=== PATIENT | female | born 1965 | race Caucasian/White ===

== ENCOUNTER 2022-09-21 09:29 | Outpatient (CLI) | payer OTHER | END 2022-09-21 09:50 | disposition home or self-care (01) | LOC: LABPAT 09:29 | PROVIDERS: ATTEND Orthopaedic Surgery Hand Surgery | DX: Z53.9 Procedure and treatment not carried out, unspecified reason (principal) ==

== ENCOUNTER 2022-10-06 11:53 | Day surgery (SDC) | payer OTHER ==
[2022-10-04 10:44] VITALS: BMI 36.6
--- NOTE | 2022-10-04 13:26 | P.HPOR ---
History of Present Illness H&P Date: 10/04/22 Chief Complaint: Right thumb trigger finger, right carpal tunnel syndrome Subjective: This is a 56 year old female that presents today for follow up evaluation regarding follow up of her bilateral hand numbness and EMG/NCV results. Her symptoms are still present and are slightly worse on the right. Her thumb, index, middle and ring finger are involved in her paresthesias. She also complains of a month long history or worsening pain, locking, catching and clicking of the thumb that is worse in the morning. She has tried splinting with little relief. Physical Examination: RUE: AIN/PIN/Radial/Ulnar/Median motor intact. Radial/Ulnar/Median SILT. 2+/4 Radial/Ulnar pulses palpated. Positive Durkan's compression. TTP over thumb A1 abl with locking/ catching. LUE: AIN/PIN/Radial/Ulnar/Median motor intact. Radial/Ulnar/Median SILT. 2+/4 Radial/Ulnar pulses palpated. Positive Durkan's compression test. Imaging: EMG/NCV of B/L Upper extremities from 08/16/22 demonstrate bilateral carpal tunnel syndrome, moderate on the left, moderate/severe on right Impression: 1.) B/L Carpal tunnel syndrome 2.) Right thumb trigger finger Plan: Diagnosis and treatment options were discussed with the patient. I recommend surgical intervention due to the length and severity of her symptoms in the form of a right endoscopic vs open carpal tunnel release and right thumb A1 bal release. Risks and benefits of surgery including bleeding, infection, damage to surrounding tissue, need for further surgery, possible need to convert to open procedure, residual numbness were discussed and the patient wished to go forward with surgery. The patient was agreeable with this plan of action. Follow up: 2 weeks post op -Ash Bueno DO Orthopedic Hand/Upper Extremity Surgeon Past Medical History Past Medical History: COPD, Eye Disorder, GERD/Reflux, Hyperlipidemia, Hypertension, Osteoarthritis (OA) Additional Past Medical History / Comment(s): glaucoma History of Any Multi-Drug Resistant Organisms: None Reported Past Surgical History: Orthopedic Surgery, Tubal Ligation Additional Past Surgical History / Comment(s): bunionectomy-lt. LT KNEE SX. COLONOSCOPY Past Anesthesia/Blood Transfusion Reactions: Postoperative Nausea & Vomiting (PONV) Smoking Status: Former smoker - Past Family History Mother Family Medical History: CVA/TIA Father History Unknown: Yes Family Medical History: Cancer, Myocardial Infarction ([place]) Medications and Allergies Home Medications Medication Instructions Recorded Confirmed Type Latanoprost [Xalatan 0.005%] 1 drop BOTH EYES HS 08/30/16 10/04/22 History Albuterol Sulfate [Ventolin HFA] 1 - 2 puff INHALATION Q6H PRN 10/04/22 10/04/22 History Aspirin EC [Ecotrin Low Dose] 81 mg PO DAILY 10/04/22 10/04/22 History Atorvastatin [Lipitor] 40 mg PO HS 10/04/22 10/04/22 History Azithromycin [Zithromax] 250 mg PO MOWEFR 10/04/22 10/04/22 History Celecoxib [CeleBREX] 200 mg PO DAILY 10/04/22 10/04/22 History Dorzolamide 2% [Trusopt 2%] 1 drops BOTH EYES DAILY 10/04/22 10/04/22 History Fluticasone/Umeclidin/Vilanter 1 inhalation INHALATION DAILY 10/04/22 10/04/22 History [Trelegy Ellipta 100-62.5-25] Metoprolol Tartrate 12.5 mg PO DAILY 10/04/22 10/04/22 History Omeprazole 20 mg PO BID 10/04/22 10/04/22 History Allergies Allergy/AdvReac Type Severity Reaction Status Date / Time codeine Allergy Anaphylaxis Verified 10/04/22 10:23 hydrocodone Allergy Anaphylaxis Verified 10/04/22 10:23 Penicillins AdvReac Nausea & Verified 10/04/22 10:23 Vomiting Physical Examination Osteopathic Statement: *. No significant issues noted on an osteopathic structural exam other than those noted in the History and Physical/Consult.
[~2022-10-06 11:53] MED LIST: DEXAMETHASONE SOD PHOSPHATE 4 MG/ML 1 ML VIAL IV ONE; LACTATED RINGERS 1,000 ML IV SCH; MIDAZOLAM 2 MG/2 ML VIAL IV PRN; ONDANSETRON 4 MG/2 ML VIAL IVP ONE; Pre Op ABX Message 1 EACH MISC MISCELLANE ONE; SCOPOLAMINE 1 MG/72 HR PATCH TRANSDERM ONE; fentaNYL (PF) 50 MCG/ML 2 ML AMP IV PRN
[2022-10-06 12:26] VITALS: TEMP 97.8
[2022-10-06] MEDS ORDERED: MIDAZOLAM 2 MG/2 ML VIAL ONE (12:55)
[2022-10-06] MEDS ORDERED: fentaNYL (PF) 50 MCG/ML 2 ML AMP ONE (12:55)
[2022-10-06] MEDS ORDERED: LIDOCAINE 2% INJ 20 MG/ML (2 ML VIAL) ONE (12:55)
[2022-10-06] MEDS ORDERED: PROPOFOL 10 MG/ML 20 ML VIAL IV ONE (12:55)
[2022-10-06] MEDS ORDERED: LIDOCAINE 2% (PF) 20 MG/ML 10 ML AMP SQ ONE (12:59)
[2022-10-06] MEDS ORDERED: BUPIVACAINE (PF) 0.5% 30 ML VIAL SQ ONE (12:59)
--- NOTE | 2022-10-06 13:27 | P.OP ---
Date of Procedure: 10/06/22 Preoperative Diagnosis: 1.) Right carpal tunnel syndrome 2.) Right trigger thumb Postoperative Diagnosis: 1.) Right carpal tunnel syndrome 2.) Right trigger thumb Procedure(s) Performed: 1.) Right endoscopic carpal tunnel release 2.) Right trigger thumb A1 bal release Anesthesia: MAC Surgeon: Ash Bueno Electrician Supervisor #1: Mark Matos Estimated Blood Loss (ml): 0 Pathology: none sent Condition: stable Disposition: PACU Description of Procedure: This is a 56 year old female who presents today for a right endoscopic carpal tunnel release and right trigger thumb A1 bal release after having failed conservative treatment in the past. Risks and benefits of surgery were discussed with the patient including bleeding, damage to surrounding tissue, infection, need to convert to open procedure, need for further surgery as well as risks of anesthesia including pulmonary embolism and even and the patient wished to proceed with surgical intervention. The patients was seen in the pre-operative area by myself. Consent and H&P were completed and updated. The correct extremity was marked in the pre-operative area by myself and all other questions were answered. Operative Narrative: The patient was brought to the operating room by the department of anesthesia. They remained on the portable stretcher and a rolling hand table was brought to the side of the operative extremity. Pre-operative time out was performed indicating the correct patient, procedure and laterality. All in the room agreed. The patient was then drifted off to sleep by the department of anesthesia. MAC anesthesia was utilized and a 50:50 mixture of 1% Lidocaine and 0.5% bupivacaine was injected into the subcutaneous tissues of the palmar skin, 8ccs total. A nonsterile tourniquet was then applied to the operative extremity and the right upper extremity was then prepped and draped in normal sterile fashion. The operative extremity was the exsanguinated with an esmarch bandage and the tourniquet was inflated to 250mmHg. Transverse incision was made at the base of the thumb overlying the A1 bal. Blunt dissection was taken down to the level of the A1 bal. Ragnell retractors were placed both radially and ulnarly to protect neurovascular bundles. Littler tenotomy scissors were then used to release the A1 bal from proximal to distal under direct visualization. Proximal fascial attachments were released. The tendon was then taken through range of motion and no locking or catching was appreciated. The wound was then closed with interrupted 4-0 nylon sutures in a horizontal mattress fashion. 15 blade scalpel was utilized to make a transverse incision on the palmar skin just ulnar to the palmaris longus tendon at the level of the distal wrist crease. Ragnell retractor was then placed radially and blunt dissection was performed to reveal the distal forearm fascia. This was lifted with fine Jose Francisco pick ups and Littler tenotomy scissors were then used to open the forearm fascia transversely and a double skin hook was then placed. Hamate finder was placed into the carpal tunnel and then sequential sized dilators were inserted followed by the synovial elevator to separate the flexor tenosynovium from the undersurface of the transverse carpal ligament and a washboard texture was felt. The [employer] endoscopic carpal tunnel release system gun was the then inserted into the carpal tunnel hugging the deep portion of the transverse carpal ligament in line with the base of the ring finger. Transverse fibers of the ligament were directly visualized. Pressure was applied on the palm to reveal the distal extent of the transverse carpal ligament. The blade was then deployed and the distal half of the transverse carpal ligament was released. The scope was then brought distal again and remaining transverse fibers were incised with the blade. The proximal half of the transverse carpal ligament was then divided and again the scope was advanced distal and remaining transverse fibers were incised with the blade. The radial and ulnar leaflets were directly visualized and mobile consistent with complete release. Tenotomy scissors were then utilized to release the remaining distal forearm fascia under direct vi sualization taking care to preserve the palmar cutaneous branch of the median nerve. Skin closure was performed with interrupted 4-0 Monocryl suture followed by Mastisol and steri strips. Sterile dressing was applied consisting of adaptic, 4x4s, Webril, and an tigre bandage. Tourniquet was let down and the hand immediately was well perfused. The patient was then woken by the department of anesthesia and transferred to PACU in stable condition. Mark BOOTHE was present for the case in its entirety and assisted in major portions of the case and protection of vital neurovascular structures. Ash Bueno D.O. Orthopedic Hand/Upper Extremity Surgeon
[2022-10-06 13:47] VITALS: BP 119/83; PULSE 83; RESP 14
== END 2022-10-06 14:04 | disposition home or self-care (01) ==
LOC: OR 11:53
PROVIDERS: ATTEND Orthopaedic Surgery Hand Surgery
DX: G56.03 Carpal tunnel syndrome, bilateral upper limbs (principal); M65.311 Trigger thumb, right thumb; J44.9 Chronic obstructive pulmonary disease, unspecified; E78.5 Hyperlipidemia, unspecified; I10 Essential (primary) hypertension; M19.90 Unspecified osteoarthritis, unspecified site; F41.9 Anxiety disorder, unspecified; K21.9 Gastro-esophageal reflux disease without esophagitis; Z86.69 Personal history of other diseases of the nervous system and sense organs; Z98.51 Tubal ligation status; Z98.890 Other specified postprocedural states; Z87.891 Personal history of nicotine dependence; Z82.3 Family history of stroke; Z82.49 Family history of ischemic heart disease and other diseases of the circulatory system; Z79.899 Other long term (current) drug therapy; Z79.51 Long term (current) use of inhaled steroids; Z79.82 Long term (current) use of aspirin; Z79.1 Long term (current) use of non-steroidal anti-inflammatories (NSAID); Z79.02 Long term (current) use of antithrombotics/antiplatelets; Z79.2 Long term (current) use of antibiotics; Z79.810 Long term (current) use of selective estrogen receptor modulators (SERMs); Z88.5 Allergy status to narcotic agent; Z88.0 Allergy status to penicillin
CPT/HCPCS: 29848; 26055; J2250; J1100; J2001 ×2; J2405; J3010; J2704

== ENCOUNTER 2023-11-30 16:21 | Observation (INO) | payer OTHER ==
--- NOTE | 2023-11-30 16:44 | ED ---
General Adult HPI - General Stated complaint: chest pain Time Seen by Provider: 11/30/23 16:43 Source: patient, RN notes reviewed - History of Present Illness Initial comments: 57-year-old female presents to the emergency department for evaluation of left- sided chest pressure. She states that this started today around noon. Has been constant since that time associated with shortness of breath. She has had similar episodes in the past. Medical history significant for COPD, hypertension. She has had no prior cardiac events. She follows with Dr. Cuevas for her blood pressure. - Related Data Home Medications Medication Instructions Recorded Confirmed Latanoprost [Xalatan 0.005%] 1 drop BOTH EYES HS 08/30/16 11/30/23 Albuterol Sulfate [Ventolin HFA] 1 - 2 puff INHALATION RT-Q6H PRN 10/04/22 11/30/23 Aspirin EC [Ecotrin Low Dose] 81 mg PO DAILY 10/04/22 11/30/23 Azithromycin [Zithromax] 250 mg PO MOTUWE 10/04/22 11/30/23 Celecoxib [CeleBREX] 200 mg PO DAILY 10/04/22 11/30/23 Dorzolamide 2% [Trusopt 2%] 1 drop BOTH EYES BID 10/04/22 11/30/23 Fluticasone/Umeclidin/Vilanter 1 puff INHALATION RT-DAILY 10/04/22 11/30/23 [Trelegy Ellipta 100-62.5-25] Omeprazole 20 mg PO BID 10/04/22 11/30/23 Fenofibrate Nanocrystallized 48 mg PO HS 11/30/23 11/30/23 [Fenofibrate] Losartan [Cozaar] 25 mg PO DAILY 11/30/23 11/30/23 Rosuvastatin Calcium [Crestor] 40 mg PO HS 11/30/23 11/30/23 Allergies Allergy/AdvReac Type Severity Reaction Status Date / Time codeine Allergy Anaphylaxis Verified 11/30/23 20:40 hydrocodone Allergy Anaphylaxis Verified 11/30/23 20:40 Penicillins AdvReac Yeast Verified 11/30/23 20:40 infections Review of Systems ROS Statement: Those systems with pertinent positive or pertinent negative responses have been documented in the HPI. ROS Other: All systems not noted in ROS Statement are negative. Past Medical History Past Medical History: COPD, Eye Disorder, GERD/Reflux, Hyperlipidemia, Hypertension, Osteoarthritis (OA) Additional Past Medical History / Comment(s): glaucoma History of Any Multi-Drug Resistant Organisms: None Reported Past Surgical History: Orthopedic Surgery, Tubal Ligation Additional Past Surgical History / Comment(s): bunionectomy-lt. LT KNEE SX. CO LONOSCOPY Past Anesthesia/Blood Transfusion Reactions: Postoperative Nausea & Vomiting (PONV) Smoking Status: Former smoker - Past Family History Mother Family Medical History: CVA/TIA Father History Unknown: Yes Family Medical History: Cancer, Myocardial Infarction ([place]) General Exam Limitations: no limitations General appearance: alert, in no apparent distress Head exam: Present: atraumatic, normocephalic, normal inspection Eye exam: Present: normal appearance, PERRL, EOMI. Absent: scleral icterus, conjunctival injection, periorbital swelling ENT exam: Present: normal exam, mucous membranes moist Neck exam: Present: normal inspection. Absent: tenderness, meningismus, lymphadenopathy Respiratory exam: Present: normal lung sounds bilaterally. Absent: respiratory distress, wheezes, rales, rhonchi, stridor Cardiovascular Exam: Present: regular rate, normal rhythm, normal heart sounds. Absent: systolic murmur, diastolic murmur, rubs, gallop, clicks GI/Abdominal exam: Present: soft, normal bowel sounds. Absent: distended, tenderness, guarding, rebound, rigid Extremities exam: Present: normal inspection, full ROM, normal capillary refill. Absent: tenderness, pedal edema, joint swelling, calf tenderness Back exam: Present: normal inspection Neurological exam: Present: alert, oriented X3 Psychiatric exam: Present: normal affect, normal mood Skin exam: Present: warm, dry, intact, normal color. Absent: rash Course Vital Signs 11/30/23 11/30/23 17:14 21:00 Temperature 97.8 F Pulse Rate 95 82 Respiratory 18 18 Rate Blood Pressure 121/82 122/82 O2 Sat by Pulse 98 96 Oximetry Medical Decision Making - Medical Decision Making Quick note preformed by Angélica Barroso PA-C Was pt. sent in by a medical professional or institution ([facility] Castaneda, DEMURRAGE CLERK, urgent care, hospital, or usp...) When possible be specific @ -No Did you speak to anyone other than the patient for history (EMS, parent, family, police, friend...)? What history was obtained from this source @ -No Did you review nursing and triage notes (agree or disagree)? Why? @ -I reviewed and agree with nursing and triage notes Were old charts reviewed (outside hosp., previous admission, EMS record, old EKG, old radiological studies, urgent care reports/EKG's, usp records)? Report findings @ -No old charts were reviewed Differential Diagnosis (chest pain, altered mental status, abdominal pain women, abdominal pain men, vaginal bleeding, weakness, fever, dyspnea, syncope, headache, dizziness, GI bleed, back pain, seizure, CVA, palpatations, mental he alth, musculoskeletal)? @ -Differential Chest Pain: Stable Angina, Unstable Angina, STEMI, NSTEMI Aortic Dissection, Pneumothorax, Musculoskeletal, Esophageal Spasm GERD, Cholecystitis, Pancreatitis, Zoster, this is not meant to be an all-inclusive list. EKG interpreted by me (3pts min.). @ -EKG at 1643 shows sinus rhythm rate 96, MN 146, QRS 77, QTQTc [id number] X-rays interpreted by me (1pt min.). @ -Chest x-ray obtained shows no acute process CT interpreted by me (1pt min.). @ -CT chest for PE shows no evidence of PE U/S interpreted by me (1pt. min.). @ -None done What testing was considered but not performed or refused? (CT, X-rays, U/S, labs)? Why? @ -None What meds were considered but not given or refused? Why? @ -None Did you discuss the management of the patient with other professionals (professionals i.e. , PA, DEMURRAGE CLERK, lab, RT, psych nurse, web content & social media manager, gage designer, teacher, strategic intelligence officer, rifle case repairer)? Give summary @ -Management discussed with Joce Nicolas with [facility] hospitalist who is accepting of the admission Was smoking cessation discussed for >3mins.? @ -No Was critical care preformed (if so, how long)? @ -No Were there social determinants of health that impacted care today? How? (Homelessness, low income, unemployed, alcoholism, drug addiction, t ransportation, low edu. Level, literacy, decrease access to med. care, nursing home, rehab)? @ -No Was there de-escalation of care discussed even if they declined (Discuss DNR or withdrawal of care, Hospice)? DNR status @ -No What co-morbidities impacted this encounter? (DM, HTN, Smoking, COPD, CAD, Cance r, CVA, ARF, Chemo, Hep., AIDS, mental health diagnosis, sleep apnea, morbid obesity)? @ -Hypertension, COPD Was patient admitted / discharged? Hospital course, mention meds given and route, prescriptions, significant lab abnormalities, going to OR and other pertinent info. @ -Admitted for observation. Patient presented to the emergency department for evaluation of left-sided chest pain. Past medical history significant for COPD, hypertension. Laboratory studies obtained. CBC unremarkable. D-dimer elevated at 1.01. CMP shows sodium 140, potassium 4.0, creatinine 0.73 negative initial troponin and negative repeat troponin. Chest x-ray shows no acute process. CT chest obtained which shows no evidence of PE. Patient will be admitted for chest pain observation with cardiology consultation. Case discussed with Joce Nicolas with [facility] who is accepting of the admission Undiagnosed new problem with uncertain prognosis? @ -No Drug Therapy requiring intensive monitoring for toxicity (Heparin, Nitro, Insulin, Cardizem)? @ -No Were any procedures done? @ -No Diagnosis/symptom? @ -Chest pain Acute, or Chronic, or Acute on Chronic? @ -Acute Uncomplicated (without systemic symptoms) or Complicated (systemic symptoms)? @ -uncomplicated Side effects of treatment? @ -No Exacerbation, Progression, or Severe Exacerbation? @ -No Poses a threat to life or bodily function? How? (Chest pain, [place], [place], pneumonia, PE, COPD, DKA, ARF, appy, cholecystitis, CVA, Diverticulitis, Homicidal, S uicidal, threat to staff... and all critical care pts) @ -No - Lab Data Result diagrams: 11/30/23 16:58 11/30/23 16:58 Lab Results 11/30/23 11/30/23 11/30/23 Range/Units 16:58 16:58 16:58 WBC 8.6 (3.8-10.6) k/uL RBC 5.14 (3.80-5.40) m/uL Hgb 15.3 (11.4-16.0) gm/dL Hct 45.2 (34.0-46.0) % MCV 88.0 (80.0-100.0) fL MCH 29.7 (25.0-35.0) pg MCHC 33.8 (31.0-37.0) g/dL RDW 13.2 (11.5-15.5) % Plt Count 257 (150-450) k/uL MPV 7.4 Neutrophils % 73 % Lymphocytes % 19 % Monocytes % 6 % Eosinophils % 1 % Basophils % 0 % Neutrophils # 6.2 (1.3-7.7) k/uL Lymphocytes # 1.6 (1.0-4.8) k/uL Monocytes # 0.5 (0-1.0) k/uL Eosinophils # 0.1 (0-0.7) k/uL Basophils # 0.0 (0-0.2) k/uL PT 10.3 (10.0-12.5) sec INR 0.9 (<1.2) APTT 24.8 (22.0-30.0) sec D-Dimer (<0.60) mg/L FEU Sodium 140 (137-145) mmol/L Potassium 4.0 (3.5-5.1) mmol/L Chloride 105 (98-107) mmol/L Carbon Dioxide 22 (22-30) mmol/L Anion Gap 13 mmol/L BUN 17 (7-17) mg/dL Creatinine 0.79 (0.52-1.04) mg/dL Est GFR (CKD-EPI)AfAm >90 (>60 ml/min/1.73 sqM) Est GFR (CKD-EPI)NonAf 85 (>60 ml/min/1.73 sqM) Glucose 97 (74-99) mg/dL Calcium 10.9 H (8.4-10.2) mg/dL Magnesium 2.0 (1.6-2.3) mg/dL Total Bilirubin 0.7 (0.2-1.3) mg/dL AST 31 (14-36) U/L ALT 27 (4-34) U/L Alkaline Phosphatase 92 (38-126) U/L Troponin I (0.000-0.034) ng/mL Total Protein 8.5 H (6.3-8.2) g/dL Albumin 5.5 H (3.5-5.0) g/dL 11/30/23 11/30/2324 Range/Units 16:58 16:58 19:47 WBC (3.8-10.6) k/uL RBC (3.80-5.40) m/uL Hgb (11.4-16.0) gm/dL Hct (34.0-46.0) % MCV (80.0-100.0) fL MCH (25.0-35.0) pg MCHC (31.0-37.0) g/dL RDW (11.5-15.5) % Plt Count (150-450) k/uL MPV Neutrophils % % Lymphocytes % % Monocytes % % Eosinophils % % Basophils % % Neutrophils # (1.3-7.7) k/uL Lymphocytes # (1.0-4.8) k/uL Monocytes # (0-1.0) k/uL Eosinophils # (0-0.7) k/uL Basophils # (0-0.2) k/uL PT (10.0-12.5) sec INR (<1.2) APTT (22.0-30.0) sec D-Dimer 1.01 H (<0.60) mg/L FEU Sodium (137-145) mmol/L Potassium (3.5-5.1) mmol/L Chloride (98-107) mmol/L Carbon Dioxide (22-30) mmol/L Anion Gap mmol/L BUN (7-17) mg/dL Creatinine (0.52-1.04) mg/dL Est GFR (CKD-EPI)AfAm (>60 ml/min/1.73 sqM) Est GFR (CKD-EPI)NonAf (>60 ml/min/1.73 sqM) Glucose (74-99) mg/dL Calcium (8.4-10.2) mg/dL Magnesium (1.6-2.3) mg/dL Total Bilirubin (0.2-1.3) mg/dL AST (14-36) U/L ALT (4-34) U/L Alkaline Phosphatase (38-126) U/L Troponin I <0.012 <0.012 (0.000-0.034) ng/mL Total Protein (6.3-8.2) g/dL Albumin (3.5-5.0) g/dL Disposition Clinical Impression: Chest pain Disposition: ADMITTED IP TO THIS HOSP Condition: Stable Is patient prescribed a controlled substance at d/c from ED?: No
--- NOTE | 2023-11-30 17:12 | XR ---
EXAMINATION TYPE: XR chest 2V DATE OF EXAM: 11/30/2023 5:09 PM CLINICAL INDICATION:Female, 57 years old with history of Chest Pain; [facility] COMPARISON: Chest radiographs from 09/17/2016 TECHNIQUE: XR chest 2V Frontal and lateral views of the chest. FINDINGS: Lungs/Pleura: There is flattening of the diaphragm with increased lucency of the lungs. No evidence o f pneumothorax, pleural effusion or focal consolidation. Pulmonary vascularity: Unremarkable. Heart/mediastinum: Cardiomediastinal silhouette is unremarkable. Musculoskeletal: No acute osseous pathology. Other findings: None IMPRESSION: 1. No acute cardiopulmonary disease process. 2. COPD changes.
[2023-11-30 17:33] LABS: Basophils % (A) 0 %; Eosinophils # (A) 0.1 k/uL (0-0.7); Eosinophils % (A) 1 %; HCT 45.2 % (34.0-46.0); HGB 15.3 gm/dL (11.4-16.0); Lymphocytes # (A) 1.6 k/uL (1.0-4.8); Lymphocytes % (A) 19 %; MCH 29.7 pg (25.0-35.0); MCHC 33.8 g/dL (31.0-37.0); Mean Platelet Volume 7.4; Monocytes # (A) 0.5 k/uL (0-1.0); Monocytes % (A) 6 %; Neutrophils # (A) 6.2 k/uL (1.3-7.7); Neutrophils % (A) 73 %; Platelet Count 257 k/uL (150-450); RBC 5.14 m/uL (3.80-5.40); RDW 13.2 % (11.5-15.5); WBC 8.6 k/uL (3.8-10.6)
[2023-11-30 17:44] LABS: ALT 27 U/L (4-34); AST 31 U/L (14-36); African American GFR (CKD) >90 (>60 ml/min/1.73 sqM); Albumin 5.5 g/dL (3.5-5.0); Alkaline Phosphatase 92 U/L (38-126); Anion Gap 13 mmol/L; Blood Urea Nitrogen 17 mg/dL (7-17); Calcium 10.9 mg/dL (8.4-10.2); Carbon Dioxide 22 mmol/L (22-30); Chloride 105 mmol/L (98-107); Glucose 97 mg/dL (74-99); Non-African American GFR(CKD) 85 (>60 ml/min/1.73 sqM); Sodium 140 mmol/L (137-145); Total Bilirubin 0.7 mg/dL (0.2-1.3); Total Protein 8.5 g/dL (6.3-8.2)
[2023-11-30 17:50] LABS: INR 0.9 (<1.2); Partial Thromboplastin Time 24.8 sec (22.0-30.0); Prothrombin Time 10.3 sec (10.0-12.5)
[2023-11-30] MEDS ORDERED: KETOROLAC 15 MG/ML 1 ML VIAL IVP STA (21:08)
--- NOTE | 2023-11-30 21:11 | CT ---
EXAMINATION TYPE: CT chest angio for PE CT DLP: 476.3 mGycm, Automated exposure control for dose reduction was used. DATE OF EXAM: 11/30/2023 8:41 PM COMPARISON: 08/30/2016 CLINICAL INDICATION:Female, 57 years old with history of chest pain, dyspnea, elevated dimer; chest p ain and elevated d-dimer TECHNIQUE/CONTRAST: CTA scan of the thorax is performed with IV Contrast, patient injected with 61ml mL of Isovue 370, NE P images are created and reviewed these are created on a separate workstation.. FINDINGS: Pulmonary Artery: There is no evidence for a filling defect within the pulmonary vasculature to sugge st acute pulmonary embolism. The pulmonary artery is of normal size. Lungs/Pleura: Paraseptal and centrilobular emphysema changes are seen throughout the lungs. Right upper lung ground glass opacities redemonstrated close proximity to each other measuring 6 and 6 mm series 411 image 36 and 38. The more medial of which appears new from prior in 2016. Groundglass opacity is also present in the right middle lobe which is increased in size now measuring 8 mm, prev iously 3 mm series 411 image 83. Intrafissural lymph node series 411 image 87. In the left major fiss ure No evidence of focal consolidation, pleural effusion or pneumothorax. Airway: Large airways are patent. Heart: Heart is within normal limits for size. Vasculature: No evidence of aortic aneurysm. Mediastinum: No gross evidence of adenopathy. Small hiatal hernia. Musculoskeletal: No acute osseous abnormalities Soft Tissues: Unremarkable. Lower neck: No significant findings. Upper Abdomen: No significant findings. IMPRESSION: 1. No evidence of pulmonary embolism. 2. A few scattered groundglass pulmonary nodules yearly surveillance of these nodules is recommended as some have increased in size from 2016 and may represent minimally invasive bronchiolo short-term f ollow-up in 3-6 months recommended alveolar carcinoma. 3. Moderate emphysema. 4. Small hiatal hernia. Follow up recommendations for incidental pulmonary nodules, if there are any, are per [employer] or [employer].
[2023-11-30] MEDS ORDERED: KETOROLAC 15 MG/ML 1 ML VIAL IVP PRN (21:24)
[2023-11-30] MEDS ORDERED: MORPHINE SULFATE 4 MG/ML SYRINGE IV PRN (21:24)
[2023-11-30] MEDS ORDERED: NALOXONE 0.4 MG/ML 1 ML VIAL IV PRN (21:24)
[2023-11-30] MEDS ORDERED: ACETAMINOPHEN TAB 325 MG TAB PO PRN (21:24)
[2023-11-30] MEDS ORDERED: IBUPROFEN 400 MG TAB PO PRN (21:24)
[2023-11-30] MEDS ORDERED: LATANOPROST 0.005% OPHTH DROPS 2.5 ML BTL BOTH EYES SCH (23:15)
[2023-11-30] MEDS ORDERED: FENOFIBRATE 54 MG TAB PO SCH (23:30)
[2023-11-30] MEDS ORDERED: ATORVASTATIN 80 MG TAB PO SCH (23:30)
[2023-11-30] MEDS: PANTOPRAZOLE 40 MG TABLET PO SCH (23:34)
[2023-12-01] MEDS ORDERED: ALBUTEROL NEBULIZED 2.5 MG/3 ML INHALATION PRN (02:00)
[2023-12-01] MEDS ORDERED: SYMBICORT 80-4.5 MCG INHALER INHALATION SCH (08:00)
[2023-12-01] MEDS ORDERED: IPRATROPIUM-ALBUTEROL 3 ML NEB INHALATION PRN (08:00)
[2023-12-01] MEDS: PANTOPRAZOLE 40 MG TABLET PO SCH (08:19)
[2023-12-01] MEDS ORDERED: MELOXICAM 7.5 MG TAB PO SCH (09:00)
[2023-12-01] MEDS ORDERED: METOPROLOL SUCCINATE (ER) 25 MG TAB.ER.24H PO SCH (09:00)
[2023-12-01] MEDS ORDERED: DORZOLAMIDE HCL 2% DROPS 10 ML BTL BOTH EYES SCH (09:00)
[2023-12-01] MEDS ORDERED: ASPIRIN 81 MG PO SCH (09:00)
[2023-12-01] MEDS ORDERED: LOSARTAN 25 MG TAB PO SCH (09:00)
--- NOTE | 2023-12-01 09:54 | P.CRDCN ---
History of Present Illness History of present illness: HISTORY OF PRESENT ILLNESS: This is a 57-year-old female with a past medical history significant for mild CAD, hypertension, COPD, GERD, and former nicotine dependence. Patient follows in the office with Dr. Cuevas. We have been asked to see the patient in consultation for chest pain. Patient examined at the bedside. Patient presented to the hospital yesterday with a chief complaint of palpitations. She states that she has been feeling her heart racing once or twice a week recently. She reports when this happens her chest feels tight as well. She reports the palpitations are random and can occur when she is just sitting down. She states the palpitations sometimes wake her up from a sleep as well. She reports that she has been using her albuterol inhaler more frequently and thinks her palpitations may be related to that. She reports chronic shortness of breath that is not any worse than her baseline. She states that she was at [facility] on November 14 for palpitations. She states that she was discharged from the emergency room and did not undergo any cardiac workup such as an echocardiogram or stress test. DIAGNOSTICS: - EKG reveals sinus mechanism with no signs of acute ischemia. - Chest xray negative for acute process. COPD changes. - Chest CTA: Negative for pulmonary embolism. A few scattered groundglass pulmonary nodules. Moderate emphysema. Small hiatal hernia. - Laboratory data: WBC 8.6. Hemoglobin 15.3. Platelet count 257. D-dimer 1.01. Sodium 140. Potassium 4.0. BUN 17. Creatinine 0.79. Magnesium 2.0. Troponin negative x 3. - Current home cardiac medications include losartan 25 mg daily and rosuvastatin 40 mg at night - Most recent echocardiogram obtained in February 2023 revealed ejection fraction 55 to 60%, mild MR, mild TR - Patient underwent Lexiscan stress test in February 2023 which was negative for ischemia REVIEW OF SYSTEMS: At the time of my exam: CONSTITUTIONAL: Denies fever or chills. HEENT: Denies blurred vision, vision changes, or eye pain. Denies hemoptysis CARDIOVASCULAR: Denies chest pain. Denies orthopnea. Denies PND. Denies palpitations RESPIRATORY: Denies shortness of breath. GASTROINTESTINAL: Denies abdominal pain. Denies nausea or vomiting. HEMATOLOGIC: Denies bleeding disorders. GENITOURINARY: Denies any blood in urine. SKIN: Denies pruitis. Denies rash. PHYSICAL EXAM: VITAL SIGNS: Reviewed. GENERAL: Well-developed in no acute distress. HEENT: Head is normocephalic. Pupils are equal, round. Sclerae anicteric. Mucous membranes of the mouth are moist. Neck supple. No JVD or thyromegaly LUNGS: Respirations even and unlabored. Lungs essentially clear to auscultation bilaterally. HEART: Regular rate and rhythm. S1 and S2 heard. ABDOMEN: Soft. Nondistended. Nontender. EXTREMITIES: Normal range of motion. No clubbing or cyanosis. Peripheral pulses intact. No lower extremity edema NEUROLOGIC: Awake and alert. Oriented x 3. ASSESSMENT: Palpitations with recent increased albuterol use Atypical chest pain, likely secondary to above, troponin negative x 3 Pulmonary nodules, Per CTA Hypertension History of COPD History of mild nonobstructive CAD GERD Former nicotine dependence PLAN: An acute coronary event has been ruled out Resume home cardiac medications Add metoprolol succinate 25 mg daily Recommend patient follow-up postdischarge with her jewelry designer due to increa sed use of her albuterol inhaler and pulmonary nodules Patient may be discharged home today from a cardiac standpoint Patient to receive a 14-day event monitor from [facility] today She is to follow-up with Dr. Cuevas in 3 weeks Nurse practitioner note has been reviewed by physician. Signing provider agrees with the documented findings, assessment, and plan of care documented by AIRPLANE CAPTAIN as a scribe. Past Medical History Past Medical History: COPD, Eye Disorder, GERD/Reflux, Hyperlipidemia, Hypertension, Osteoarthritis (OA) Additional Past Medical History / Comment(s): glaucoma History of Any Multi-Drug Resistant Organisms: None Reported Past Surgical History: Orthopedic Surgery, Tubal Ligation Additional Past Surgical History / Comment(s): bunionectomy-lt. LT KNEE SX. COLONOSCOPY. Carpal tunnel surgery on right hand. Past Anesthesia/Blood Transfusion Reactions: Postoperative Nausea & Vomiting (PONV) Past Psychological History: Anxiety Smoking Status: Former smoker Past Alcohol Use History: None Reported Additional Past Alcohol Use History / Comment(s): QUIT SMOKING 01/2017 Past Drug Use History: None Reported - Past Family History Mother Family Medical History: CVA/TIA Father History Unknown: Yes Family Medical History: Cancer, Myocardial Infarction ([place]) Medications and Allergies Home Medications Medication Instructions Recorded Confirmed Type Latanoprost [Xalatan 0.005%] 1 drop BOTH EYES HS 08/30/16 11/30/23 History Albuterol Sulfate [Ventolin HFA] 1 - 2 puff INHALATION RT-Q6H PRN 10/04/22 11/30/23 History Aspirin EC [Ecotrin Low Dose] 81 mg PO DAILY 10/04/22 11/30/23 History Azithromycin [Zithromax] 250 mg PO MOTUWE 10/04/22 11/30/23 History Celecoxib [CeleBREX] 200 mg PO DAILY 10/04/22 11/30/23 History Dorzolamide 2% [Trusopt 2%] 1 drop BOTH EYES BID 10/04/22 11/30/23 History Fluticasone/Umeclidin/Vilanter 1 puff INHALATION RT-DAILY 10/04/22 11/30/23 History [Trelegy Ellipta 100-62.5-25] Omeprazole 20 mg PO BID 10/04/22 11/30/23 History Fenofibrate Nanocrystallized 48 mg PO HS 11/30/23 11/30/23 History [Fenofibrate] Losartan [Cozaar] 25 mg PO DAILY 11/30/23 11/30/23 History Rosuvastatin Calcium [Crestor] 40 mg PO HS 11/30/23 11/30/23 History Allergies Allergy/AdvReac Type Severity Reaction Status Date / Time codeine Allergy Anaphylaxis Verified 11/30/23 20:40 hydrocodone Allergy Anaphylaxis Verified 11/30/23 20:40 Penicillins AdvReac Yeast Verified 11/30/23 20:40 infections Physical Exam Vitals: Vital Signs Temp Pulse Pulse Resp BP BP Pulse Ox 12/01/23 08:03 98 12/01/23 07:00 97.7 F 67 18 110/71 96 12/01/23 02:04 97.5 F L 73 15 107/74 99 11/30/23 22:39 98.2 F 84 15 141/61 96 11/30/23 21:00 82 18 122/82 96 11/30/23 17:14 97.8 F 95 18 121/82 98 Intake and Output 11/30/23 12/01/23 12/01/23 22:59 06:59 14:59 Other: Voiding Method Toilet Weight 90.718 kg Results 11/30/23 16:58 11/30/23 16:58 Cardiac Enzymes 11/30/23 11/30/23 11/30/23 Range/Units 16:58 16:58 19:47 AST 31 (14-36) U/L Troponin I <0.012 <0.012 (0.000-0.034) ng/mL 11/30/23 Range/Units 23:15 AST (14-36) U/L Troponin I <0.012 (0.000-0.034) ng/mL Coagulation 11/30/23 Range/Units 16:58 PT 10.3 (10.0-12.5) sec APTT 24.8 (22.0-30.0) sec CBC 11/30/23 Range/Units 16:58 WBC 8.6 (3.8-10.6) k/uL RBC 5.14 (3.80-5.40) m/uL Hgb 15.3 (11.4-16.0) gm/dL Hct 45.2 (34.0-46.0) % Plt Count 257 (150-450) k/uL Comprehensive Metabolic Panel 11/30/23 Range/Units 16:58 Sodium 140 (137-145) mmol/L Potassium 4.0 (3.5-5.1) mmol/L Chloride 105 (98-107) mmol/L Carbon Dioxide 22 (22-30) mmol/L BUN 17 (7-17) mg/dL Creatinine 0.79 (0.52-1.04) mg/dL Glucose 97 (74-99) mg/dL Calcium 10.9 H (8.4-10.2) mg/dL AST 31 (14-36) U/L ALT 27 (4-34) U/L Alkaline Phosphatase 92 (38-126) U/L Total Protein 8.5 H (6.3-8.2) g/dL Albumin 5.5 H (3.5-5.0) g/dL Current Medications Generic Name Dose Route Start Last Admin Trade Name Freq PRN Reason Stop Dose Admin Acetaminophen 650 mg 11/30/23 21:24 Acetaminophen Tab 325 Mg Tab PO Q6HR PRN Mild Pain or Fever > 100.5 Albuterol Sulfate 2.5 mg 12/01/23 02:00 Albuterol Nebulized 2.5 Mg/3 Ml INHALATION RT-Q6H PRN COPD Albuterol/Ipratropium 3 ml 12/01/23 08:00 Ipratropium-Albuterol 3 Ml Neb INHALATION RT-QID PRN Shortness Of Breath Or Wheezing Aspirin 81 mg 12/01/23 09:00 12/01/23 08:20 Aspirin 81 Mg PO 81 mg DAILY DEXTER Administration Atorvastatin Calcium 80 mg 11/30/23 23:30 11/30/23 23:34 Atorvastatin 80 Mg Tab PO 80 mg HS DEXTER Administration Budesonide/Formoterol Fumarate 2 puff 12/01/23 08:00 12/01/23 08:03 Symbicort 80-4.5 Mcg Inhaler INHALATION 2 puff RT-BID DEXTER Administration Dorzolamide HCl 1 drops 12/01/23 09:00 12/01/23 08:19 Dorzolamide Hcl 2% Drops 10 Ml Btl BOTH EYES 1 drops BID DEXTER Administration Fenofibrate 54 mg 11/30/23 23:30 11/30/23 23:34 Fenofibrate 54 Mg Tab PO 54 mg HS DEXTER Administration Ibuprofen 400 mg 11/30/23 21:24 Ibuprofen 400 Mg Tab PO Q6HR PRN Mild Pain or Fever > 100.5 Ketorolac Tromethamine 15 mg 11/30/23 21:24 Ketorolac 15 Mg/Ml 1 Ml Vial IVP 12/03/23 21:25 Q6HR PRN Moderate Pain (Scale 4 to 6) Latanoprost 1 drops 11/30/23 23:15 11/30/23 23:34 Latanoprost 0.005% Ophth Drops 2.5 Ml Btl BOTH EYES 1 drops HS DEXTER Administration Losartan Potassium 25 mg 12/01/23 09:00 12/01/23 08:19 Losartan 25 Mg Tab PO 25 mg DAILY DEXTER Administration Meloxicam 7.5 mg 12/01/23 09:00 12/01/23 08:17 Meloxicam 7.5 Mg Tab PO 7.5 mg DAILY DEXTER Administration Metoprolol Succinate 25 mg 12/01/23 09:00 12/01/23 08:24 Metoprolol Succinate (Er) 25 Mg Tab.Er.24h PO 25 mg DAILY DEXTER Administration Morphine Sulfate 4 mg 11/30/23 21:24 Morphine Sulfate 4 Mg/Ml Syringe IV Q4HR PRN Severe Pain (Scale 7 to 10) Naloxone HCl 0.2 mg 11/30/23 21:24 Naloxone 0.4 Mg/Ml 1 Ml Vial IV Q2M PRN Opioid Reversal Pantoprazole Sodium 40 mg 11/30/23 23:30 12/01/23 08:19 Pantoprazole 40 Mg Tablet PO 40 mg BID DEXTER Administration Intake and Output 11/30/23 12/01/23 12/01/23 22:59 06:59 14:59 Other: Voiding Method Toilet Weight 90.718 kg 11/30/23 16:58 11/30/23 16:58
--- NOTE | 2023-12-01 12:27 | CA ---
Transthoracic Echo Report Name: Love Levy Age: 57 Gender: F : 1965 Exam Date: 12/01/2023 09:19 Exam Location: [facility] Ht (in): 62 Wt (lb): 200 Ordering Physician: Maria G Peters NPC Attending/Referring Phys: Bernadette Peñaloza NPC Magistrate Assistant Lila Hammer RDCS Procedure CPT: Indications: LV function, CP, palpitations Cardiac Hx: Technical Quality: Fair Contrast 1: Total Dose (mL): Contrast 2: Total Dose (mL): MEASUREMENTS (Male / Female) Normal Values 2D ECHO LV Diastolic Diameter PLAX 4.1 cm 4.2 - 5.9 / 3.9 - 5.3 cm LV Systolic Diameter PLAX 2.7 cm IVS Diastolic Thickness 1.1 cm 0.6 - 1.0 / 0.6 - 0.9 cm LVPW Diastolic Thickness 1.2 cm 0.6 - 1.0 / 0.6 - 0.9 cm LV Relative Wall Thickness 0.6 RV Internal Dim ED PLAX 3.5 cm LA Systolic Diameter LX 3.4 cm 3.0 - 4.0 / 2.7 - 3.8 cm LV Diastolic Volume MOD 4C 87.9 cm??? LV Systolic Volume MOD 4C 29.0 cm??? LV Ejection Fraction MOD 4C 67.0 % LV Cardiac Index MOD 4C 1881.4 cm???/min???m??? LV Diastolic Length 4C 7.6 cm LV Systolic Length 4C 6.2 cm LV Diastolic Volume MOD 2C 49.2 cm??? LV Systolic Volume MOD 2C 20.2 cm??? LV Ejection Fraction MOD 2C 58.9 % LV Cardiac Index MOD 2C 924.9 cm???/min???m??? LV Diastolic Length 2C 7.5 cm LV Systolic Length 2C 6.4 cm LA Volume 45.3 cm??? 18 - 58 / 22 - 52 cm??? LA Volume Index 22.2 cm???/m??? 16 - 28 cm???/m??? M-MODE Aortic Root Diameter MM 3.0 cm MV E Point Septal Separation 0.7 cm AV Cusp Separation MM 1.7 cm DOPPLER AV Peak Velocity 150.0 cm/s AV Peak Gradient 9.0 mmHg MV Area PHT 2.6 cm??? Mitral E Point Velocity 75.0 cm/s Mitral A Point Velocity 84.2 cm/s Mitral E to A Ratio 0.9 MV Deceleration Time 293.6 ms MV E' Velocity 9.1 cm/s Mitral E to MV E' Ratio 8.3 TR Peak Velocity 231.9 cm/s TR Peak Gradient 21.5 mmHg Right Ventricular Systolic Press 26.5 mmHg FINDINGS Left Ventricle Left ventricular ejection fraction is estimated at 55-60 %. Left ventricular cavity size normal. Mild concentric LVH. No obvious regional wall motion abnormality Right Ventricle Mild right ventricular dilatation. Right ventricular systolic pressure within normal limits. Right Atrium Normal right atrial size. Left Atrium Normal left atrial size. Mitral Valve Structurally normal mitral valve. No mitral stenosis, regurgitation or prolapse. Aortic Valve Trileaflet aortic valve. No aortic valve stenosis or regurgitation. Tricuspid Valve Structurally normal tricuspid valve. Mild tricuspid regurgitation. Pulmonic Valve Pulmonic valve not well visualized. No pulmonic regurgitation. Pericardium No pericardial effusion. Aorta Normal size aortic root and proximal ascending aorta. CONCLUSIONS Left ventricular ejection fraction is estimated at 55-60 %. Mild concentric LVH. No obvious regional wall motion abnormality. No significant valvular dysfunction No significant chamber size abnormality No pericardial effusion Previewed by: Dr Markus Woo (Electronically Signed) Final Date: 01 December 2023 12:27
[2023-12-01 14:09] VITALS: BP 111/74; PULSE 77; RESP 16; TEMP 97.3
--- NOTE | 2023-12-01 14:54 | P.HPIM ---
History of Present Illness H&P Date: 12/01/23 This is a 57-year-old female who presented to the emergency department with chest pain and palpitations with left-sided chest pressure that started yesterday and was constant with continued fluttery feeling and did not subside. Patient also reports to having previous episodes in the past and associated shortness of breath. Patient reports she underwent stress testing earlier this summer and was within normal limits. Patient follows with Bernadette Peñaloza in the outpatient setting with a past medical history of COPD, eye disorder, GERD, hyperlipidemia, hypertension, osteoarthritis. Patient also follows with Dr. Cuevas in the outpatient setting as her industrial gas servicer and Dr. Telles as her telesales specialist. Patient is a former smoker and denies any other illicit drug use with no reported alcohol use. Chest x-ray showed COPD with no acute cardiopulmonary disease process, CTA showed no evidence of PE with a few scattered groundglass pulmonary nodules and these nodules appear to have slightly increased in size from 2016 recommending short-term follow-up in 3 to 6 months with moderate emphysema and a small hiatal hernia. EKG showed sinus rhythm with a heart rate of 96 bpm. Cardiology was consulted and ordered 2D echo which showed LV systolic function estimated EF of 55 to 60% with mild concentric left ventricular hypertrophy with no obvious regional wall motion abnormalities with some mild right ventricular dilatation and no significant abnormalities with no pericardial effusion noted. Labs reviewed and within normal limits other than the mildly elevated D-dimer of 1.01 which patient did undergo CTA which was negative for PE. Sodium was 140 with a potassium of 4.0, BUN was 17, creatinine 0.79, calcium mildly elevated at 10.9, magnesium was 2.0, liver functions within normal limits, troponins x 3 were negative. Patient was continued on telemetry monitoring with no obvious abnormalities or arrhythmias noted and has been cleared for discharge to follow-up with her industrial gas servicer in the outpatient setting and also to go to the cardiology's office today on dis charge to have an event monitor placed with close outpatient follow-up. REVIEW OF SYSTEMS: CONSTITUTIONAL: No fever, no malaise, no fatigue. HEENT: No recent visual problems or hearing problems. Denied any sore throat. CARDIOVASCULAR: Reports of chest pain, orthopnea, PND, reports occasional pa lpitations or flutters, no syncope. PULMONARY: No shortness of breath, no cough, no hemoptysis. GASTROINTESTINAL: No diarrhea, reports feeling slightly nauseated, no vomiting, no abdominal pain. NEUROLOGICAL: No headaches, no weakness, no numbness. HEMATOLOGICAL: Denies any bleeding or petechiae. GENITOURINARY: Denies any burning micturition, frequency, or urgency. MUSCULOSKELETAL/RHEUMATOLOGICAL: Denies any joint pain, swelling, or any muscle pain. ENDOCRINE: Denies any polyuria or polydipsia. The rest of the 14-point review of systems is negative. PHYSICAL EXAMINATION: GENERAL: The patient is alert and oriented x3. Well developed, well nourished. Obese HEENT: Pupils are round and equally reacting to light. EOMI. No scleral icterus. No conjunctival pallor. Normocephalic, atraumatic. No pharyngeal erythema. No thyromegaly. CARDIOVASCULAR: S1 and S2 muffled PULMONARY: Chest is clear to auscultation, no wheezing or crackles. ABDOMEN: Soft, obese. Nontender, nondistended, normoactive bowel sounds. No palpable organomegaly. MUSCULOSKELETAL: No joint swelling or deformity. EXTREMITIES: No cyanosis, clubbing, or pedal edema. NEUROLOGICAL: Gross neurological examination did not reveal any focal deficits. SKIN: No rashes. Assessment: Chest pain, ruled out ACS, troponins x 3 were negative Palpitations, likely secondary to increased albuterol use Pulmonary nodules per CTA noted and will have patient follow-up with Dr. Telles her telesales specialist in the outpatient setting Elevated D-dimer, ruled out PE History of COPD Hypertension history GERD Hyperlipidemia History of anxiety Former smoker Obesity with a BMI of 36.6 GI prophylaxis DVT prophylaxis Full code Plan: Patient was admitted for cardiology evaluation underwent 2D echo within normal limits and continued on telemetry monitoring with no abnormalities noted. Cardiology recommending an event monitor be placed on discharge and patient has been instructed to report to the cardiology office to have this placed with close outpatient follow-up with her industrial gas servicer Dr. Cuevas Patient did have an elevated D-dimer and underwent CTA which was negative for PE although there are groundglass nodules noted that have changed in size since 2016 recommend outpatient follow-up with her telesales specialist Dr. Telles. Patient reports she was never told of any abnormalities and again reiterated and instructed the patient to follow-up with pulmonary this week Patient has been cleared by cardiology for discharge today and patient will be discharged today. The impression and plan of care has been dictated by Olga Gimenez, Nurse Practitioner as directed. Dr. Esme MD I have performed a history and examination and MDM of this patient, discussed the same with the dictator, and agree with the dictator's assessment and plan as written ,documented as a scribe. Based on total visit time, I have performed more than 50% of the visit. Past Medical History Past Medical History: COPD, Eye Disorder, GERD/Reflux, Hyperlipidemia, H ypertension, Osteoarthritis (OA) Additional Past Medical History / Comment(s): glaucoma History of Any Multi-Drug Resistant Organisms: None Reported Past Surgical History: Orthopedic Surgery, Tubal Ligation Additional Past Surgical History / Comment(s): bunionectomy-lt. LT KNEE SX. COLONOSCOPY. Carpal tunnel surgery on right hand. Past Anesthesia/Blood Transfusion Reactions: Postoperative Nausea & Vomiting (PONV) Past Psychological History: Anxiety Smoking Status: Former smoker Past Alcohol Use History: None Reported Additional Past Alcohol Use History / Comment(s): QUIT SMOKING 01/2017 Past Drug Use History: None Reported - Past Family History Mother Family Medical History: CVA/TIA Father History Unknown: Yes Family Medical History: Cancer, Myocardial Infarction ([place]) Medications and Allergies Home Medications Medication Instructions Recorded Confirmed Type Latanoprost [Xalatan 0.005%] 1 drop BOTH EYES HS 08/30/16 11/30/23 History Albuterol Sulfate [Ventolin HFA] 1 - 2 puff INHALATION RT-Q6H PRN 10/04/22 11/30/23 History Aspirin EC [Ecotrin Low Dose] 81 mg PO DAILY 10/04/22 11/30/23 History Azithromycin [Zithromax] 250 mg PO MOTUWE 10/04/22 11/30/23 History Celecoxib [CeleBREX] 200 mg PO DAILY 10/04/22 11/30/23 History Dorzolamide 2% [Trusopt 2%] 1 drop BOTH EYES BID 10/04/22 11/30/23 History Fluticasone/Umeclidin/Vilanter 1 puff INHALATION RT-DAILY 10/04/22 11/30/23 History [Trelegy Ellipta 100-62.5-25] Omeprazole 20 mg PO BID 10/04/22 11/30/23 History Fenofibrate Nanocrystallized 48 mg PO HS 11/30/23 11/30/23 History [Fenofibrate] Losartan [Cozaar] 25 mg PO DAILY 11/30/23 11/30/23 History Rosuvastatin Calcium [Crestor] 40 mg PO HS 11/30/23 11/30/23 History Acetaminophen Tab [Tylenol] 650 mg PO Q6HR PRN tab 12/01/23 Rx Metoprolol Succinate (ER) [Toprol 25 mg PO DAILY #30 tab 12/01/23 Rx XL] Allergies Allergy/AdvReac Type Severity Reaction Status Date / Time codeine Allergy Anaphylaxis Verified 11/30/23 20:40 hydrocodone Allergy Anaphylaxis Verified 11/30/23 20:40 Penicillins AdvReac Yeast Verified 11/30/23 20:40 infections Physical Exam Vitals: Vital Signs Temp Pulse Pulse Resp BP BP Pulse Ox 12/01/23 08:03 98 12/01/23 07:00 97.7 F 67 18 110/71 96 12/01/23 02:04 97.5 F L 73 15 107/74 99 11/30/23 22:39 98.2 F 84 15 141/61 96 11/30/23 21:00 82 18 122/82 96 11/30/23 17:14 97.8 F 95 18 121/82 98 Intake and Output 11/30/23 12/01/23 12/01/23 22:59 06:59 14:59 Other: Voiding Method Toilet Weight 90.718 kg Results CBC & Chem 7: 11/30/23 16:58 11/30/23 16:58 Labs: Abnormal Lab Results - Last 24 Hours (Table) 11/30/23 11/30/23 Range/Units 16:58 16:58 D-Dimer 1.01 H (<0.60) mg/L FEU Calcium 10.9 H (8.4-10.2) mg/dL Total Protein 8.5 H (6.3-8.2) g/dL Albumin 5.5 H (3.5-5.0) g/dL Thrombosis Risk Factor Assmnt - Choose All That Apply Any of the Below Risk Factors Present?: Yes Each Factor Represents 1 point: Abnormal pulmonary function (COPD), Age 41-60 years, Obesity (BMI >25) Other Risk Factors: No Other congenital or acquired thrombophilia - If yes, enter type in comment: No Thrombosis Risk Factor Assessment Total Risk Factor Score: 3 Thrombosis Risk Factor Assessment Level: Moderate Risk
--- NOTE | 2023-12-04 11:16 | P.DS ---
Providers Date of admission: 11/30/23 21:07 Expected date of discharge: 12/01/23 Attending physician: Junior Samson Consults: 11/30/23 21:24 Consult Physician Routine Consulting Provider: Stone Cuevas Consult Reason/Comments: chest pain Do you want consulting provider notified?: Yes, Notify in am Primary care physician: Neal Byers Hospital Course: Final diagnosis Chest pain, ruled out ACS, troponins x 3 were negative Palpitations, likely secondary to increased albuterol use Pulmonary nodules per CTA noted and will have patient follow-up with Dr. Telles her exterior interior specialist in the outpatient setting Elevated D-dimer, ruled out PE History of COPD Hypertension history GERD Hyperlipidemia History of anxiety Former smoker Obesity with a BMI of 36.6 GI prophylaxis DVT prophylaxis Full code Discharge disposition Patient is being discharged in a stable condition with guarded prognosis to home. Patient will follow-up with Dr. Byers in the outpatient setting upon discharge. Patient is to continue with current medications and close outpatient follow-up with cardiology as scheduled. Patient to go to cardiology office today to have event monitor placed. Total time taken is greater than 35 minutes. Hospital course This is a 57-year-old female who presented to the emergency department with chest pain and palpitations with left-sided chest pressure that started yesterday and was constant with continued fluttery feeling and did not subside. Patient also reports to having previous episodes in the past and associated shortness of breath. Patient reports she underwent stress testing earlier this summer and was within normal limits. Patient follows with Bernadette Peñaloza in the outpatient setting with a past medical history of COPD, eye disorder, GERD, hyperlipidemia, hypertension, osteoarthritis. Patient also follows with Dr. Cuevas in the outpatient setting as her post acute care nurse and Dr. Telles as her exterior interior specialist. Patient is a former smoker and denies any other illicit drug use with no reported alcohol use. Chest x-ray showed COPD with no acute cardiopulmonary disease process, CTA showed no evidence of PE with a few scattered groundglass pulmonary nodules and these nodules appear to have slightly increased in size from 2016 recommending short-term follow-up in 3 to 6 months with moderate emphysema and a small hiatal hernia. EKG showed sinus rhythm with a heart rate of 96 bpm. Cardiology was consulted and ordered 2D echo which showed LV systolic function estimated EF of 55 to 60% with mild concentric left ventricular hypertrophy with no obvious regional wall motion abnormalities with some mild right ventricular dilatation and no significant abnormalities with no pericardial effusion noted. Labs reviewed and within normal limits other than the mildly elevated D-dimer of 1.01 which patient did undergo CTA which was negative for PE. Sodium was 140 with a potassium of 4.0, BUN was 17, creatinine 0.79, calcium mildly elevated at 10.9, magnesium was 2.0, liver functions within normal limits, troponins x 3 were negative. Patient was continued on telemetry monitoring with no obvious abnormalities or arrhythmias noted and has been cleared for discharge to follow-up with her post acute care nurse in the outpatient setting and also to go to the cardiology's office today on discharge to have an event monitor placed with close outpatient follow-up. Currently no reports of chest pain, shortness of breath, or palpitations. Patient is afebrile. No reports of nausea or vomiting and patient is tolerating diet. Patient will be discharged home and high risk for readmission. PHYSICAL EXAMINATION: GENERAL: The patient is alert and oriented x3. Well developed, well nourished. Obese HEENT: Pupils are round and equally reacting to light. EOMI. No scleral icterus. No conjunctival pallor. Normocephalic, atraumatic. No pharyngeal erythema. No thyromegaly. CARDIOVASCULAR: S1 and S2 muffled PULMONARY: Chest is clear to auscultation, no wheezing or crackles. ABDOMEN: Soft, obese. Nontender, nondistended, normoactive bowel sounds. No palpable organomegaly. MUSCULOSKELETAL: No joint swelling or deformity. EXTREMITIES: No cyanosis, clubbing, or pedal edema. NEUROLOGICAL: Gross neurological examination did not reveal any focal deficits. SKIN: No rashes. Please refer to medication reconciliation sheet for a list of medications. The impression and plan of care has been dictated by Olga Gimenez, Nurse Practitioner as directed. Dr. Esme MD I have performed a history and examination and MDM of this patient, discussed the same with the dictator, and agree with the dictator's assessment and plan as written ,documented as a scribe. Based on total visit time, I have performed more than 50% of the visit. Patient Condition at Discharge: Stable Plan - Discharge Summary New Discharge Prescriptions: New Metoprolol Succinate (ER) [Toprol XL] 25 mg PO DAILY #30 tab Acetaminophen Tab [Tylenol] 650 mg PO Q6HR PRN tab PRN Reason: Mild Pain Or Fever > 100.5 Continue Latanoprost [Xalatan 0.005%] 1 drop BOTH EYES HS Azithromycin [Zithromax] 250 mg PO MOTUWE Albuterol Sulfate [Ventolin HFA] 1 - 2 puff INHALATION RT-Q6H PRN PRN Reason: COPD Celecoxib [CeleBREX] 200 mg PO DAILY Omeprazole 20 mg PO BID Fluticasone/Umeclidin/Vilanter [Trelegy Ellipta 100-62.5-25] 1 puff INHALATION RT-DAILY Fenofibrate Nanocrystallized [Fenofibrate] 48 mg PO HS Rosuvastatin Calcium [Crestor] 40 mg PO HS Dorzolamide 2% [Trusopt 2%] 1 drop BOTH EYES BID Aspirin EC [Ecotrin Low Dose] 81 mg PO DAILY Losartan [Cozaar] 25 mg PO DAILY Discharge Medication List Latanoprost [Xalatan 0.005%] 1 drop BOTH EYES HS 08/30/16 [History] Albuterol Sulfate [Ventolin HFA] 1 - 2 puff INHALATION RT-Q6H PRN 10/04/22 [History] Aspirin EC [Ecotrin Low Dose] 81 mg PO DAILY 10/04/22 [History] Azithromycin [Zithromax] 250 mg PO MOTUWE 10/04/22 [History] Celecoxib [CeleBREX] 200 mg PO DAILY 10/04/22 [History] Dorzolamide 2% [Trusopt 2%] 1 drop BOTH EYES BID 10/04/22 [History] Fluticasone/Umeclidin/Vilanter [Trelegy Ellipta 100-62.5-25] 1 puff INHALATION RT-DAILY 10/04/22 [History] Omeprazole 20 mg PO BID 10/04/22 [History] Fenofibrate Nanocrystallized [Fenofibrate] 48 mg PO HS 11/30/23 [History] Losartan [Cozaar] 25 mg PO DAILY 11/30/23 [History] Rosuvastatin Calcium [Crestor] 40 mg PO HS 11/30/23 [History] Acetaminophen Tab [Tylenol] 650 mg PO Q6HR PRN tab 12/01/23 [Rx] Metoprolol Succinate (ER) [Toprol XL] 25 mg PO DAILY #30 tab 12/01/23 [Rx] Follow up Appointment(s)/Referral(s): Josue Telles MD [Family Provider] - 12/09/23 2:00 pm Stone Cuevas MD [STAFF PHYSICIAN] - 12/22/23 11:30 am Neal Byers [Primary Care Provider] - 1-2 days Patient Instructions/Handouts: Chest Pain (DC) Activity/Diet/Wound Care/Special Instructions: Patient to pickle processor 14 day event monitor from [facility] after being discharged today Activity limited until follow-up Continue taking medication as prescribed Follow-up with cardiology in 1 to 2 weeks Follow-up with pulmonary outpatient Follow-up with primary care provider on discharge Discharge Disposition: HOME SELF-CARE
== END 2023-12-01 14:42 | disposition home or self-care (01) ==
LOC: EC 16:21 → 6NMEDSUR 21:07
PROVIDERS: ADMIT Hospitalist; ATTEND Hospitalist
DX: R07.89 Other chest pain (principal); R00.2 Palpitations; J44.9 Chronic obstructive pulmonary disease, unspecified; J43.9 Emphysema, unspecified; I11.9 Hypertensive heart disease without heart failure; I25.10 Atherosclerotic heart disease of native coronary artery without angina pectoris; R79.89 Other specified abnormal findings of blood chemistry; R91.8 Other nonspecific abnormal finding of lung field; K21.9 Gastro-esophageal reflux disease without esophagitis; M19.90 Unspecified osteoarthritis, unspecified site; K44.9 Diaphragmatic hernia without obstruction or gangrene; E78.5 Hyperlipidemia, unspecified; E66.9 Obesity, unspecified; Z68.36 Body mass index [BMI] 36.0-36.9, adult; F41.9 Anxiety disorder, unspecified; Z79.51 Long term (current) use of inhaled steroids; Z79.82 Long term (current) use of aspirin; Z79.1 Long term (current) use of non-steroidal anti-inflammatories (NSAID); Z79.899 Other long term (current) drug therapy; Z88.0 Allergy status to penicillin; Z88.5 Allergy status to narcotic agent; Z87.891 Personal history of nicotine dependence; Z82.3 Family history of stroke; Z82.49 Family history of ischemic heart disease and other diseases of the circulatory system
CPT/HCPCS: 96374; 99285; 36415; 94640; 94760; 93005; 93306; 85379; 80053; 83735; 84484; 85025; 85610; 85730; 71046; 71275; G0378 ×2; J1885; Q9967

== ENCOUNTER 2023-12-02 18:53 | Observation (INO) | payer OTHER ==
[2023-12-02] MEDS: ASPIRIN 81 MG PO STA (19:09)
--- NOTE | 2023-12-02 19:12 | ED ---
General Adult HPI - General Chief complaint: Chest Pain Stated complaint: chest pain Time Seen by Provider: 12/02/23 19:00 Source: patient, EMS, RN notes reviewed, old records reviewed Mode of arrival: EMS Limitations: no limitations - History of Present Illness Initial comments: This is a 57-year-old female who presents to the emergency department comp [facility] of chest pain which she states started on 14 November and she went to [facility] and they cleared her and sent her home. Patient states she was here couple days ago was admitted overnight echocardiogram which was normal she also had repeat troponins which were normal. Patient states she had a cardiac catheterization a couple years ago and they told her that was normal. Patient states today the chest pain was much worse radiated to her back she was somewhat short of breath mildly diaphoretic. Patient denies any recent fever chills or cough. Patient denies any swelling to the legs or calf tenderness. Patient [place] any abdominal pain patient denies any vomiting or diarrhea. - Related Data Home Medications Medication Instructions Recorded Confirmed Latanoprost [Xalatan 0.005%] 1 drop BOTH EYES HS 08/30/16 11/30/23 Albuterol Sulfate [Ventolin HFA] 1 - 2 puff INHALATION RT-Q6H PRN 10/04/22 11/30/23 Aspirin EC [Ecotrin Low Dose] 81 mg PO DAILY 10/04/22 11/30/23 Azithromycin [Zithromax] 250 mg PO MOTUWE 10/04/22 11/30/23 Celecoxib [CeleBREX] 200 mg PO DAILY 10/04/22 11/30/23 Dorzolamide 2% [Trusopt 2%] 1 drop BOTH EYES BID 10/04/22 11/30/23 Fluticasone/Umeclidin/Vilanter 1 puff INHALATION RT-DAILY 10/04/22 11/30/23 [Trelegy Ellipta 100-62.5-25] Omeprazole 20 mg PO BID 10/04/22 11/30/23 Fenofibrate Nanocrystallized 48 mg PO HS 11/30/23 11/30/23 [Fenofibrate] Losartan [Cozaar] 25 mg PO DAILY 11/30/23 11/30/23 Rosuvastatin Calcium [Crestor] 40 mg PO HS 11/30/23 11/30/23 Previous Rx's Medication Instructions Recorded Acetaminophen Tab [Tylenol] 650 mg PO Q6HR PRN tab 12/01/23 Metoprolol Succinate (ER) [Toprol 25 mg PO DAILY #30 tab 12/01/23 XL] Allergies Allergy/AdvReac Type Severity Reaction Status Date / Time codeine Allergy Anaphylaxis Verified 12/02/23 19:08 hydrocodone Allergy Anaphylaxis Verified 12/02/23 19:08 Penicillins AdvReac Yeast Verified 12/02/23 19:08 infections Review of Systems ROS Statement: Those systems with pertinent positive or pertinent negative responses have been documented in the HPI. ROS Other: All systems not noted in ROS Statement are negative. Past Medical History Past Medical History: COPD, Eye Disorder, GERD/Reflux, Hyperlipidemia, Hypertension, Osteoarthritis (OA) Additional Past Medical History / Comment(s): glaucoma History of Any Multi-Drug Resistant Organisms: None Reported Past Surgical History: Orthopedic Surgery, Tubal Ligation Additional Past Surgical History / Comment(s): bunionectomy-lt. LT KNEE SX. COLONOSCOPY. Carpal tunnel surgery on right hand. Past Anesthesia/Blood Transfusion Reactions: Postoperative Nausea & Vomiting (PONV) Past Psychological History: Anxiety Smoking Status: Former smoker Past Alcohol Use History: None Reported Past Drug Use History: None Reported - Past Family History Mother Family Medical History: CVA/TIA Father History Unknown: Yes Family Medical History: Cancer, Myocardial Infarction ([place]) General Exam - General Exam Comments Initial Comments: GENERAL: Patient is well-developed and well-nourished. Patient is nontoxic and well- hydrated and is in mild e distress. ENT: Neck is soft and supple. No significant lymphadenopathy is noted. Oropharynx is clear. Moist mucous membranes. Neck has full range of motion without eliciting any pain. EYES: The sclera were anicteric and conjunctiva were pink and moist. Extraocular movements were intact and pupils were equal round and reactive to light. Eyel ids were unremarkable. PULMONARY: Unlabored respirations. Good breath sounds bilaterally. No audible rales rhonchi or wheezing was noted. CARDIOVASCULAR: There is a regular rate and rhythm without any murmurs gallops or rubs. ABDOMEN: Soft and nontender with normal bowel sounds. SKIN: Skin is clear with no lesions or rashes and otherwise unremarkable. NEUROLOGIC: Patient is alert and oriented x3. Cranial nerves II through XII are grossly intact. Motor and sensory are also intact. Normal speech, volume and content. Symmetrical smile. MUSCULOSKELETAL: Normal extremities with adequate strength and full range of motion. No lower extremity swelling or edema. No calf tenderness. LYMPHATICS: No significant lymphadenopathy is noted PSYCHIATRIC: Patient is mildly anxious Limitations: no limitations Course Vital Signs 12/02/23 19:01 Pulse Rate 74 Respiratory 18 Rate Blood Pressure 140/85 O2 Sat by Pulse 96 Oximetry Medical Decision Making - Medical Decision Making EKG as interpreted by myself EKG shows a sinus rhythm at 73 bpm CA interval 113 QRS 75 QT interval 390 QTc is 415. Patient has some minimal ST segment depression in V3 through V6 as well as 3 and aVF Was pt. sent in by a medical professional or institution (, PA, COUNTY SUPERVISOR, urgent care, hospital, or detention...) When possible be specific @ -No Did you speak to anyone other than the patient for history (EMS, parent, family, police, friend...)? What history was obtained from this source @ -No Did you review nursing and triage notes (agree or disagree)? Why? @ -I reviewed and agree with nursing and triage notes Were old charts reviewed (outside hosp., previous admission, EMS record, old EKG, old radiological studies, urgent care reports/EKG's, detention records)? Report findings @ -I reviewed prior charts and prior lab work on this patient Differential Diagnosis (chest pain, altered mental status, abdominal pain women, abdominal pain men, vaginal bleeding, weakness, fever, dyspnea, syncope, headache, dizziness, GI bleed, back pain, seizure, CVA, palpatations, mental health, musculoskeletal)? @ -Differential Chest Pain: Stable Angina, Unstable Angina, STEMI, NSTEMI Aortic Dissection, Pneumothorax, Musculoskeletal, Esophageal Spasm GERD, Cholecystitis, Pancreatitis, Zoster, this is not meant to be an all-inclusive list. EKG interpreted by me (3pts min.). @ -As above X-rays interpreted by me (1pt min.). @ -Chest x-ray shows no acute abnormality CT interpreted by me (1pt min.). @ -None done U/S interpreted by me (1pt. min.). @ -None done What testing was considered but not performed or refused? (CT, X-rays, U/S, labs)? Why? @ -None What meds were considered but not given or refused? Why? @ -None Did you discuss the management of the patient with other professionals (professionals i.e. , PA, COUNTY SUPERVISOR, lab, RT, psych nurse, social worker psychiatric, funeral assistant, teacher, police officer crime prevention, community case manager)? Give summary @ -I spoke with [facility] hospitalist agreed admit the patient Was smoking cessation discussed for >3mins.? @ -No Was critical care preformed (if so, how long)? @ -No Were there social determinants of health that impacted care today? How? (Homelessness, low income, unemployed, alcoholism, drug addiction, transportation, low edu. Level, literacy, decrease access to med. care, usp, rehab)? @ -No Was there de-escalation of care discussed even if they declined (Discuss DNR or withdrawal of care, Hospice)? DNR status @ -No What co-morbidities impacted this encounter? (DM, HTN, Smoking, COPD, CAD, Cancer, CVA, ARF, Chemo, Hep., AIDS, mental health diagnosis, sleep apnea, morbid obesity)? @ -None Was patient admitted / discharged? Hospital course, mention meds given and route, prescriptions, significant lab abnormalities, going to OR and other pertinent info. @ -Patient was given Ativan in the emergency department he did feel considerably better. Patient did still complain of some chest heaviness. Lab work was normal chest x-ray is normal patient will be admitted and cardiology will be consulted Undiagnosed new problem with uncertain prognosis? @ -No Drug Therapy requiring intensive monitoring for toxicity (Heparin, Nitro, Insulin, Cardizem)? @ -No Were any procedures done? @ -No Diagnosis/symptom? @ -Chest pain Acute, or Chronic, or Acute on Chronic? @ -Acute Uncomplicated (without systemic symptoms) or Complicated (systemic symptoms)? @ -Complicated Side effects of treatment? @ -No Exacerbation, Progression, or Severe Exacerbation? @ -No Poses a threat to life or bodily function? How? (Chest pain, [place], [place], pneumonia, PE, COPD, DKA, ARF, appy, cholecystitis, CVA, Diverticulitis, Homicidal, Suicidal, threat to staff... and all critical care pts) @ -Yes this could lead to an IA and endorgan dysfunction - Lab Data Result diagrams: 12/02/23 19:15 12/02/23 19:15 Lab Results 12/02/23 12/02/23 12/02/23 Range/Units 19:15 19:15 19:15 WBC 7.7 (3.8-10.6) k/uL RBC 4.53 (3.80-5.40) m/uL Hgb 13.3 (11.4-16.0) gm/dL Hct 39.7 (34.0-46.0) % MCV 87.7 (80.0-100.0) fL MCH 29.4 (25.0-35.0) pg MCHC 33.5 (31.0-37.0) g/dL RDW 13.4 (11.5-15.5) % Plt Count 187 (150-450) k/uL MPV 8.2 Neutrophils % 70 % Lymphocytes % 20 % Monocytes % 7 % Eosinophils % 1 % Basophils % 0 % Neutrophils # 5.4 (1.3-7.7) k/uL Lymphocytes # 1.6 (1.0-4.8) k/uL Monocytes # 0.5 (0-1.0) k/uL Eosinophils # 0.1 (0-0.7) k/uL Basophils # 0.0 (0-0.2) k/uL PT 10.5 (10.0-12.5) sec INR 1.0 (<1.2) APTT 25.6 (22.0-30.0) sec Sodium 137 (137-145) mmol/L Potassium 4.0 (3.5-5.1) mmol/L Chloride 107 (98-107) mmol/L Carbon Dioxide 21 L (22-30) mmol/L Anion Gap 9 mmol/L BUN 20 H (7-17) mg/dL Creatinine 0.83 (0.52-1.04) mg/dL Est GFR (CKD-EPI)AfAm >90 (>60 ml/min/1.73 sqM) Est GFR (CKD-EPI)NonAf 80 (>60 ml/min/1.73 sqM) Glucose 104 H (74-99) mg/dL Calcium 9.4 (8.4-10.2) mg/dL Magnesium 1.8 (1.6-2.3) mg/dL Total Bilirubin 0.6 (0.2-1.3) mg/dL AST 29 (14-36) U/L ALT 24 (4-34) U/L Alkaline Phosphatase 71 (38-126) U/L Troponin I (0.000-0.034) ng/mL Total Protein 6.8 (6.3-8.2) g/dL Albumin 4.4 (3.5-5.0) g/dL Lipase 89 (23-300) U/L 12/02/23 Range/Units 19:15 WBC (3.8-10.6) k/uL RBC (3.80-5.40) m/uL Hgb (11.4-16.0) gm/dL Hct (34.0-46.0) % MCV (80.0-100.0) fL MCH (25.0-35.0) pg MCHC (31.0-37.0) g/dL RDW (11.5-15.5) % Plt Count (150-450) k/uL MPV Neutrophils % % Lymphocytes % % Monocytes % % Eosinophils % % Basophils % % Neutrophils # (1.3-7.7) k/uL Lymphocytes # (1.0-4.8) k/uL Monocytes # (0-1.0) k/uL Eosinophils # (0-0.7) k/uL Basophils # (0-0.2) k/uL PT (10.0-12.5) sec INR (<1.2) APTT (22.0-30.0) sec Sodium (137-145) mmol/L Potassium (3.5-5.1) mmol/L Chloride (98-107) mmol/L Carbon Dioxide (22-30) mmol/L Anion Gap mmol/L BUN (7-17) mg/dL Creatinine (0.52-1.04) mg/dL Est GFR (CKD-EPI)AfAm (>60 ml/min/1.73 sqM) Est GFR (CKD-EPI)NonAf (>60 ml/min/1.73 sqM) Glucose (74-99) mg/dL Calcium (8.4-10.2) mg/dL Magnesium (1.6-2.3) mg/dL Total Bilirubin (0.2-1.3) mg/dL AST (14-36) U/L ALT (4-34) U/L Alkaline Phosphatase (38-126) U/L Troponin I <0.012 (0.000-0.034) ng/mL Total Protein (6.3-8.2) g/dL Albumin (3.5-5.0) g/dL Lipase (23-300) U/L Disposition Clinical Impression: Chest pain Disposition: ADMITTED IP TO THIS HOSP Referrals: Neal Byers [Primary Care Provider] - 1-2 days Time of Disposition: 20:48
[2023-12-02] MEDS: NITROGLYCERIN OINT 1 INCH/GM PACKET TOPICAL STA (19:36)
[2023-12-02 19:38] LABS: Basophils % (A) 0 %; Eosinophils # (A) 0.1 k/uL (0-0.7); Eosinophils % (A) 1 %; HCT 39.7 % (34.0-46.0); HGB 13.3 gm/dL (11.4-16.0); Lymphocytes # (A) 1.6 k/uL (1.0-4.8); Lymphocytes % (A) 20 %; MCH 29.4 pg (25.0-35.0); MCHC 33.5 g/dL (31.0-37.0); MCV 87.7 fL (80.0-100.0); Mean Platelet Volume 8.2; Monocytes # (A) 0.5 k/uL (0-1.0); Monocytes % (A) 7 %; Neutrophils # (A) 5.4 k/uL (1.3-7.7); Neutrophils % (A) 70 %; Platelet Count 187 k/uL (150-450); RBC 4.53 m/uL (3.80-5.40); RDW 13.4 % (11.5-15.5); WBC 7.7 k/uL (3.8-10.6)
[2023-12-02] MEDS: LORazepam 2 MG/ML INJ IV STA (19:39)
[2023-12-02 19:49] LABS: ALT 24 U/L (4-34); AST 29 U/L (14-36); African American GFR (CKD) >90 (>60 ml/min/1.73 sqM); Albumin 4.4 g/dL (3.5-5.0); Alkaline Phosphatase 71 U/L (38-126); Anion Gap 9 mmol/L; Blood Urea Nitrogen 20 mg/dL (7-17); Calcium 9.4 mg/dL (8.4-10.2); Carbon Dioxide 21 mmol/L (22-30); Chloride 107 mmol/L (98-107); Glucose 104 mg/dL (74-99); Lipase 89 U/L (23-300); Magnesium 1.8 mg/dL (1.6-2.3); Non-African American GFR(CKD) 80 (>60 ml/min/1.73 sqM); Sodium 137 mmol/L (137-145); Total Bilirubin 0.6 mg/dL (0.2-1.3); Total Protein 6.8 g/dL (6.3-8.2)
[2023-12-02 19:50] LABS: Partial Thromboplastin Time 25.6 sec (22.0-30.0); Prothrombin Time 10.5 sec (10.0-12.5)
--- NOTE | 2023-12-02 20:22 | XR ---
EXAMINATION TYPE: XR chest 2V DATE OF EXAM: 12/02/2023 7:34 PM CLINICAL INDICATION:Female, 57 years old with history of Chest Pain; [facility] COMPARISON: Report only from CT chest angiogram for PE 11/30/2023. 2V chest x-ray 11/30/2023. TECHNIQUE: XR chest 2V. Frontal and lateral views of the chest.. FINDINGS: Lines/Tubes/Devices: EKG leads overlie the chest. No indwelling lines are seen. Electronic device, possibly loop recorder projects over the left upper chest. Heart/mediastinum: Heart size is normal. Mediastinum appears stable. Mildly tortuous aorta. Pulmonary vascularity: Not increased, Lungs/Pleura: Lungs again appear mildly hyperinflated with flattening of the hemidiaphragms suggestin g COPD. There is no evidence of pleural effusion, focal consolidation, or pneumothorax. Nodularity se en on prior CT not clearly identified, and would be best assessed by a follow-up CT when clinically w arranted. Musculoskeletal: No acute osseous abnormality demonstrated in the limits of the exam. Mild to modera te degenerative changes of the shoulders and spine. Other findings: None. IMPRESSION: Overall stable exam. No evidence of acute cardiopulmonary disease.
[2023-12-02] MEDS ORDERED: NITROGLYCERIN SL TABS 0.4 MG TAB SUBLINGUAL PRN (20:49)
[2023-12-02] MEDS: ACETAMINOPHEN TAB 500 MG TAB PO STA (22:24)
[2023-12-02] MEDS: NITROGLYCERIN OINT 1 INCH/GM PACKET TOPICAL SCH (23:23)
[2023-12-03] MEDS: IBUPROFEN 600 MG TAB PO STA (05:20)
[2023-12-03] MEDS ORDERED: ALBUTEROL NEBULIZED 2.5 MG/3 ML INHALATION PRN (05:53)
[2023-12-03] MEDS: METOPROLOL SUCCINATE (ER) 25 MG TAB.ER.24H PO SCH (08:27)
[2023-12-03] MEDS: ASPIRIN 325 MG TAB PO SCH (08:27)
[2023-12-03] MEDS: MELOXICAM 7.5 MG TAB PO SCH (08:27)
[2023-12-03] MEDS: PANTOPRAZOLE 40 MG TABLET PO SCH (08:27)
[2023-12-03] MEDS: ACETAMINOPHEN TAB 325 MG TAB PO PRN (09:00)
[2023-12-03] MEDS: SYMBICORT 80-4.5 MCG INHALER INHALATION SCH (09:06)
[2023-12-03] MEDS: IPRATROPIUM 0.5 MG/2.5 ML NEBU INHALATION SCH (09:07)
[2023-12-03] MEDS ORDERED: MAG HYDROX/AL HYDROX/SIMETH 30 ML CUP PO PRN (09:59)
[2023-12-03 13:31] LABS: Chol/HDL Ratio 3.83 Ratio; LDL Cholesterol,Calculated 84.6 mg/dL (0.0-131.0)
[2023-12-03] MEDS: DORZOLAMIDE HCL 2% DROPS 10 ML BTL BOTH EYES SCH (13:35)
--- NOTE | 2023-12-03 13:39 | P.HPIM ---
History of Present Illness H&P Date: 12/03/23 Chief Complaint: Chest pain * 57-year-old patient with past medical history significant for COPD, gastroesophageal flux disease, hypertension, hyperlipidemia Zentz to the emerg ency department with complaints of chest pain. Patient was recently admitted and was seen by cardiology during the hospitalization patient during previous hospitalization was noted to have elevated D-dimer and underwent CT angio chest which was negative for pulm embolism patient states show pulmonary nodules recommending outpatient follow-up pulmonary medicine. Patient had underwent 2D echocardiogram which was within normal limits during previous hospitalization patient was requested to follow-up with cardiology outpatient to get an event monitor. Patient states she went home however had recurrent chest pain that radiated to her back this was associated with diaphoresis patient denies any leg pain, fever, chills, cough. * Workup initiated in ER included a chest x-ray which was negative for acute cardiopulmonary process. * Initial EKG was obtained which showed sinus rhythm * Blood work obtained in ER included CBC which were essentially negative serum chemistry which were essentially negative serial troponins were obtained which were normal lipase within normal limits REVIEW OF SYSTEMS: Chest pain CONSTITUTIONAL: No fever, no malaise, no fatigue. HEENT: No recent visual problems or hearing problems. Denied any sore throat. CARDIOVASCULAR: Chest pain PULMONARY: No shortness of breath, no cough, no hemoptysis. GASTROINTESTINAL: No diarrhea, no nausea, no vomiting, no abdominal pain. NEUROLOGICAL: No headaches, no weakness, no numbness. HEMATOLOGICAL: Denies any bleeding or petechiae. GENITOURINARY: Denies any burning micturition, frequency, or urgency. MUSCULOSKELETAL/RHEUMATOLOGICAL: Denies any joint pain, swelling, or any muscle pain. ENDOCRINE: Denies any polyuria or polydipsia. PHYSICAL EXAMINATION: GENERAL: The patient is alert and oriented x3, not in any acute distress. Well developed, well nourished. HEENT: Pupils are round and equally reacting to light. EOMI CARDIOVASCULAR: S1 and S2 present. No murmurs, rubs, or gallops. PULMONARY: Chest is clear to auscultation, no wheezing or crackles. ABDOMEN: Soft, nontender, nondistended, normoactive bowel sounds. No palpable organomegaly. MUSCULOSKELETAL: No joint swelling or deformity. EXTREMITIES: No cyanosis, clubbing, or pedal edema. NEUROLOGICAL: Gross neurological examination did not reveal any focal deficits. SKIN: No rashes. Past Medical History Past Medical History: COPD, Eye Disorder, GERD/Reflux, Hyperlipidemia, Hypertension, Osteoarthritis (OA) Additional Past Medical History / Comment(s): glaucoma History of Any Multi-Drug Resistant Organisms: None Reported Past Surgical History: Orthopedic Surgery, Tubal Ligation Additional Past Surgical History / Comment(s): bunionectomy-lt. LT KNEE SX. COLONOSCOPY. Carpal tunnel surgery on right hand. Past Anesthesia/Blood Transfusion Reactions: Postoperative Nausea & Vomiting (PONV) Past Psychological History: Anxiety Smoking Status: Former smoker Past Alcohol Use History: None Reported Past Drug Use History: None Reported - Past Family History Mother Family Medical History: CVA/TIA Father History Unknown: Yes Family Medical History: Cancer, Myocardial Infarction ([place]) Medications and Allergies Home Medications Medication Instructions Recorded Confirmed Type Latanoprost [Xalatan 0.005%] 1 drop BOTH EYES HS 08/30/16 12/02/23 History Albuterol Sulfate [Ventolin HFA] 1 - 2 puff INHALATION RT-Q6H PRN 10/04/22 12/02/23 History Aspirin EC [Ecotrin Low Dose] 81 mg PO DAILY 10/04/22 12/02/23 History Azithromycin [Zithromax] 250 mg PO MOTUWE 10/04/22 12/02/23 History Celecoxib [CeleBREX] 200 mg PO DAILY 10/04/22 12/02/23 History Dorzolamide 2% [Trusopt 2%] 1 drop BOTH EYES BID 10/04/22 12/02/23 History Fluticasone/Umeclidin/Vilanter 1 puff INHALATION RT-DAILY 10/04/22 12/02/23 History [Trelegy Ellipta 100-62.5-25] Omeprazole 20 mg PO BID 10/04/22 12/02/23 History Fenofibrate Nanocrystallized 48 mg PO HS 11/30/23 12/02/23 History [Fenofibrate] Losartan [Cozaar] 25 mg PO DAILY 11/30/23 12/02/23 History Rosuvastatin Calcium [Crestor] 40 mg PO HS 11/30/23 12/02/23 History Acetaminophen Tab [Tylenol] 650 mg PO Q6HR PRN tab 12/01/23 12/02/23 Rx Metoprolol Succinate (ER) [Toprol 25 mg PO DAILY #30 tab 12/01/23 12/02/23 Rx XL] Allergies Allergy/AdvReac Type Severity Reaction Status Date / Time codeine Allergy Anaphylaxis Verified 12/02/23 22:12 hydrocodone Allergy Anaphylaxis Verified 12/02/23 22:12 Penicillins AdvReac Yeast Verified 12/02/23 22:12 infections Physical Exam Vitals: Vital Signs Temp Pulse Resp BP Pulse Ox 12/03/23 09:17 64 12/03/23 09:08 65 95 12/03/23 08:23 98 F 69 18 109/71 98 12/03/23 06:57 70 18 93/58 96 12/03/23 06:06 71 17 93/58 96 12/03/23 04:15 61 17 93/68 97 12/03/23 03:06 67 17 97/67 92 L 12/03/23 01:11 82 17 99/74 96 12/02/23 22:25 101 H 19 92/61 93 L 12/02/23 21:21 72 19 121/68 92 L 12/02/23 19:01 74 18 140/85 96 Intake and Output 12/02/23 12/03/23 12/03/23 22:59 06:59 14:59 Other: Weight 89.811 kg Results CBC & Chem 7: 12/02/23 19:15 12/02/23 19:15 Labs: Abnormal Lab Results - Last 24 Hours (Table) 12/02/23 Range/Units 19:15 Carbon Dioxide 21 L (22-30) mmol/L BUN 20 H (7-17) mg/dL Glucose 104 H (74-99) mg/dL Assessment and Plan Assessment: Assessment and plan * Chest pain rule out acute coronary syndrome * History of COPD * Pulmonary nodule * Hypertension * Gastroesophageal reflux disease * History of anxiety * Obesity with BMI 36 * In regards to chest pain serial troponins obtained that remain negative, cardiology recommended to evaluate and give further instructions * In regards to history of COPD continue patient on breathing treatments, on azithromycin prophylactic dose * In regards to history of pulmonary nodule, CT chest done recently 11/30/2023 does show groundglass opacities with pulmonary nodule noted with this short 3- month follow-up recommended * CODE STATUS is full code Time with Patient: Greater than 30
--- NOTE | 2023-12-03 16:37 | P.CRDCN ---
History of Present Illness Consult date: 12/03/23 Consult reason: chest pain, other (palpitations) Chief complaint: palpitations History of present illness: History of present illness: Patient is a pleasant 57-year-old female with significant past medical history of mild CAD, hypertension, COPD, GERD who presented to the emergency department with complaints of rapid heartbeat. She has been seen in multiple ERs few weeks for same symptoms. She does follow with Dr. Alexander in the office. She reports yesterday she was having jaw tightness, headache, feeling her rapid heartbeat with increased blood pressure and chest pain with shortness of breath. She has been getting these episodes randomly typically last around 30 minutes however has been worse in the past few days. EKG shows sinus rhythm with nonspecific T wave changes. Labs reviewed: Troponin negative x 3, potassium 4.0, creatinine 0.83. She did have echocardiogram 12/02/2023 with a EF 55-60%, mild LV, no significant valve issues. She had a CTA chest on 11/30/2023 that was negative for PE. She had a prior Lexiscan stress test 02/2023 that was negative for ischemia. She is currently wearing a 14-day event monitor that she received from the office. She denies any chest pain presently, denies any dizziness or lightheadedness. She did have a prior left heart cath at [facility] 02/2018 that was reviewed [address] Dr. 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 She was having some chest tightness and hot flashes during examination, telemetry reviewed normal sinus rhythm with no change in heart rate. REVIEW OF SYSTEMS: No fever or chills. No cough or expectoration. No diaphoresis. Patient denies headache, dizziness, blurred vision, double vision. Patient denies any stomach discomfort. No nausea, vomiting. No hematochezia. No hematemesis. Denies any black stools or blood in his stools. Denies dysuria or hematuria. No muscle weakness or numbness. No chest pain or pressure. PHYSICAL EXAMINATION: This is a 57-year-old female in no apparent distress at the time of my examination. HEENT: Head is atraumatic, normocephalic. Pupils are equal, round. Sclerae anicteric. Conjunctivae are clear. Mucous membranes of the mouth are moist. Neck is supple. There is no jugular venous distention. No carotid bruit is heard. CHEST EXAMINATION: Lungs are clear to auscultation. No chest wall tenderness is noted on palpation or with deep breathing. HEART EXAMINATION: Heart regular rate and rhythm. S1, S2 heard. No murmurs, gallops or rub. ABDOMEN: Soft, nontender. Bowel sounds are heard. EXTREMITIES: 2+ peripheral pulses with no evidence of peripheral edema and no calf tenderness noted. NEUROLOGIC EXAMINATION: Patient is awake, alert and oriented x3. IMPRESSION AND PLAN: Mild CAD Hypertension COPD GERD Palpitations Chest pain Dyspnea PLAN: Discussed that she does have an anomalous RCA and this may be a possible explanation of her chest pain. Continue with event monitor. Continue metoprolol. Consider nitro as needed. Okay to discharge home from a cardiology standpoint. Follow-up in office as scheduled. I am dictating on behalf of Dr. Travis Pelletier's history/physical and assessment/plan. Past Medical History Past Medical History: COPD, Eye Disorder, GERD/Reflux, Hyperlipidemia, Hypertension, Osteoarthritis (OA) Additional Past Medical History / Comment(s): glaucoma History of Any Multi-Drug Resistant Organisms: None Reported Past Surgical History: Orthopedic Surgery, Tubal Ligation Additional Past Surgical History / Comment(s): bunionectomy-lt. LT KNEE SX. COLONOSCOPY. Carpal tunnel surgery on right hand. Past Anesthesia/Blood Transfusion Reactions: Postoperative Nausea & Vomiting (PO NV) Past Psychological History: Anxiety Smoking Status: Former smoker Past Alcohol Use History: None Reported Past Drug Use History: None Reported - Past Family History Mother Family Medical History: CVA/TIA Father History Unknown: Yes Family Medical History: Cancer, Myocardial Infarction ([place]) Medications and Allergies Home Medications Medication Instructions Recorded Confirmed Type Latanoprost [Xalatan 0.005%] 1 drop BOTH EYES HS 08/30/16 12/02/23 History Albuterol Sulfate [Ventolin HFA] 1 - 2 puff INHALATION RT-Q6H PRN 10/04/22 12/02/23 History Aspirin EC [Ecotrin Low Dose] 81 mg PO DAILY 10/04/22 12/02/23 History Azithromycin [Zithromax] 250 mg PO MOTUWE 10/04/22 12/02/23 History Celecoxib [CeleBREX] 200 mg PO DAILY 10/04/22 12/02/23 History Dorzolamide 2% [Trusopt 2%] 1 drop BOTH EYES BID 10/04/22 12/02/23 History Fluticasone/Umeclidin/Vilanter 1 puff INHALATION RT-DAILY 10/04/22 12/02/23 History [Trelegy Ellipta 100-62.5-25] Omeprazole 20 mg PO BID 10/04/22 12/02/23 History Fenofibrate Nanocrystallized 48 mg PO HS 11/30/23 12/02/23 History [Fenofibrate] Losartan [Cozaar] 25 mg PO DAILY 11/30/23 12/02/23 History Rosuvastatin Calcium [Crestor] 40 mg PO HS 11/30/23 12/02/23 History Acetaminophen Tab [Tylenol] 650 mg PO Q6HR PRN tab 12/01/23 12/02/23 Rx Metoprolol Succinate (ER) [Toprol 25 mg PO DAILY #30 tab 12/01/23 12/02/23 Rx XL] Allergies Allergy/AdvReac Type Severity Reaction Status Date / Time codeine Allergy Anaphylaxis Verified 12/02/23 22:12 hydrocodone Allergy Anaphylaxis Verified 12/02/23 22:12 Penicillins AdvReac Yeast Verified 12/02/23 22:12 infections Physical Exam Vitals: Vital Signs Temp Pulse Resp BP Pulse Ox 12/03/23 09:17 64 12/03/23 09:08 65 95 12/03/23 08:23 98 F 69 18 109/71 98 12/03/23 06:57 70 18 93/58 96 12/03/23 06:06 71 17 93/58 96 12/03/23 04:15 61 17 93/68 97 12/03/23 03:06 67 17 97/67 92 L 12/03/23 01:11 82 17 99/74 96 12/02/23 22:25 101 H 19 92/61 93 L 12/02/23 21:21 72 19 121/68 92 L 12/02/23 19:01 74 18 140/85 96 Intake and Output 12/02/23 12/03/23 12/03/23 22:59 06:59 14:59 Other: Weight 89.811 kg Results 12/02/23 19:15 12/02/23 19:15 Cardiac Enzymes 12/02/23 12/02/23 12/02/23 Range/Units 19:15 19:15 22:20 AST 29 (14-36) U/L Troponin I <0.012 <0.012 (0.000-0.034) ng/mL 12/03/23 Range/Units 00:06 AST (14-36) U/L Troponin I <0.012 (0.000-0.034) ng/mL Coagulation 12/02/23 Range/Units 19:15 PT 10.5 (10.0-12.5) sec APTT 25.6 (22.0-30.0) sec CBC 12/02/23 Range/Units 19:15 WBC 7.7 (3.8-10.6) k/uL RBC 4.53 (3.80-5.40) m/uL Hgb 13.3 (11.4-16.0) gm/dL Hct 39.7 (34.0-46.0) % Plt Count 187 (150-450) k/uL Comprehensive Metabolic Panel 12/02/23 Range/Units 19:15 Sodium 137 (137-145) mmol/L Potassium 4.0 (3.5-5.1) mmol/L Chloride 107 (98-107) mmol/L Carbon Dioxide 21 L (22-30) mmol/L BUN 20 H (7-17) mg/dL Creatinine 0.83 (0.52-1.04) mg/dL Glucose 104 H (74-99) mg/dL Calcium 9.4 (8.4-10.2) mg/dL AST 29 (14-36) U/L ALT 24 (4-34) U/L Alkaline Phosphatase 71 (38-126) U/L Total Protein 6.8 (6.3-8.2) g/dL Albumin 4.4 (3.5-5.0) g/dL Current Medications Generic Name Dose Route Start Last Admin Trade Name Freq PRN Reason Stop Dose Admin Acetaminophen 650 mg 12/03/23 05:53 12/03/23 09:00 Acetaminophen Tab 325 Mg Tab PO 650 mg Q6HR PRN Administration Mild Pain or Fever > 100.5 Al Hydroxide/Mg Hydroxide 30 ml 12/03/23 09:59 Mag Hydrox/Al Hydrox/Simeth 30 Ml Cup PO Q4HR PRN GI Upset Albuterol Sulfate 2.5 mg 12/03/23 05:53 Albuterol Nebulized 2.5 Mg/3 Ml INHALATION RT-Q6H PRN COPD Aspirin 325 mg 12/03/23 09:00 12/03/23 08:27 Aspirin 325 Mg Tab PO 325 mg DAILY [facility] Administration Atorvastatin Calcium 80 mg 12/03/23 21:00 Atorvastatin 80 Mg Tab PO HS [facility] Azithromycin 250 mg 12/05/23 09:00 Azithromycin 250 Mg Tab PO 12/08/23 09:01 MOTUWE [facility] Protocol Budesonide/Formoterol Fumarate 2 puff 12/03/23 08:00 12/03/23 09:06 Symbicort 80-4.5 Mcg Inhaler INHALATION 2 puff RT-BID [facility] Administration Dorzolamide HCl 1 drops 12/03/23 09:00 Dorzolamide Hcl 2% Drops 10 Ml Btl BOTH EYES BID [facility] Enoxaparin Sodium 40 mg 12/04/23 09:00 Enoxaparin 40 Mg/0.4 Ml Syringe SQ DAILY [facility] Fenofibrate 54 mg 12/03/23 21:00 Fenofibrate 54 Mg Tab PO HS [facility] Ipratropium [place] 0.5 mg 12/03/23 08:00 12/03/23 09:07 Ipratropium 0.5 Mg/2.5 Ml Nebu INHALATION 0.5 mg RT-QID [facility] Administration Latanoprost 1 drops 12/03/23 21:00 Latanoprost 0.005% Ophth Drops 2.5 Ml Btl BOTH EYES HS [facility] Meloxicam 7.5 mg 12/03/23 09:00 12/03/23 08:27 Meloxicam 7.5 Mg Tab PO 7.5 mg DAILY [facility] Administration Metoprolol Succinate 25 mg 12/03/23 09:00 12/03/23 08:27 Metoprolol Succinate (Er) 25 Mg Tab.Er.24h PO Not Given DAILY [facility] Nitroglycerin 0.4 mg 12/02/23 20:49 Nitroglycerin Sl Tabs 0.4 Mg Tab SUBLINGUAL Q5M PRN Chest Pain Nitroglycerin 1 inch 12/03/23 00:00 12/03/23 05:02 Nitroglycerin Oint 1 Inch/Gm Packet TOPICAL Not Given Q6HR [facility] Pantoprazole Sodium 40 mg 12/03/23 09:00 12/03/23 08:27 Pantoprazole 40 Mg Tablet PO 40 mg DAILY [facility] Administration Intake and Output 12/02/23 12/03/23 12/03/23 22:59 06:59 14:59 Other: Weight 89.811 kg 12/02/23 19:15 12/02/23 19:15
[2023-12-03] MEDS: ATORVASTATIN 80 MG TAB PO SCH (21:19)
[2023-12-03] MEDS: ALPRAZolam 0.25 MG TAB PO STA (21:19)
[2023-12-03] MEDS: FENOFIBRATE 54 MG TAB PO SCH (21:19)
[2023-12-03] MEDS: LATANOPROST 0.005% OPHTH DROPS 2.5 ML BTL BOTH EYES SCH (21:20)
[2023-12-04 09:16] VITALS: RESP 17
[2023-12-04] MEDS: ENOXAPARIN 40 MG/0.4 ML SYRINGE SQ SCH (09:50)
[2023-12-04] MEDS: ISOSORBIDE MONONITRATE ER 60 MG TAB.ER.24H PO SCH (10:15)
[2023-12-04 12:00] VITALS: BP 122/77; TEMP 98.2
--- NOTE | 2023-12-04 12:16 | P.DS ---
Providers Date of admission: 12/02/23 20:50 Expected date of discharge: 12/04/23 Attending physician: Junior Samson Consults: 12/02/23 20:49 Consult Physician Urgent Consulting Provider: [facility] Consult Reason/Comments: Chest pain Do you want consulting provider notified?: Yes Primary care physician: Neal Kebede [facility] Course: * 57-year-old patient with past medical history significant for COPD, gastroesophageal flux disease, hypertension, hyperlipidemia [place] to the emergency department with complaints of chest pain. Patient was recently admitted and was seen by cardiology during the hospitalization patient during previous hospitalization was noted to have elevated D-dimer and underwent CT angio chest which was negative for pulm embolism patient states show pulmonary nodules recommending outpatient follow-up pulmonary medicine. Patient had underwent 2D echocardiogram which was within normal limits during previous hospitalization patient was requested to follow-up with cardiology outpatient to get an event monitor. Patient states she went home however had recurrent chest pain that radiated to her back this was associated with diaphoresis pat ient denies any leg pain, fever, chills, cough. * Workup initiated in ER included a chest x-ray which was negative for acute cardiopulmonary process. * Initial EKG was obtained which showed sinus rhythm * Blood work obtained in ER included CBC which were essentially negative serum chemistry which were essentially negative serial troponins were obtained which were normal lipase within normal limits * 12/04/2023: Patient seen and evaluated bedside, during my evaluation patient states she feels way better after getting Xanax. Troponins remain negative patient did not want to try Imdur. Patient to be discharged home. Outpatient follow-up with primary care physician recommended PHYSICAL EXAMINATION: GENERAL: The patient is alert and oriented x3, not in any acute distress. Well developed, well nourished. HEENT: Pupils are round and equally reacting to light. EOMI CARDIOVASCULAR: S1 and S2 present. No murmurs, rubs, or gallops. PULMONARY: Chest is clear to auscultation, no wheezing or crackles. ABDOMEN: Soft, nontender, nondistended, normoactive bowel sounds. No palpable organomegaly. MUSCULOSKELETAL: No joint swelling or deformity. EXTREMITIES: No cyanosis, clubbing, or pedal edema. NEUROLOGICAL: Gross neurological examination did not reveal any focal deficits. SKIN: No rashes. Assessment and plan * Chest pain ruled out acute coronary syndrome * History of COPD * Pulmonary nodule * Hypertension * Gastroesophageal reflux disease * History of anxiety * Obesity with BMI 36 * In regards to chest pain serial troponins obtained that remain negative, cardiology recommended to evaluate and give further instructions * In regards to history of COPD continue patient on breathing treatments, on azithromycin prophylactic dose * In regards to history of pulmonary nodule, CT chest done recently 11/30/2023 does show groundglass opacities with pulmonary nodule noted with this short 3- month follow-up recommended * Regards to anxiety patient given prescription for Xanax will need outpatient follow-up with PCP for refills Patient Condition at Discharge: Fair Plan - Discharge Summary Discharge Rx Participant: No New Discharge Prescriptions: New ALPRAZolam [Xanax] 0.25 mg PO DAILY PRN 3 Days #3 tab PRN Reason: Anxiety Continue Latanoprost [Xalatan 0.005%] 1 drop BOTH EYES HS Azithromycin [Zithromax] 250 mg PO MOTUWE Albuterol Sulfate [Ventolin HFA] 1 - 2 puff INHALATION RT-Q6H PRN PRN Reason: COPD Celecoxib [CeleBREX] 200 mg PO DAILY Omeprazole 20 mg PO BID Fluticasone/Umeclidin/Vilanter [Trelegy Ellipta 100-62.5-25] 1 puff INHALATION RT-DAILY Fenofibrate Nanocrystallized [Fenofibrate] 48 mg PO HS Rosuvastatin Calcium [Crestor] 40 mg PO HS Metoprolol Succinate (ER) [Toprol XL] 25 mg PO DAILY #30 tab Dorzolamide 2% [Trusopt 2%] 1 drop BOTH EYES BID Aspirin EC [Ecotrin Low Dose] 81 mg PO DAILY Losartan [Cozaar] 25 mg PO DAILY Acetaminophen Tab [Tylenol] 650 mg PO Q6HR PRN tab PRN Reason: Mild Pain Or Fever > 100.5 Discharge Medication List Latanoprost [Xalatan 0.005%] 1 drop BOTH EYES HS 08/30/16 [History] Albuterol Sulfate [Ventolin HFA] 1 - 2 puff INHALATION RT-Q6H PRN 10/04/22 [History] Aspirin EC [Ecotrin Low Dose] 81 mg PO DAILY 10/04/22 [History] Azithromycin [Zithromax] 250 mg PO MOTUWE 10/04/22 [History] Celecoxib [CeleBREX] 200 mg PO DAILY 10/04/22 [History] Dorzolamide 2% [Trusopt 2%] 1 drop BOTH EYES BID 10/04/22 [History] Fluticasone/Umeclidin/Vilanter [Trelegy Ellipta 100-62.5-25] 1 puff INHALATION RT-DAILY 10/04/22 [History] Omeprazole 20 mg PO BID 10/04/22 [History] Fenofibrate Nanocrystallized [Fenofibrate] 48 mg PO HS 11/30/23 [History] Losartan [Cozaar] 25 mg PO DAILY 11/30/23 [History] Rosuvastatin Calcium [Crestor] 40 mg PO HS 11/30/23 [History] Acetaminophen Tab [Tylenol] 650 mg PO Q6HR PRN tab 12/01/23 [Rx] Metoprolol Succinate (ER) [Toprol XL] 25 mg PO DAILY #30 tab 12/01/23 [Rx] ALPRAZolam [Xanax] 0.25 mg PO DAILY PRN 3 Days #3 tab 12/04/23 [Rx] Follow up Appointment(s)/Referral(s): Neal Byers [Primary Care Provider] - 1-2 days Activity/Diet/Wound Care/Special Instructions: Continue low-salt diet Prescription for Xanax given, follow-up with PCP for event Will need outpatient referral for behavioral health/psychiatry evaluation Discharge Disposition: HOME SELF-CARE
[2023-12-04 12:55] VITALS: PULSE 73
[2023-12-04] MEDS: ALPRAZolam 0.25 MG TAB PO STA (13:20)
--- NOTE | 2023-12-04 13:24 | P.PN ---
Subjective Progress Note Date: 12/04/23 Consult reason: chest pain, other (palpitations) Chief complaint: palpitations History of present illness: History of present illness: Patient is a pleasant 57-year-old female with significant past medical history of mild CAD, hypertension, COPD, GERD who presented to the emergency department with complaints of rapid heartbeat. She has been seen in multiple ERs few weeks for same symptoms. She does follow with Dr. Alexander in the office. She reports yesterday she was having jaw tightness, headache, feeling her rapid hea rtbeat with increased blood pressure and chest pain with shortness of breath. She has been getting these episodes randomly typically last around 30 minutes however has been worse in the past few days. EKG shows sinus rhythm with nonspecific T wave changes. Labs reviewed: Troponin negative x 3, potassium 4.0, creatinine 0.83. She did have echocardiogram 12/02/2023 with a EF 55-60%, mild LV, no significant valve issues. She had a CTA chest on 11/30/2023 that was negative for PE. She had a prior Lexiscan stress test 02/2023 that was negative for ischemia. She is currently wearing a 14-day event monitor that she received from the office. She denies any chest pain presently, denies any dizziness or lightheadedness. She did have a prior left heart cath at [facility] 02/2018 that was reviewed by Dr. 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 She was having some chest tightness and hot flashes during examination, telemetry reviewed normal sinus rhythm with no change in heart rate . 12/04 Patient is seen today in follow up on the [facility] unit. Revewed previous cardiac catheterization with the patient. She states she is feeling a lot better today which could be from the Xanax that she received yesterday. Blood pressure 122/77, heart rate is in the 70s. Telemetry is sinus rhythm. PHYSICAL EXAMINATION: This is a 57-year-old female in no apparent distress at the time of my examination. HEENT: Head is atraumatic, normocephalic. Pupils are equal, round. Sclerae anicteric. Conjunctivae are clear. Mucous membranes of the mouth are moist. Neck is supple. There is no jugular venous distention. No carotid bruit is heard. CHEST EXAMINATION: Lungs are clear to auscultation. No chest wall tenderness is noted on palpation or with deep breathing. HEART EXAMINATION: Heart regular rate and rhythm. S1, S2 heard. No murmurs, gallops or rub. ABDOMEN: Soft, nontender. Bowel sounds are heard. EXTREMITIES: 2+ peripheral pulses with no evidence of peripheral edema and no calf tenderness noted. NEUROLOGIC EXAMINATION: Patient is awake, alert and oriented x3. IMPRESSION AND PLAN: Mild CAD Hypertension COPD GERD Palpitations Chest pain Dyspnea PLAN: Discussed that she does have an anomalous RCA and this may be a possible explanation of her chest pain. Continue with event monitor. Continue metoprolol. Okay to discharge home from a cardiology standpoint. Follow-up in office as scheduled. Nurse practitioner note has been reviewed, I agree with documented findings and plan of care. Patient was seen and examined. Objective - Vital Signs Vital signs: Vital Signs Temp 98.2 F 12/04/23 11:38 Pulse 70 12/04/23 12:20 Resp 17 12/04/23 11:38 BP 122/77 12/04/23 11:38 Pulse Ox 98 12/04/23 11:38 FiO2 Intake & Output 12/03/23 12/04/23 12/04/23 18:59 06:59 18:59 Intake Total 118 600 118 Balance 118 600 118 Weight 89.811 kg Intake: Oral 118 600 118 Other: Voiding Method Toilet Toilet # Voids 2 - Labs CBC & Chem 7: 12/02/23 19:15 12/02/23 19:15 Labs: Abnormal Lab Results - Last 24 Hours (Table) 12/03/23 Range/Units 08:36 HDL Cholesterol 39.20 L (40.00-60.00) mg/dL
[2023-12-05] MEDS ORDERED: AZITHROMYCIN 250 MG TAB PO SCH (09:00)
== END 2023-12-04 13:22 | disposition home or self-care (01) ==
LOC: EC 18:53 → INTOOBSV 20:50 → 3SCARD 20:50 → UNDODISIN 12-04 13:22
PROVIDERS: ADMIT Hospitalist; ATTEND Hospitalist
DX: R07.89 Other chest pain (principal); Q24.5 Malformation of coronary vessels; R00.2 Palpitations; J44.9 Chronic obstructive pulmonary disease, unspecified; I10 Essential (primary) hypertension; I25.10 Atherosclerotic heart disease of native coronary artery without angina pectoris; R91.1 Solitary pulmonary nodule; K21.9 Gastro-esophageal reflux disease without esophagitis; E78.5 Hyperlipidemia, unspecified; F41.9 Anxiety disorder, unspecified; E66.9 Obesity, unspecified; Z68.36 Body mass index [BMI] 36.0-36.9, adult; Z79.82 Long term (current) use of aspirin; Z79.1 Long term (current) use of non-steroidal anti-inflammatories (NSAID); Z79.51 Long term (current) use of inhaled steroids; Z79.899 Other long term (current) drug therapy; Z88.5 Allergy status to narcotic agent; Z88.0 Allergy status to penicillin; Z87.891 Personal history of nicotine dependence; Z82.49 Family history of ischemic heart disease and other diseases of the circulatory system; Z82.3 Family history of stroke
CPT/HCPCS: 96374; 99285; 36415; 94640 ×3; 94760; 93005 ×2; 80061; 80053; 83690; 83735; 84484 ×2; 85025; 85610; 85730; 71046; G0378 ×3; J2060

== ENCOUNTER 2023-12-04 19:00 | Observation (INO) | payer OTHER ==
[2023-12-04 20:10] LABS: Basophils % (A) 0 %; Eosinophils # (A) 0.1 k/uL (0-0.7); Eosinophils % (A) 1 %; HCT 41.9 % (34.0-46.0); Lymphocytes # (A) 1.6 k/uL (1.0-4.8); Lymphocytes % (A) 19 %; MCH 29.4 pg (25.0-35.0); MCHC 33.5 g/dL (31.0-37.0); MCV 87.8 fL (80.0-100.0); Mean Platelet Volume 7.9; Monocytes # (A) 0.5 k/uL (0-1.0); Monocytes % (A) 6 %; Neutrophils # (A) 6.2 k/uL (1.3-7.7); Neutrophils % (A) 73 %; Platelet Count 210 k/uL (150-450); RBC 4.77 m/uL (3.80-5.40); WBC 8.5 k/uL (3.8-10.6)
[2023-12-04 20:25] LABS: INR 0.9 (<1.2); Partial Thromboplastin Time 24.8 sec (22.0-30.0); Prothrombin Time 10.5 sec (10.0-12.5)
[2023-12-04 20:35] LABS: ALT 20 U/L (4-34); AST 23 U/L (14-36); African American GFR (CKD) >90 (>60 ml/min/1.73 sqM); Albumin 4.6 g/dL (3.5-5.0); Alkaline Phosphatase 76 U/L (38-126); Anion Gap 6 mmol/L; Blood Urea Nitrogen 12 mg/dL (7-17); Calcium 9.7 mg/dL (8.4-10.2); Carbon Dioxide 24 mmol/L (22-30); Chloride 109 mmol/L (98-107); Glucose 98 mg/dL (74-99); Magnesium 1.9 mg/dL (1.6-2.3); Non-African American GFR(CKD) >90 (>60 ml/min/1.73 sqM); Potassium 3.9 mmol/L (3.5-5.1); Sodium 139 mmol/L (137-145); Total Bilirubin 0.5 mg/dL (0.2-1.3); Total Protein 7.1 g/dL (6.3-8.2)
[2023-12-04] MEDS: SODIUM CHLORIDE 0.9% 500 ML 500 ML IV STA (20:51)
--- NOTE | 2023-12-04 21:14 | XR ---
EXAMINATION TYPE: XR chest 2V DATE OF EXAM: 12/04/2023 8:43 PM CLINICAL INDICATION:Female, 57 years old with history of Chest Pain; [facility] COMPARISON: 12/02/2023 chest x-ray and before TECHNIQUE: XR chest 2V. Frontal and lateral views of the chest.. FINDINGS: EKG leads and loop recorder over the chest. The cardiomediastinal silhouette and lungs are stable. He art size is normal. Lungs again appear hyperinflated suggesting background COPD. No acute infiltrate, effusion, or pneumothorax. No acute osseous pathology. IMPRESSION: No acute findings, or significant interval change.
[2023-12-04] MEDS: NITROGLYCERIN SL TABS 0.4 MG TAB SUBLINGUAL STA (21:49)
--- NOTE | 2023-12-04 22:41 | ED ---
Chest Pain HPI - General Chief Complaint: Chest Pain Stated Complaint: Chest Pain Time Seen by Provider: 12/04/23 19:25 Source: patient, family, EMS, RN notes reviewed, old records reviewed Mode of arrival: EMS Limitations: no limitations - History of Present Illness Initial Comments: 57-year-old female who was just discharged this morning after initial evaluation for chest pain who is back today stating she has had intermittent episodes of midsternal chest pain with some radiation to the jaw. It feels for the most part similar to what she has had earlier. She states that she had a cardiac catheterization done in 2018 which did show an anomaly but no blockage per se. She has had 2 recent workups for chest pain and was discharged this morning. Currently she states the pain is about 2/10 in severity. No current nausea vomiting shortness of breath she did feel like she had a racing heart. MD Complaint: chest pain - Related Data Home Medications Medication Instructions Recorded Confirmed Latanoprost [Xalatan 0.005%] 1 drop BOTH EYES HS 08/30/16 12/04/23 Albuterol Sulfate [Ventolin HFA] 1 - 2 puff INHALATION RT-Q6H PRN 10/04/22 12/04/23 Aspirin EC [Ecotrin Low Dose] 81 mg PO DAILY 10/04/22 12/04/23 Azithromycin [Zithromax] 250 mg PO MOTUWE 10/04/22 12/04/23 Celecoxib [CeleBREX] 200 mg PO DAILY 10/04/22 12/04/23 Dorzolamide 2% [Trusopt 2%] 1 drop BOTH EYES BID 10/04/22 12/04/23 Fluticasone/Umeclidin/Vilanter 1 puff INHALATION RT-DAILY 10/04/22 12/04/23 [Trelegy Ellipta 100-62.5-25] Omeprazole 20 mg PO BID 10/04/22 12/04/23 Fenofibrate Nanocrystallized 48 mg PO HS 11/30/23 12/04/23 [Fenofibrate] Losartan [Cozaar] 25 mg PO DAILY 11/30/23 12/04/23 Rosuvastatin Calcium [Crestor] 40 mg PO HS 11/30/23 12/04/23 Nitroglycerin Sl Tabs [Nitrostat] 0.4 mg SUBLINGUAL Q5M PRN 12/04/23 12/04/23 Previous Rx's Medication Instructions Recorded Acetaminophen Tab [Tylenol] 650 mg PO Q6HR PRN tab 12/01/23 Metoprolol Succinate (ER) [Toprol 25 mg PO DAILY #30 tab 12/01/23 XL] ALPRAZolam [Xanax] 0.25 mg PO DAILY PRN 3 Days #3 tab 12/04/23 Allergies Allergy/AdvReac Type Severity Reaction Status Date / Time codeine Allergy Anaphylaxis Verified 12/04/23 20:13 hydrocodone Allergy Anaphylaxis Verified 12/04/23 20:13 Penicillins AdvReac Yeast Verified 12/04/23 20:13 infections Review of Systems ROS Statement: Those systems with pertinent positive or pertinent negative responses have been documented in the HPI. ROS Other: All systems not noted in ROS Statement are negative. Past Medical History Past Medical History: Chest Pain / Angina, COPD, Eye Disorder, GERD/Reflux, Hyperlipidemia, Hypertension, Osteoarthritis (OA) Additional Past Medical History / Comment(s): glaucoma History of Any Multi-Drug Resistant Organisms: None Reported Past Surgical History: Orthopedic Surgery, Tubal Ligation Additional Past Surgical History / Comment(s): bunionectomy-lt. LT KNEE SX. COLONOSCOPY. Carpal tunnel surgery on right hand. Past Anesthesia/Blood Transfusion Reactions: Postoperative Nausea & Vomiting (PONV) Past Psychological History: Anxiety Smoking Status: Former smoker - Past Family History Mother Family Medical History: CVA/TIA Father History Unknown: Yes Family Medical History: Cancer, Myocardial Infarction ([place]) General Exam - General Exam Comments Initial Comments: This is a well-developed well-nourished awake alert oriented x 4 female Limitations: no limitations General appearance: alert, anxious Head exam: Present: atraumatic, normocephalic, normal inspection Eye exam: Present: normal appearance, PERRL, EOMI. Absent: scleral icterus, conjunctival injection, periorbital swelling ENT exam: Present: normal exam, mucous membranes moist Neck exam: Present: normal inspection, full ROM, other (No stridor JVD or bruits). Absent: tenderness, meningismus, lymphadenopathy Respiratory exam: Present: normal lung sounds bilaterally. Absent: respiratory distress, wheezes, rales, rhonchi, stridor Cardiovascular Exam: Present: regular rate, normal rhythm, normal heart sounds. Absent: systolic murmur, diastolic murmur, rubs, gallop, clicks GI/Abdominal exam: Present: soft, normal bowel sounds. Absent: distended, tenderness, guarding, rebound, rigid Extremities exam: Present: normal inspection, full ROM, normal capillary refill. Absent: tenderness, pedal edema, joint swelling, calf tenderness Back exam: Present: normal inspection Neurological exam: Present: alert, oriented X3, CN II-XII intact Psychiatric exam: Present: normal affect, normal mood Skin exam: Present: warm, dry, intact, normal color. Absent: rash Course Vital Signs 12/04/23 12/04/23 12/04/23 19:10 21:00 21:52 Temperature 98.0 F Pulse Rate 98 73 86 Respiratory 18 18 18 Rate Blood Pressure 117/82 127/93 123/89 O2 Sat by Pulse 94 L 97 94 L Oximetry Chest Pain MDM - MDM I did discuss the findings with the patient and multiple family members. The patient had gotten relief from the pain after getting nitro from the paramedics who brought her in by ambulance. She again had 2/10 in severity chest pain which did resolve after getting nitroglycerin in the emergency department. Patient will be admitted I did discuss case with Dr. Epperson. Cardiology will be consulted. Was pt. sent in by a medical professional or institution (, PA, HOME HEALTH TRAVEL OT, urgent care, hospital, or [facility]...) When possible be specific @ -No Did you speak to anyone other than the patient for history (EMS, parent, family, police, friend...)? What history was obtained from this source @ -Family members Did you review nursing and triage notes (agree or disagree)? Why? @ -I reviewed and agree with nursing and triage notes Were old charts reviewed (outside hosp., previous admission, EMS record, old EKG, old radiological studies, urgent care reports/EKG's, [facility] records)? Report findings @ -Recent old charts were reviewed Differential Diagnosis (chest pain, altered mental status, abdominal pain women, abdominal pain men, vaginal bleeding, weakness, fever, dyspnea, syncope, headache, dizziness, GI bleed, back pain, seizure, CVA, palpatations, mental health, musculoskeletal)? @ -Chest pain EKG interpreted by me (3pts min.). @ -As above EKG interpreted by me sinus rhythm with a short AK interval the Triklo rate 84 acute RS duration 80 AK interval 109 QT/QTc 369/[address]-T wave changes seen at this time X-rays interpreted by me (1pt min.). @ -Chest x-ray interpreted by me no acute process CT interpreted by me (1pt min.). @ -None done U/S interpreted by me (1pt. min.). @ -None done What testing was considered but not performed or refused? (CT, X-rays, U/S, labs)? Why? @ -None What meds were considered but not given or refused? Why? @ -None Did you discuss the management of the patient with other professionals (professionals i.e. , PA, HOME HEALTH TRAVEL OT, lab, RT, psych nurse, socially responsible investment adviser, wire straightener, teacher, aviation tactical readiness officer, case hardener)? Give summary @ -Dr. Paredes Was smoking cessation discussed for >3mins.? @ -No Was critical care preformed (if so, how long)? @ -No Were there social determinants of health that impacted care today? How? (Homelessness, low income, unemployed, alcoholism, drug addiction, transportation, low edu. Level, literacy, decrease access to med. care, assisted, rehab)? @ -No Was there de-escalation of care discussed even if they declined (Discuss DNR or withdrawal of care, Hospice)? DNR status @ -No What co-morbidities impacted this encounter? (DM, HTN, Smoking, COPD, CAD, Cancer, CVA, ARF, Chemo, Hep., AIDS, mental health diagnosis, sleep apnea, morbid obesity)? @ -None Was patient admitted / discharged? Hospital course, mention meds given and route, prescriptions, significant lab abnormalities, going to OR and other pertinent info. @ -Hospital course the patient was admitted for observation with cardiology consultation. Undiagnosed new problem with uncertain prognosis? @ -No Drug Therapy requiring intensive monitoring for toxicity (Heparin, Nitro, Insulin, Cardizem)? @ -Yes heparin and nitro Were any procedures done? @ -No Diagnosis/symptom? @ -Chest pain, unstable angina Acute, or Chronic, or Acute on Chronic? @ -Acute Uncomplicated (without systemic symptoms) or Complicated (systemic symptoms)? @ -Default Side effects of treatment? @ -No Exacerbation, Progression, or Severe Exacerbation? @ -No Poses a threat to life or bodily function? How? (Chest pain, USA, OR, pneumonia, PE, COPD, DKA, ARF, appy, cholecystitis, CVA, Diverticulitis, Homicidal, Suici arslan, threat to staff... and all critical care pts) @ -Tensional, chest pain Disposition Clinical Impression: Chest pain, Unstable angina Disposition: ADMITTED IP TO THIS [facility] Condition: Stable Referrals: Neal Byers [Primary Care Provider] - 1-2 days Time of Disposition: 22:48 Decision Date: 12/04/23 Decision Time: 22:49
[2023-12-04] MEDS ORDERED: NITROGLYCERIN SL TABS 0.4 MG TAB SUBLINGUAL PRN (22:50)
[2023-12-04] MEDS ORDERED: ALPRAZolam 0.25 MG TAB PO PRN (22:53)
[2023-12-04] MEDS ORDERED: ALBUTEROL NEBULIZED 2.5 MG/3 ML INHALATION PRN (22:53)
[2023-12-04] MEDS: HEPARIN SOD,PORK IN 0.45% NACL 25,000 UNIT in 0.45% NACL 1 250ML.BAG IV SCH (23:10)
[2023-12-04] MEDS: HEPARIN SODIUM 1,000 UN/ML (10ML VL) IV ONE (23:11)
[2023-12-04] MEDS: SODIUM CHLORIDE 0.9% 1,000 ML IV SCH (23:12)
[2023-12-04] MEDS: NITROGLYCERIN OINT 1 INCH/GM PACKET TOPICAL SCH (23:13)
[2023-12-05] MEDS ORDERED: HEPARIN SODIUM 1,000 UN/ML (10ML VL) IV PRN (04:21)
[2023-12-05] MEDS ORDERED: REGADENOSON 0.4 MG/5 ML SYRINGE IV PRN (08:15)
[2023-12-05] MEDS ORDERED: AMINOPHYLLINE 500 MG/20 ML VIAL IV PRN (08:15)
[2023-12-05] MEDS ORDERED: CAFFEINE CITRATE 60 MG/3 ML VIAL IV PRN (08:15)
[2023-12-05] MEDS: SYMBICORT 80-4.5 MCG INHALER INHALATION SCH (08:17)
[2023-12-05] MEDS: IPRATROPIUM 0.5 MG/2.5 ML NEBU INHALATION SCH (08:18)
[2023-12-05 08:20] VITALS: TEMP 97.3
[2023-12-05] MEDS: PANTOPRAZOLE 40 MG TABLET PO SCH (08:49)
[2023-12-05] MEDS: ASPIRIN 325 MG TAB PO SCH (08:49)
[2023-12-05] MEDS: LOSARTAN 25 MG TAB PO SCH (08:49)
[2023-12-05] MEDS: DORZOLAMIDE HCL 2% DROPS 10 ML BTL BOTH EYES SCH (08:49)
[2023-12-05] MEDS: METOPROLOL SUCCINATE (ER) 25 MG TAB.ER.24H PO SCH (08:49)
[2023-12-05 09:05] LABS: Chol/HDL Ratio 3.27 Ratio; LDL Cholesterol,Calculated 67.9 mg/dL (0.0-131.0)
[2023-12-05] MEDS ORDERED: NALOXONE 0.4 MG/ML 1 ML VIAL IV PRN (09:57)
[2023-12-05] MEDS ORDERED: ONDANSETRON 4 MG/2 ML VIAL IVP PRN (09:57)
--- NOTE | 2023-12-05 11:34 | P.CRDCN ---
History of Present Illness Consult date: 12/05/23 History of present illness: This is a 57-year-old female patient of Dr. Cuevas with a past medical history significant for mild CAD, hypertension, COPD, GERD, and former nicotine dependence. We have been asked to see the patient in consultation for chest pain. Patient has had 2 previous hospitalizations for chest pain. Patient states that she is having a lot of discomfort in her chest and Nitropaste seems to help. Walking seems to make her chest pain worse. She also has lightheadedness. She feels her heart is pounding in her chest and fast. Pain seems to be worsening over time. No increased pain with deep breathing. She does complain of lightheadedness without syncopal episodes. She has hypertension and COPD. She quit smoking 7 years ago. Previous workup on those admissions included: CTA chest on 11/30/2023 that was negative for PE. Few scattered groundglass pulmonary nodules. Moderate emphysema. Small hiatal hernia. Echocardiogram 12/02/2023 with a EF 55-60%, mild LV, no significant valve issues. She is currently wearing a 14-day event monitor that she received from the office. Troponins have been negative on all visits for a total of 9. EKG reveals sinus mechanism with no signs of acute ischemia. Chest xray negative for acute process. CBC, INR CMP unremarkable. Troponin negative x 3. Triglycerides 136, cholesterol 137, LDL 67, HDL 41. Current home cardiac medications: Losartan 25 mg daily, Toprol XL 25 mg daily, Nitrostat as needed, rosuvastatin 40 mg at night Patient underwent Lexiscan stress test in February 2023 which was negative for ischemia [place] [facility] [place] 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 REVIEW OF SYSTEMS: At the time of my exam: CONSTITUTIONAL: Denies fever or chills. HEENT: Denies blurred vision, vision changes, or eye pain. Denies hemoptysis CARDIOVASCULAR: Denies chest pain. Denies orthopnea. Denies PND. Denies palpitations RESPIRATORY: Denies shortness of breath. GASTROINTESTINAL: Denies abdominal pain. Denies nausea or vomiting. HEMATOLOGIC: Denies bleeding disorders. GENITOURINARY: Denies any blood in urine. SKIN: Denies pruitis. Denies rash. PHYSICAL EXAM: VITAL SIGNS: Reviewed. GENERAL: Well-developed in no acute distress. HEENT: Head is normocephalic. Pupils are equal, round. Sclerae anicteric. Mucous membranes of the mouth are moist. Neck supple. No JVD or thyromegaly LUNGS: Respirations even and unlabored. Lungs essentially clear to auscultation bilaterally. HEART: Regular rate and rhythm. S1 and S2 heard. No tenderness to chest wall. ABDOMEN: Soft. Nondistended. Nontender. EXTREMITIES: Normal range of motion. No clubbing or cyanosis. Peripheral pulses intact. No lower extremity edema NEUROLOGIC: Awake and alert. Oriented x 3. ASSESSMENT: Palpitations Atypical chest pain, acute coronary syndrome ruled out, troponin negative x 3 Pulmonary nodules, Per CTA Hypertension History of COPD History of mild nonobstructive CAD GERD Former nicotine dependence PLAN: An acute coronary event has been ruled out Resume home cardiac medications Lexiscan stress test today If stress test is unremarkable, patient is cleared from cardiology for discharge home. She is to follow-up with Dr. Cuevas in 3 weeks Nurse practitioner note has been reviewed by physician. Signing provider agrees with the documented findings, assessment, and plan of care documented by [employer]OLD ROLL CUTTER as a scribe. Past Medical History Past Medical History: Chest Pain / Angina, COPD, Eye Disorder, GERD/Reflux, Hyperlipidemia, Hypertension, Osteoarthritis (OA) Additional Past Medical History / Comment(s): glaucoma History of Any Multi-Drug Resistant Organisms: None Reported Past Surgical History: Orthopedic Surgery, Tubal Ligation Additional Past Surgical History / Comment(s): bunionectomy-lt. LT KNEE SX. COLONOSCOPY. Carpal tunnel surgery on right hand. Past Anesthesia/Blood Transfusion Reactions: Postoperative Nausea & Vomiting (PONV) Past Psychological History: Anxiety Smoking Status: Former smoker - Past Family History Mother Family Medical History: CVA/TIA Father History Unknown: Yes Family Medical History: Cancer, Myocardial Infarction ([place]) Medications and Allergies Home Medications Medication Instructions Recorded Confirmed Type Latanoprost [Xalatan 0.005%] 1 drop BOTH EYES HS 08/30/16 12/04/23 History Albuterol Sulfate [Ventolin HFA] 1 - 2 puff INHALATION RT-Q6H PRN 10/04/22 12/04/23 History Aspirin EC [Ecotrin Low Dose] 81 mg PO DAILY 10/04/22 12/04/23 History Azithromycin [Zithromax] 250 mg PO MOTUWE 10/04/22 12/04/23 History Celecoxib [CeleBREX] 200 mg PO DAILY 10/04/22 12/04/23 History Dorzolamide 2% [Trusopt 2%] 1 drop BOTH EYES BID 10/04/22 12/04/23 History Fluticasone/Umeclidin/Vilanter 1 puff INHALATION RT-DAILY 10/04/22 12/04/23 History [Trelegy Ellipta 100-62.5-25] Omeprazole 20 mg PO BID 10/04/22 12/04/23 History Fenofibrate Nanocrystallized 48 mg PO HS 11/30/23 12/04/23 History [Fenofibrate] Losartan [Cozaar] 25 mg PO DAILY 11/30/23 12/04/23 History Rosuvastatin Calcium [Crestor] 40 mg PO HS 11/30/23 12/04/23 History Acetaminophen Tab [Tylenol] 650 mg PO Q6HR PRN tab 12/01/23 12/04/23 Rx Metoprolol Succinate (ER) [Toprol 25 mg PO DAILY #30 tab 12/01/23 12/04/23 Rx XL] ALPRAZolam [Xanax] 0.25 mg PO DAILY PRN 3 Days #3 tab 12/04/23 12/04/23 Rx Nitroglycerin Sl Tabs [Nitrostat] 0.4 mg SUBLINGUAL Q5M PRN 12/04/23 12/04/23 History Allergies Allergy/AdvReac Type Severity Reaction Status Date / Time codeine Allergy Anaphylaxis Verified 12/04/23 20:13 hydrocodone Allergy Anaphylaxis Verified 12/04/23 20:13 Penicillins AdvReac Yeast Verified 12/04/23 20:13 infections Physical Exam Vitals: Vital Signs Temp Pulse Resp BP Pulse Ox 12/05/23 06:16 62 16 89/58 97 12/05/23 05:06 57 L 15 95/60 96 12/05/23 04:05 64 15 95/60 97 12/05/23 03:14 65 16 105/68 97 12/05/23 02:13 64 16 98/64 98 12/05/23 01:02 75 18 130/79 97 12/05/23 00:00 79 16 123/83 97 12/04/23 23:00 70 18 124/88 96 12/04/23 22:00 75 18 116/72 97 12/04/23 21:52 86 18 123/89 94 L 12/04/23 21:00 73 18 127/93 97 12/04/23 19:10 98.0 F 98 18 117/82 94 L Intake and Output 12/04/23 12/05/23 12/05/23 22:59 06:59 14:59 Intake Total 53.526 Balance 53.526 Intake: Intake, IV Titration 53.526 Amount Heparin Sod,Pork in 0.45% 53.526 NaCl 25,000 unit In 0.45 % NaCl 1 250ml.bag @ 12 UNITS/KG/HR 10.777 mls/hr IV .[id number] [facility] Rx#: [id number] Other: Weight 89.811 kg Results 12/04/23 19:55 12/04/23 19:55 Cardiac Enzymes 12/04/23 12/04/23 12/04/23 Range/Units 19:55 19:55 23:43 AST 23 (14-36) U/L Troponin I <0.012 <0.012 (0.000-0.034) ng/mL 12/05/23 Range/Units 03:12 AST (14-36) U/L Troponin I <0.012 (0.000-0.034) ng/mL Coagulation 12/04/23 12/05/23 Range/Units 19:55 03:12 PT 10.5 (10.0-12.5) sec APTT 24.8 20.7 L (22.0-30.0) sec CBC 12/04/23 Range/Units 19:55 WBC 8.5 (3.8-10.6) k/uL RBC 4.77 (3.80-5.40) m/uL Hgb 14.0 (11.4-16.0) gm/dL Hct 41.9 (34.0-46.0) % Plt Count 210 (150-450) k/uL Comprehensive Metabolic Panel 12/04/23 Range/Units 19:55 Sodium 139 (137-145) mmol/L Potassium 3.9 (3.5-5.1) mmol/L Chloride 109 H (98-107) mmol/L Carbon Dioxide 24 (22-30) mmol/L BUN 12 (7-17) mg/dL Creatinine 0.74 (0.52-1.04) mg/dL Glucose 98 (74-99) mg/dL Calcium 9.7 (8.4-10.2) mg/dL AST 23 (14-36) U/L ALT 20 (4-34) U/L Alkaline Phosphatase 76 (38-126) U/L Total Protein 7.1 (6.3-8.2) g/dL Albumin 4.6 (3.5-5.0) g/dL Current Medications Generic Name Dose Route Start Last Admin Trade Name Freq PRN Reason Stop Dose Admin Albuterol Sulfate 2.5 mg 12/04/23 22:53 Albuterol Nebulized 2.5 Mg/3 Ml INHALATION RT-Q6H PRN COPD Alprazolam 0.25 mg 12/04/23 22:53 Alprazolam 0.25 Mg Tab PO DAILY PRN Anxiety Aspirin 325 mg 12/05/23 09:00 Aspirin 325 Mg Tab PO DAILY [facility] Atorvastatin Calcium 80 mg 12/05/23 21:00 Atorvastatin 80 Mg Tab PO HS [facility] Budesonide/Formoterol Fumarate 2 puff 12/05/23 08:00 Symbicort 80-4.5 Mcg Inhaler INHALATION RT-BID [facility] Dorzolamide HCl 1 drops 12/05/23 09:00 Dorzolamide Hcl 2% Drops 10 Ml Btl BOTH EYES BID [facility] Fenofibrate 54 mg 12/05/23 21:00 Fenofibrate 54 Mg Tab PO HS [facility] Heparin Sodium (Porcine) 0 unit 12/05/23 04:21 Heparin Sodium 1,000 Un/Ml (10ml Vl) IV PER PROTOCOL PRN Low PTT Protocol Sodium Chloride 1,000 mls @ 100 mls/hr 12/04/23 23:00 12/04/23 23:12 Saline 0.9% IV 100 mls/hr .Q10H [facility] Administration Heparin Sodium/Sodium Chloride 250 mls @ 10.777 mls/hr 12/04/23 23:00 12/05/23 04:08 25,000 unit/ Sodium Chloride IV 15.34 units/kg/hr .[id number] [facility] 13.777 mls/hr Titration Protocol 12 UNITS/KG/HR Ipratropium [place] 0.5 mg 12/05/23 08:00 Ipratropium 0.5 Mg/2.5 Ml Nebu INHALATION RT-QID [facility] Latanoprost 1 drops 12/05/23 21:00 Latanoprost 0.005% Ophth Drops 2.5 Ml Btl BOTH EYES HS [facility] Losartan Potassium 25 mg 12/05/23 09:00 Losartan 25 Mg Tab PO DAILY [facility] Meloxicam 7.5 mg 12/05/23 09:00 Meloxicam 7.5 Mg Tab PO DAILY [facility] Metoprolol Succinate 25 mg 12/05/23 09:00 Metoprolol Succinate (Er) 25 Mg Tab.Er.24h PO DAILY [facility] Nitroglycerin 0.4 mg 12/04/23 22:50 Nitroglycerin Sl Tabs 0.4 Mg Tab SUBLINGUAL Q5M PRN Chest Pain Nitroglycerin 0.5 inch 12/05/23 00:00 12/05/23 07:33 Nitroglycerin Oint 1 Inch/Gm Packet TOPICAL Not Given Q6HR [facility] Pantoprazole Sodium 40 mg 12/05/23 09:00 Pantoprazole 40 Mg Tablet PO DAILY [facility] Intake and Output 12/04/23 12/05/23 12/05/23 22:59 06:59 14:59 Intake Total 53.526 Balance 53.526 Intake: Intake, IV Titration 53.526 Amount Heparin Sod,Pork in 0.45% 53.526 NaCl 25,000 unit In 0.45 % NaCl 1 250ml.bag @ 12 UNITS/KG/HR 10.777 mls/hr IV .[id number] [facility] Rx#: [id number] Other: Weight 89.811 kg 12/04/23 19:55 12/04/23 19:55
--- NOTE | 2023-12-05 13:17 | P.HPIM ---
History of Present Illness H&P Date: 12/05/23 Chief Complaint: Chest pain * 57-year-old patient with past medical history significant for anxiety, COPD, gastroesophageal reflux disease, hypertension, hyperlipidemia who was discharged from the hospital on 12/04/2023 readmitted overnight with complaints of chest pain. Patient states she has been having intermittent chest pain ongoing and decided to come back to the hospital as instructed. Patient was seen by cardiology earlier in the hospitalization and cleared for discharge. Patient felt she was anxious and was given a prescription for Xanax with recommendations to follow-up with primary care provider * Patient presents back with chest pain, 2 x 10 in intensity, sharp patient denies associated nausea, vomiting shortness of breath however she did have palpitations. Workup initiated * Workup initiated including CBC was essentially normal, serum chemistry showed sodium 139 potassium 3.9, dicer 24 BUN 12 creatinine 0.74 AST 23 ALT 20 troponin negative * Patient been admitted to medical floor with consultation from cardiology REVIEW OF SYSTEMS: Chest pain CONSTITUTIONAL: No fever, no malaise, no fatigue. HEENT: No recent visual problems or hearing problems. Denied any sore throat. CARDIOVASCULAR: Chest pain PULMONARY: No shortness of breath, no cough, no hemoptysis. GASTROINTESTINAL: No diarrhea, no nausea, no vomiting, no abdominal pain. NEUROLOGICAL: No headaches, no weakness, no numbness. HEMATOLOGICAL: Denies any bleeding or petechiae. GENITOURINARY: Denies any burning micturition, frequency, or urgency. MUSCULOSKELETAL/RHEUMATOLOGICAL: Denies any joint pain, swelling, or any muscle pain. ENDOCRINE: Denies any polyuria or polydipsia. PHYSICAL EXAMINATION: GENERAL: The patient is alert and oriented x3, Well developed, well nourished. HEENT: Pupils are round and equally reacting to light. EOMI. CARDIOVASCULAR: S1 and S2 present. No murmurs, rubs, or gallops. PULMONARY: Chest is clear to auscultation, no wheezing or crackles. ABDOMEN: Soft, nontender, nondistended, normoactive bowel sounds. No palpable organomegaly. MUSCULOSKELETAL: No joint swelling or deformity. EXTREMITIES: No cyanosis, clubbing, or pedal edema. NEUROLOGICAL: Gross neurological examination did not reveal any focal deficits. SKIN: No rashes. Past Medical History Past Medical History: Chest Pain / Angina, COPD, Eye Disorder, GERD/Reflux, Hyperlipidemia, Hypertension, Osteoarthritis ([place]) Additional Past Medical History / Comment(s): glaucoma History of Any Multi-Drug Resistant Organisms: None Reported Past Surgical History: Orthopedic Surgery, Tubal Ligation Additional Past Surgical History / Comment(s): bunionectomy-lt. LT KNEE SX. COLONOSCOPY. Carpal tunnel surgery on right hand. Past Anesthesia/Blood Transfusion Reactions: Postoperative Nausea & Vomiting (PONV) Past Psychological History: Anxiety Smoking Status: Former smoker - Past Family History Mother Family Medical History: CVA/TIA Father History Unknown: Yes Family Medical History: Cancer, Myocardial Infarction ([place]) Medications and Allergies Home Medications Medication Instructions Recorded Confirmed Type Latanoprost [Xalatan 0.005%] 1 drop BOTH EYES HS 08/30/16 12/04/23 History Albuterol Sulfate [Ventolin HFA] 1 - 2 puff INHALATION RT-Q6H PRN 10/04/22 12/04/23 History Aspirin EC [Ecotrin Low Dose] 81 mg PO DAILY 10/04/22 12/04/23 History Azithromycin [Zithromax] 250 mg PO MOTUWE 10/04/22 12/04/23 History Celecoxib [CeleBREX] 200 mg PO DAILY 10/04/22 12/04/23 History Dorzolamide 2% [Trusopt 2%] 1 drop BOTH EYES BID 10/04/22 12/04/23 History Fluticasone/Umeclidin/Vilanter 1 puff INHALATION RT-DAILY 10/04/22 12/04/23 History [Trelegy Ellipta 100-62.5-25] Omeprazole 20 mg PO BID 10/04/22 12/04/23 History Fenofibrate Nanocrystallized 48 mg PO HS 11/30/23 12/04/23 History [Fenofibrate] Losartan [Cozaar] 25 mg PO DAILY 11/30/23 12/04/23 History Rosuvastatin Calcium [Crestor] 40 mg PO HS 11/30/23 12/04/23 History Acetaminophen Tab [Tylenol] 650 mg PO Q6HR PRN tab 12/01/23 12/04/23 Rx Metoprolol Succinate (ER) [Toprol 25 mg PO DAILY #30 tab 12/01/23 12/04/23 Rx XL] ALPRAZolam [Xanax] 0.25 mg PO DAILY PRN 3 Days #3 tab 12/04/23 12/04/23 Rx Nitroglycerin Sl Tabs [Nitrostat] 0.4 mg SUBLINGUAL Q5M PRN 12/04/23 12/04/23 History Allergies Allergy/AdvReac Type Severity Reaction Status Date / Time codeine Allergy Anaphylaxis Verified 12/04/23 20:13 hydrocodone Allergy Anaphylaxis Verified 12/04/23 20:13 Penicillins AdvReac Yeast Verified 12/04/23 20:13 infections Physical Exam Vitals: Vital Signs Temp Pulse Resp BP BP Pulse Ox 12/05/23 08:39 136/90 12/05/23 08:18 68 16 12/05/23 07:00 97.3 F L 16 136/90 97 12/05/23 06:16 62 16 89/58 97 12/05/23 05:06 57 L 15 95/60 96 12/05/23 04:05 64 15 95/60 97 12/05/23 03:14 65 16 105/68 97 12/05/23 02:13 64 16 98/64 98 12/05/23 01:02 75 18 130/79 97 12/05/23 00:00 79 16 123/83 97 12/04/23 23:00 70 18 124/88 96 12/04/23 22:00 75 18 116/72 97 12/04/23 21:52 86 18 123/89 94 L 12/04/23 21:00 73 18 127/93 97 12/04/23 19:10 98.0 F 98 18 117/82 94 L Intake and Output 12/04/23 12/05/23 12/05/23 22:59 06:59 14:59 Intake Total 53.526 Balance 53.526 Intake: Intake, IV Titration 53.526 Amount Heparin Sod,Pork in 0.45% 53.526 NaCl 25,000 unit In 0.45 % NaCl 1 250ml.bag @ 12 UNITS/KG/HR 10.777 mls/hr IV .[id number] [facility] Rx#: [id number] Other: Weight 89.811 kg Results CBC & Chem 7: 12/04/23 19:55 12/04/23 19:55 Labs: Abnormal Lab Results - Last 24 Hours (Table) 12/04/23 12/05/23 Range/Units 19:55 03:12 APTT 20.7 L (22.0-30.0) sec Chloride 109 H (98-107) mmol/L Assessment and Plan Assessment: Assessment and plan * Recurrent chest pain rule out acute coronary syndrome * History of COPD * History of anxiety * History of pulmonary nodule needing outpatient follow-up with pulmonary medicine * Hypertension * Gastroesophageal reflux disease * Obesity with BMI 36 * In regards to chest pain, serial troponins ordered, cardiology consulted, stre ss test ordered * Regards to COPD, continue albuterol, Symbicort * In regards to history of anxiety Xanax as needed * In regards to gastroesophageal reflux disease continue Protonix * CODE STATUS is full code Time with Patient: Greater than 30
[2023-12-05] MEDS: MELOXICAM 7.5 MG TAB PO SCH (13:53)
--- NOTE | 2023-12-05 14:04 | NM ---
EXAMINATION TYPE: NM stress lexiscan cardiolite DATE OF EXAM: 12/05/2023 COMPARISON: NONE CLINICAL INDICATION: Female, 57 years old with history of CP; TECHNIQUE: After the intravenous administration of 10.2 mCi Tc 99m Sestamibi - Cardiolite resting SP ECT images acquired 120 minutes post injection. The patient received 0.4mg Lexiscan, 26.1 mCi Tc 99m Sestamibi - Stress images obtained [address] injection FINDINGS: Review of stress and rest SPECT images demonstrates no distinct perfusion abnormality. Gated analysi s shows normal wall motion with an estimated left ventricular ejection fraction of 71 %. IMPRESSION: No scintigraphic evidence for reversible ischemia.
[2023-12-05 15:09] VITALS: BP 117/73; RESP 12
[2023-12-05] MEDS: ACETAMINOPHEN TAB 325 MG TAB PO PRN (15:48)
[2023-12-05 16:05] VITALS: PULSE 73
--- NOTE | 2023-12-05 16:10 | P.DS ---
Providers Date of admission: 12/04/23 22:55 Expected date of discharge: 12/05/23 Attending physician: Barbie Ledesma MD Consults: 12/04/23 22:50 Consult Physician Urgent Consulting Provider: Isiah Mejia Consult Reason/Comments: Chest pain Do you want consulting provider notified?: Yes, Notify in am Primary care physician: Neal Kebede Butler Hospital Course: * 57-year-old patient with past medical history significant for anxiety, COPD, gastroesophageal reflux disease, hypertension, hyperlipidemia who was discharged from the hospital on 12/04/2023 readmitted overnight with complaints of chest pain. Patient states she has been having intermittent chest pain ongoing and decided to come back to the hospital as instructed. Patient was seen by cardiology earlier in the hospitalization and cleared for discharge. Patient felt she was anxious and was given a prescription for Xanax with recommendations to follow-up with primary care provider * Patient presents back with chest pain, 2 x 10 in intensity, sharp patient denies associated nausea, vomiting shortness of breath however she did have palpitations. Workup initiated * Workup initiated including CBC was essentially normal, serum chemistry showed sodium 139 potassium 3.9, dicer 24 BUN 12 creatinine 0.74 AST 23 ALT 20 troponin negative * Patient been admitted to medical floor with consultation from cardiology * Underwent Stress test, Negative * Cleared for Discharge, Nitro s/l script given PHYSICAL EXAMINATION: GENERAL: The patient is alert and oriented x3, Well developed, well nourished. HEENT: Pupils are round and equally reacting to light. EOMI. CARDIOVASCULAR: S1 and S2 present. No murmurs, rubs, or gallops. PULMONARY: Chest is clear to auscultation, no wheezing or crackles. ABDOMEN: Soft, nontender, nondistended, normoactive bowel sounds. No palpable organomegaly. MUSCULOSKELETAL: No joint swelling or deformity. EXTREMITIES: No cyanosis, clubbing, or pedal edema. NEUROLOGICAL: Gross neurological examination did not reveal any focal deficits. SKIN: No rashes. Assessment and plan * Recurrent chest pain rule out acute coronary syndrome * History of COPD * History of anxiety * History of pulmonary nodule needing outpatient follow-up with pulmonary medicine * Hypertension * Gastroesophageal reflux disease * Obesity with BMI 36 * In regards to chest pain, serial troponins NEGATIVE , cardiology consulted, stress test NORMAL * Regards to COPD, continue albuterol, Symbicort * In regards to history of anxiety Xanax as needed * In regards to gastroesophageal reflux disease continue Protonix Patient Condition at Discharge: Stable Plan - Discharge Summary New Discharge Prescriptions: New Nitroglycerin Sl Tabs [Nitrostat] 0.4 mg SUBLINGUAL Q5M PRN 15 Days #15 tab PRN Reason: Chest Pain Continue Latanoprost [Xalatan 0.005%] 1 drop BOTH EYES HS Azithromycin [Zithromax] 250 mg PO MOTUWE Albuterol Sulfate [Ventolin HFA] 1 - 2 puff INHALATION RT-Q6H PRN PRN Reason: COPD Celecoxib [CeleBREX] 200 mg PO DAILY Omeprazole 20 mg PO BID Fluticasone/Umeclidin/Vilanter [Trelegy Ellipta 100-62.5-25] 1 puff INHALATION RT-DAILY Fenofibrate Nanocrystallized [Fenofibrate] 48 mg PO HS Rosuvastatin Calcium [Crestor] 40 mg PO HS Metoprolol Succinate (ER) [Toprol XL] 25 mg PO DAILY #30 tab ALPRAZolam [Xanax] 0.25 mg PO DAILY PRN 3 Days #3 tab PRN Reason: Anxiety Dorzolamide 2% [Trusopt 2%] 1 drop BOTH EYES BID Aspirin EC [Ecotrin Low Dose] 81 mg PO DAILY Losartan [Cozaar] 25 mg PO DAILY Acetaminophen Tab [Tylenol] 650 mg PO Q6HR PRN tab PRN Reason: Mild Pain Or Fever > 100.5 Discontinued Nitroglycerin Sl Tabs [Nitrostat] 0.4 mg SUBLINGUAL Q5M PRN PRN Reason: Chest Pain Discharge Medication List Latanoprost [Xalatan 0.005%] 1 drop BOTH EYES HS 08/30/16 [History] Albuterol Sulfate [Ventolin HFA] 1 - 2 puff INHALATION RT-Q6H PRN 10/04/22 [History] Aspirin EC [Ecotrin Low Dose] 81 mg PO DAILY 10/04/22 [History] Azithromycin [Zithromax] 250 mg PO MOTUWE 10/04/22 [History] Celecoxib [CeleBREX] 200 mg PO DAILY 10/04/22 [History] Dorzolamide 2% [Trusopt 2%] 1 drop BOTH EYES BID 10/04/22 [History] Fluticasone/Umeclidin/Vilanter [Trelegy Ellipta 100-62.5-25] 1 puff INHALATION RT-DAILY 10/04/22 [History] Omeprazole 20 mg PO BID 10/04/22 [History] Fenofibrate Nanocrystallized [Fenofibrate] 48 mg PO HS 11/30/23 [History] Losartan [Cozaar] 25 mg PO DAILY 11/30/23 [History] Rosuvastatin Calcium [Crestor] 40 mg PO HS 11/30/23 [History] Acetaminophen Tab [Tylenol] 650 mg PO Q6HR PRN tab 12/01/23 [Rx] Metoprolol Succinate (ER) [Toprol XL] 25 mg PO DAILY #30 tab 12/01/23 [Rx] ALPRAZolam [Xanax] 0.25 mg PO DAILY PRN 3 Days #3 tab 12/04/23 [Rx] Nitroglycerin Sl Tabs [Nitrostat] 0.4 mg SUBLINGUAL Q5M PRN 15 Days #15 tab 12/05/23 [Rx] Follow up Appointment(s)/Referral(s): Neal Byers [Primary Care Provider] - 1-2 days Activity/Diet/Wound Care/Special Instructions: Continue low Salt Diet You need a referral from your PCP to get an Upper GI Scope Discharge Disposition: HOME SELF-CARE
[2023-12-05] MEDS ORDERED: ATORVASTATIN 80 MG TAB PO SCH (21:00)
[2023-12-05] MEDS ORDERED: LATANOPROST 0.005% OPHTH DROPS 2.5 ML BTL BOTH EYES SCH (21:00)
[2023-12-05] MEDS ORDERED: FENOFIBRATE 54 MG TAB PO SCH (21:00)
--- NOTE | 2023-12-06 07:37 | CA ---
Lexiscan Nuclear Stress Test Report Name: Love Levy Exam Date: 12/05/2023 12:26 Exam Location: [facility] Ht (in): 62 Wt (lb): 198 BSA: 1.90 Ordering Phys: Mallory Puentes Referring Phys: JEFFREY, Technologist: MARIA L,, Age: 57 Gender: F : 1965 Procedure CPT: Indications: Reflex order-Stress test ICD-10 Codes: Patient History: Chest pain and hypertension Medications: Meds past 24 hrs: Pretest Chest Pain: STRESS TEST Lexiscan Protocol Exercise Duration (min:sec): 01:[address] Depressions (mm): Angina Score: Frances Score: Resting HR (bpm): 66 Peak HR (bpm): 101 Resting BP (mmHg): 122 / 86 Peak BP (mmHg): 139 / 82 MPHR: 164 Target HR: 139 % MPHR: 62 METS: 1.0 Total Dose: Peak Dose: Atropine: Double Product: 14093 BP Response: Stress Termination: INFUSION COMPLETE Stress Symptoms: DIFFICULTY IN BREATHING Stress Summary: ECG ANALYSIS Resting ECG: Sinus rhythm. Normal conduction. No arrhythmias. Nonspecific ST-T abnormality. Stress ECG: No ECG changes from baseline with Lexiscan infusion. CONCLUSIONS No ECG evidence of ischemia with Lexiscan infusion. Nuclear test results to follow. Dr. Lou Fox MD (Electronically Signed) Final Date: 06 December 2023 07:36
== END 2023-12-05 18:05 | disposition home or self-care (01) ==
LOC: EC 19:00 → 6NMEDSUR 22:55
PROVIDERS: ADMIT Internal Medicine; ATTEND Internal Medicine
DX: R07.89 Other chest pain (principal); R00.2 Palpitations; R91.8 Other nonspecific abnormal finding of lung field; I25.10 Atherosclerotic heart disease of native coronary artery without angina pectoris; K21.9 Gastro-esophageal reflux disease without esophagitis; J44.9 Chronic obstructive pulmonary disease, unspecified; E78.5 Hyperlipidemia, unspecified; I10 Essential (primary) hypertension; F41.9 Anxiety disorder, unspecified; E66.9 Obesity, unspecified; Z68.36 Body mass index [BMI] 36.0-36.9, adult; Z87.891 Personal history of nicotine dependence; Z79.1 Long term (current) use of non-steroidal anti-inflammatories (NSAID); Z79.82 Long term (current) use of aspirin; Z79.899 Other long term (current) drug therapy; Z88.0 Allergy status to penicillin; Z88.5 Allergy status to narcotic agent
CPT/HCPCS: 96366 ×2; 96376; 96361; 96365; 99285; 36415; 94640 ×2; 93005 ×2; 93017; 80061; 80053; 83735; 84484 ×2; 85025; 85610; 85730 ×2; 71046; 78452; G0378 ×2; A9500; J1644 ×2; J2785

== ENCOUNTER 2023-12-23 20:22 | Observation (INO) | payer OTHER ==
--- NOTE | 2023-12-23 20:51 | ED ---
Chest Pain HPI - General Chief Complaint: Chest Pain Stated Complaint: Chest pain Time Seen by Provider: 12/23/23 20:38 Source: patient, EMS Mode of arrival: EMS Limitations: no limitations - History of Present Illness Initial Comments: This patient is a 58-year-old woman who presents to have evaluation for chest pain. She indicates substernal area. The pain has been with her off and on all day today though she has had similar episodes of this going back about 3 weeks now. 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 She has not noted any change in the symptoms with that medication. Today the patient was trying to rest and she felt her chest pounding so she presents to have evaluation. MD Complaint: chest pain Onset/Timin -: week(s) Onset: during rest Pain Location: substernal Pain Radiation: none Severity: moderate Quality: dull Consistency: intermittent Improves With: nothing Worsens With: nothing Anginal Symptoms: dyspnea Other Symptoms: cough, palpitations Treatments Prior to Arrival: other - Related Data Home Medications Medication Instructions Recorded Confirmed Latanoprost [Xalatan 0.005%] 1 drop BOTH EYES HS 08/30/16 12/04/23 Albuterol Sulfate [Ventolin HFA] 1 - 2 puff INHALATION RT-Q6H PRN 10/04/22 12/04/23 Aspirin EC [Ecotrin Low Dose] 81 mg PO DAILY 10/04/22 12/04/23 Azithromycin [Zithromax] 250 mg PO MOTUWE 10/04/22 12/04/23 Celecoxib [CeleBREX] 200 mg PO DAILY 10/04/22 12/04/23 Dorzolamide 2% [Trusopt 2%] 1 drop BOTH EYES BID 10/04/22 12/04/23 Fluticasone/Umeclidin/Vilanter 1 puff INHALATION RT-DAILY 10/04/22 12/04/23 [Trelegy Ellipta 100-62.5-25] Omeprazole 20 mg PO BID 10/04/22 12/04/23 Fenofibrate Nanocrystallized 48 mg PO HS 11/30/23 12/04/23 [Fenofibrate] Losartan [Cozaar] 25 mg PO DAILY 11/30/23 12/04/23 Rosuvastatin Calcium [Crestor] 40 mg PO HS 11/30/23 12/04/23 Previous Rx's Medication Instructions Recorded Acetaminophen Tab [Tylenol] 650 mg PO Q6HR PRN tab 12/01/23 Metoprolol Succinate (ER) [Toprol 25 mg PO DAILY #30 tab 12/01/23 XL] ALPRAZolam [Xanax] 0.25 mg PO DAILY PRN 3 Days #3 tab 12/04/23 Nitroglycerin Sl Tabs [Nitrostat] 0.4 mg SUBLINGUAL Q5M PRN 15 Days 12/05/23 #15 tab Allergies Allergy/AdvReac Type Severity Reaction Status Date / Time codeine Allergy Anaphylaxis Verified 12/04/23 20:13 hydrocodone Allergy Anaphylaxis Verified 12/04/23 20:13 Penicillins AdvReac Yeast Verified 12/04/23 20:13 infections Review of Systems ROS Statement: Those systems with pertinent positive or pertinent negative responses have been documented in the HPI. ROS Other: All systems not noted in ROS Statement are negative. Constitutional: Denies: fever, chills Respiratory: Reports: cough, dyspnea Cardiovascular: Reports: chest pain, palpitations, dyspnea on exertion. Denies: orthopnea, edema, syncope Gastrointestinal: Denies: abdominal pain, nausea, vomiting, diarrhea Genitourinary: Denies: dysuria, hematuria Musculoskeletal: Denies: back pain Skin: Denies: rash Neurological: Reports: headache. Denies: weakness, numbness, paresthesias EKG Findings - EKG Results: EKG: interpreted by ERMD, sinus rhythm (Rate 72 bpm), normal axis, normal QRS, normal ST/T Past Medical History Past Medical History: Chest Pain / Angina, COPD, Eye Disorder, GERD/Reflux, Hyperlipidemia, Hypertension, Osteoarthritis (OA) Additional Past Medical History / Comment(s): glaucoma History of Any Multi-Drug Resistant Organisms: None Reported Past Surgical History: Orthopedic Surgery, Tubal Ligation Additional Past Surgical History / Comment(s): bunionectomy-lt. LT KNEE SX. COLONOSCOPY. Carpal tunnel surgery on right hand. Past Anesthesia/Blood Transfusion Reactions: Postoperative Nausea & Vomiting (PONV) Past Psychological History: Anxiety Smoking Status: Former smoker Past Alcohol Use History: None Reported Past Drug Use History: None Reported - Past Family History Mother Family Medical History: CVA/TIA Father History Unknown: Yes Family Medical History: Cancer, Myocardial Infarction ([place]) General Exam Limitations: no limitations General appearance: alert, in no apparent distress Head exam: Present: atraumatic, normocephalic Eye exam: Present: normal appearance. Absent: scleral icterus, conjunctival injection ENT exam: Present: mucous membranes dry Neck exam: Present: normal inspection Respiratory exam: Present: wheezes. Absent: respiratory distress, rales, rhonchi, stridor, accessory muscle use Cardiovascular Exam: Present: regular rate, normal rhythm, normal heart sounds. Absent: systolic murmur, diastolic murmur, rubs, gallop GI/Abdominal exam: Present: soft. Absent: distended, tenderness, guarding, rebound, rigid, mass Extremities exam: Present: normal inspection, normal capillary refill. Absent: pedal edema, calf tenderness Back exam: Present: normal inspection. Absent: CVA tenderness (R), CVA tenderness (L) Neurological exam: Present: alert Skin exam: Present: warm, dry, intact, normal color. Absent: rash Course Vital Signs 12/23/23 12/23/23 20:24 21:26 Temperature 98.1 F Pulse Rate 75 73 Respiratory 16 16 Rate Blood Pressure 119/77 117/79 O2 Sat by Pulse 94 L 96 Oximetry Disposition Clinical Impression: Chest pain, COPD exacerbation Disposition: ADMITTED IP TO THIS HOSP Condition: Fair Is patient prescribed a controlled substance at d/c from ED?: No
[2023-12-23 21:00] LABS: Basophils % (A) 0 %; Eosinophils # (A) 0.1 k/uL (0-0.7); Eosinophils % (A) 2 %; HCT 40.2 % (34.0-46.0); HGB 13.8 gm/dL (11.4-16.0); Lymphocytes # (A) 0.8 k/uL (1.0-4.8); Lymphocytes % (A) 11 %; MCH 30.2 pg (25.0-35.0); MCHC 34.4 g/dL (31.0-37.0); MCV 87.9 fL (80.0-100.0); Monocytes # (A) 0.2 k/uL (0-1.0); Monocytes % (A) 2 %; Neutrophils # (A) 5.7 k/uL (1.3-7.7); Neutrophils % (A) 84 %; Platelet Count 227 k/uL (150-450); RBC 4.58 m/uL (3.80-5.40); RDW 13.3 % (11.5-15.5); WBC 6.7 k/uL (3.8-10.6)
[2023-12-23] MEDS: ASPIRIN 81 MG PO STA (21:18)
--- NOTE | 2023-12-23 21:30 | XR ---
EXAMINATION TYPE: XR chest 2V DATE OF EXAM: 12/23/2023 9:05 PM CLINICAL INDICATION:Female, 58 years old with history of Chest Pain; COMPARISON: Chest radiographs from 12/04/2023 TECHNIQUE: XR chest 2V Frontal and lateral views of the chest. FINDINGS: Lungs/Pleura: There is flattening of the diaphragm with increased lucency of the lungs. No evidence o f pneumothorax, pleural effusion or focal consolidation. Pulmonary vascularity: Unremarkable. Heart/mediastinum: Cardiomediastinal silhouette is unremarkable. Musculoskeletal: No acute osseous pathology. IMPRESSION: 1. No acute cardiopulmonary disease process. 2. COPD changes.
[2023-12-23 21:38] LABS: ALT 20 U/L (4-34); AST 25 U/L (14-36); African American GFR (CKD) >90 (>60 ml/min/1.73 sqM); Albumin 4.7 g/dL (3.5-5.0); Alkaline Phosphatase 66 U/L (38-126); Amylase 59 U/L (30-110); Anion Gap 11 mmol/L; Blood Urea Nitrogen 15 mg/dL (7-17); Carbon Dioxide 21 mmol/L (22-30); Chloride 107 mmol/L (98-107); Glucose 133 mg/dL (74-99); Lipase 78 U/L (23-300); Magnesium 1.9 mg/dL (1.6-2.3); Non-African American GFR(CKD) >90 (>60 ml/min/1.73 sqM); Potassium 4.4 mmol/L (3.5-5.1); Sodium 139 mmol/L (137-145); Total Bilirubin 0.5 mg/dL (0.2-1.3); Total Protein 7.1 g/dL (6.3-8.2)
[2023-12-23 21:44] LABS: NT-Pro-B-Type Natriuretic Pept 115 pg/mL
[2023-12-23] MEDS: ONDANSETRON 4 MG/2 ML VIAL IVP STA (22:02)
[2023-12-23 22:42] LABS: Prothrombin Time 10.6 sec (10.0-12.5)
[2023-12-23] MEDS ORDERED: NITROGLYCERIN SL TABS 0.4 MG TAB SUBLINGUAL PRN (23:25)
--- NOTE | 2023-12-23 23:33 | CT ---
EXAMINATION TYPE: CT angio chest DATE OF EXAM: 12/23/2023 COMPARISON: Prior CTA chest August 30, 2016 HISTORY: tight pressure substernal chest pain non-radiating. little relief with nitro. r/o PE, elevat ed d dimer. CT DLP: 460.1 mGycm. Automated Exposure Control for Dose Reduction was Utilized. CONTRAST: CTA scan of the thorax is performed with IV Contrast, patient injected with 75 mL of Isovue 300, pulm onary embolism protocol. MIP Images are created on CT scanner and reviewed. FINDINGS: LUNGS: Mild to moderate underlying emphysematous change is redemonstrated greatest in the upper lungs . Mild left basilar linear scarring and/or atelectasis. No pleural effusion or pneumothorax seen bila terally. MEDIASTINUM: Suboptimal study with most dense contrast in SVC. No convincing CT evidence for acute pu lmonary embolism. Some enhancement of the aorta without aneurysm or dissection. Coronary artery calci fication is present which is noted marker for underlying coronary artery disease. No cardiomegaly or pericardial effusion is seen. No greater than 1 cm thoracic lymph nodes OTHER: Small size hiatal hernia. IMPRESSION: Suboptimal study but no CT evidence for acute pulmonary embolism. Mild to moderate underl celi emphysematous change without suspicious acute pulmonary process.
[2023-12-23] MEDS ORDERED: ALPRAZolam 0.25 MG TAB PO PRN (23:38)
[2023-12-23] MEDS ORDERED: ALBUTEROL NEBULIZED 2.5 MG/3 ML INHALATION PRN (23:38)
[2023-12-23] MEDS: SODIUM CHLORIDE 0.9% 1,000 ML IV SCH (23:54)
[2023-12-23] MEDS: KETOROLAC 15 MG/ML 1 ML VIAL IVP PRN (23:55)
[2023-12-24] MEDS: HEPARIN SODIUM,PORCINE 5,000 UNIT/ML 1 ML VIAL SQ SCH (01:11)
[2023-12-24] MEDS: IPRATROPIUM 0.5 MG/2.5 ML NEBU INHALATION SCH (07:59)
[2023-12-24] MEDS: SYMBICORT 80-4.5 MCG INHALER INHALATION SCH (08:00)
[2023-12-24] MEDS: predniSONE 20 MG TAB PO SCH (08:14)
[2023-12-24] MEDS: PANTOPRAZOLE 40 MG TABLET PO SCH (08:14)
[2023-12-24] MEDS: DOXYCYCLINE 100 MG CAP PO SCH (08:15)
[2023-12-24] MEDS: ASPIRIN 325 MG TAB PO SCH (08:15)
[2023-12-24] MEDS: LOSARTAN 25 MG TAB PO SCH (08:15)
[2023-12-24] MEDS: METOPROLOL SUCCINATE (ER) 25 MG TAB.ER.24H PO SCH (08:15)
[2023-12-24] MEDS: DORZOLAMIDE HCL 2% DROPS 10 ML BTL BOTH EYES SCH (08:16)
[2023-12-24 10:28] LABS: Chol/HDL Ratio 3.11 Ratio; LDL Cholesterol,Calculated 71.6 mg/dL (0.0-131.0)
--- NOTE | 2023-12-24 10:36 | P.HPIM ---
History of Present Illness H&P Date: 12/24/23 History of present illness; patient is 58-year-old lady with past medical history significant for COPD, hypertension presents to the ER because of chest pain. Patient stated that she has been having chest pain for the last 1 day on and off, chest pain is central location, nonradiating, no aggravating or relieving factor associated with chest pain. Denies any shortness of breath. There was no complaint of palpitation. Patient was seen in outpatient setting by concrete mixer operator and was given a course of steroids antibiotics for her COPD flareup. There is no complaint of fever or chills. Denies any nausea, vomiting or abdominal pain. Because of the symptoms, patient came to the ER Initial lab work done in the ER showed WBC 6.7, hemoglobin 13.8, platelet count 227, sodium 139, potassium 4.4, BUN 15, creatinine 0.71, glucose 133, troponin 0.012, D-dimer 1.04 EKG done in the ER showed heart rate of 72, no ST segment elevation or depression seen, no T-wave inversions seen. Chest x-ray done in the ERShowed no acute cardiopulmonary process CT chest PE protocol done showed no acute PE Patient admitted to internal medicine service REVIEW OF SYSTEMS: CONSTITUTIONAL: No fever, no malaise, no fatigue. HEENT: No recent visual problems or hearing problems. Denied any sore throat. CARDIOVASCULAR: As mentioned above PULMONARY: No shortness of breath, no cough, no hemoptysis. GASTROINTESTINAL: No diarrhea, no nausea, no vomiting, no abdominal pain. NEUROLOGICAL: No headaches, no weakness, no numbness. HEMATOLOGICAL: Denies any bleeding or petechiae. GENITOURINARY: Denies any burning micturition, frequency, or urgency. MUSCULOSKELETAL/RHEUMATOLOGICAL: Denies any joint pain, swelling, or any muscle pain. ENDOCRINE: Denies any polyuria or polydipsia. The rest of the 14-point review of systems is negative. PHYSICAL EXAMINATION: GENERAL: The patient is alert and oriented x3, not in any acute distress. Well developed, well nourished. HEENT: Pupils are round and equally reacting to light. EOMI. No scleral icterus. No conjunctival pallor. Normocephalic, atraumatic. No pharyngeal erythema. No thyromegaly. CARDIOVASCULAR: S1 and S2 present. No murmurs, rubs, or gallops. PULMONARY: Chest is clear to auscultation, no wheezing or crackles. ABDOMEN: Soft, nontender, nondistended, normoactive bowel sounds. No palpable organomegaly. MUSCULOSKELETAL: No joint swelling or deformity. EXTREMITIES: No cyanosis, clubbing, or pedal edema. NEUROLOGICAL: Gross neurological examination did not reveal any focal deficits. SKIN: No rashes. Assessment and plan Chest pain, rule out acute coronary syndrome Hypertension Hyperlipidemia COPD Monitor vital signs Monitor CBC Monitor CMP Continue telemetry monitoring Trend troponins. D-dimer was ordered, CTA chest done results documented Continue breathing treatments Resume home med Consult cardiology Consult pulmonology Labs and medication were reviewed.. Continue same treatment. Continue with symptomatic treatment. Resume home medication. Monitor labs and vitals. DVT and GI prophylaxis. Further recommendations as per clinical course of the patient Dictation was produced using [employer] dictation software. please excuse any grammatical, word or spelling errors. Past Medical History Past Medical History: Chest Pain / Angina, COPD, Eye Disorder, GERD/Reflux, Hyperlipidemia, Hypertension, Osteoarthritis (OA) Additional Past Medical History / Comment(s): glaucoma History of Any Multi-Drug Resistant Organisms: None Reported Past Surgical History: Orthopedic Surgery, Tubal Ligation Additional Past Surgical History / Comment(s): bunionectomy-lt. LT KNEE SX. COLONOSCOPY. Carpal tunnel surgery on right hand. Past Anesthesia/Blood Transfusion Reactions: Postoperative Nausea & Vomiting (PONV) Past Psychological History: Anxiety Smoking Status: Former smoker Past Alcohol Use History: None Reported Past Drug Use History: None Reported - Past Family History Mother Family Medical History: CVA/TIA Father History Unknown: Yes Family Medical History: Cancer, Myocardial Infarction ([place]) Medications and Allergies Home Medications Medication Instructions Recorded Confirmed Type Latanoprost [Xalatan 0.005%] 1 drop BOTH EYES HS 08/30/16 12/04/23 History Albuterol Sulfate [Ventolin HFA] 1 - 2 puff INHALATION RT-Q6H PRN 10/04/22 12/04/23 History Aspirin EC [Ecotrin Low Dose] 81 mg PO DAILY 10/04/22 12/04/23 History Azithromycin [Zithromax] 250 mg PO MOTUWE 10/04/22 12/04/23 History Celecoxib [CeleBREX] 200 mg PO DAILY 10/04/22 12/04/23 History Dorzolamide 2% [Trusopt 2%] 1 drop BOTH EYES BID 10/04/22 12/04/23 History Fluticasone/Umeclidin/Vilanter 1 puff INHALATION RT-DAILY 10/04/22 12/04/23 History [Trelegy Ellipta 100-62.5-25] Omeprazole 20 mg PO BID 10/04/22 12/04/23 History Fenofibrate Nanocrystallized 48 mg PO HS 11/30/23 12/04/23 History [Fenofibrate] Losartan [Cozaar] 25 mg PO DAILY 11/30/23 12/04/23 History Rosuvastatin Calcium [Crestor] 40 mg PO HS 11/30/23 12/04/23 History Acetaminophen Tab [Tylenol] 650 mg PO Q6HR PRN tab 12/01/23 12/04/23 Rx Metoprolol Succinate (ER) [Toprol 25 mg PO DAILY #30 tab 12/01/23 12/04/23 Rx XL] ALPRAZolam [Xanax] 0.25 mg PO DAILY PRN 3 Days #3 tab 12/04/23 12/04/23 Rx Nitroglycerin Sl Tabs [Nitrostat] 0.4 mg SUBLINGUAL Q5M PRN 15 Days 12/05/23 Rx #15 tab Allergies Allergy/AdvReac Type Severity Reaction Status Date / Time codeine Allergy Anaphylaxis Verified 12/04/23 20:13 hydrocodone Allergy Anaphylaxis Verified 12/04/23 20:13 Penicillins AdvReac Yeast Verified 12/04/23 20:13 infections Physical Exam Vitals: Vital Signs Temp Pulse Resp BP Pulse Ox 12/24/23 08:10 98.2 F 67 18 118/78 93 L 12/24/23 08:03 97 12/24/23 08:00 70 12/24/23 06:36 77 16 103/65 92 L 12/24/23 04:00 58 L 16 108/75 12/24/23 01:00 67 16 118/82 96 12/24/23 00:00 65 16 126/79 95 12/23/23 21:26 73 16 117/79 96 12/23/23 20:24 98.1 F 75 16 119/77 94 L Intake and Output 0212/24/23 12/24/23 22:59 06:59 14:59 Other: Weight 87.09 kg Results CBC & Chem 7: 12/23/23 20:54 12/23/23 20:54 Labs: Abnormal Lab Results - Last 24 Hours (Table) 12/23/23 12/23/23 12/23/23 Range/Units 20:54 20:54 22:13 Lymphocytes # 0.8 L (1.0-4.8) k/uL D-Dimer 1.04 H (<0.60) mg/L FEU Carbon Dioxide 21 L (22-30) mmol/L Glucose 133 H (74-99) mg/dL
--- NOTE | 2023-12-24 11:29 | P.CNPUL ---
History of Present Illness Consult date: 12/24/23 Requesting physician: Junior Samson Reason for consult: dyspnea, cough, chest pain, COPD Chief complaint: Chest pain. History of present illness: Pulmonary consult dated December 24, 2023. 58-year-old female with a history of COPD. Her COPD is moderate in severity, with an FEV1 at 70% of predicted. The patient presents to the emergency department, on December 23, at about 8:30 PM, complaining of chest pain. It apparently was described as being substernal. She apparently has been having p ain like this, on and off, for about 3 weeks. She recently saw one of my partners, and was prescribed some prednisone, and doxycycline, for suspected COPD exacerbation. She also received Depo-Medrol. She did not notice any major improvements, on the prednisone and antibiotic. The patient is seen in the emergency department, room 15. She is currently on room air. She is not receiving any IV fluids. Her chest x-ray was negative. Her CT angiogram was negative. In addition to COPD, she has a history of chest pain, GERD, hyperlipidemia, hypertension, osteoarthritis, and a prior history of tobacco use. She does not smoke currently. White count 6.7, hemoglobin 13.8, hematocrit 40.2, and platelet count 227,000. D-dimer was 1.04. Sodium 139, potassium 4.4, chlorides 107, CO2 21, BUN 15, creatinine 0.71. Glucose 133. Troponins were negative x 3. Cholesterol was 135. Review of Systems REVIEW OF SYSTEMS: CONSTITUTIONAL: [Negative.] NEUROLOGIC: [ Negative.] HEENT: [ Negative.] CARDIAC: Chest pain. PULMONARY: Shortness of breath on exertion, at baseline. GI: [Negative.] : [Negative.] RHEUMATOLOGIC: [ Negative.] IMMUNOLOGIC: [ Negative.] ENDOCRINE: [Negative. ] DERMATOLOGIC: [Negative.] Past Medical History Past Medical History: Chest Pain / Angina, COPD, Eye Disorder, GERD/Reflux, Hyperlipidemia, Hypertension, Osteoarthritis (OA) Additional Past Medical History / Comment(s): glaucoma History of Any Multi-Drug Resistant Organisms: None Reported Past Surgical History: Orthopedic Surgery, Tubal Ligation Additional Past Surgical History / Comment(s): bunionectomy-lt. LT KNEE SX. COLONOSCOPY. Carpal tunnel surgery on right hand. Past Anesthesia/Blood Transfusion Reactions: Postoperative Nausea & Vomiting (PONV) Past Psychological History: Anxiety Smoking Status: Former smoker Past Alcohol Use History: None Reported Past Drug Use History: None Reported - Past Family History Mother Family Medical History: CVA/TIA Father History Unknown: Yes Family Medical History: Cancer, Myocardial Infarction ([place]) Medications and Allergies Home Medications Medication Instructions Recorded Confirmed Type Latanoprost [Xalatan 0.005%] 1 drop BOTH EYES HS 08/30/16 12/04/23 History Albuterol Sulfate [Ventolin HFA] 1 - 2 puff INHALATION RT-Q6H PRN 10/04/22 12/04/23 History Aspirin EC [Ecotrin Low Dose] 81 mg PO DAILY 10/04/22 12/04/23 History Azithromycin [Zithromax] 250 mg PO MOTUWE 10/04/22 12/04/23 History Celecoxib [CeleBREX] 200 mg PO DAILY 10/04/22 12/04/23 History Dorzolamide 2% [Trusopt 2%] 1 drop BOTH EYES BID 10/04/22 12/04/23 History Fluticasone/Umeclidin/Vilanter 1 puff INHALATION RT-DAILY 10/04/22 12/04/23 History [Trelegy Ellipta 100-62.5-25] Omeprazole 20 mg PO BID 10/04/22 12/04/23 History Fenofibrate Nanocrystallized 48 mg PO HS 11/30/23 12/04/23 History [Fenofibrate] Losartan [Cozaar] 25 mg PO DAILY 11/30/23 12/04/23 History Rosuvastatin Calcium [Crestor] 40 mg PO HS 11/30/23 12/04/23 History Acetaminophen Tab [Tylenol] 650 mg PO Q6HR PRN tab 12/01/23 12/04/23 Rx Metoprolol Succinate (ER) [Toprol 25 mg PO DAILY #30 tab 12/01/23 12/04/23 Rx XL] ALPRAZolam [Xanax] 0.25 mg PO DAILY PRN 3 Days #3 tab 12/04/23 12/04/23 Rx Nitroglycerin Sl Tabs [Nitrostat] 0.4 mg SUBLINGUAL Q5M PRN 15 Days 12/05/23 Rx #15 tab predniSONE [Deltasone] 40 mg PO DAILY 4 Days #8 tab 12/24/23 Rx Allergies Allergy/AdvReac Type Severity Reaction Status Date / Time codeine Allergy Anaphylaxis Verified 12/04/23 20:13 hydrocodone Allergy Anaphylaxis Verified 12/04/23 20:13 Penicillins AdvReac Yeast Verified 12/04/23 20:13 infections Physical Exam Osteopathic Statement: *. No significant issues noted on an osteopathic structural exam other than those noted in the History and Physical/Consult. Vitals: Vital Signs Temp Pulse Resp BP Pulse Ox 12/24/23 08:10 98.2 F 67 18 118/78 93 L 12/24/23 08:03 97 12/24/23 08:00 70 12/24/23 06:36 77 16 103/65 92 L 12/24/23 04:00 58 L 16 108/75 12/24/23 01:00 67 16 118/82 96 12/24/23 00:00 65 16 126/79 95 12/23/23 21:26 73 16 117/79 96 12/23/23 20:24 98.1 F 75 16 119/77 94 L Intake and Output 12/23/23 12/24/23 12/24/23 22:59 06:59 14:59 Other: Weight 87.09 kg No acute distress, oriented 3. No respiratory distress. No use of accessory muscles. No conversational dyspnea. HEENT examination is grossly unremarkable. Mucous membranes are moist. No oral lesions. Neck supple. Full range of motion. No adenopathy thyromegaly or neck vein distention. Cardiovascular examination reveals regular rhythm rate. S1-S2 normal. No S3 or S4. No discernible murmur noted. Heart rate 67 bpm. Lungs reveal clear breath sounds. Breath sounds are equal bilaterally. No adventitious lung sounds including wheezes rhonchi or crackles. Room air saturation is 97%. Abdomen soft bowel sounds are heard. No masses or tenderness. Extremities are intact. No cyanosis clubbing or edema. Skin is without rash or lesion. Neurologic examination is brief but nonfocal. Results - Laboratory Findings CBC and BMP: 12/23/23 20:54 12/23/23 20:54 PT/INR, D-dimer PT 10.6 sec (10.0-12.5) 12/23/23 22:13 INR 1.0 (<1.2) 12/23/23 22:13 D-Dimer 1.04 mg/L FEU (<0.60) H 12/23/23 22:13 Abnormal lab findings: Abnormal Labs 12/23/23 12/23/23 12/23/23 20:54 20:54 22:13 Lymphocytes # 0.8 L D-Dimer 1.04 H Carbon Dioxide 21 L Glucose 133 H - Diagnostic Findings Chest x-ray: image reviewed CT scan - chest: image reviewed Assessment and Plan Assessment: Chest pain, rule out cardiac disease. COPD, with recent suspected COPD exacerbation, treated with steroids and antibiotics. Moderate/stage II COPD with an FEV1 of 70% of predicted. History of gastroesophageal reflux disease. History of hypertension. History of hyperlipidemia. History of osteoarthritis. Prior history of tobacco use. Plan: Plan dated December 24, 2023. The patient's lung gong are clear. I do not hear any wheezes, rhonchi, or crackles. She is on room air. Saturations are 97%. She recently was given prednisone and doxycycline by one of my partners, for suspected COPD exacerbation. The patient's troponins, were negative x 3. She does not feel like her COPD is particularly active right now. She does have shortness of breath on exertion, but, it is at baseline. From our perspective, the patient could be considered for possible discharge. We will leave that up to the primary service, and cardiology. Time with Patient: Greater than 30
[2023-12-24 12:04] VITALS: BP 118/86; PULSE 68; RESP 19; TEMP 98.6
--- NOTE | 2023-12-24 14:13 | P.DS ---
Providers Date of admission: 12/23/23 23:29 Expected date of discharge: 12/24/23 Attending physician: Junior Samson Consults: 12/23/23 23:25 Consult Physician Routine Consulting Provider: Aristeo Adames Consult Reason/Comments: chest pain Do you want consulting provider notified?: Yes 12/23/23 23:42 Consult Physician Routine Consulting Provider: Josue Telles Consult Reason/Comments: your patient Do you want consulting provider notified?: Yes Primary care physician: Neal Byers Hospital Course: Discharge diagnoses; Chest pain, acute coronary syndrome ruled out Hypertension Hyperlipidemia COPD Hospital course; patient is 58-year-old lady with past medical history significant for COPD, hypertension presents to the ER because of chest pain. Patient stated that she has been having chest pain for the last 1 day on and off, chest pain is central location, nonradiating, no aggravating or relieving factor associated with chest pain. Denies any shortness of breath. There was no complaint of palpitation. Patient was seen in outpatient setting by modeling manager and was given a course of steroids antibiotics for her COPD flareup. There is no complaint of fever or chills. Denies any nausea, vomiting or abdominal pain. Because of the symptoms, patient came to the ER Initial lab work done in the ER showed WBC 6.7, hemoglobin 13.8, platelet count 227, sodium 139, potassium 4.4, BUN 15, creatinine 0.71, glucose 133, troponin 0.012, D-dimer 1.04 EKG done in the ER showed heart rate of 72, no ST segment elevation or depression seen, no T-wave inversions seen. Chest x-ray done in the ERShowed no acute cardiopulmonary process CT chest PE protocol done showed no acute PE Patient admitted to internal medicine service Patient was evaluated by cardiology and pulmonology. Patient troponins remain flat, cardiology cleared the patient for discharge. Pulmonology recommended outpatient follow-up PHYSICAL EXAMINATION: GENERAL: The patient is alert and oriented x3, not in any acute distress. Well developed, well nourished. HEENT: Pupils are round and equally reacting to light. EOMI. No scleral icterus. No conjunctival pallor. Normocephalic, atraumatic. No pharyngeal erythema. No thyromegaly. CARDIOVASCULAR: S1 and S2 present. No murmurs, rubs, or gallops. PULMONARY: Chest is clear to auscultation, no wheezing or crackles. ABDOMEN: Soft, nontender, nondistended, normoactive bowel sounds. No palpable organomegaly. MUSCULOSKELETAL: No joint swelling or deformity. EXTREMITIES: No cyanosis, clubbing, or pedal edema. NEUROLOGICAL: Gross neurological examination did not reveal any focal deficits. SKIN: No rashes. Dictation was produced using [employer] dictation software. please excuse any grammatical, word or spelling errors. Patient Condition at Discharge: Fair Plan - Discharge Summary New Discharge Prescriptions: New predniSONE [Deltasone] 40 mg PO DAILY 4 Days #8 tab Continue Latanoprost [Xalatan 0.005%] 1 drop BOTH EYES HS Azithromycin [Zithromax] 250 mg PO MOTUWE Albuterol Sulfate [Ventolin HFA] 1 - 2 puff INHALATION RT-Q6H PRN PRN Reason: COPD Celecoxib [CeleBREX] 200 mg PO DAILY Omeprazole 20 mg PO BID Fluticasone/Umeclidin/Vilanter [Trelegy Ellipta 100-62.5-25] 1 puff INHALATION RT-DAILY Fenofibrate Nanocrystallized [Fenofibrate] 48 mg PO HS Rosuvastatin Calcium [Crestor] 40 mg PO HS Metoprolol Succinate (ER) [Toprol XL] 25 mg PO DAILY #30 tab ALPRAZolam [Xanax] 0.25 mg PO DAILY PRN 3 Days #3 tab PRN Reason: Anxiety Dorzolamide 2% [Trusopt 2%] 1 drop BOTH EYES BID Aspirin EC [Ecotrin Low Dose] 81 mg PO DAILY Losartan [Cozaar] 25 mg PO DAILY Acetaminophen Tab [Tylenol] 650 mg PO Q6HR PRN tab PRN Reason: Mild Pain Or Fever > 100.5 Nitroglycerin Sl Tabs [Nitrostat] 0.4 mg SUBLINGUAL Q5M PRN 15 Days #15 tab PRN Reason: Chest Pain Discharge Medication List Latanoprost [Xalatan 0.005%] 1 drop BOTH EYES HS 08/30/16 [History] Albuterol Sulfate [Ventolin HFA] 1 - 2 puff INHALATION RT-Q6H PRN 10/04/22 [History] Aspirin EC [Ecotrin Low Dose] 81 mg PO DAILY 10/04/22 [History] Azithromycin [Zithromax] 250 mg PO MOTUWE 10/04/22 [History] Celecoxib [CeleBREX] 200 mg PO DAILY 10/04/22 [History] Dorzolamide 2% [Trusopt 2%] 1 drop BOTH EYES BID 10/04/22 [History] Fluticasone/Umeclidin/Vilanter [Trelegy Ellipta 100-62.5-25] 1 puff INHALATION RT-DAILY 10/04/22 [History] Omeprazole 20 mg PO BID 10/04/22 [History] Fenofibrate Nanocrystallized [Fenofibrate] 48 mg PO HS 11/30/23 [History] Losartan [Cozaar] 25 mg PO DAILY 11/30/23 [History] Rosuvastatin Calcium [Crestor] 40 mg PO HS 11/30/23 [History] Acetaminophen Tab [Tylenol] 650 mg PO Q6HR PRN tab 12/01/23 [Rx] Metoprolol Succinate (ER) [Toprol XL] 25 mg PO DAILY #30 tab 12/01/23 [Rx] ALPRAZolam [Xanax] 0.25 mg PO DAILY PRN 3 Days #3 tab 12/04/23 [Rx] Nitroglycerin Sl Tabs [Nitrostat] 0.4 mg SUBLINGUAL Q5M PRN 15 Days #15 tab 12/05/23 [Rx] predniSONE [Deltasone] 40 mg PO DAILY 4 Days #8 tab 12/24/23 [Rx] Follow up Appointment(s)/Referral(s): Neal Byers [Primary Care Provider] - 1-2 days Discharge Disposition: HOME SELF-CARE
--- NOTE | 2023-12-24 15:04 | P.CRDCN ---
History of Present Illness Consult date: 12/24/23 Consult reason: chest pain History of present illness: This is Michael Jc NP, I'm dictating on behalf of Dr. Cuevas's H&P and A&P The patient was interviewed and examined. HPI: Patient is a pleasant 58-year-old female with a past medical history that includes COPD, hypertension, chest pain, GERD, hyperlipidemia, and osteoarthritis who presented to hospital with complaints of chest pain. Patient has had multiple visits to the emergency department over the last few weeks for associated chest pain. The chest pain she has been having appears to be associated with lung issues that she has been having on and off for the last 3 weeks. The chest pain was worse yesterday, which is why the patient presented to the hospital. Patient has recently seen pulmonology and was started on prednisone and doxycycline for suspected exacerbation of COPD. Despite the prednisone and doxycycline patient's symptoms did not change. In the emergency department the patient had an EKG done which was negative for any obvious acute signs of DC including ST elevations or T wave changes. Patient's troponins were checked and were negative. This morning upon evaluation the patient was found to have no chest pain. She reports her blood pressures have been really elevated at home and this has concerned her significantly. However upon evaluation of her chart the patient's blood pressures appear to be well- controlled and within normal limits. She has no other complaints this morning. ROS: [No fever, chills, or rigors] [no cough, phlegm, or expectoration] [no nausea, vomiting, or diarrhea] [no hematuria, dysuria] [no musculoskelatal complaints] [no strokes or seizures] [no skin lesions] EXAMINATION: GENERAL: Well-appearing, well-nourished and in no acute distress. NECK: Supple without JVD or thyromegaly. LUNGS: Breath sounds clear to auscultation bilaterally. Respiration equal and unlabored. No wheezes, rales or rhonchi. HEART: Regular rate and rhythm without murmurs, rubs or gallops. S1 and S2 heard. EXTREMITIES: Normal range of motion, no edema. No clubbing or cyanosis. Peripheral pulses intact and strong. REVIEW OF LABS, ECG & MEDICAL DATA: LABS: White count 6.7, hemoglobin 13.8, platelets 227, D-dimer 1.04, sodium 139, potassium 4.4, BUN 15, creatinine 0.71, magnesium 1.9, troponin x 3-less than 0.012, BNP 115, triglycerides 100, cholesterol 135, LDL 71.6, HDL 43.4 EKG: Normal sinus rhythm IMAGING: Chest x-ray dated 12/23/2023 shows no acute cardiopulmonary disease process, COPD changes. CT angiogram of the chest dated 12/23/2023 shows suboptimal study but no CT evidence for acute pulmonary embolism, mild to moderate underlying emphysematous change without suspicious acute pulmonary process. VITALS: Temp 98.2, pulse 67, respirations 18, blood pressure 118/78, O2 saturation 93% on room air IMPRESSION: 1. Atypical chest pain 2. Exacerbation COPD 3. Hypertension PLAN: No evidence of acute DC. Recommend patient check her blood pressures at home in the morning and at night, and bring in her list to the office at her next follow-up. She should also bring her cuff to the office so we can compare the readings. Blood pressure readings here in the hospital appear to be within normal limits and well-controlled on current medications. No recommendations for changes to meds at this time. From a cardiology standpoint the patient may be discharged. Thank you for the consult and allowing us to participate in the care of this patient. Past Medical History Past Medical History: Chest Pain / Angina, COPD, Eye Disorder, GERD/Reflux, Hyperlipidemia, Hypertension, Osteoarthritis (OA) Additional Past Medical History / Comment(s): glaucoma History of Any Multi-Drug Resistant Organisms: None Reported Past Surgical History: Orthopedic Surgery, Tubal Ligation Additional Past Surgical History / Comment(s): bunionectomy-lt. LT KNEE SX. COLONOSCOPY. Carpal tunnel surgery on right hand. Past Anesthesia/Blood Transfusion Reactions: Postoperative Nausea & Vomiting (PONV) Past Psychological History: Anxiety Smoking Status: Former smoker Past Alcohol Use History: None Reported Past Drug Use History: None Reported - Past Family History Mother Family Medical History: CVA/TIA Father History Unknown: Yes Family Medical History: Cancer, Myocardial Infarction (DC) Medications and Allergies Home Medications Medication Instructions Recorded Confirmed Type Latanoprost [Xalatan 0.005%] 1 drop BOTH EYES HS 08/30/16 12/04/23 History Albuterol Sulfate [Ventolin HFA] 1 - 2 puff INHALATION RT-Q6H PRN 10/04/22 12/04/23 History Aspirin EC [Ecotrin Low Dose] 81 mg PO DAILY 10/04/22 12/04/23 History Azithromycin [Zithromax] 250 mg PO MOTUWE 10/04/22 12/04/23 History Celecoxib [CeleBREX] 200 mg PO DAILY 10/04/22 12/04/23 History Dorzolamide 2% [Trusopt 2%] 1 drop BOTH EYES BID 10/04/22 12/04/23 History Fluticasone/Umeclidin/Vilanter 1 puff INHALATION RT-DAILY 10/04/22 12/04/23 History [Trelegy Ellipta 100-62.5-25] Omeprazole 20 mg PO BID 10/04/22 12/04/23 History Fenofibrate Nanocrystallized 48 mg PO HS 11/30/23 12/04/23 History [Fenofibrate] Losartan [Cozaar] 25 mg PO DAILY 11/30/23 12/04/23 History Rosuvastatin Calcium [Crestor] 40 mg PO HS 11/30/23 12/04/23 History Acetaminophen Tab [Tylenol] 650 mg PO Q6HR PRN tab 12/01/23 12/04/23 Rx Metoprolol Succinate (ER) [Toprol 25 mg PO DAILY #30 tab 12/01/23 12/04/23 Rx XL] ALPRAZolam [Xanax] 0.25 mg PO DAILY PRN 3 Days #3 tab 12/04/23 12/04/23 Rx Nitroglycerin Sl Tabs [Nitrostat] 0.4 mg SUBLINGUAL Q5M PRN 15 Days 12/05/23 Rx #15 tab predniSONE [Deltasone] 40 mg PO DAILY 4 Days #8 tab 12/24/23 Rx Allergies Allergy/AdvReac Type Severity Reaction Status Date / Time codeine Allergy Anaphylaxis Verified 12/04/23 20:13 hydrocodone Allergy Anaphylaxis Verified 12/04/23 20:13 Penicillins AdvReac Yeast Verified 12/04/23 20:13 infections Physical Exam Vitals: Vital Signs Temp Pulse Resp BP Pulse Ox 12/24/23 11:41 98.6 F 68 19 118/86 94 L 12/24/23 08:10 98.2 F 67 18 118/78 93 L 12/24/23 08:03 97 12/24/23 08:00 70 12/24/23 06:36 77 16 103/65 92 L 12/24/23 04:00 58 L 16 108/75 12/24/23 01:00 67 16 118/82 96 12/24/23 00:00 65 16 126/79 95 12/23/23 21:26 73 16 117/79 96 12/23/23 20:24 98.1 F 75 16 119/77 94 L Intake and Output 12/23/23 12/24/23 12/24/23 22:59 06:59 14:59 Other: Weight 87.09 kg Results 12/23/23 20:54 12/23/23 20:54 Cardiac Enzymes 12/23/23 12/23/23 12/23/23 Range/Units 20:54 20:54 23:52 AST 25 (14-36) U/L Troponin I <0.012 <0.012 (0.000-0.034) ng/mL 12/24/23 Range/Units 04:51 AST (14-36) U/L Troponin I <0.012 (0.000-0.034) ng/mL Coagulation 12/23/23 Range/Units 22:13 PT 10.6 (10.0-12.5) sec APTT 26.0 (22.0-30.0) sec Lipids 12/24/23 Range/Units 04:51 Triglycerides 100.00 (0.00-149.00) mg/dL Cholesterol 135.00 (0.00-200.00) mg/dL HDL Cholesterol 43.40 (40.00-60.00) mg/dL Cholesterol/HDL Ratio 3.11 Ratio CBC 12/23/23 Range/Units 20:54 WBC 6.7 (3.8-10.6) k/uL RBC 4.58 (3.80-5.40) m/uL Hgb 13.8 (11.4-16.0) gm/dL Hct 40.2 (34.0-46.0) % Plt Count 227 (150-450) k/uL Comprehensive Metabolic Panel 12/23/23 Range/Units 20:54 Sodium 139 (137-145) mmol/L Potassium 4.4 (3.5-5.1) mmol/L Chloride 107 (98-107) mmol/L Carbon Dioxide 21 L (22-30) mmol/L BUN 15 (7-17) mg/dL Creatinine 0.71 (0.52-1.04) mg/dL Glucose 133 H (74-99) mg/dL Calcium 10.0 (8.4-10.2) mg/dL AST 25 (14-36) U/L ALT 20 (4-34) U/L Alkaline Phosphatase 66 (38-126) U/L Total Protein 7.1 (6.3-8.2) g/dL Albumin 4.7 (3.5-5.0) g/dL Intake and Output 12/23/23 12/24/23 12/24/23 22:59 06:59 14:59 Other: Weight 87.09 kg 12/23/23 20:54 12/23/23 20:54
[2023-12-24] MEDS ORDERED: FENOFIBRATE 54 MG TAB PO SCH (21:00)
[2023-12-24] MEDS ORDERED: LATANOPROST 0.005% OPHTH DROPS 2.5 ML BTL BOTH EYES SCH (21:00)
[2023-12-24] MEDS ORDERED: ATORVASTATIN 80 MG TAB PO SCH (21:00)
== END 2023-12-24 11:49 | disposition home or self-care (01) ==
LOC: EC 20:22 → 6NMEDSUR 23:29
PROVIDERS: ADMIT Hospitalist; ATTEND Hospitalist
DX: R07.89 Other chest pain (principal); J44.1 Chronic obstructive pulmonary disease with (acute) exacerbation; I10 Essential (primary) hypertension; E78.5 Hyperlipidemia, unspecified; K21.9 Gastro-esophageal reflux disease without esophagitis; M19.90 Unspecified osteoarthritis, unspecified site; Z79.82 Long term (current) use of aspirin; Z79.1 Long term (current) use of non-steroidal anti-inflammatories (NSAID); Z79.51 Long term (current) use of inhaled steroids; Z79.899 Other long term (current) drug therapy; Z88.0 Allergy status to penicillin; Z88.5 Allergy status to narcotic agent; Z87.891 Personal history of nicotine dependence; Z82.49 Family history of ischemic heart disease and other diseases of the circulatory system
CPT/HCPCS: 96376; 96372; 96375; 96374; 99285; 36415; 94640; 93005; 85379; 83880; 80061; 80053; 82150; 83690; 83735; 84484 ×2; 85025; 85610; 85730; 71046; 71275; G0378 ×2; J1644; J2405; J1885 ×2; J7512; Q9967

== ENCOUNTER 2024-02-03 13:41 | Day surgery (SDC) | payer OTHER ==
[2024-02-03] MEDS ORDERED: LIDOCAINE 1% (10MG/ML) FOR IV START INTRADERMA PRN (14:15)
[2024-02-03] MEDS: LACTATED RINGERS 1,000 ML IV SCH (14:21)
[2024-02-03 14:53] VITALS: RESP 18; TEMP 97.8
[2024-02-03] MEDS ORDERED: PROPOFOL 10 MG/ML 20 ML VIAL IV ONE (15:32)
--- NOTE | 2024-02-03 15:42 | P.PCN ---
Date of Procedure: 02/03/24 Procedure(s) Performed: BRIEF HISTORY: Patient is a 58-year-old, pleasant, white female scheduled for an upper endoscopy as a part of evaluation of atypical chest pain and long-standing history of GERD. She is been having worsening heartburn and chest pressure for the last few months duration. He was started on Protonix 40 mg twice daily and Pepcid at bedtime much better.. PROCEDURE PERFORMED: Esophagogastroduodenoscopy with biopsy. PREOPERATIVE DIAGNOSIS:long-standing history of GERD and atypical chest pain IV sedation per anesthesia. PROCEDURE: After informed consent was obtained, the patient was brought into the endoscopy unit. IV sedation was administered by Anesthesia under continuous monitoring. Initially the Olympus GIF-140 video endoscope was inserted into the mouth. Esophagus intubated without any difficulty. It was gradually advanced into the stomach and duodenum and carefully examined. The bulb and the second part of the duodenum appeared normal. The scope at this time was withdrawn to the stomach, adequately insufflated with air, and upon careful examination, mucosa of the antrum, and mild gastritis and biopsies were done from this area. Mucosa of thebody, cardia and the fundus appeared normal. The scope was then withdrawn into the esophagus.small hiatal hernia noted. The GE junction was located at 39 cm from the incisors.there was circumferential erythema the GE junction consistent with LA grade a reflux esophagitis. The esophagus appeared normal. There were no erosions or ulcerations seen and the patient tolerated the procedure well. IMPRESSION: 1. Mild antral gastritis. 2. Small hiatal hernia and LA grade a reflux esophagitis. RECOMMENDATIONS: The findings of this examination were discussed with the patient as well as a family. She was advised to follow with the biopsy results. Continue with Protonix 40 minute grams twice daily and follow antireflux measures. She can use Pepcid at bedtime as needed. Follow up in office in one month..
[2024-02-03 16:50] VITALS: BP 132/76; PULSE 78
== END 2024-02-03 16:16 | disposition home or self-care (01) ==
LOC: ORWHC2ENDO 13:41
PROVIDERS: ATTEND Internal Medicine Gastroenterology
DX: K29.50 Unspecified chronic gastritis without bleeding (principal); K31.9 Disease of stomach and duodenum, unspecified; K21.00 Gastro-esophageal reflux disease with esophagitis, without bleeding; K44.9 Diaphragmatic hernia without obstruction or gangrene; I10 Essential (primary) hypertension; E78.5 Hyperlipidemia, unspecified; J44.9 Chronic obstructive pulmonary disease, unspecified; M19.90 Unspecified osteoarthritis, unspecified site; F41.9 Anxiety disorder, unspecified; H40.9 Unspecified glaucoma; Z79.899 Other long term (current) drug therapy; Z88.0 Allergy status to penicillin; Z88.5 Allergy status to narcotic agent; Z79.82 Long term (current) use of aspirin
CPT/HCPCS: 88305; 43239; J2704

== ENCOUNTER 2024-02-21 09:25 | Observation (INO) | payer OTHER ==
--- NOTE | 2024-02-21 10:20 | ED ---
General Adult HPI - General Chief complaint: Chest Pain Stated complaint: Dizziness,Chest pain Time Seen by Provider: 02/21/24 09:28 Source: patient, EMS, RN notes reviewed, old records reviewed - History of Present Illness Initial comments: 58-year-old female presenting for evaluation of chest discomfort and headache. Patient states her headache has been present for the past several months. She states she has had evaluation but has not come to a diagnosis. She reports an episode yesterday evening of chest heaviness which is mostly resolved at this time. She states she overall does not feel well. - Related Data Home Medications Medication Instructions Recorded Confirmed Latanoprost [Xalatan 0.005%] 1 drop BOTH EYES HS 08/30/16 02/21/24 Albuterol Sulfate [Ventolin HFA] 1 - 2 puff INHALATION RT-Q6H PRN 10/04/22 02/21/24 Aspirin EC [Ecotrin Low Dose] 81 mg PO DAILY 10/04/22 02/21/24 Azithromycin [Zithromax] 250 mg PO MOWEFR 10/04/22 02/21/24 Fluticasone/Umeclidin/Vilanter 1 puff INHALATION RT-DAILY 10/04/22 02/21/24 [Trelegy Ellipta 100-62.5-25] Losartan [Cozaar] 12.5 mg PO DAILY 11/30/23 02/21/24 Rosuvastatin Calcium [Crestor] 40 mg PO HS 11/30/23 02/21/24 Nitroglycerin Sl Tabs [Nitrostat] 0.4 mg SL Q5M PRN 12/25/23 02/21/24 hydrOXYzine HCL 10 mg PO TID PRN 12/25/23 02/21/24 Fenofibrate Nanocrystallized 48 mg PO HS 01/31/24 02/21/24 [Fenofibrate] Pantoprazole [Protonix] 40 mg PO BID 01/31/24 02/21/24 carvediloL [Coreg] 3.125 mg PO BID 01/31/24 02/21/24 Allergies Allergy/AdvReac Type Severity Reaction Status Date / Time codeine Allergy Anaphylaxis Verified 02/21/24 12:17 hydrocodone Allergy Anaphylaxis Verified 02/21/24 12:17 Penicillins AdvReac Yeast Verified 02/21/24 12:17 infections Review of Systems ROS Statement: Those systems with pertinent positive or pertinent negative responses have been documented in the HPI. ROS Other: All systems not noted in ROS Statement are negative. Past Medical History Past Medical History: Chest Pain / Angina, COPD, Eye Disorder, GERD/Reflux, Hyperlipidemia, Hypertension, Osteoarthritis (OA) Additional Past Medical History / Comment(s): glaucoma History of Any Multi-Drug Resistant Organisms: None Reported Past Surgical History: Orthopedic Surgery, Tubal Ligation Additional Past Surgical History / Comment(s): bunionectomy-lt. LT KNEE SX. COLONOSCOPY. Carpal tunnel surgery on right hand, laser eye surgery for glaucoma Past Anesthesia/Blood Transfusion Reactions: Postoperative Nausea & Vomiting (PONV) Past Psychological History: Anxiety Smoking Status: Former smoker - Past Family History Mother Family Medical History: CVA/TIA Father History Unknown: Yes Family Medical History: Cancer, Myocardial Infarction (AL) General Exam General appearance: alert, in no apparent distress Head exam: Present: atraumatic, normocephalic Eye exam: Present: normal appearance, PERRL ENT exam: Present: normal oropharynx Neck exam: Present: normal inspection. Absent: tenderness, meningismus Respiratory exam: Present: normal lung sounds bilaterally. Absent: respiratory distress, wheezes Cardiovascular Exam: Present: regular rate, normal rhythm GI/Abdominal exam: Present: soft. Absent: distended, tenderness, guarding Extremities exam: Present: normal inspection, normal capillary refill Neurological exam: Present: alert, oriented X3 Psychiatric exam: Present: normal affect, normal mood Skin exam: Present: warm, dry Course Vital Signs 02/21/24 02/21/24 02/21/24 09:29 10:04 10:05 Temperature 98.0 F Pulse Rate 64 64 Pulse Rate [ 60 Supine Apical] Respiratory 16 14 Rate Blood Pressure 118/87 113/81 O2 Sat by Pulse 100 98 Oximetry Medical Decision Making - Medical Decision Making Was pt. sent in by a medical professional or institution (, PA, ARMAMENT REPAIRER, urgent care, hospital, or penitentiary...) When possible be specific @ -No Did you speak to anyone other than the patient for history (EMS, parent, family, police, friend...)? What history was obtained from this source @ -No Did you review nursing and triage notes (agree or disagree)? Why? @ -I reviewed and agree with nursing and triage notes Were old charts reviewed (outside hosp., previous admission, EMS record, old EKG, old radiological studies, urgent care reports/EKG's, penitentiary records)? Report findings @ -No old charts were reviewed Differential Chest Pain: Stable Angina, Unstable Angina, STEMI, NSTEMI Aortic Dissection, Pneumothorax, Musculoskeletal, Esophageal Spasm GERD, Cholecystitis, Pancreatitis, Zoster, this is not meant to be an all-inclusive list. EKG interpreted by me (3pts min.). @ -Sinus rhythm rate of 62, ND interval 137, QRS duration 91, QTc [address] segment elevation. X-rays interpreted by me (1pt min.). @ -Chest x-ray negative for acute cardiopulmonary findings CT interpreted by me (1pt min.). @ -CT brain negative for intracranial hemorrhage or mass effect U/S interpreted by me (1pt. min.). @ -None done What testing was considered but not performed or refused? (CT, X-rays, U/S, labs)? Why? @ -None What meds were considered but not given or refused? Why? @ -None Did you discuss the management of the patient with other professionals (professionals i.e. , PA, ARMAMENT REPAIRER, lab, RT, psych nurse, social services coordinator, inter fold roll cutter, teacher, corporate development officer, corrections caseworker)? Give summary @ -No Was smoking cessation discussed for >3mins.? @ -No Was critical care preformed (if so, how long)? @ -No Were there social determinants of health that impacted care today? How? (Ho melessness, low income, unemployed, alcoholism, drug addiction, transportation, low edu. Level, literacy, decrease access to med. care, [facility], rehab)? @ -No Was there de-escalation of care discussed even if they declined (Discuss DNR or withdrawal of care, Hospice)? DNR status @ -No What co-morbidities impacted this encounter? (DM, HTN, Smoking, COPD, CAD, Cancer, CVA, ARF, Chemo, Hep., AIDS, mental health diagnosis, sleep apnea, morbid obesity)? @ -Hypertension Was patient admitted / discharged? Hospital course, mention meds given and route, prescriptions, significant lab abnormalities, going to OR and other pertinent info. @ -58-year-old female with chronic headache, chest pain. Pain occurred yesterday evening and was somewhat typical without typical features. Patient's EKG is sinus no ST segment changes. Chest x-ray clear. I did perform head CT which was negative. Patient continues to be dizzy with headache. No active chest pain. She will be observed for symptomatic treatment, telemetry, hydration. Case discussed with Dr. Lawrence who will admit Undiagnosed new problem with uncertain prognosis? @ -No Drug Therapy requiring intensive monitoring for toxicity (Heparin, Nitro, Insulin, Cardizem)? @ -No Were any procedures done? @ -No Diagnosis/symptom? @Headache, chest pain, dizziness Acute, or Chronic, or Acute on Chronic? @Acute Uncomplicated (without systemic symptoms) or Complicated (systemic symptoms)? @ -Default Side effects of treatment? @ -No Exacerbation, Progression, or Severe Exacerbation? @ -No Poses a threat to life or bodily function? How? (Chest pain, [place], AL, pneumonia, PE, COPD, DKA, ARF, appy, cholecystitis, CVA, Diverticulitis, Homicidal, Suicidal, threat to staff... and all critical care pts) @Moderate risk, chest pain, ACS - Lab Data Result diagrams: 02/21/24 09:35 02/21/24 09:35 Lab Results 02/21/24 02/21/24 02/21/24 Range/Units 09:35 09:35 09:35 WBC 6.8 (3.8-10.6) k/uL RBC 4.53 (3.80-5.40) m/uL Hgb 13.5 (11.4-16.0) gm/dL Hct 40.4 (34.0-46.0) % MCV 89.2 (80.0-100.0) fL MCH 29.8 (25.0-35.0) pg MCHC 33.4 (31.0-37.0) g/dL RDW 14.0 (11.5-15.5) % Plt Count 235 (150-450) k/uL MPV 7.9 Neutrophils % 65 % Lymphocytes % 24 % Monocytes % 8 % Eosinophils % 1 % Basophils % 0 % Neutrophils # 4.4 (1.3-7.7) k/uL Lymphocytes # 1.6 (1.0-4.8) k/uL Monocytes # 0.5 (0-1.0) k/uL Eosinophils # 0.1 (0-0.7) k/uL Basophils # 0.0 (0-0.2) k/uL PT 11.1 (10.0-12.5) sec INR 1.0 (<1.2) APTT 20.2 L (22.0-30.0) sec Sodium 139 (137-145) mmol/L Potassium 3.6 (3.5-5.1) mmol/L Chloride 106 (98-107) mmol/L Carbon Dioxide 28 (22-30) mmol/L Anion Gap 5 mmol/L BUN 20 H (7-17) mg/dL Creatinine 0.87 (0.52-1.04) mg/dL Est GFR (CKD-EPI)AfAm 86 (>60 ml/min/1.73 sqM) Est GFR (CKD-EPI)NonAf 74 (>60 ml/min/1.73 sqM) Glucose 92 (74-99) mg/dL Calcium 9.4 (8.4-10.2) mg/dL Magnesium 1.9 (1.6-2.3) mg/dL Total Bilirubin 0.5 (0.2-1.3) mg/dL AST 22 (14-36) U/L ALT 21 (4-34) U/L Alkaline Phosphatase 65 (38-126) U/L Troponin I (0.000-0.034) ng/mL Total Protein 6.3 (6.3-8.2) g/dL Albumin 3.9 (3.5-5.0) g/dL Urine Color Urine Appearance (Clear) Urine pH (5.0-8.0) Ur Specific [place] (1.001-1.035) Urine Protein (Negative) Urine Glucose (UA) (Negative) Urine Ketones (Negative) Urine Blood (Negative) Urine Nitrite (Negative) Urine Bilirubin (Negative) Urine Urobilinogen (<2.0) mg/dL Ur Leukocyte Esterase (Negative) Influenza Type A (PCR) (Not Detectd) Influenza Type B (PCR) (Not Detectd) RSV (PCR) (Not Detectd) SARS-CoV-2 (PCR) (Not Detectd) 02/21/24 02/21/24 02/21/24 Range/Units 09:35 09:44 10:52 WBC (3.8-10.6) k/uL RBC (3.80-5.40) m/uL Hgb (11.4-16.0) gm/dL Hct (34.0-46.0) % MCV (80.0-100.0) fL MCH (25.0-35.0) pg MCHC (31.0-37.0) g/dL RDW (11.5-15.5) % Plt Count (150-450) k/uL MPV Neutrophils % % Lymphocytes % % Monocytes % % Eosinophils % % Basophils % % Neutrophils # (1.3-7.7) k/uL Lymphocytes # (1.0-4.8) k/uL Monocytes # (0-1.0) k/uL Eosinophils # (0-0.7) k/uL Basophils # (0-0.2) k/uL PT (10.0-12.5) sec INR (<1.2) APTT (22.0-30.0) sec Sodium (137-145) mmol/L Potassium (3.5-5.1) mmol/L Chloride (98-107) mmol/L Carbon Dioxide (22-30) mmol/L Anion Gap mmol/L BUN (7-17) mg/dL Creatinine (0.52-1.04) mg/dL Est GFR (CKD-EPI)AfAm (>60 ml/min/1.73 sqM) Est GFR (CKD-EPI)NonAf (>60 ml/min/1.73 sqM) Glucose (74-99) mg/dL Calcium (8.4-10.2) mg/dL Magnesium (1.6-2.3) mg/dL Total Bilirubin (0.2-1.3) mg/dL AST (14-36) U/L ALT (4-34) U/L Alkaline Phosphatase (38-126) U/L Troponin I <0.012 (0.000-0.034) ng/mL Total Protein (6.3-8.2) g/dL Albumin (3.5-5.0) g/dL Urine Color Yellow Urine Appearance Clear (Clear) Urine pH 7.0 (5.0-8.0) Ur Specific [place] 1.015 (1.001-1.035) Urine Protein Negative (Negative) Urine Glucose (UA) Negative (Negative) Urine Ketones Negative (Negative) Urine Blood Negative (Negative) Urine Nitrite Negative (Negative) Urine Bilirubin Negative (Negative) Urine Urobilinogen <2.0 (<2.0) mg/dL Ur Leukocyte Esterase Negative (Negative) Influenza Type A (PCR) Not Detected (Not Detectd) Influenza Type B (PCR) Not Detected (Not Detectd) RSV (PCR) Not Detected (Not Detectd) SARS-CoV-2 (PCR) Not Detected (Not Detectd) Disposition Clinical Impression: Chest pain, Dehydration, Headache Disposition: ADMITTED IP TO THIS [facility] Condition: Stable Is patient prescribed a controlled substance at d/c from ED?: No Referrals: Neal Byers [Primary Care Provider] - 1-2 days Time of Disposition: 13:18
[2024-02-21 10:22] LABS: Basophils % (A) 0 %; Eosinophils # (A) 0.1 k/uL (0-0.7); Eosinophils % (A) 1 %; HCT 40.4 % (34.0-46.0); HGB 13.5 gm/dL (11.4-16.0); Lymphocytes # (A) 1.6 k/uL (1.0-4.8); Lymphocytes % (A) 24 %; MCH 29.8 pg (25.0-35.0); MCHC 33.4 g/dL (31.0-37.0); MCV 89.2 fL (80.0-100.0); Mean Platelet Volume 7.9; Monocytes # (A) 0.5 k/uL (0-1.0); Monocytes % (A) 8 %; Neutrophils # (A) 4.4 k/uL (1.3-7.7); Neutrophils % (A) 65 %; Platelet Count 235 k/uL (150-450); RBC 4.53 m/uL (3.80-5.40); WBC 6.8 k/uL (3.8-10.6)
--- NOTE | 2024-02-21 10:22 | XR ---
EXAMINATION TYPE: XR chest 2V DATE OF EXAM: 02/21/2024 COMPARISON: 12/25/2023 HISTORY: 58-year-old female with chest pain TECHNIQUE: PA and lateral views FINDINGS: Heart normal size. Mild hyperinflation and mild interstitial prominence is unchanged. No consolidatio n or pleural effusion. IMPRESSION: Correlate for possible underlying COPD. Otherwise, no acute process seen.
[2024-02-21 10:32] LABS: ALT 21 U/L (4-34); AST 22 U/L (14-36); African American GFR (CKD) 86 (>60 ml/min/1.73 sqM); Albumin 3.9 g/dL (3.5-5.0); Alkaline Phosphatase 65 U/L (38-126); Anion Gap 5 mmol/L; Blood Urea Nitrogen 20 mg/dL (7-17); Calcium 9.4 mg/dL (8.4-10.2); Carbon Dioxide 28 mmol/L (22-30); Chloride 106 mmol/L (98-107); Glucose 92 mg/dL (74-99); Magnesium 1.9 mg/dL (1.6-2.3); Non-African American GFR(CKD) 74 (>60 ml/min/1.73 sqM); Potassium 3.6 mmol/L (3.5-5.1); Sodium 139 mmol/L (137-145); Total Bilirubin 0.5 mg/dL (0.2-1.3); Total Protein 6.3 g/dL (6.3-8.2)
[2024-02-21 10:41] LABS: Prothrombin Time 11.1 sec (10.0-12.5)
[2024-02-21 10:51] LABS: Partial Thromboplastin Time 20.2 sec (22.0-30.0)
--- NOTE | 2024-02-21 11:00 | CT ---
EXAMINATION TYPE: CT brain wo con CT DLP: 1058.4 mGycm, Automated exposure control for dose reduction was used. DATE OF EXAM: 02/21/2024 10:53 AM COMPARISON: 12/26/2023. CLINICAL INDICATION:Female, 58 years old with history of COCHRAN, dizziness TECHNIQUE: Brain: Axial CT images of the brain were obtained with coronal and sagittal reformats created and rev iewed. Contrast used: None. Oral contrast used: None. FINDINGS: Brain: Extra-axial spaces: No abnormal extra-axial fluid collections. Ventricular system: Within normal limits Cerebral parenchyma: No acute intraparenchymal hemorrhage or mass effect. The lopez-white junction is well differentiated. Cerebellum: Unremarkable. Mass effect: No evidence of midline shift. Intracranial vasculature: unremarkable Soft tissues: Normal. Calvarium/osseous structures: No depressed skull fracture. Paranasal sinuses and mastoid air cells: Mild scattered paranasal sinus disease. Visualized orbits: Orbital contents are intact. IMPRESSION: No acute intracranial process.
[2024-02-21 11:07] LABS: Appearance,Urine Clear (Clear); Bilirubin,Urine Negative (Negative); Blood,Urine Negative (Negative); Color,Urine Yellow; Glucose,Urine (UA) Negative (Negative); Ketones,Urine Negative (Negative); Leukocyte Esterase,Urine Negative (Negative); Nitrite,Urine Negative (Negative); Protein,Urine Negative (Negative); Specific Gravity,Urine 1.015 (1.001-1.035); Urobilinogen,Urine <2.0 mg/dL (<2.0)
[2024-02-21] MEDS: SODIUM CHLORIDE 0.9% 1,000 ML IV ONE (12:57)
[2024-02-21] MEDS: KETOROLAC 15 MG/ML 1 ML VIAL IVP STA (12:58)
[2024-02-21] MEDS: SODIUM CHLORIDE 0.9% 1,000 ML IV SCH (12:59)
[2024-02-21] MEDS ORDERED: NALOXONE 0.4 MG/ML 1 ML VIAL IV PRN (13:15)
[2024-02-21] MEDS ORDERED: ALBUTEROL NEBULIZED 2.5 MG/3 ML INHALATION PRN (14:25)
[2024-02-21] MEDS: PANTOPRAZOLE 40 MG TABLET PO SCH (19:34)
[2024-02-21] MEDS: carvediloL 3.125 MG TAB PO SCH (19:34)
[2024-02-21] MEDS: IBUPROFEN 400 MG TAB PO PRN (19:36)
[2024-02-21] MEDS: ACETAMINOPHEN TAB 325 MG TAB PO PRN (19:37)
[2024-02-21] MEDS: SYMBICORT 80-4.5 MCG INHALER INHALATION SCH (21:11)
[2024-02-21] MEDS: ATORVASTATIN 80 MG TAB PO SCH (21:27)
[2024-02-21] MEDS: BUTALB/APAP/CAFF 50-325-40MG TAB PO PRN (21:27)
[2024-02-21] MEDS: LATANOPROST 0.005% OPHTH DROPS 2.5 ML BTL BOTH EYES SCH (21:28)
[2024-02-21] MEDS: FENOFIBRATE 54 MG TAB PO SCH (22:45)
[2024-02-21] MEDS: CITALOPRAM HYDROBROMIDE 20 MG TAB PO SCH (22:45)
[2024-02-21] MEDS: KETOROLAC 15 MG/ML 1 ML VIAL IVP SCH (23:06)
--- NOTE | 2024-02-21 23:49 | P.HPIM ---
History of Present Illness H&P Date: 02/21/24 Chief Complaint: Headache Patient is a 58-year-old female with a past medical history of COPD, hyperlipidemia, hypertension and recent admission in December 2023 with elevated troponin level status post cardiac catheterization showed 20 to 30% proximal RCA disease, 20% proximal and mid LAD disease. Patient also had headache and workup done including CT head and CTA head and neck which was negative for any acute stenosis or bleed. Patient also had workup including CRP ESR and ELIAN screen negative. Patient presented to ER with complaints of headache. Patient states that she has been having headache for the past few days of the back of the head and to the frontal region. Associated nausea. No episodes of vomiting. Also complaining of ringing in the ears and dizzy. Patient also had an episode of chest heaviness yesterday which is resolved now. Denied any neck stiffness. No fever no chills. No cough or sputum production. No chest pain or shortness of breath. Chest x-ray showed correlate for possible underlying COPD. Otherwise CT head showed no acute intracranial process. EKG showed sinus rhythm with sinus arrhythmia. Laboratory data showed WBC 6.8 hemoglobin 13.5 and platelets 235 Sodium 139 potassium 3.6 chloride 106 bicarb is 28 BUN 20 and creatinine 0.87. Liver enzymes are not elevated. Troponin x 2 negative and albumin 3.9 Urinalysis is negative for infection Influenza A B RSV and COVID-19 PCR not detected. Review of Systems Constitutional: Patient denies any fever or chills . No generalized weakness or weight loss. Abdomen: Patient did have nausea. No episodes of vomiting. No diarrhea. No abdominal pain. Cardiovascular: Patient denies any chest pain or short of breath no palpitations. Respiratory: patient denied any cough is from production. No shortness of breath Neurologic: Patient denied any numbness or tingling. Does have headache. Musculoskeletal: Patient denies any complaints of joint swelling or deformity. Skin: Negative Psychiatric: Negative Endocrine: No heat or cold intolerance. No recent weight gain. Genitourinary: No dysuria or hematuria. All other 14 point ROS negative except the above Past Medical History Past Medical History: Chest Pain / Angina, COPD, Eye Disorder, GERD/Reflux, Hyperlipidemia, Hypertension, Osteoarthritis (OA) Additional Past Medical History / Comment(s): glaucoma History of Any Multi-Drug Resistant Organisms: None Reported Past Surgical History: Orthopedic Surgery, Tubal Ligation Additional Past Surgical History / Comment(s): bunionectomy-lt. LT KNEE SX. COLONOSCOPY. Carpal tunnel surgery on right hand, laser eye surgery for glaucoma Past Anesthesia/Blood Transfusion Reactions: Postoperative Nausea & Vomiting (PONV) Past Psychological History: Anxiety Smoking Status: Former smoker Past Alcohol Use History: None Reported Additional Past Alcohol Use History / Comment(s): QUIT SMOKING 01/2017 Past Drug Use History: None Reported - Past Family History Mother Family Medical History: COPD, CVA/TIA Additional Family Medical History / Comment(s): colon CA Father History Unknown: Yes Family Medical History: Cancer, Myocardial Infarction ([place]) Additional Family Medical History / Comment(s): lung CA, empysema Medications and Allergies Home Medications Medication Instructions Recorded Confirmed Type Latanoprost [Xalatan 0.005%] 1 drop BOTH EYES HS 08/30/16 02/21/24 History Albuterol Sulfate [Ventolin HFA] 1 - 2 puff INHALATION RT-Q6H PRN 10/04/22 02/21/24 History Aspirin EC [Ecotrin Low Dose] 81 mg PO DAILY 10/04/22 02/21/24 History Azithromycin [Zithromax] 250 mg PO MOWEFR 10/04/22 02/21/24 History Fluticasone/Umeclidin/Vilanter 1 puff INHALATION RT-DAILY 10/04/22 02/21/24 History [Trelegy Ellipta 100-62.5-25] Losartan [Cozaar] 12.5 mg PO DAILY 11/30/23 02/21/24 History Rosuvastatin Calcium [Crestor] 40 mg PO HS 11/30/23 02/21/24 History Nitroglycerin Sl Tabs [Nitrostat] 0.4 mg SL Q5M PRN 12/25/23 02/21/24 History hydrOXYzine HCL 10 mg PO TID PRN 12/25/23 02/21/24 History Fenofibrate Nanocrystallized 48 mg PO HS 01/31/24 02/21/24 History [Fenofibrate] Pantoprazole [Protonix] 40 mg PO BID 01/31/24 02/21/24 History carvediloL [Coreg] 3.125 mg PO BID 01/31/24 02/21/24 History Allergies Allergy/AdvReac Type Severity Reaction Status Date / Time codeine Allergy Anaphylaxis Verified 02/21/24 12:17 hydrocodone Allergy Anaphylaxis Verified 02/21/24 12:17 Penicillins AdvReac Yeast Verified 02/21/24 12:17 infections Physical Exam Vitals: Vital Signs Temp Pulse Pulse Pulse Resp BP BP 02/21/24 22:30 97.5 F L 60 15 128/48 02/21/24 21:52 97.7 F 62 17 124/82 02/21/24 21:31 65 16 98/60 02/21/24 19:38 88 20 119/71 02/21/24 18:00 59 L 17 98/61 02/21/24 16:00 61 18 115/75 02/21/24 14:46 63 20 120/89 02/21/24 10:05 60 02/21/24 10:04 64 14 113/81 02/21/24 09:29 98.0 F 64 16 118/87 Pulse Ox 02/21/24 22:30 97 02/21/24 21:52 98 02/21/24 21:31 95 02/21/24 19:38 98 02/21/24 18:00 96 02/21/24 16:00 97 02/21/24 14:46 99 02/21/24 10:05 02/21/24 10:04 98 02/21/24 09:29 100 Intake and Output 02/21/24 02/21/24 02/22/24 14:59 22:59 06:59 Other: Weight 88.904 kg 88.904 kg PHYSICAL EXAMINATION: Patient is lying in the bed appears to be in mild distress, awake alert and oriented.. HEENT: Normocephalic. Neck is supple. Pupils reactive. Nostrils clear. Oral cavity is moist. Neck reveals no JVD, carotid bruits, or thyromegaly. CHEST EXAMINATION: Trachea is central. Symmetrical expansion. Lung gong clear to auscultation and percussion. CARDIAC: Normal S1, S2 with no gallops. No murmurs ABDOMEN: Soft. Bowel sounds normal. No organomegaly. No abdominal bruits. Extremities: reveal no edema. No clubbing or cyanosis Neurologically awake, alert, oriented x3 with well-coordinated movements. No focal deficits noted Skin: No rash or skin lesions. Psychiatric: Coperative. Nonsuicidal Musculoskeletal: No joint swelling or deformity. Normal range of motion. Results CBC & Chem 7: 02/21/24 09:35 02/21/24 09:35 Labs: Abnormal Lab Results - Last 24 Hours (Table) 02/21/24 02/21/24 Range/Units 09:35 09:35 APTT 20.2 L (22.0-30.0) sec BUN 20 H (7-17) mg/dL Thrombosis Risk Factor Assmnt - DVT/VTE Prophylaxis DVT/VTE Prophylaxis: Pharmacologic Prophylaxis ordered - Choose All That Apply Any of the Below Risk Factors Present?: No Other Risk Factors: No Thrombosis Risk Factor Assessment Level: Very Low Risk Assessment and Plan Assessment: Cephalgia mainly in the occipital region Recent admission with chest pain and elevated troponin level. Cardiac cath was nonobstructive COPD GERD Hyperlipidemia Hypertension Osteoarthritis Anxiety Prior history of smoking Obesity with BMI 35.8 Glaucoma GI and DVT prophylaxis with PPI and heparin subcu Plan: Patient will be continued on gentle IV hydration. Was given a dose of Toradol and Zofran in the ER. Continue with Tylenol and Toradol IV. Continue with home blood pressure medications. Continue DuoNebs and Symbicort. Neurology was consulted for evaluation. Recent workup including CT head, CTA head and neck, ESR CRP and ELIAN screen negative. Continue to follow closely. Time with Patient: Greater than 30
[2024-02-22] MEDS: HEPARIN SODIUM,PORCINE 5,000 UNIT/ML 1 ML VIAL SQ SCH (04:28)
[2024-02-22] MEDS: IPRATROPIUM 0.5 MG/2.5 ML NEBU INHALATION SCH (09:05)
[2024-02-22] MEDS: ASPIRIN 81 MG PO SCH (09:19)
[2024-02-22] MEDS: LOSARTAN 25 MG TAB PO SCH (09:19)
[2024-02-22] MEDS: ONDANSETRON 4 MG/2 ML VIAL IVP PRN (09:44)
--- NOTE | 2024-02-22 17:13 | MR ---
EXAMINATION TYPE: MR brain wo/w con DATE OF EXAM: 02/22/2024 4:53 PM COMPARISON: NONE HISTORY: Cephalgia CONTRAST: Patient received 9 mL intravenous Gadavist gadolinium contrast. Multiplanar and multispin-echo imaging of the brain was performed . Pre and post contrast enhanced i mages are obtained. The ventricles, basal cisterns and sulci overlying the cerebral convexities are mildly enlarged. There is evidence of mild periventricular white matter ischemic demyelination. Remote deep white matter insults are also noted. No acute edema is seen on diffusion weighted imaging. There is no evidence for midline shift or mass effect. Acute intracranial hemorrhage or extra-axial collection is not evident. No enhancing lesions are seen. The paranasal sinuses and mastoid air cells are well-aerated. IMPRESSION: Age-related atrophic and chronic small vessel ischemic change. No acute intracranial process at this time. No enhancing lesions are seen.
--- NOTE | 2024-02-22 18:03 | P.CNNES ---
History of Present Illness Consult date: 02/22/24 Requesting physician: Matt Lawrence Reason for Consult: headache History of Present Illness: This is a 58-year-old woman who presents because of headache. patient states she's been having headache for the last 1 month and it's all over the head or she feels that starts in the base of the skull and transient OR she feels her headache and can be in the nasal region and then involves the entire head. The headache is 10 over 10 on presentation she feels its adult pressure headache. It's constant, she does have photophobia and phonophobia. She did have nausea but denies any vomiting. Denies any diplopia or visual disturbance. Denies any focal weakness numbness difficulty with speech. She feels nothing is helping with a headache and no aggravation. Currently the headache is 8/10. She stated that she notified the primary care team regarding this and did not feel was addressed.she does not follow up with a neurologist thinking she was suppose to be refer to a neurologist by hospital. I personally seen the patient in December2023 for headache. Possible occipital cephalgia. She had CT angiography which was unremarkable she also had ESR, TSH, vitamin B12 which was within normal limits. ELIAN was unremarkable. Please refer to prior notes for further details. Some of the work-up during this hospital visit consisted of: blood pressure on presentation his 118/87. CBC with differential is unremarkable Chem panel is unremarkable CT of the head is reported as no acute intracranial process. I personally reviewed the CT and agree with report. Review of Systems the positive and negative as per HPI. Past Medical History Past Medical History: Chest Pain / Angina, COPD, Eye Disorder, GERD/Reflux, Hyperlipidemia, Hypertension, Osteoarthritis (OA) Additional Past Medical History / Comment(s): glaucoma History of Any Multi-Drug Resistant Organisms: None Reported Past Surgical History: Orthopedic Surgery, Tubal Ligation Additional Past Surgical History / Comment(s): bunionectomy-lt. LT KNEE SX. COLONOSCOPY. Carpal tunnel surgery on right hand, laser eye surgery for glaucoma Past Anesthesia/Blood Transfusion Reactions: Postoperative Nausea & Vomiting (PONV) Past Psychological History: Anxiety Smoking Status: Former smoker Past Alcohol Use History: None Reported Additional Past Alcohol Use History / Comment(s): QUIT SMOKING 01/2017 Past Drug Use History: None Reported - Past Family History Mother Family Medical History: COPD, CVA/TIA Additional Family Medical History / Comment(s): colon CA Father History Unknown: Yes Family Medical History: Cancer, Myocardial Infarction ([place]) Additional Family Medical History / Comment(s): lung CA, empysema Medications and Allergies Home Medications Medication Instructions Recorded Confirmed Type Latanoprost [Xalatan 0.005%] 1 drop BOTH EYES HS 08/30/16 02/21/24 History Albuterol Sulfate [Ventolin HFA] 1 - 2 puff INHALATION RT-Q6H PRN 10/04/22 02/21/24 History Aspirin EC [Ecotrin Low Dose] 81 mg PO DAILY 10/04/22 02/21/24 History Azithromycin [Zithromax] 250 mg PO MOWEFR 10/04/22 02/21/24 History Fluticasone/Umeclidin/Vilanter 1 puff INHALATION RT-DAILY 10/04/22 02/21/24 History [Trelegy Ellipta 100-62.5-25] Losartan [Cozaar] 12.5 mg PO DAILY 11/30/23 02/21/24 History Rosuvastatin Calcium [Crestor] 40 mg PO HS 11/30/23 02/21/24 History Nitroglycerin Sl Tabs [Nitrostat] 0.4 mg SL Q5M PRN 12/25/23 02/21/24 History hydrOXYzine HCL 10 mg PO TID PRN 12/25/23 02/21/24 History Fenofibrate Nanocrystallized 48 mg PO HS 01/31/24 02/21/24 History [Fenofibrate] Pantoprazole [Protonix] 40 mg PO BID 01/31/24 02/21/24 History carvediloL [Coreg] 3.125 mg PO BID 01/31/24 02/21/24 History Allergies Allergy/AdvReac Type Severity Reaction Status Date / Time codeine Allergy Anaphylaxis Verified 02/21/24 12:17 hydrocodone Allergy Anaphylaxis Verified 02/21/24 12:17 Penicillins AdvReac Yeast Verified 02/21/24 12:17 infections Physical Examination - Vital Signs Vital Signs: Vital Signs Temp Pulse Pulse Resp BP BP BP 02/22/24 15:54 73 02/22/24 15:45 72 02/22/24 14:51 97.8 F 71 17 107/69 02/22/24 12:20 79 02/22/24 12:09 78 02/22/24 09:44 60 14 138/89 02/22/24 09:20 72 02/22/24 09:07 71 02/22/24 07:00 97.7 F 63 16 115/76 02/22/24 02:18 97.8 F 65 15 94/48 02/21/24 22:30 97.5 F L 60 15 128/48 02/21/24 21:52 97.7 F 62 17 124/82 02/21/24 21:31 65 16 98/60 02/21/24 19:38 88 20 119/71 02/21/24 18:00 59 L 17 98/61 Pulse Ox 02/22/24 15:54 02/22/24 15:45 02/22/24 14:51 96 02/22/24 12:20 02/22/24 12:09 02/22/24 09:44 100 02/22/24 09:20 02/22/24 09:07 96 02/22/24 07:00 97 02/22/24 02:18 95 02/21/24 22:30 97 02/21/24 21:52 98 02/21/24 21:31 95 02/21/24 19:38 98 02/21/24 18:00 96 Intake and Output 02/22/24 02/22/24 02/22/24 06:59 14:59 22:59 Other: Voiding Method Toilet # Voids 1 GENERAL: The patient is lying in bed and is in mild acute distress. NEUROLOGICAL: Higher mental function: The patient is awake, alert, oriented to self, place and time. Patient is following commands. No aphasia and no neglect. Cranial nerves: The pupils are round, equal and reactive to light and accommodation. Visual gong are full to confrontation throughout. Extraocular movement is intact no nystagmus is noted. Facial sensation is normal to touch throughout. The facial strength is normal throughout. Hearing is normal bilaterally to hand rub. Tongue is midline and moved [id number] without any difficulty. No dysarthria is noted. Shoulder shrug is normal bilaterally. Motor: The strength is 5 over 5 throughout. Normal tone and bulk. Cerebellum: Normal finger to nose heel to salazar bilaterally. Sensation: Sensation is normal to touch throughout. Reflexes (right/left): 2+ throughout. Plantars are downgoing bilaterally. Results - Laboratory Findings CBC and BMP: 02/21/24 09:35 02/21/24 09:35 Abnormal Lab Findings: Abnormal Labs 02/21/24 02/21/24 09:35 09:35 APTT 20.2 L BUN 20 H Assessment and Plan Assessment: this is a 58-year-old woman was been having headache according to her for the past 1 month. But I seen her as back as December and she was having headache and the she's not following up with a neurologist regarding this headache. She feels its entire head or starts at the base of the neck and moves up. She does have photophobia photophobia and nausea. Cephalgia has some migrainous component. Also possible cervicogenic headache CT of the head is unremarkable. Inferior break [address] angiography of the head and neck which was unremarkable as well as ESR, ELIAN and TSH that are within normal limits Plan: I ordered MRI of the brain with and without. if MRI the brain is unremarkable and patient continues to have headaches will consider MRI of the cervical spine I started the patient on Topamax 50 mg 1 tablet twice a day notified the patient on the side effects and she was in agreement of starting the medication I gave the patient magnesium 1 g once She is on Fioricet when necessary for the headache we'll defer the rest of the medical management to primary and other specialists Upon discharge recommend the patient to follow-up with a neurologist as an outpatient within 1-2 weeks. Thank you for the consultation Time with Patient: Greater than 30
[2024-02-22] MEDS: MAGNESIUM SULFATE-D5W PMX 1 GM in DEXTROSE/WATER 1 100ML.BAG IVPB ONE (18:41)
[2024-02-22] MEDS: TOPIRAMATE 25 MG TAB PO SCH (20:46)
[2024-02-22] MEDS: CITALOPRAM HYDROBROMIDE 20 MG TAB PO SCH (20:46)
[2024-02-23] MEDS: hydrOXYzine HCL 10 MG TAB PO PRN (00:58)
--- NOTE | 2024-02-23 04:12 | P.PN ---
Subjective Progress Note Date: 02/22/24 Patient is a 58-year-old female with a past medical history of COPD, hyperlipidemia, hypertension and recent admission in December 2023 with elevated troponin level status post cardiac catheterization showed 20 to 30% proximal RCA disease, 20% proximal and mid LAD disease. Patient also had headache and workup done including CT head and CTA head and neck which was negative for any acute stenosis or bleed. Patient also had workup including CRP ESR and ELIAN screen negative. Patient presented to ER with complaints of headache. Patient states that she has been having headache for the past few days of the back of the head and to the frontal region. Associated nausea. No episodes of vomiting. Also complaining of ringing in the ears and dizzy. Patient also had an episode of chest heaviness yesterday which is resolved now. Denied any neck stiffness. No fever no chills. No cough or sputum production. No chest pain or shortness of breath. Chest x-ray showed correlate for possible underlying COPD. Otherwise CT head showed no acute intracranial process. EKG showed sinus rhythm with sinus arrhythmia. Laboratory data showed WBC 6.8 hemoglobin 13.5 and platelets 235 Sodium 139 potassium 3.6 chloride 106 bicarb is 28 BUN 20 and creatinine 0.87. Liver enzymes are not elevated. Troponin x 2 negative and albumin 3.9 Urinalysis is negative for infection Influenza A B RSV and COVID-19 PCR not detected. 02/22/2024 Patient is seen and evaluated in follow-up today being followed by neurology undergoing MRI of the brain today as patient continues to report significant headache with no relief. Patient is receiving Fioricet and continues to report headache with dizziness and some visual disturbances. Will await MRI of the brain and discuss further with neurology. Patient also reports she feels the symptoms have persisted since being started on Coreg. Will hold Coreg for now and monitor closely. Patient is afebrile with no reports of chest pain or shortness of breath. Patient reports she is occasionally nauseated and not much of an appetite and attempting to eat small frequent meals. Encouraged increase activity as tolerated. Review of systems: Constitutional: No reports of fatigue, fever, or chills Cardiovascular: No reports of chest pain or palpitations Respiratory: No reports of shortness of breath or cough GI: reports of nausea, no vomiting, or diarrhea, reports not much of an appetite : No reports of dysuria or retention Neurovascular: No reports of weakness, reports continued persistent headache and dizziness All medications have been reviewed PHYSICAL EXAMINATION: Patient is lying in the bed appears to be in mild distress due to persistent headache, awake alert and oriented.. Well-developed, elderly appearing, obese HEENT: Normocephalic. Neck is supple. Pupils reactive. Nostrils clear. Oral cavity is moist. Neck reveals no JVD, carotid bruits, or thyromegaly. CHEST EXAMINATION: Trachea is central. Symmetrical expansion. Lung gong clear to auscultation and percussion. CARDIAC: Normal S1, S2 with no gallops. No murmurs ABDOMEN: Soft. Obese. Bowel sounds normal. No organomegaly. No abdominal bruits. Extremities: reveal no edema. No clubbing or cyanosis Neurologically awake, alert, oriented x3 with well-coordinated movements. No focal deficits noted Skin: No rash or skin lesions. Psychiatric: Cooperative. Non-suicidal Musculoskeletal: No joint swelling or deformity. Normal range of motion. Assessment: Cephalgia mainly in the occipital region, possibly secondary to migraines Recent admission with chest pain and elevated troponin level. Cardiac cath was nonobstructive COPD, not in exacerbation GERD Hyperlipidemia Hypertension Osteoarthritis Anxiety Prior history of smoking Obesity with BMI 35.8 Glaucoma GI and DVT prophylaxis with PPI and heparin subcu Full code Plan: Patient will be continued on gentle IV hydration. Will continue with Toradol, antinausea medications and Percocets as needed Neurology consulted and undergoing MRI of the brain Encouraged to increase activity as tolerated Encourage small frequent meals Continue DuoNeb treatments at home medications have been resumed. Will hold Coreg for now as patient reports she feels her symptoms progressed after starting Coreg approximately 1 month ago Will await MRI and discuss further with neurology regarding treatment plan moving forward. Patient will need outpatient neurology follow-up Possible discharge in the next 24 to 48 hours The impression and plan of care has been dictated by Olga Gimenez Nurse Practitioner as directed. Dr. Howard MD I have performed a history and examination and MDM of this patient, discussed the same with the dictator, and agree with the dictator's assessment and plan as written ,documented as a scribe. Based on total visit time, I have performed more than 50% of the visit. Objective - Vital Signs Vital signs: Vital Signs Temp 97.7 F 02/22/24 07:00 Pulse 60 02/22/24 09:44 Resp 14 02/22/24 09:44 BP 138/89 02/22/24 09:44 Pulse Ox 100 02/22/24 09:44 FiO2 Intake & Output 02/21/24 02/22/24 02/22/24 18:59 06:59 18:59 Weight 88.904 kg 88.904 kg Other: Voiding Method Toilet # Voids 1 - Labs CBC & Chem 7: 02/21/24 09:35 02/21/24 09:35 Labs: Abnormal Lab Results - Last 24 Hours (Table) 02/21/24 02/21/24 Range/Units 09:35 09:35 APTT 20.2 L (22.0-30.0) sec BUN 20 H (7-17) mg/dL
--- NOTE | 2024-02-23 16:01 | P.PN ---
Subjective Progress Note Date: 02/23/24 I am following-up with patient and continues to have holocephalic headache. Feels minimal improvement. Objective - Vital Signs Vital signs: Vital Signs Temp 98 F 02/23/24 07:00 Pulse 93 02/23/24 13:06 Resp 16 02/23/24 07:00 BP 117/75 02/23/24 07:00 Pulse Ox 100 02/23/24 09:16 FiO2 Intake & Output 02/22/24 02/23/24 02/23/24 18:59 06:59 18:59 Other: Voiding Method Toilet Toilet # Voids 3 2 - Exam GENERAL: The patient is lying in bed and is in mild acute distress. NEUROLOGICAL: Higher mental function: The patient is awake, alert, oriented to self, place and time. Patient is following commands. No aphasia and no neglect. Cranial nerves: The pupils are round, equal and reactive to light and accommodation. Visual gong are full to confrontation throughout. Extraocular movement is intact no nystagmus is noted. Facial sensation is normal to touch throughout. The facial strength is normal throughout. Hearing is normal bilaterally to hand rub. Tongue is midline and moved [id number] without any difficulty. No dysarthria is noted. Shoulder shrug is normal bilaterally. Motor: The strength is 5 over 5 throughout. Normal tone and bulk. Cerebellum: Normal finger to nose heel to salazar bilaterally. Sensation: Sensation is normal to touch throughout. Reflexes (right/left): 2+ throughout. Plantars are downgoing bilaterally. Some of the work-up during this hospital visit consisted of: blood pressure on presentation his 118/87. CBC with differential is unremarkable Chem panel is unremarkable CT of the head is reported as no acute intracranial process. I personally reviewed the CT and agree with report. MRI Brain is reported as age-related atrophic and chronic small vessel ischemic change. No acute intracranial process at this time. No enhancing lesion are seen. - Labs CBC & Chem 7: 02/21/24 09:35 02/21/24 09:35 Assessment and Plan Assessment: this is a 58-year-old woman was been having headache according to her for the past 1 month. But I seen her as back as December and she was having headache and the she's not following up with a neurologist regarding this headache. She feels its entire head or starts at the base of the neck and moves up. She does have photophobia photophobia and nausea. Cephalgia has some migrainous component. Also possible cervicogenic headache CT of the head is unremarkable. In Dec [address] angiography of the head and neck which was unremarkable as well as ESR, ELIAN and TSH that are within normal limits. Current MRI Brain is unremarkable Plan: Will proceed with MRI of the cervical spine I started the patient on Topamax 50 mg 1 tablet twice a day notified the patient on the side effects and she was in agreement of starting the medication I gave the patient magnesium 1 g once yesterday and will repeat again today. I'll give the patient migraine cocktail of Compazine, Toradol and Benadryl. She is on Fioricet when necessary for the headache we'll defer the rest of the medical management to primary and other specialists Upon discharge recommend the patient to follow-up with a neurologist as an outpatient within 1-2 weeks. The plan is discussed with patient and primary team N.P. Time with Patient: Less than 30
[2024-02-23] MEDS: PROCHLORPERAZINE INJ 10 MG/2 ML VIAL IVP STA (17:25)
[2024-02-23] MEDS: KETOROLAC 15 MG/ML 1 ML VIAL IVP STA (17:25)
[2024-02-23] MEDS: MAGNESIUM SULFATE-D5W PMX 1 GM in DEXTROSE/WATER 1 100ML.BAG IVPB ONE (17:25)
[2024-02-23] MEDS: diphenhydrAMINE 50 MG/ML 1 ML VIAL IVP STA (17:26)
[2024-02-23] MEDS: carvediloL 3.125 MG TAB PO SCH (17:27)
--- NOTE | 2024-02-24 05:59 | P.PN ---
Subjective Progress Note Date: 02/23/24 Patient is a 58-year-old female with a past medical history of COPD, hyperlipidemia, hypertension and recent admission in December 2023 with elevated troponin level status post cardiac catheterization showed 20 to 30% proximal RCA disease, 20% proximal and mid LAD disease. Patient also had headache and workup done including CT head and CTA head and neck which was negative for any acute stenosis or bleed. Patient also had workup including CRP ESR and ELIAN screen negative. Patient presented to ER with complaints of headache. Patient states that she has been having headache for the past few days of the back of the head and to the frontal region. Associated nausea. No episodes of vomiting. Also complaining of ringing in the ears and dizzy. Patient also had an episode of chest heaviness yesterday which is resolved now. Denied any neck stiffness. No fever no chills. No cough or sputum production. No chest pain or shortness of breath. Chest x-ray showed correlate for possible underlying COPD. Otherwise CT head showed no acute intracranial process. EKG showed sinus rhythm with sinus arrhythmia. Laboratory data showed WBC 6.8 hemoglobin 13.5 and platelets 235 Sodium 139 potassium 3.6 chloride 106 bicarb is 28 BUN 20 and creatinine 0.87. Liver enzymes are not elevated. Troponin x 2 negative and albumin 3.9 Urinalysis is negative for infection Influenza A B RSV and COVID-19 PCR not detected. 02/22/2024 Patient is seen and evaluated in follow-up today being followed by neurology undergoing MRI of the brain today as patient continues to report significant headache with no relief. Patient is receiving Fioricet and continues to report headache with dizziness and some visual disturbances. Will await MRI of the brain and discuss further with neurology. Patient also reports she feels the symptoms have persisted since being started on Coreg. Will hold Coreg for now and monitor closely. Patient is afebrile with no reports of chest pain or shortness of breath. Patient reports she is occasionally nauseated and not much of an appetite and attempting to eat small frequent meals. Encouraged increase activity as tolerated. 02/23/2024 Patient is seen in follow-up this morning laying in bed reports persistent headache with no significant improvement. Patient underwent MRI of the brain which was negative for any acute findings. Discussed with neurology who is following and given patient's continued symptoms will order MRI of the cervical spine for evaluation. Patient has been encouraged to increase activity as tolerated and get up out of the bed more often. Patient initially was concerned about possible Coreg being the medication causing these findings although no significant improvement and will resume Coreg. Patient will need outpatient follow-up with primary care provider, neurology, and her sterilization tech on discharge. Review of systems: Constitutional: No reports of fatigue, fever, or chills Cardiovascular: No reports of chest pain or palpitations Respiratory: No reports of shortness of breath or cough GI: reports of nausea, no vomiting, or diarrhea, reports not much of an appetite : No reports of dysuria or retention Neurovascular: No reports of weakness, reports continued persistent headache and dizziness All medications have been reviewed PHYSICAL EXAMINATION: Patient is lying in the bed appears sleeping although arousable, alert and oriented.. Flat affect, well-developed, elderly appearing, obese HEENT: Normocephalic. Neck is supple. Pupils reactive. Nostrils clear. Oral cavity is moist. Neck reveals no JVD, carotid bruits, or thyromegaly. CHEST EXAMINATION: Trachea is central. Symmetrical expansion. Lung gong clear to auscultation and percussion. CARDIAC: Normal S1, S2 with no gallops. No murmurs ABDOMEN: Soft. Obese. Bowel sounds normal. No organomegaly. No abdominal bruits. Extremities: reveal no edema. No clubbing or cyanosis Neurologically awake, alert, oriented x3 with well-coordinated movements. No focal deficits noted Skin: No rash or skin lesions. Psychiatric: Cooperative. Non-suicidal Musculoskeletal: No joint swelling or deformity. Normal range of motion. Assessment: Cephalgia mainly in the occipital region, likely secondary to migraines, MRI of the brain is negative for any acute findings Recent admission with chest pain and elevated troponin level. Cardiac cath was nonobstructive COPD, not in exacerbation GERD Hyperlipidemia Hypertension Osteoarthritis Anxiety Prior history of smoking Obesity with BMI 35.8 Glaucoma GI and DVT prophylaxis with PPI and heparin subcu Full code Plan: Patient will be continued on gentle IV hydration. Will continue with Toradol, antinausea medications and Percocets as needed. Topamax added Neurology following and MRI of the brain was negative. Patient persists with continued headache and will undergo MRI cervical spine for evaluation. Patient will need outpatient follow-up with neurology on discharge Encouraged to increase activity as tolerated Encourage small frequent meals Continue DuoNeb treatments at home medications have been resumed. Coreg resumed Will await MRI of the cervical spine and discuss further with neurology with any abnormal findings. Again patient will need outpatient follow-up as discussed with on previous admissions with neurology in the outpatient setting. Patient to follow-up with sterilization tech as well. Possible discharge in the next 24 hours The impression and plan of care has been dictated by Olga Gimenez, Nurse Practitioner as directed. Dr. Howard MD I have performed a history and examination and MDM of this patient, discussed the same with the dictator, and agree with the dictator's assessment and plan as written ,documented as a scribe. Based on total visit time, I have performed more than 50% of the visit. Objective - Vital Signs Vital signs: Vital Signs Temp 98.5 F 02/24/24 02:00 Pulse 75 02/24/24 02:00 Resp 16 02/24/24 02:00 BP 104/68 02/24/24 02:00 Pulse Ox 95 02/24/24 02:00 FiO2 Intake & Output 02/23/24 02/23/24 02/24/24 06:59 18:59 06:59 Other: Voiding Method Toilet Toilet # Voids 3 2 1 - Labs CBC & Chem 7: 02/21/24 09:35 02/21/24 09:35
--- NOTE | 2024-02-24 11:05 | MR ---
EXAMINATION TYPE: MR cervical spine wo/w con DATE OF EXAM: 02/24/2024 10:56 AM CLINICAL INDICATION:Female, 58 years old with history of persistent headache; PHH, Persistent Headach es COMPARISON: CT angiogram head and neck of December 26, 2023. TECHNIQUE: Multi planar, multi sequence imaging was performed utilizing: T1-weighted, T2-weighted, an d turbo inversion recovery imaging of the cervical spine. IV Contrast: 9 cc Gadavist (none if empty) FINDINGS: Alignment: The cervical vertebral bodies have preserved heights. Alignment is within normal limits gi narcisa patient positioning. Bones: Bone signal is within normal limits. No abnormal bone marrow edema on inversion recovery seque nces. Cord: The spinal cord is unremarkable with regards to their signal intensity and morphology. Discs: Intervertebral disc signal is maintained. C2-C3: No significant disc pathology. The spinal canal is patent. No neural foraminal stenosis. C3-C4: No significant disc pathology. The spinal canal is patent. No neural foraminal stenosis. Smal l central disc extrusion. CSF is seen between the disc in the anterior spinal cord C4-C5: No significant disc pathology. The spinal canal is patent. No neural foraminal stenosis. Mild diffuse disc bulge C5-C6: No significant disc pathology. The spinal canal is patent. No neural foraminal stenosis. Mild diffuse disc bulge C6-C7: No significant disc pathology. The spinal canal is patent. No neural foraminal stenosis. C7-T1: No significant disc pathology. The spinal canal is patent. No neural foraminal stenosis. Other: No abnormal enhancement. IMPRESSION: 1. Mild, small central disc extrusion at C3-C4, but no evidence for significant spinal canal stenosis . 2. No abnormal enhancement. 3. No finding to account for patient's symptoms.
[2024-02-24] MEDS: PROCHLORPERAZINE INJ 10 MG/2 ML VIAL IVP STA (16:11)
[2024-02-24] MEDS: LORazepam 2 MG/ML INJ IV STA (17:01)
--- NOTE | 2024-02-24 17:56 | P.PCN ---
Indications for Procedure: Preprocedure diagnosis. Headache, mental status change. Postprocedure diagnosis. As above. Procedure done. Lumbar puncture and collection of cerebrospinal fluid. Anesthesia. Local infiltration with anesthetics. Continuous pulse ox, EKG, blood pressure and verbal communication was maintained with the patient. Blood loss. None. Indication. Discussed the procedure, alternatives, complications which may include infection, nerve damage, paralysis, aggravation of the symptoms especially bleeding in the spine and posterior dural puncture headache with the patient. The patient understands and questions were answered. Procedure note. After getting concentration in the procedure room in sitting position. Back prepped with chlorhexidine and draped in sterile fashion. After injecting 3 mL of 1% lidocaine subcutaneously, a 22-gauge spinal needle was introduced at L45 interspace. Positive CSF, negative blood, negative paresthesia. CSF color was clear. CSF opening pressure 16.5 cm. Closing pressure 14.5 cm . CSF was collected in 4 supplied sterol containers in sequence. Spinal needle was taken out and trinidad ge was applied. Disposition. Patient tolerated the procedure well. No complication. Advised patient to lay flat one-hour postprocedure. The rest of the day today try to lay flat as much as possible. Next 3 days drink lots of fluid especially caffeinated beverages, and avoid constipation cough and doing strenuous physical work. Discharged home in stable condition.
[2024-02-24 19:10] LABS: Glucose,CSF 49 mg/dL (40-70); Total Protein,CSF 95 mg/dL (12-60)
[2024-02-24 20:39] LABS: Appearance,CSF Clear; CSF Tube Number 4
--- NOTE | 2024-02-24 20:39 | P.PN ---
Subjective Progress Note Date: 02/24/24 I am following-up with patient and states continues to have headache throughout and feels no improvement then later stated she does feel relief with Fioricet and it is 5/10. I spoke with the primary team NMarichuyP. and notified her to pursue with Lumbar puncture which did and opening pressure was 16.5cm H20 and closing pressure is 14.5cm H20. Objective - Vital Signs Vital signs: Vital Signs Temp 98.9 F 02/24/24 19:55 Pulse 98 02/24/24 19:55 Resp 16 02/24/24 19:55 BP 110/70 02/24/24 19:55 Pulse Ox 98 02/24/24 19:55 FiO2 Intake & Output 02/24/24 02/24/24 02/25/24 06:59 18:59 06:59 Intake Total 236 Balance 236 Intake: Oral 236 Other: Voiding Method Toilet # Voids 3 5 - Exam GENERAL: The patient is lying in bed and is in mild acute distress. NEUROLOGICAL: Higher mental function: The patient is awake, alert, oriented to self, place and time. Patient is following commands. No aphasia and no neglect. Cranial nerves: The pupils are round, equal and reactive to light and accommodation. Visual gong are full to confrontation throughout. Extraocular movement is intact no nystagmus is noted. Facial sensation is normal to touch throughout. The facial strength is normal throughout. Hearing is normal bilaterally to hand rub. Tongue is midline and moved [id number] without any difficulty. No dysarthria is noted. Shoulder shrug is normal bilaterally. Motor: The strength is 5 over 5 throughout. Normal tone and bulk. Cerebellum: Normal finger to nose heel to salazar bilaterally. Sensation: Sensation is normal to touch throughout. Reflexes (right/left): 2+ throughout. Plantars are downgoing bilaterally. Some of the work-up during this hospital visit consisted of: blood pressure on presentation his 118/87. CBC with differential is unremarkable Chem panel is unremarkable CT of the head is reported as no acute intracranial process. I personally reviewed the CT and agree with report. MRI Brain is reported as age-related atrophic and chronic small vessel ischemic change. No acute intracranial process at this time. No enhancing lesion are seen. MRI Cervical spine: Is mild small central disc extrusion at C3-C4 but no evidence for significant spinal canal stenosis. No abnormal enhancement. No finding to account for patient's symptoms. Lumbar puncture which did and opening pressure was 16.5cm H20 and closing pressure is 14.5cm H20. - Labs CBC & Chem 7: 02/21/24 09:35 02/21/24 09:35 Labs: Abnormal Lab Results - Last 24 Hours (Table) 02/24/24 Range/Units 17:35 CSF Total Protein 95 H (12-60) mg/dL Assessment and Plan Assessment: this is a 58-year-old woman was been having headache according to her for the past 1 month. But I seen her as back as December and she was having headache and the she's not following up with a neurologist regarding this headache. She feels its entire head or starts at the base of the neck and moves up. She does have photophobia photophobia and nausea. Cephalgia has some migrainous component. Also possible cervicogenic headache CT of the head is unremarkable. In Dec [address] angiography of the head and neck which was unremarkable as well as ESR, ELIAN and TSH were normal. CSF opening is normal. Current MRI Brain is unremarkable. MRI C-spine is unremarkable. Plan: I will go up on Topmax from 50mg bid to 100mg bid and she is in agreement. I also started her on Naproxen 50mg bid schedule for now She is on Fioricet when necessary for the headache CSF study is pending. Ordered ESR study. we'll defer the rest of the medical management to primary and other specialists Upon discharge recommend the patient to follow-up with a neurologist as an outpatient within 1-2 weeks. The plan is discussed with patient and primary team N.P. Time with Patient: Less than 30
[2024-02-24 20:40] LABS: Nucleated Cells, CSF 0 u/L (0-5); Red Blood Cell,CSF 151 u/L (0-10)
[2024-02-24 20:41] LABS: Red Blood Cell, CSF Crenated 1 %; Red Blood Cell, CSF Fresh 99 %
[2024-02-24] MEDS: TOPIRAMATE 25 MG TAB PO SCH (21:22)
[2024-02-24] MEDS: NAPROXEN 250 MG TAB PO SCH (21:23)
--- NOTE | 2024-02-24 21:53 | P.PN ---
Subjective Progress Note Date: 02/24/24 Patient is a 58-year-old female with a past medical history of COPD, hyperlipidemia, hypertension and recent admission in December 2023 with elevated troponin level status post cardiac catheterization showed 20 to 30% proximal RCA disease, 20% proximal and mid LAD disease. Patient also had headache and workup done including CT head and CTA head and neck which was negative for any acute stenosis or bleed. Patient also had workup including CRP ESR and ELIAN screen negative. Patient presented to ER with complaints of headache. Patient states that she has been having headache for the past few days of the back of the head and to the frontal region. Associated nausea. No episodes of vomiting. Also co mplaining of ringing in the ears and dizzy. Patient also had an episode of chest heaviness yesterday which is resolved now. Denied any neck stiffness. No fever no chills. No cough or sputum production. No chest pain or shortness of breath. Chest x-ray showed correlate for possible underlying COPD. Otherwise CT head showed no acute intracranial process. EKG showed sinus rhythm with sinus arrhythmia. Laboratory data showed WBC 6.8 hemoglobin 13.5 and platelets 235 Sodium 139 potassium 3.6 chloride 106 bicarb is 28 BUN 20 and creatinine 0.87. Liver enzymes are not elevated. Troponin x 2 negative and albumin 3.9 Urinalysis is negative for infection Influenza A B RSV and COVID-19 PCR not detected. 02/22/2024 Patient is seen and evaluated in follow-up today being followed by neurology undergoing MRI of the brain today as patient continues to report significant headache with no relief. Patient is receiving Fioricet and continues to report headache with dizziness and some visual disturbances. Will await MRI of the brain and discuss further with neurology. Patient also reports she feels the symptoms have persisted since being started on Coreg. Will hold Coreg for now and monitor closely. Patient is afebrile with no reports of chest pain or shortness of breath. Patient reports she is occasionally nauseated and not much of an appetite and attempting to eat small frequent meals. Encouraged increase activity as tolerated. 02/23/2024 Patient is seen in follow-up this morning laying in bed reports persistent headache with no significant improvement. Patient underwent MRI of the brain which was negative for any acute findings. Discussed with neurology who is following and given patient's continued symptoms will order MRI of the cervical spine for evaluation. Patient has been encouraged to increase activity as tolerated and get up out of the bed more often. Patient initially was concerned about possible Coreg being the medication causing these findings although no significant improvement and will resume Coreg. Patient will need outpatient follow-up with primary care provider, neurology, and her assurance manager on discharge. 02/24/2024 Patient is evaluated today in follow up. Underwent cervical MRI which reveals C3-C4 extrusion. There is no evidence for significant spinal canal stenosis. On re-evaluation the patient reports headache a squeezing and pressure like sensation rating it a 7/10, she is having dizziness and light sensitivity as well. Patient was started on topamax and fioricet by neurology an reports the fioricet is helping with the migraine. Neurology recommending LP. Review of systems: Constitutional: No reports of fatigue, fever, or chills Cardiovascular: No reports of chest pain or palpitations Respiratory: No reports of shortness of breath or cough GI: reports of nausea, no vomiting, or diarrhea, reports not much of an appetite : No reports of dysuria or retention Neurovascular: No reports of weakness, reports continued persistent headache and dizziness All medications have been reviewed PHYSICAL EXAMINATION: Patient is lying in the bed appears sleeping although arousable, alert and oriented.. Flat affect, well-developed, elderly appearing, obese HEENT: Normocephalic. Neck is supple. Pupils reactive. Nostrils clear. Oral cavity is moist. Neck reveals no JVD, carotid bruits, or thyromegaly. CHEST EXAMINATION: Trachea is central. Symmetrical expansion. Lung gong clear to auscultation and percussion. CARDIAC: Normal S1, S2 with no gallops. No murmurs ABDOMEN: Soft. Obese. Bowel sounds normal. No organomegaly. No abdominal bruits. Extremities: reveal no edema. No clubbing or cyanosis Neurologically awake, alert, oriented x3 with well-coordinated movements. No focal deficits noted Skin: No rash or skin lesions. Psychiatric: Cooperative. Non-suicidal Musculoskeletal: No joint swelling or deformity. Normal range of motion. Assessment: Cephalgia mainly in the occipital region, likely secondary to migraines, MRI of the brain is negative for any acute findings Recent admission with chest pain and elevated troponin level. Cardiac cath was nonobstructive C3-C4 extrusion can follow up with orthopedics outpatient for further recommendations no cervical radicular symptoms. COPD, not in exacerbation GERD Hyperlipidemia Hypertension Osteoarthritis Anxiety Prior history of smoking Obesity with BMI 35.8 Glaucoma GI and DVT prophylaxis with PPI and heparin subcu Full code Plan: Patient will be continued on gentle IV hydration. Will continue with Toradol, antinausea medications and Percocets as needed. Topamax added, patient remains on fioricet PRN Dose of compazine given again today for worsening migraine. Neurology following and MRI of the brain was negative. Cervical MRI as above. Patient will need outpatient follow-up with neurology on discharge Encouraged to increase activity as tolerated Encourage small frequent meals Continue DuoNeb treatments at home medications have been resumed. Coreg resumed Again patient will need outpatient follow-up as discussed with on previous admissions with neurology in the outpatient setting. Patient to follow-up with assurance manager as well. Patient scheduled to undergo LP. Possible discharge in the next 24 hours The impression and plan of care has been dictated by Tierney Cleveland Nurse Practitioner as directed. Dr. Esme MD I have performed a history and physical examination and medical decision making of this patient, discussed the same with the dictator, and agree with the dictators assessment and plan as written, documented as a scribe. Based on total visit time, I have performed more than 50% of this visit. Objective - Vital Signs Vital signs: Vital Signs Temp 98.2 F 02/24/24 14:28 Pulse 86 02/24/24 14:28 Resp 16 02/24/24 14:28 BP 95/64 02/24/24 14:28 Pulse Ox 96 02/24/24 14:28 FiO2 Intake & Output 02/23/24 02/24/24 02/24/24 18:59 06:59 18:59 Intake Total 118 Balance 118 Intake: Oral 118 Other: Voiding Method Toilet Toilet # Voids 2 3 5 - Labs CBC & Chem 7: 02/21/24 09:35 02/21/24 09:35 Assessment and Plan Time with Patient: Less than 30
[2024-02-25 08:23] VITALS: BP 106/65; PULSE 69; RESP 15; TEMP 97.8
[2024-02-25] MEDS: HEPARIN SODIUM,PORCINE 5,000 UNIT/ML 1 ML VIAL SQ SCH (10:24)
--- NOTE | 2024-02-25 14:33 | P.PN ---
Subjective Progress Note Date: 02/25/24 I am following-up with patient and states headache is dramatically better. States, headache is currently is 2/10 and is walking to bathroom on own. Objective - Vital Signs Vital signs: Vital Signs Temp 97.8 F 02/25/24 07:00 Pulse 69 02/25/24 07:00 Resp 15 02/25/24 07:00 BP 106/65 02/25/24 07:00 Pulse Ox 97 02/25/24 07:00 FiO2 Intake & Output 02/24/24 02/25/24 02/25/24 18:59 06:59 18:59 Intake Total 236 Balance 236 Intake: Oral 236 Other: Voiding Method Toilet # Voids 5 3 - Exam GENERAL: The patient is lying in bed and is not in acute distress. NEUROLOGICAL: Higher mental function: The patient is awake, alert, oriented to self, place and time. Patient is following commands. No aphasia and no neglect. Cranial nerves: The pupils are round, equal and reactive to light and accommodation. Visual gong are full to confrontation throughout. Extraocular movement is intact no nystagmus is noted. Facial sensation is normal to touch throughout. The facial strength is normal throughout. Hearing is normal bilaterally to hand rub. Tongue is midline and moved [id number] without any difficulty. No dysarthria is noted. Shoulder shrug is normal bilaterally. Motor: The strength is 5 over 5 throughout. Normal tone and bulk. Cerebellum: Normal finger to nose heel to salazar bilaterally. Sensation: Sensation is normal to touch throughout. Reflexes (right/left): 2+ throughout. Plantars are downgoing bilaterally. Some of the work-up during this hospital visit consisted of: blood pressure on presentation his 118/87. CBC with differential is unremarkable Chem panel is unremarkable ESR is 10 CT of the head is reported as no acute intracranial process. I personally reviewed the CT and agree with report. MRI Brain is reported as age-related atrophic and chronic small vessel ischemic change. No acute intracranial process at this time. No enhancing lesion are seen. MRI Cervical spine: Is mild small central disc extrusion at C3-C4 but no evidence for significant spinal canal stenosis. No abnormal enhancement. No finding to account for patient's symptoms. Lumbar puncture which did and opening pressure was 16.5cm H20 and closing pressure is 14.5cm H20. CSF: it is clear, colorless, red blood cells 151, nuclear cells 0, glucose is 49 and a total protein is 95. - Labs CBC & Chem 7: 02/21/24 09:35 02/21/24 09:35 Labs: Abnormal Lab Results - Last 24 Hours (Table) 02/24/24 Range/Units 17:35 CSF RBC 151 H (0-10) u/L CSF Total Protein 95 H (12-60) mg/dL Assessment and Plan Assessment: this is a 58-year-old woman was been having headache according to her for the past 1 month. But I seen her as back as December and she was having headache and the she's not following up with a neurologist regarding this headache. She feels its entire head or starts at the base of the neck and moves up. She does have photophobia photophobia and nausea. Cephalgia has some migrainous component. Also possible cervicogenic headache CT of the head is unremarkable. In Dec [address] angiography of the head and neck which was unremarkable as well as ESR, ELIAN and TSH were normal. CSF opening is normal. Current MRI Brain is unremarkable. MRI C-spine is unr emarkable---today headache is improved Plan: I will go up on Topmax from 50mg bid to 100mg bid yesterday. I also started her on Naproxen 50mg bid schedule for now and take with food. Upon discharge to take PRN and take maximum 15 tabs in a month if needed. She is on Fioricet when necessary for the headache we'll defer the rest of the medical management to primary and other specialists Upon discharge recommend the patient to follow-up with a neurologist as an outpatient within 1-2 weeks. The plan is discussed with patient and primary team N.P. There is no further neurological work-up. Will sign off. Please reconsult if needed. Time with Patient: Less than 30
[2024-02-25] MEDS: CEPHALEXIN 500 MG CAP PO STA (16:15)
--- NOTE | 2024-02-26 15:54 | P.DS ---
Providers Date of admission: 02/21/24 13:16 Expected date of discharge: 02/25/24 Attending physician: Matt Lawrence Consults: 02/21/24 23:43 Consult Physician Routine Consulting Provider: Sadaf Henderson Consult Reason/Comments: Headache Do you want consulting provider notified?: Yes, Notify in am 02/24/24 15:37 Consult to Anesthesia Routine Consulting Provider: Anesthesia,Services Consult Reason/Comments: Lumbar puncture for opening and closing pressures Primary care physician: Neal Byers Hospital Course: Final diagnosis Cephalgia mainly in the occipital region, likely secondary to migraines, MRI of the brain is negative for any acute findings Recent admission with chest pain and elevated troponin level. Cardiac cath was nonobstructive C3-C4 extrusion can follow up with orthopedics outpatient for further recommendations no cervical radicular symptoms. COPD, not in exacerbation Right forearm redness, secondary to IV site irritation GERD Hyperlipidemia Hypertension Osteoarthritis Anxiety Prior history of smoking Obesity with BMI 35.8 Glaucoma GI and DVT prophylaxis with PPI and heparin subcu Full code Discharge disposition Patient is being discharged in a stable condition with guarded prognosis to home patient will follow-up with Dr. Byers in the outpatient setting upon discharge. Patient is to continue with medications and close outpatient follow-up with cardiology as well as neurology as scheduled. Total time taken is greater than 35 minutes. Hospital course This is a 58-year-old female who was recently admitted with headache intractable most likely secondary to migraines undergoing extensive neurological workup. Patient had MRI of the brain which was negative and also underwent a lumbar puncture and was within normal limits. Patient had decreased blood pressure and recommend to hold losartan and continue with Coreg for now with outpatient follow-up with cardiology. Instructed patient to monitor blood pressure daily and if blood pressure is becoming more elevated start half of the dose of losartan she was taking previously. Keep a diary of all readings and follow-up in the next 1 to 2 weeks with primary care provider and cardiology. Patient will have orthopedic follow-up outpatient as well as neurology and cardiology. Patient had adjustments to medications per neurology and is having some improvements and will follow-up outpatient. Patient has been cleared by consultations for discharge home. Please refer to consultation notes for further HPI. Currently no reports of chest pain, shortness of breath, or palpi tations. Patient is afebrile. No reports of nausea or vomiting and patient is tolerating diet. Patient will be discharged home today. Guarded prognosis given significant comorbidities. Physical exam: Gen: This is a 58-year-old female who is awake, alert and oriented x 3, well- developed, well-nourished, obese HEENT: Head is atraumatic, normocephalic. Pupils equal, round. Sclerae is anicteric. NECK: Supple. No JVD. No lymphadenopathy. No thyromegaly. LUNGS: Clear to auscultation. No wheezes or rhonchi. No intercostal retractions. HEART: S1, S2 are muffled ABDOMEN: Soft. Obese bowel sounds are present. No masses. No tenderness. EXTREMITIES: No pedal edema. No calf tenderness. NEUROLOGICAL: Patient is awake, alert and oriented x3. Cranial nerves 2 through 12 are grossly intact. Please refer to medication reconciliation sheet for a list of medications. The impression and plan of care has been dictated by Olga Gimenez, Nurse Practitioner as directed. Dr. Esme MD I have performed a history and examination and MDM of this patient, discussed the same with the dictator, and agree with the dictator's assessment and plan as written ,documented as a scribe. Based on total visit time, I have performed more than 50% of the visit. Patient Condition at Discharge: Stable Plan - Discharge Summary Discharge Rx Participant: No New Discharge Prescriptions: New Citalopram Hydrobromide [CeleXA] 20 mg PO HS #30 tab Butalb/APAP/Caff 50-325-40Mg [Fioricet 50-325-40] 1 each PO Q4HR PRN #20 tab PRN Reason: Headache Topiramate [Topamax] 50 mg PO BID #60 tab Naproxen [EC-Naprosyn] 500 mg PO BID PRN #30 tab PRN Reason: Pain Cephalexin [Keflex] 500 mg PO Q8HR 3 Days #9 cap Fluconazole [Diflucan] 150 mg PO DAILY 1 Days #1 tab Continue Latanoprost [Xalatan 0.005%] 1 drop BOTH EYES HS Albuterol Sulfate [Ventolin HFA] 1 - 2 puff INHALATION RT-Q6H PRN PRN Reason: COPD Fluticasone/Umeclidin/Vilanter [Trelegy Ellipta 100-62.5-25] 1 puff INHALATION RT-DAILY Rosuvastatin Calcium [Crestor] 40 mg PO HS hydrOXYzine HCL 10 mg PO TID PRN PRN Reason: Anxiety Nitroglycerin Sl Tabs [Nitrostat] 0.4 mg SL Q5M PRN PRN Reason: Chest Pain Aspirin EC [Ecotrin Low Dose] 81 mg PO DAILY Pantoprazole [Protonix] 40 mg PO BID carvediloL [Coreg] 3.125 mg PO BID Fenofibrate Nanocrystallized [Fenofibrate] 48 mg PO HS Discontinued Azithromycin [Zithromax] 250 mg PO MOWEFR Losartan [Cozaar] 12.5 mg PO DAILY Discharge Medication List Latanoprost [Xalatan 0.005%] 1 drop BOTH EYES HS 08/30/16 [History] Albuterol Sulfate [Ventolin HFA] 1 - 2 puff INHALATION RT-Q6H PRN 10/04/22 [History] Aspirin EC [Ecotrin Low Dose] 81 mg PO DAILY 10/04/22 [History] Fluticasone/Umeclidin/Vilanter [Trelegy Ellipta 100-62.5-25] 1 puff INHALATION RT-DAILY 10/04/22 [History] Rosuvastatin Calcium [Crestor] 40 mg PO HS 11/30/23 [History] Nitroglycerin Sl Tabs [Nitrostat] 0.4 mg SL Q5M PRN 12/25/23 [History] hydrOXYzine HCL 10 mg PO TID PRN 12/25/23 [History] Fenofibrate Nanocrystallized [Fenofibrate] 48 mg PO HS 01/31/24 [History] Pantoprazole [Protonix] 40 mg PO BID 01/31/24 [History] carvediloL [Coreg] 3.125 mg PO BID 01/31/24 [History] Butalb/APAP/Caff 50-325-40Mg [Fioricet 50-325-40] 1 each PO Q4HR PRN #20 tab 02/24/24 [Rx] Citalopram Hydrobromide [CeleXA] 20 mg PO HS #30 tab 02/24/24 [Rx] Topiramate [Topamax] 50 mg PO BID #60 tab 02/24/24 [Rx] Cephalexin [Keflex] 500 mg PO Q8HR 3 Days #9 cap 02/25/24 [Rx] Fluconazole [Diflucan] 150 mg PO DAILY 1 Days #1 tab 02/25/24 [Rx] Naproxen [EC-Naprosyn] 500 mg PO BID PRN #30 tab 02/25/24 [Rx] Follow up Appointment(s)/Referral(s): Ash Bueno DO [Doctor of Osteopathic Medicine] - 1 Week (C3-C4 herniated disc ) Caterina Coffey MD [Medical Doctor] - 1 Week Neal Byers [Primary Care Provider] - 1-2 days Patient Instructions/Handouts: Chest Pain (DC), Dehydration (DC), Acute Headache (DC), Lumbar Puncture (DC) Activity/Diet/Wound Care/Special Instructions: Follow up with a neurologist on Discharge regarding your migraine Follow-up with primary care provider on discharge Follow-up with cardiology outpatient to discuss medication adjustments Continue to hold losartan for now and monitor blood pressure daily and keep a diary of all readings. If blood pressure is persistently becoming more elevated may resume losartan and take half a tab and follow-up with primary care provider as well as cardiology Continue with Naprosyn as needed Continue Protonix Discharge Disposition: HOME SELF-CARE
[2024-02-27] MEDS ORDERED: HEPARIN SODIUM,PORCINE 5,000 UNIT/ML 1 ML VIAL SQ SCH (08:00)
== END 2024-02-25 16:20 | disposition home or self-care (01) ==
LOC: EC 09:25 → 6NMEDSUR 13:16
PROVIDERS: ADMIT Internal Medicine; ATTEND Internal Medicine
DX: R07.89 Other chest pain (principal); R51.9 Headache, unspecified; R79.89 Other specified abnormal findings of blood chemistry; J44.9 Chronic obstructive pulmonary disease, unspecified; E78.5 Hyperlipidemia, unspecified; I10 Essential (primary) hypertension; I25.10 Atherosclerotic heart disease of native coronary artery without angina pectoris; Z87.891 Personal history of nicotine dependence; K21.9 Gastro-esophageal reflux disease without esophagitis; M19.90 Unspecified osteoarthritis, unspecified site; F41.9 Anxiety disorder, unspecified; E66.9 Obesity, unspecified; Z68.35 Body mass index [BMI] 35.0-35.9, adult
CPT/HCPCS: 96376 ×2; 96361; 96365; 96366 ×4; 96372 ×4; 96375 ×3; 96367; 99285; 36415; 94640 ×6; 94760 ×2; 93005; 84157; 80053; 82945; 85652; 83735; 83873; 84484; 85025; 85610; 85730; 89050; 81003; 87070; 87205; 87636; 71046; 70450; 70553; 72156; 62270; G0378 ×5; J2060; J1200; J0780 ×2; J1644 ×2; J2405 ×2; J3475 ×2; J1885 ×5; A9585 ×2

== ENCOUNTER 2024-03-25 13:56 | Observation (INO) | payer OTHER ==
[2024-03-25] MEDS: diphenhydrAMINE 50 MG/ML 1 ML VIAL IVP STA (14:59)
[2024-03-25] MEDS: DEXAMETHASONE SOD PHOSPHATE 10 MG/ML 1 ML VIAL IVP STA (14:59)
[2024-03-25] MEDS: METOCLOPRAMIDE 5 MG/ML 2 ML VIAL IVP STA (15:00)
[2024-03-25] MEDS: KETOROLAC 15 MG/ML 1 ML VIAL IVP STA (15:00)
[2024-03-25 15:06] LABS: Basophils # (A) 0.1 k/uL (0-0.2); Basophils % (A) 1 %; Eosinophils # (A) 0.2 k/uL (0-0.7); Eosinophils % (A) 2 %; HCT 46.3 % (34.0-46.0); HGB 14.8 gm/dL (11.4-16.0); Lymphocytes # (A) 1.2 k/uL (1.0-4.8); Lymphocytes % (A) 17 %; MCV 90.6 fL (80.0-100.0); Mean Platelet Volume 8.5; Monocytes # (A) 0.4 k/uL (0-1.0); Monocytes % (A) 6 %; Neutrophils # (A) 5.5 k/uL (1.3-7.7); Neutrophils % (A) 74 %; Platelet Count 180 k/uL (150-450); RBC 5.11 m/uL (3.80-5.40); RDW 13.8 % (11.5-15.5); WBC 7.4 k/uL (3.8-10.6)
[2024-03-25] MEDS: MAGNESIUM SULFATE-D5W PMX 1 GM in DEXTROSE/WATER 1 100ML.BAG IVPB ONE (15:10)
[2024-03-25] MEDS: SODIUM CHLORIDE 0.9% 1,000 ML IV STA (15:11)
--- NOTE | 2024-03-25 15:32 | ED ---
General Adult HPI - General Chief complaint: Chest Pain Stated complaint: Chest pain,headache Time Seen by Provider: 03/25/24 14:00 Source: patient Mode of arrival: EMS Limitations: no limitations - History of Present Illness Initial comments: 58-year-old female with past medical history of coronary disease, hypertension, hyperlipidemia who presents emergency department reporting headache. States that as of the past 3 months she has dealt with headaches which is new for her. States that the pain starts in the back of her head and radiates forward to her eyes. She states she has associated blurred vision and nausea. She was hospitalized previously for this complaint and had a workup to include MRI of her head, neck. She takes Topamax and Fioricet. States she has been taking these medications as she is directed however has had no relief in her symptoms over the past 3 days. Today the patient started having pressure in her chest and therefore called EMS. She was given aspirin, Zofran prior to hospital arrival. Still states that her headache is 10 out of 10. Admits to photophobia. No neck pain or stiffness. No fevers. No history of head injury. Does have an appointment with a neurologist on 18 April however states that she "cannot go on like this any longer" - Related Data Home Medications Medication Instructions Recorded Confirmed Latanoprost [Xalatan 0.005%] 1 drop BOTH EYES HS 08/30/16 03/25/24 Albuterol Sulfate [Ventolin HFA] 1 - 2 puff INHALATION RT-Q6H PRN 10/04/22 03/25/24 Aspirin EC [Ecotrin Low Dose] 81 mg PO DAILY 10/04/22 03/25/24 Fluticasone/Umeclidin/Vilanter 1 puff INHALATION RT-DAILY 10/04/22 03/25/24 [Trelegy Ellipta 100-62.5-25] Rosuvastatin Calcium [Crestor] 40 mg PO HS 11/30/23 03/25/24 Nitroglycerin Sl Tabs [Nitrostat] 0.4 mg SL Q5M PRN 12/25/23 03/25/24 hydrOXYzine HCL 10 mg PO TID PRN 12/25/23 03/25/24 Fenofibrate Nanocrystallized 48 mg PO HS 01/31/24 03/25/24 [Fenofibrate] Pantoprazole [Protonix] 40 mg PO BID 01/31/24 03/25/24 carvediloL [Coreg] 3.125 mg PO BID 01/31/24 03/25/24 Butalb/APAP/Caff 50-325-40Mg 1 tab PO Q4HR PRN 03/25/24 03/25/24 [Fioricet 50-325-40] Famotidine [Pepcid] 20 mg PO DAILY 03/25/24 03/25/24 Naproxen 250 mg PO BID PRN 03/25/24 03/25/24 Previous Rx's Medication Instructions Recorded Citalopram Hydrobromide [CeleXA] 20 mg PO HS #30 tab 02/24/24 Amitriptyline HCl [Elavil] 10 mg PO HS #30 tab 03/27/24 Topiramate [Topamax] 50 mg PO DAILY 30 Days #60 tab 03/27/24 Topiramate [Topamax] 100 mg PO HS #30 tab 03/27/24 Allergies Allergy/AdvReac Type Severity Reaction Status Date / Time codeine Allergy Anaphylaxis Verified 03/27/24 09:37 hydrocodone Allergy Anaphylaxis Verified 03/27/24 09:37 Penicillins AdvReac Yeast Verified 03/27/24 09:37 infections Review of Systems ROS Statement: Those systems with pertinent positive or pertinent negative responses have been documented in the HPI. ROS Other: All systems not noted in ROS Statement are negative. Past Medical History Past Medical History: Chest Pain / Angina, COPD, Eye Disorder, GERD/Reflux, Hyperlipidemia, Hypertension, Osteoarthritis (OA) Additional Past Medical History / Comment(s): glaucoma History of Any Multi-Drug Resistant Organisms: None Reported Past Surgical History: Orthopedic Surgery, Tubal Ligation Additional Past Surgical History / Comment(s): bunionectomy-lt. LT KNEE SX. COLONOSCOPY. Carpal tunnel surgery on right hand, laser eye surgery for glaucoma Past Anesthesia/Blood Transfusion Reactions: Postoperative Nausea & Vomiting (PONV) Past Psychological History: Anxiety Smoking Status: Former smoker Past Alcohol Use History: None Reported Past Drug Use History: None Reported - Past Family History Mother Family Medical History: COPD, CVA/TIA Additional Family Medical History / Comment(s): colon CA Father History Unknown: Yes Family Medical History: Cancer, Myocardial Infarction ([place]) Additional Family Medical History / Comment(s): lung CA, empysema General Exam Limitations: no limitations General appearance: alert, in no apparent distress Head exam: Present: atraumatic, normocephalic, normal inspection Eye exam: Present: normal appearance, PERRL, EOMI. Absent: scleral icterus, conjunctival injection, periorbital swelling ENT exam: Present: normal exam, mucous membranes moist Neck exam: Present: normal inspection. Absent: tenderness, meningismus, lymphadenopathy Respiratory exam: Present: normal lung sounds bilaterally. Absent: respiratory distress, wheezes, rales, rhonchi, stridor Cardiovascular Exam: Present: regular rate, normal rhythm, normal heart sounds. Absent: systolic murmur, diastolic murmur, rubs, gallop, clicks GI/Abdominal exam: Present: soft, normal bowel sounds. Absent: distended, tenderness, guarding, rebound, rigid Extremities exam: Present: normal inspection, full ROM, normal capillary refill. Absent: tenderness, pedal edema, joint swelling, calf tenderness Back exam: Present: normal inspection Neurological exam: Present: alert, oriented X3, CN II-XII intact Psychiatric exam: Present: normal affect, normal mood Skin exam: Present: warm, dry, intact, normal color. Absent: rash Course Vital Signs 03/25/24 03/25/24 03/25/24 13:58 14:17 17:00 Temperature 98.3 F Pulse Rate 68 68 63 Respiratory 16 14 16 Rate Blood Pressure 118/78 120/79 106/71 O2 Sat by Pulse 98 97 98 Oximetry 03/25/24 03/25/24 03/25/24 18:00 19:00 20:40 Temperature Pulse Rate 64 65 60 Respiratory 18 20 17 Rate Blood Pressure 110/70 116/70 138/83 O2 Sat by Pulse 98 97 99 Oximetry Medical Decision Making - Medical Decision Making Was pt. sent in by a medical professional or institution (, PA, CLINICAL PSYCHOLOGY TEACHER, urgent care, hospital, or alf...) When possible be specific @ -No Did you speak to anyone other than the patient for history (EMS, parent, family, police, friend...)? What history was obtained from this source @ -No Did you review nursing and triage notes (agree or disagree)? Why? @ -I reviewed and agree with nursing and triage notes Were old charts reviewed (outside hosp., previous admission, EMS record, old EKG, old radiological studies, urgent care reports/EKG's, alf records)? Report findings @ -I reviewed patient's recent hospitalization where she had MRI of her brain, cervical spine. Patient also had lumbar puncture and neurology consultation. This was completed February 21 through Differential Diagnosis (chest pain, altered mental status, abdominal pain women, abdominal pain men, vaginal bleeding, weakness, fever, dyspnea, syncope, headache, dizziness, GI bleed, back pain, seizure, CVA, palpatations, mental health, musculoskeletal)? @ -Differential Headache: Migraine, tension, cluster, carbon monoxide, central venous thrombosis, pension karma temporal arteritis, acute closure glaucoma, intercranial hemorrhage, mastoiditis, sinusitis, head injury, this is not meant to be an all-inclusive list. EKG interpreted by me (3pts min.). @ -Yes and demonstrates sinus rhythm with a rate of 66. [place] interval 120. QRS 80. QTc of 424. No acute ST segment elevations or depressions X-rays interpreted by me (1pt min.). @ -None done CT interpreted by me (1pt min.). @ -None done U/S interpreted by me (1pt. min.). @ -None done What testing was considered but not performed or refused? (CT, X-rays, U/S, labs)? Why? @ -CT was considered however patient already had 1 What meds were considered but not given or refused? Why? @ -None Did you discuss the management of the patient with other professionals (joe connell i.e. , PA, CLINICAL PSYCHOLOGY TEACHER, lab, RT, psych nurse, social media executive, stencil machine operator, teacher, contracting officer, case advocate)? Give summary @ -Discussed the case with Dr. Epperson. Attempted to discharge patient however she is in tears over her intractable headache Was smoking cessation discussed for >3mins.? @ -No Was critical care preformed (if so, how long)? @ -No Were there social determinants of health that impacted care today? How? (Homelessness, low income, unemployed, alcoholism, drug addiction, transpo rtation, low edu. Level, literacy, decrease access to med. care, intermediate, rehab)? @ -No Was there de-escalation of care discussed even if they declined (Discuss DNR or withdrawal of care, Hospice)? DNR status @ -No What co-morbidities impacted this encounter? (DM, HTN, Smoking, COPD, CAD, Cancer, CVA, ARF, Chemo, Hep., AIDS, mental health diagnosis, sleep apnea, morbid obesity)? @ -None Was patient admitted / discharged? Hospital course, mention meds given and route, prescriptions, significant lab abnormalities, going to OR and other pertinent info. @ -Upon arrival patient seen and evaluated in room 6. Thorough history and physical exam was performed. IV access was established. I did give the patient a migraine cocktail. She has no improvement in her symptoms. I gave her a dose of Imitrex. Patient continues to not have any improvement. She is in tears over her intractable headache. I attempted to send her home however she states she cannot go on like this. I did request to admit her with neurology consultation and possible occipital nerve block. Dr. Ledesma was agreeable to a dmit the patient Undiagnosed new problem with uncertain prognosis? @ -No Drug Therapy requiring intensive monitoring for toxicity (Heparin, Nitro, Insulin, Cardizem)? @ -No Were any procedures done? @ -No Diagnosis/symptom? @ -Acute exacerbation of chronic migraine Acute, or Chronic, or Acute on Chronic? @ -Acute Uncomplicated (without systemic symptoms) or Complicated (systemic symptoms)? @ -Complicated Side effects of treatment? @ -No Exacerbation, Progression, or Severe Exacerbation? @ -No Poses a threat to life or bodily function? How? (Chest pain, [place], [place], pneumonia, PE, COPD, DKA, ARF, appy, cholecystitis, CVA, Diverticulitis, Homicidal, Suicidal, threat to staff... and all critical care pts) @ -No - Lab Data Result diagrams: 03/27/24 06:19 03/27/24 06:19 Lab Results 03/25/24 03/25/24 03/25/24 Range/Units 14:41 15:20 15:20 WBC 7.4 (3.8-10.6) k/uL RBC 5.11 (3.80-5.40) m/uL Hgb 14.8 (11.4-16.0) gm/dL Hct 46.3 H (34.0-46.0) % MCV 90.6 (80.0-100.0) fL MCH 29.0 (25.0-35.0) pg MCHC 32.0 (31.0-37.0) g/dL RDW 13.8 (11.5-15.5) % Plt Count 180 (150-450) k/uL MPV 8.5 Neutrophils % 74 % Lymphocytes % 17 % Monocytes % 6 % Eosinophils % 2 % Basophils % 1 % Neutrophils # 5.5 (1.3-7.7) k/uL Lymphocytes # 1.2 (1.0-4.8) k/uL Monocytes # 0.4 (0-1.0) k/uL Eosinophils # 0.2 (0-0.7) k/uL Basophils # 0.1 (0-0.2) k/uL Sodium 138 (137-145) mmol/L Potassium 3.8 (3.5-5.1) mmol/L Chloride 110 H (98-107) mmol/L Carbon Dioxide 21 L (22-30) mmol/L Anion Gap 7 mmol/L BUN 16 (7-17) mg/dL Creatinine 0.92 (0.52-1.04) mg/dL Est GFR (CKD-EPI)AfAm 80 (>60 ml/min/1.73 sqM) Est GFR (CKD-EPI)NonAf 70 (>60 ml/min/1.73 sqM) Glucose 94 (74-99) mg/dL Calcium 9.2 (8.4-10.2) mg/dL Magnesium 1.9 (1.6-2.3) mg/dL Total Bilirubin 0.5 (0.2-1.3) mg/dL AST 23 (14-36) U/L ALT 17 (4-34) U/L Alkaline Phosphatase 69 (38-126) U/L Troponin I <0.012 (0.000-0.034) ng/mL Total Protein 6.7 (6.3-8.2) g/dL Albumin 4.4 (3.5-5.0) g/dL Disposition Clinical Impression: Headache, Chest pain Disposition: ADMITTED IP TO THIS [facility] Condition: Stable Is patient prescribed a controlled substance at d/c from ED?: No Time of Disposition: 17:52 Decision to Admit Reason: Admit from EC Decision Date: 03/25/24 Decision Time: 17:52
[2024-03-25 15:41] LABS: ALT 17 U/L (4-34); AST 23 U/L (14-36); African American GFR (CKD) 80 (>60 ml/min/1.73 sqM); Albumin 4.4 g/dL (3.5-5.0); Alkaline Phosphatase 69 U/L (38-126); Anion Gap 7 mmol/L; Blood Urea Nitrogen 16 mg/dL (7-17); Calcium 9.2 mg/dL (8.4-10.2); Carbon Dioxide 21 mmol/L (22-30); Chloride 110 mmol/L (98-107); Glucose 94 mg/dL (74-99); Magnesium 1.9 mg/dL (1.6-2.3); Non-African American GFR(CKD) 70 (>60 ml/min/1.73 sqM); Potassium 3.8 mmol/L (3.5-5.1); Sodium 138 mmol/L (137-145); Total Bilirubin 0.5 mg/dL (0.2-1.3); Total Protein 6.7 g/dL (6.3-8.2)
--- NOTE | 2024-03-25 15:41 | XR ---
EXAMINATION TYPE: XR chest 2V DATE OF EXAM: 03/25/2024 2:47 PM CLINICAL INDICATION:Female, 58 years old with history of Chest Pain; [facility] COMPARISON: 02/21/2024 TECHNIQUE: XR chest 2V. Frontal and lateral views of the chest.. FINDINGS: Lines/Tubes/Devices: No indwelling lines are seen. Heart/mediastinum: Heart size is normal. Mediastinum appears normal. Pulmonary vascularity: Not increased, Lungs/Pleura: There is no evidence of pleural effusion, focal consolidation, or pneumothorax. Mild h yperinflation and mild interstitial coarsening is again seen, could be related to mild COPD changes. Musculoskeletal: No acute osseous abnormality demonstrated in the limits of the exam. Other findings: None. IMPRESSION: No acute cardiopulmonary abnormality. No significant change.
[2024-03-25] MEDS ORDERED: NALOXONE 0.4 MG/ML 1 ML VIAL IV PRN (17:53)
[2024-03-25] MEDS ORDERED: MORPHINE SULFATE 4 MG/ML SYRINGE IV PRN (17:53)
[2024-03-25] MEDS: SUMAtriptan succinate 6 MG/0.5 ML VIAL SQ STA (19:28)
[2024-03-25] MEDS: KETOROLAC 15 MG/ML 1 ML VIAL IVP PRN (23:51)
[2024-03-26 09:22] LABS: HCT 40.2 % (37.2-46.3); HGB 13.1 g/dL (12.0-15.0); Lymphocytes % (A) 25.9 %; MCH 29.8 pg (27.0-32.0); MCHC 32.6 g/dL (32.0-37.0); MCV 91.4 FL (80.0-97.0); Mean Platelet Volume 10.5 FL (9.5-12.2); NRBC Per 100 WBC 0 X 10*3/uL (0.00-0.01); Platelet Count 199 X 10*3/uL (140-440); RDW 13.8 % (11.5-14.5)
[2024-03-26 09:23] LABS: Basophils # (A) 0.01 X 10*3/uL (0.00-0.10); Basophils % (A) 0.2 %; Eosinophils # (A) 0.01 X 10*3/uL (0.04-0.35); Eosinophils % (A) 0.2 %; Lymphocytes # (A) 1.45 X 10*3/uL (0.90-5.00); Monocytes # (A) 0.59 X 10*3/uL (0.20-1.00); Monocytes % (A) 10.5 %; Neutrophils # (A) 3.53 X 10*3/uL (1.80-7.70)
[2024-03-26 09:36] LABS: BUN/Creat Ratio 15.22 Ratio (12.00-20.00); Blood Urea Nitrogen 13.7 mg/dL (9.0-27.0); Calcium 9.3 mg/dL (8.7-10.3); Chloride 108 mmol/L (96-109); Glucose 95 mg/dL (70-110); Potassium 4.4 mmol/L (3.5-5.5); Sodium 141 mmol/L (135-145)
[2024-03-26] MEDS ORDERED: hydrOXYzine HCL 10 MG TAB PO PRN (13:23)
[2024-03-26] MEDS ORDERED: NITROGLYCERIN SL TABS 0.4 MG TAB SUBLINGUAL PRN (13:23)
[2024-03-26] MEDS ORDERED: ALBUTEROL HFA INHALER INHALATION PRN (13:23)
[2024-03-26] MEDS ORDERED: NAPROXEN 250 MG TAB PO PRN (13:41)
[2024-03-26] MEDS: TOPIRAMATE 25 MG TAB PO SCH ×2 (14:51→20:18)
[2024-03-26] MEDS: carvediloL 3.125 MG TAB PO SCH (14:51)
[2024-03-26] MEDS: BUTALB/APAP/CAFF 50-325-40MG TAB PO PRN (14:51)
[2024-03-26] MEDS: PANTOPRAZOLE 40 MG TABLET PO SCH (14:52)
[2024-03-26] MEDS: ASPIRIN 81 MG PO SCH (15:00)
--- NOTE | 2024-03-26 15:02 | P.CNNES ---
History of Present Illness Consult date: 03/26/24 Requesting physician: Tamiko Quiñonez Reason for Consult: intractable cephalgia History of Present Illness: This is a 58-year-old woman with history of cephalgia who had extensive workup in the past regarding her headache who presents back to our facility for continuous headache. Patient is known to me and I personally seen the patient last on 02/25/2024 in our facility headache. At that time I felt the patient's headache has some migrainous but as well as cervical genic and patient had MRI of the brain, MRI of the cervical spine, CSF study which were unremarkable contributing for the headache. ESR ELIAN TSH were normal. She was started on Topamax 50 mg twice daily which was increased to 100 mg twice daily and prior to discharge patient's headache resolved and she stated that recently the headache has returned and she feels started over the bilateral occipital region and radiates all the way to the frontal region and she feels there is a stabbing pain in her eyes. She has nausea vomiting she does have photophobia and phonophobia. She stated that she has an appoint with Dr. Thrasher on April 18, 2024 and has not been able to be observed by outpatient neurologist since there is no appointments. She states she is on Topamax 50 mg twice daily but I the patient on 100 mg twice daily and she stated that she was tolerating the medication well and she is unsure why she is on 50 mg rather than 100 mg. She denies any focal weakness. Any slurring of the speech or any visual disturbance. She feels her headache currently is 9/10 and is constant and has been going on for the last 1 week. She is not having any side effects to the Topamax. Please refer to my notes from a month ago for further details. Review of Systems Review of system: The 12 point system was reviewed and apparent positive and negative per HPI. Past Medical History Past Medical History: Chest Pain / Angina, COPD, Eye Disorder, GERD/Reflux, Hyperlipidemia, Hypertension, Osteoarthritis (OA) Additional Past Medical History / Comment(s): glaucoma History of Any Multi-Drug Resistant Organisms: None Reported Past Surgical History: Orthopedic Surgery, Tubal Ligation Additional Past Surgical History / Comment(s): bunionectomy-lt. LT KNEE SX. COLONOSCOPY. Carpal tunnel surgery on right hand, laser eye surgery for glaucoma Past Anesthesia/Blood Transfusion Reactions: Postoperative Nausea & Vomiting (PONV) Past Psychological History: Anxiety Additional Psychological History / Comment(s): NO MEDS NEEDED AT THIS TIME Smoking Status: Former smoker Past Alcohol Use History: None Reported Additional Past Alcohol Use History / Comment(s): QUIT SMOKING 01/2017 Past Drug Use History: None Reported - Past Family History Mother Family Medical History: COPD, CVA/TIA Additional Family Medical History / Comment(s): colon CA Father History Unknown: Yes Family Medical History: Cancer, Myocardial Infarction ([place]) Additional Family Medical History / Comment(s): lung CA, empysema Medications and Allergies Home Medications Medication Instructions Recorded Confirmed Type Latanoprost [Xalatan 0.005%] 1 drop BOTH EYES HS 08/30/16 03/25/24 History Albuterol Sulfate [Ventolin HFA] 1 - 2 puff INHALATION RT-Q6H PRN 10/04/22 03/25/24 History Aspirin EC [Ecotrin Low Dose] 81 mg PO DAILY 10/04/22 03/25/24 History Fluticasone/Umeclidin/Vilanter 1 puff INHALATION RT-DAILY 10/04/22 03/25/24 History [Trelegy Ellipta 100-62.5-25] Rosuvastatin Calcium [Crestor] 40 mg PO HS 11/30/23 03/25/24 History Nitroglycerin Sl Tabs [Nitrostat] 0.4 mg SL Q5M PRN 12/25/23 03/25/24 History hydrOXYzine HCL 10 mg PO TID PRN 12/25/23 03/25/24 History Fenofibrate Nanocrystallized 48 mg PO HS 01/31/24 03/25/24 History [Fenofibrate] Pantoprazole [Protonix] 40 mg PO BID 01/31/24 03/25/24 History carvediloL [Coreg] 3.125 mg PO BID 01/31/24 03/25/24 History Citalopram Hydrobromide [CeleXA] 20 mg PO HS #30 tab 02/24/24 03/25/24 Rx Butalb/APAP/Caff 50-325-40Mg 1 tab PO Q4HR PRN 03/25/24 03/25/24 History [Fioricet 50-325-40] Famotidine [Pepcid] 20 mg PO DAILY 03/25/24 03/25/24 History Naproxen 250 mg PO BID PRN 03/25/24 03/25/24 History Topiramate 50 mg PO BID 03/25/24 03/25/24 History Allergies Allergy/AdvReac Type Severity Reaction Status Date / Time codeine Allergy Anaphylaxis Verified 03/25/24 18:18 hydrocodone Allergy Anaphylaxis Verified 03/25/24 18:18 Penicillins AdvReac Yeast Verified 03/25/24 18:18 infections Physical Examination - Vital Signs Vital Signs: Vital Signs Temp Pulse Pulse Resp BP BP Pulse Ox 03/26/24 07:00 98.5 F 60 15 109/68 99 03/26/24 01:04 98.2 F 74 15 136/78 97 03/25/24 23:56 70 15 03/25/24 21:49 98.2 F 70 15 134/87 95 03/25/24 20:40 60 17 138/83 99 03/25/24 19:00 65 20 116/70 97 03/25/24 18:00 64 18 110/70 98 03/25/24 17:00 63 16 106/71 98 Intake and Output 03/25/24 03/26/24 03/26/24 22:59 06:59 14:59 Other: # Voids 1 2 Weight 85.275 kg GENERAL: The patient is lying in bed and is in mild acute distress. HENT: Supple neck. NEUROLOGICAL: Higher mental function: The patient is awake, alert, oriented to self, place and time. Patient is following commands. No aphasia and no neglect. Cranial nerves: The pupils are round, equal and reactive to light and ac commodation. Visual gong are full to confrontation throughout. Extraocular movement is intact no nystagmus is noted. Facial sensation is normal to touch throughout. The facial strength is normal throughout. Hearing is normal bilaterally to hand rub. Tongue is midline and moved [id number] without any difficulty. No dysarthria is noted. Shoulder shrug is normal bilaterally. Motor: The strength is 5 over 5 throughout. Normal tone and bulk. Cerebellum: Normal finger to nose heel to salazar bilaterally. Sensation: Sensation is normal to touch throughout. Reflexes (right/left): 2+ throughout Plantars are downgoing bilaterally. Results - Laboratory Findings CBC and BMP: 03/26/24 06:15 03/26/24 06:15 Abnormal Lab Findings: Abnormal Labs 03/25/24 03/25/24 03/26/24 14:41 15:20 06:15 Hct 46.3 H Eosinophils # 0.01 L Chloride 110 H Carbon Dioxide 21 L Assessment and Plan Assessment: Is a 58-year-old woman who has been having a headache in the last 6-month and the headache seems to be migrainous and occipital. Personally seen the patient on 02/25/2024 and she has extensive workup in our facility MRI of the brain, cervical spine, lumbar puncture, ESR, ELIAN and TSH which are unremarkable. To go she was placed on Topamax 100 mg twice daily and she had resolution of her headache prior to discharge. I recommend Fioricet as needed and naproxen as needed. She states that she has not an appointment with Dr. Thrasher for the first time on April 18, 2024. But feels the headache is back for the last week and it is uncontrollable. Intractable cephalgia is seems more migrainous feature as well as occipital Plan: A month ago I placed her on Topamax 100 mg twice daily but it seems that she is only taking 50 mg twice daily therefore I will go up again. A month ago she had resolution of her headache. Denies side-effects of Topamax She is on Fioricet as needed Patient was given dexamethasone, Benadryl, Pepcid, morphine, as well as Imitrex by the ED team. She was given magnesium sulfate 1 g. Currently she is normal, morphine as needed. I will give the patient another dose of magnesium sulfate 1 g. I consulted pain specialist for occipital nerve block for tomorrow Patient to continue with her appointment to see Dr. Thrasher further evaluation of her headache on a long-term. He has appointment on April 18, 2024 For the rest of the medical measure the primary team Plan discussed with the patient and her nurse. Thank for the consultation Dr. Henderson will resume neurology service tomorrow A.M. Time with Patient: Greater than 30
[2024-03-26] MEDS: MAGNESIUM SULFATE-D5W PMX 1 GM in DEXTROSE/WATER 1 100ML.BAG IVPB ONE (15:40)
[2024-03-26] MEDS: FAMOTIDINE 20 MG TAB PO SCH (16:10)
[2024-03-26] MEDS: IPRATROPIUM 0.5 MG/2.5 ML NEBU INHALATION SCH (16:31)
[2024-03-26] MEDS: CITALOPRAM HYDROBROMIDE 20 MG TAB PO SCH (20:18)
[2024-03-26] MEDS: ATORVASTATIN 40 MG TAB PO SCH (20:18)
[2024-03-26] MEDS: FENOFIBRATE 54 MG TAB PO SCH (20:18)
[2024-03-26] MEDS: LATANOPROST 0.005% OPHTH DROPS 2.5 ML BTL BOTH EYES SCH (20:25)
--- NOTE | 2024-03-26 23:53 | HP ---
HISTORY AND PHYSICAL CHIEF COMPLAINT: Chest pain and headache. HISTORY OF PRESENT ILLNESS: This is a 58-year-old woman with a past medical history of multiple medical problems, admitted to the hospital last month for cephalalgia in the occipital region. MRI of the brain was negative. Migrainous episodes were suspected. The patient improved and the patient was discharged home. Currently, the patient is complaining of headache, mainly on the left side and as well as some blurred vision, nausea. The patient is taking multiple medications including Topamax and Fioricet. The patient is admitted for further evaluation and treatment. Initial labs are normal. The patient noted chest pressure 7/10 prior to admission. PAST MEDICAL HISTORY: Reviewed include COPD, hypertension, hyperlipidemia, dose and rest of medications reviewed. ALLERGIES: Codeine. HOME MEDICATIONS: Reviewed include Coreg, dose and rest of medications reviewed. FAMILY HISTORY: History of COPD, CVA, colon cancer. SOCIAL HISTORY: Previous history of smoking. REVIEW OF SYSTEMS: A 14-point review is negative except as mentioned earlier. PHYSICAL EXAMINATION: VITAL SIGNS: Pulse is 60, blood pressure 190/60, respirations 15. HEENT: Conjunctivae normal. NECK: No jugular venous distention. CARDIOVASCULAR: S1, S2. RESPIRATIONS: Diminished at the bases. ABDOMEN: Soft, nontender. LEGS: No edema, no swelling. NERVOUS SYSTEM: No focal deficits, no neck stiffness. LABORATORY DATA: Noted. ASSESSMENT: 1. Left-sided headache and cephalalgia for evaluation. 2. Previous history of occipital headache and possible migrainous episodes. 3. Chest pressures. 4. COPD. 5. Hypertension. 6. Hyperlipidemia. 7. Multiple medical issues. 8. History of anxiety. RECOMMENDATIONS AND DISCUSSION: This 58-year-old woman presented with multiple complex medical issues, we will monitor the patient closely. Continue current management, continue symptomatic treatment. Otherwise at this time resume the home medications. I would recommend cardiology and pulmonology consultations and symptomatic treatment will be provided. Will review the old charts, prognosis guarded. Further recommendations to follow. See orders for details. MMODL / IJN: [id number] /
[2024-03-27] MEDS: SYMBICORT 80-4.5 MCG INHALER INHALATION SCH (07:51)
[2024-03-27 08:49] VITALS: RESP 16
--- NOTE | 2024-03-27 10:08 | P.CRDCN ---
History of Present Illness Consult date: 03/27/24 Reason for Consult (text): Chest pressure History of present illness: History of present illness: This is a 58-year-old female patient of Dr. Cuevas with past medical history of coronary artery disease, hypertension, palpitations. We have been asked to evaluate the patient for chest pressure. Patient gives history that she has had ongoing problems with a headache over the past 3 months it was significantly worse yesterday. She also experiences blurred vision, nausea and photophobia. During the time of headache yesterday, she developed chest pain but she feels like she was worked up and anxious at the time. She denies having any chest pain or chest pressure at this time. She does complain of ongoing problems with headache. EKG sinus rhythm with no acute ST changes. Chest x-ray: Correlate for possible underlying COPD. No acute process CBC unremarkable. ESR 2. Electrolytes and renal function normal. Troponin negative x 3. C-reactive protein less than 0.5. Home cardiac medications: Aspirin 81 mg daily, Coreg 3.125 mg twice daily, fenofibrate 48 mg at bedtime, Nitrostat as needed, Crestor 40 mg at bedtime Echocardiogram performed in December 2023 reveals EF 55 to 60%, mild LVH, no obvious regional wall motion abnormalities or valvular dysfunction.. Lexiscan stress test on 12/05/2023 which was negative for ischemia Cardiac catheterization performed 12/27/[address] Woo revealed 20 to 30% proximal RCA disease, 20% in the proximal and mid LAD, mildly elevated LVEDP. Torturous coronary arteries suggestive hypertension. Review Of Systems: At the time of my exam: CONSTITUTIONAL: Denies fever or chills. HEENT: Denies blurred vision, vision changes, or eye pain. Denies hemoptysis. Reports headache and photophobia CARDIOVASCULAR: Denies chest pain. Denies orthopnea. Denies PND. Denies palpitations RESPIRATORY: Denies shortness of breath. GASTROINTESTINAL: Denies abdominal pain. Denies nausea or vomiting. HEMATOLOGIC: Denies bleeding disorders. GENITOURINARY: Denies any blood in urine. SKIN: Denies pruitis. Denies rash. Physical examination: Gen: This is a 58-year-old female in no acute distress VS: reviewed, blood pressure 116/67, heart rate 67, pulse ox 100% on room air. Patient is afebrile. HEENT: Head is atraumatic, normocephalic. Pupils equal, round. Sclerae is anicteric. NECK: Supple. No JVD. LUNGS: Clear to auscultation. No wheezes or rhonchi. No intercostal retractions. HEART: Regular rate and rhythm. No murmur. ABDOMEN: Soft No tenderness. EXTREMITIES: No pedal edema. No calf tenderness. NEUROLOGICAL: Patient is awake, alert and oriented x3. Assessment: Noncardiac chest pain Headache History of mild coronary artery disease Hypertension History of palpitations Plan: Resume patient's home cardiac medications No need for echocardiogram Patient is cleared for discharge from cardiology and may follow-up with Dr. Cuevas in the office in 1 week Cardiology will sign off this case and follow on an as-needed basis. Please reconsult for any new concerns. Thank you kindly for this consultation. Nurse practitioner note has been reviewed, I agree with documented findings and plan of care. Patient was seen and examined. Past Medical History Past Medical History: Chest Pain / Angina, COPD, Eye Disorder, GERD/Reflux, Hyperlipidemia, Hypertension, Osteoarthritis (OA) Additional Past Medical History / Comment(s): glaucoma History of Any Multi-Drug Resistant Organisms: None Reported Past Surgical History: Orthopedic Surgery, Tubal Ligation Additional Past Surgical History / Comment(s): bunionectomy-lt. LT KNEE SX. COLONOSCOPY. Carpal tunnel surgery on right hand, laser eye surgery for glaucoma Past Anesthesia/Blood Transfusion Reactions: Postoperative Nausea & Vomiting (PONV) Past Psychological History: Anxiety Additional Psychological History / Comment(s): NO MEDS NEEDED AT THIS TIME Smoking Status: Former smoker Past Alcohol Use History: None Reported Additional Past Alcohol Use History / Comment(s): QUIT SMOKING 01/2017 Past Drug Use History: None Reported - Past Family History Mother Family Medical History: COPD, CVA/TIA Additional Family Medical History / Comment(s): colon CA Father History Unknown: Yes Family Medical History: Cancer, Myocardial Infarction ([place]) Additional Family Medical History / Comment(s): lung CA, empysema Medications and Allergies Home Medications Medication Instructions Recorded Confirmed Type Latanoprost [Xalatan 0.005%] 1 drop BOTH EYES HS 08/30/03/25/24 History Albuterol Sulfate [Ventolin HFA] 1 - 2 puff INHALATION RT-Q6H PRN 10/04/22 03/25/24 History Aspirin EC [Ecotrin Low Dose] 81 mg PO DAILY 10/04/22 03/25/24 History Fluticasone/Umeclidin/Vilanter 1 puff INHALATION RT-DAILY 10/04/22 03/25/24 History [Trelegy Ellipta 100-62.5-25] Rosuvastatin Calcium [Crestor] 40 mg PO HS 11/30/23 03/25/24 History Nitroglycerin Sl Tabs [Nitrostat] 0.4 mg SL Q5M PRN 12/25/23 03/25/24 History hydrOXYzine HCL 10 mg PO TID PRN 12/25/23 03/25/24 History Fenofibrate Nanocrystallized 48 mg PO HS 01/31/24 03/25/24 History [Fenofibrate] Pantoprazole [Protonix] 40 mg PO BID 01/31/24 03/25/24 History carvediloL [Coreg] 3.125 mg PO BID 01/31/24 03/25/24 History Citalopram Hydrobromide [CeleXA] 20 mg PO HS #30 tab 02/24/24 03/25/24 Rx Butalb/APAP/Caff 50-325-40Mg 1 tab PO Q4HR PRN 03/25/24 03/25/24 History [Fioricet 50-325-40] Famotidine [Pepcid] 20 mg PO DAILY 03/25/24 03/25/24 History Naproxen 250 mg PO BID PRN 03/25/24 03/25/24 History Topiramate 50 mg PO BID 03/25/24 03/25/24 History Allergies Allergy/AdvReac Type Severity Reaction Status Date / Time codeine Allergy Anaphylaxis Verified 03/27/24 09:37 hydrocodone Allergy Anaphylaxis Verified 03/27/24 09:37 Penicillins AdvReac Yeast Verified 03/27/24 09:37 infections Physical Exam Vitals: Vital Signs Temp Pulse Pulse Resp BP Pulse Ox 03/27/24 02:02 98.4 F 67 15 116/67 100 03/26/24 20:11 69 03/26/24 19:57 66 03/26/24 19:03 98.1 F 76 15 109/72 99 03/26/24 14:00 98 F 72 16 103/66 98 Intake and Output 03/26/24 03/27/24 03/27/24 22:59 06:59 14:59 Intake Total 500 Balance 500 Intake: Oral 500 Other: # Voids 2 1 Results 03/26/24 06:15 03/26/24 06:15 CBC 03/26/24 Range/Units 06:15 WBC 5.60 (4.50-10.00) X 10*3/uL RBC 4.40 (4.10-5.20) X 10*6/uL Hgb 13.1 (12.0-15.0) g/dL Hct 40.2 (37.2-46.3) % Plt Count 199 (140-440) X 10*3/uL Comprehensive Metabolic Panel 03/26/24 Range/Units 06:15 Sodium 141 (135-145) mmol/L Potassium 4.4 (3.5-5.5) mmol/L Chloride 108 (96-109) mmol/L Carbon Dioxide 23.0 (21.6-31.8) mmol/L BUN 13.7 (9.0-27.0) mg/dL Creatinine 0.9 (0.6-1.5) mg/dL Glucose 95 (70-110) mg/dL Calcium 9.3 (8.7-10.3) mg/dL Current Medications Generic Name Dose Route Start Last Admin Trade Name Freq PRN Reason Stop Dose Admin Acetaminophen/Butalbital/Caffeine 1 each 03/26/24 13:23 03/26/24 14:51 Butalb/Apap/Caff 50-325-40mg Tab PO 1 each Q4HR PRN Administration Headache Albuterol Sulfate 2 puff 03/26/24 13:23 Albuterol Hfa Inhaler INHALATION RT-Q6H PRN COPD Aspirin 81 mg 03/26/24 13:30 03/26/24 15:00 Aspirin 81 Mg PO Not Given DAILY DEXTER Atorvastatin Calcium 80 mg 03/26/24 21:00 03/26/24 20:18 Atorvastatin 40 Mg Tab PO 80 mg HS DEXTER Administration Budesonide/Formoterol Fumarate 2 puff 03/27/24 08:00 Symbicort 80-4.5 Mcg Inhaler INHALATION RT-BID DEXTER Carvedilol 3.125 mg 03/26/24 13:30 03/26/24 20:25 Carvedilol 3.125 Mg Tab PO 3.125 mg BID DEXTER Administration Citalopram Hydrobromide 20 mg 03/26/24 21:00 03/26/24 20:18 Citalopram Hydrobromide 20 Mg Tab PO 20 mg HS DEXTER Administration Famotidine 20 mg 03/26/24 13:30 03/26/24 16:10 Famotidine 20 Mg Tab PO 20 mg DAILY DEXTER Administration Fenofibrate 54 mg 03/26/24 21:00 03/26/24 20:18 Fenofibrate 54 Mg Tab PO 54 mg HS DEXTER Administration Hydroxyzine HCl 10 mg 03/26/24 13:23 Hydroxyzine Hcl 10 Mg Tab PO TID PRN Anxiety Ipratropium [place] 0.5 mg 03/26/24 16:00 03/26/24 19:55 Ipratropium 0.5 Mg/2.5 Ml Nebu INHALATION 0.5 mg RT-QID DEXTER Administration Ketorolac Tromethamine 15 mg 03/25/24 17:53 03/26/24 22:48 Ketorolac 15 Mg/Ml 1 Ml Vial IVP 03/28/24 17:56 15 mg Q6HR PRN Administration Moderate Pain (Scale 4 to 6) Latanoprost 1 drops 03/26/24 21:00 03/26/24 20:25 Latanoprost 0.005% Ophth Drops 2.5 Ml Btl BOTH EYES 1 drops HS DEXTER Administration Morphine Sulfate 4 mg 03/25/24 17:53 Morphine Sulfate 4 Mg/Ml Syringe IV Q4HR PRN Severe Pain (Scale 7 to 10) Naloxone HCl 0.2 mg 03/25/24 17:53 Naloxone 0.4 Mg/Ml 1 Ml Vial IV Q2M PRN Opioid Reversal Naproxen 250 mg 03/26/24 13:41 Naproxen 250 Mg Tab PO BID PRN Pain Nitroglycerin 0.4 mg 03/26/24 13:23 Nitroglycerin Sl Tabs 0.4 Mg Tab SUBLINGUAL Q5M PRN Chest Pain Pantoprazole Sodium 40 mg 03/26/24 13:30 03/26/24 20:31 Pantoprazole 40 Mg Tablet PO 40 mg BID DEXTER Administration Topiramate 100 mg 03/26/24 21:00 03/26/24 20:18 Topiramate 25 Mg Tab PO 100 mg BID DEXTER Administration Intake and Output 03/26/24 03/27/24 03/27/24 22:59 06:59 14:59 Intake Total 500 Balance 500 Intake: Oral 500 Other: # Voids 2 1 03/26/24 06:15 03/26/24 06:15
[2024-03-27] MEDS ORDERED: TRIAMCINOLONE ACETONIDE 40 MG/ML 1 ML VIAL ONE (10:16)
[2024-03-27] MEDS ORDERED: ROPIVACAINE 5MG/ML 20ML VIAL ONE (10:16)
--- NOTE | 2024-03-27 10:26 | P.PCN ---
Date of Procedure: 03/27/24 Surgeon: Sherri Harden Pathology: none sent Condition: stable Disposition: PACU Description of Procedure: Pre-operative diagnosis: 1- occipital neuralgia Post Operative Diagnosis 1- occipital neuralgia Procedure: 1- B/L greater occipital nerve block ANESTHESIA: Local with Lidocaine 1 % EBL: Minimal PROCEDURE INDICATION: The patient with neck pain and headache secondary to occipital neuralgea unresponsive to conservative treatments. I was asked by the neurology Department to try an occipital nerve block to help the patient's headache problem. PROCEDURE DESCRIPTION / TECHNIQUE: The patient was seen and identified in the preoperative area. Risks, benefits, complications, and alternatives were discussed with the patient, the patient agreed to proceed with the procedure and signed the consent. IV was started. Vital signs remained stable throughout the procedure. Patient was taken to the OR and time out was completed. The patient was placed in the prone position on the procedure table. . The cervical area and right occiptial area were prepped with chloraprep. Critical pause was taken. Vital signs were closely monitored during the procedure. The the occipital exuberance and superior nuchal line were identified on the right side of the occiput. The greater occipital nerve location was estimated to be medial to the occipital artery I used 25-gauge 1-1/2 inch needle to go through the skin and infiltrate 2 MLS of a solution made up of 4 MLS Ropivacaine 0.5% +20 mg of Kenalog. The procedure was repeated in the same manner on the left side. Patient tolerated procedure well.
[2024-03-27 10:42] LABS: Basophils # (A) 0.02 X 10*3/uL (0.00-0.10); Basophils % (A) 0.5 %; Eosinophils # (A) 0.05 X 10*3/uL (0.04-0.35); Eosinophils % (A) 1.1 %; HCT 38.5 % (37.2-46.3); HGB 12.2 g/dL (12.0-15.0); Lymphocytes # (A) 1.97 X 10*3/uL (0.90-5.00); MCH 28.5 pg (27.0-32.0); MCHC 31.7 g/dL (32.0-37.0); Mean Platelet Volume 10.3 FL (9.5-12.2); Monocytes # (A) 0.38 X 10*3/uL (0.20-1.00); Monocytes % (A) 8.7 %; NRBC Per 100 WBC 0 X 10*3/uL (0.00-0.01); Neutrophils # (A) 1.95 X 10*3/uL (1.80-7.70); Neutrophils % (A) 44.5 %; Platelet Count 166 X 10*3/uL (140-440); RBC 4.28 X 10*6/uL (4.10-5.20); RDW 13.9 % (11.5-14.5); WBC 4.38 X 10*3/uL (4.50-10.00)
[2024-03-27 11:26] LABS: Blood Urea Nitrogen 19.7 mg/dL (9.0-27.0); Calcium 8.8 mg/dL (8.7-10.3); Carbon Dioxide 22.4 mmol/L (21.6-31.8); Chloride 106 mmol/L (96-109); Glucose 89 mg/dL (70-110); Sodium 140 mmol/L (135-145)
--- NOTE | 2024-03-27 13:26 | P.PN ---
Subjective Progress Note Date: 03/27/24 Patient was initially seen by Dr. Kemal Monge. Please refer to his note for details. Patient is a 58-year-old female with intractable headache, who had extensive workup performed a month ago with MRI of the brain, cervical spine and CSF study which was normal. Dr. Monge has increased her Topamax to 100 mg twice daily and also consulted pain for occipital nerve block. Patient states she never has any history of headaches or migraines. She may get headache once every 5 years but nothing persisting. No personal or family history of migraines. Patient started having headaches in December 2023. In volves the frontal region, the back, around the eyes and behind the eyes. She does have history of glaucoma that was diagnosed about 4 years ago, when her pressure was 34 and 36. However it has been well-controlled. She was seen by eye doctor Dr. Marsh in December 2023 after this headache started and the pressure was 14 and 16. Her glaucoma is under control. Patient states the headaches are associated with nausea and sometimes vomiting. Light and noise sensitivity. Patient drinks 2 cups of coffee every morning but that amount she has been drinking for a long time. Patient had undergone occipital nerve block today. At present, she complains of headache in the frontal region 6/10, occipital region 3/10, and pointing to the parotid region bilaterally about 2/10. Also has pain around and behind the eyes and sinus areas. She denies any postural component to the headache. She had undergone lumbar puncture last admission, in which her opening pressure was 16.5 cm water. Spinal fluid was essentially normal except for elevated proteins 95/60. Objective - Vital Signs Vital signs: Vital Signs Temp 97.9 F 03/27/24 09:34 Pulse 60 03/27/24 11:27 Resp 16 03/27/24 09:34 BP 141/89 03/27/24 09:34 Pulse Ox 100 03/27/24 09:34 FiO2 Intake & Output 03/26/24 03/27/24 03/27/24 18:59 06:59 18:59 Intake Total 500 Balance 500 Intake: Oral 500 Other: # Voids 4 1 - Exam Mental status, speech and language functions are normal. Cranial nerves are normal. Muscle strength is normal. Reflexes are 2+ to 3 and plantars downg oing. Sensory to touch is equal. No ataxia. - Labs CBC & Chem 7: 03/27/24 06:19 03/27/24 06:19 Labs: Abnormal Lab Results - Last 24 Hours (Table) 03/27/24 Range/Units 06:19 WBC 4.38 L (4.50-10.00) X 10*3/uL MCHC 31.7 L (32.0-37.0) g/dL Assessment and Plan Assessment: * New onset headache started in December 2023. The headaches involve the frontal region, occipital, around the eyes. Patient's headache does have vascular component, but appears more like tension headache, as the headache is present all the time. No previous personal or family history of migraines. * Dr. Monge has previously seen patient on 02/25/2024 and she has extensive workup in our facility MRI of the brain, cervical spine, lumbar puncture (with normal opening pressure 16.5 cm, normal CSF except for elevated proteins 95/60), ESR, ELIAN and TSH which are unremarkable. She was placed on Topamax 100 mg twice daily and she had resolution of her headache prior to discharge. Dr. Monge recommended Fioricet as needed and naproxen as needed. She states that she has an appointment with Dr. Thrasher for the first time on April 18, 2024. But feels the headache is back for the last week and it is uncontrollable. Plan: Start Elavil 10 mg at bedtime for possible tension type headache. Patient informed of possible side effects including drowsiness, dry mouth, and possible increase in appetite. Patient was taking Topamax 50 mg twice daily prior to arrival to the hospital. Dr. Monge has increased dose of Topamax to 100 mg twice daily. Topamax can be associated with acute angle closure glaucoma. I will change Topamax to 50 mg in the morning and 100 mg at night. Only if needed, the dose can be increased to 100 mg twice daily. If the headaches are not better in couple weeks, then may taper off Topamax. However I would defer to the neurologist that she will follow as an outpatient to address the headache medications. Patient is status post occipital nerve block. Patient to follow-up with neurologist in 1 to 2 weeks. Patient was given dexamethasone, Benadryl, Pepcid, morphine, as well as Imitrex by the ED team. She was given magnesium sulfate 1 g. Currently she is normal, morphine as needed. Dr. Monge gave the patient another dose of magnesium sulfate 1 g. Patient was seen by pain specialist, underwent occipital nerve block. Patient to continue with her appointment to see Dr. Thrasher further evaluation of her headache on a long-term. He has appointment on April 18, 2024 For the rest of the medical measure the primary team
--- NOTE | 2024-03-27 14:09 | DS ---
DISCHARGE SUMMARY FINAL DIAGNOSES: 1. Left-sided headache and cephalalgia, possibly occipital neuralgia. 2. Previous history of occipital headache and possible migrainous episodes. 3. Chest pressure, myocardial infarction ruled out, possibly noncardiac. 4. Chronic obstructive pulmonary disease. 5. Hypertension. 6. Hyperlipidemia. 7. Multiple medical issues. 8. History of anxiety. DISCHARGE DISPOSITION: The patient will be discharged in stable condition, guarded prognosis. HISTORY OF PRESENT ILLNESS: This is a 58-year-old woman with a past medical history of multiple medical problems, admitted with multiple symptomatology as stated above. The patient improved significantly. Pain Management saw the patient and performed bilateral greater occipital nerve block. The patient improved significantly. I would recommend close followup with Primary Physician and Neurology and Cardiology in the outpatient setting. PHYSICAL EXAMINATION: VITAL SIGNS: Currently, stable. CARDIOVASCULAR: S1, S2. ABDOMEN: Soft. NERVOUS SYSTEM: No focal deficits. DISCHARGE ADVICE AND MEDICATIONS: Please refer to discharge reconciliation sheet for further information. Recommend Topamax 100 mg p.o. b.i.d. increase dose, and follow up with Dr. Byers, follow with Dr. Go and follow up with Cardiology as recommended. MMODL / IJN: [id number] /
[2024-03-27 15:41] VITALS: BP 136/85; PULSE 68; TEMP 97.5
[2024-03-27] MEDS ORDERED: TOPIRAMATE 100 MG TAB PO SCH (21:00)
[2024-03-27] MEDS ORDERED: AMITRIPTYLINE HCL 10 MG TAB PO SCH (21:00)
[2024-03-28] MEDS ORDERED: TOPIRAMATE 25 MG TAB PO SCH (09:00)
== END 2024-03-27 15:25 | disposition home or self-care (01) ==
LOC: EC 13:56 → 6NMEDSUR 17:53 → UNDOADMOB 17:53 → 6NMEDSUR 17:54 → INTOOBSV 17:54 → OBSVTOIN 17:54 → 6NMEDSUR 20:12 → UNDODISIN 03-27 15:25
PROVIDERS: ADMIT Internal Medicine; ATTEND Internal Medicine
DX: M54.81 Occipital neuralgia (principal); R07.89 Other chest pain; J44.9 Chronic obstructive pulmonary disease, unspecified; I10 Essential (primary) hypertension; E78.5 Hyperlipidemia, unspecified; I25.10 Atherosclerotic heart disease of native coronary artery without angina pectoris; K21.9 Gastro-esophageal reflux disease without esophagitis; F41.9 Anxiety disorder, unspecified; Z87.891 Personal history of nicotine dependence; Z79.82 Long term (current) use of aspirin; Z79.899 Other long term (current) drug therapy; Z88.0 Allergy status to penicillin; Z88.5 Allergy status to narcotic agent
CPT/HCPCS: 96376 ×3; 96366; 96365; 96372; 96375; 99285; 36415; 94640 ×3; 93005; 80053; 80048 ×2; 85652; 83735; 84484; 85025 ×3; 86140; 71046; 64405; G0378 ×3; J3030; J1200; J1100; J3301; J2765; J3475 ×2; J1885 ×3; J2795

== ENCOUNTER → 2024-04-16 | Outpatient (CLI) | payer OTHER ==
--- NOTE | 2024-04-16 14:31 | CT ---
EXAMINATION TYPE: CT chest w con DATE OF EXAM: 04/16/2024 COMPARISON: 11/30/2023 HISTORY: f/u lung nodule CT DLP: 431 mGycm Automated exposure control for dose reduction was used. CONTRAST: CT scan of the chest is performed with IV Contrast, patient injected with 100 mL of Isovue 300. FINDINGS: LUNGS: The lungs are grossly clear, there is no concerning parenchymal mass or nodule identified. Pre viously noted groundglass nodularity is felt to have resolved in the interval and likely reflected in flammatory change such as bronchiolitis. No clinically significant pulmonary nodules are seen. Upper lobe emphysematous changes noted. There is no pleural effusion or pneumothorax seen. The tracheobro nchial tree is patent. MEDIASTINUM: There are no greater than 1 cm hilar or mediastinal lymph nodes. No pericardial effusi on is seen. Thoracic aorta is of normal caliber. The heart is not enlarged. UPPER ABDOMEN: No significant abnormality appreciated. OTHER: No additional significant abnormality is seen. IMPRESSION: Previously noted groundglass nodularity is felt to have resolved in the interval and likely reflected inflammatory change such as bronchiolitis. No clinically significant pulmonary nodules are seen.
== END | disposition home or self-care (01) ==
LOC: RADCTMAIN 13:29
PROVIDERS: ATTEND Internal Medicine
DX: R91.1 Solitary pulmonary nodule (principal)
CPT/HCPCS: 71260; Q9967

== ENCOUNTER → 2024-04-26 | Outpatient (CLI) | payer OTHER ==
[2024-04-26 14:09] VITALS: BP 142/90; PULSE 66; RESP 16
--- NOTE | 2024-04-26 14:55 | P.PAINPG ---
PQRS Measure Charge Sheet Comment: HISTORY OF PRESENT ILLNESS: A 58 yr old female as a referral from Dr Ott presents today w severe and chronic neck pain secondary to occipital neuralgia, cervicogenic COCHRAN for evaluation s/p inpatient BL DARIEL #1. Pt states she experienced 80% pain relief x 2 wks s/p procedure Pt states pain level is provoked at 7 /10 in intensity, constant, localized in the upper neck, predominantly axial, sharp in character w occasional shooting pain towards the head. Pain is provoked by hyperextension, rotation. Pain is alleviated by physician guided home exercises daily since February 2024, medications (Nurte), topical BioFreeze, repositioning and rest . PMH: OA, Angina, COPD, Glaucoma, GERD, Hyperlipidemia, HTN, Anxiety PSH: L Bunionectomy, L Knee Surgery, Colonoscopy, R CTR, Laser Eye Surgery, Tubal Ligation SH: Former tobacco user, No ETOH abuse, No illicit drug use FH: Mo- CVA, Colon CA. Fa- CA, [place] All: See list Meds: See list REVIEW OF ORGAN SYSTEMS: CONSTITUTIONAL: No fevers or chills. No recent weight loss. NEUROLOGICAL: + numbness and tingling along the distal extremities. No seizure disorders or headaches. MUSCULOSKELETAL: + pain PSYCHIATRIC: Denies current depression or suicidal thoughts. Physical Examinations : Constitutional : Cooperative , not in acute distress . Neurologic : Cranial nerve II to XII intact. No focal neurological deficits. Psychiatric : alert & oriented x 3. Matching mood & appropriate affect. Judgment & insight intact. Musculoskeletal : Cervical Spine BL DARIEL TTP Motor strength in the deltoid and biceps: Normal right side. Normal Left side Motor strength biceps and the wrist extensors: Normal right side . Normal left side Motor strength in the triceps muscle: Normal right side. Normal left side Deep tendon reflexes: Normal at the biceps. Normal at Brachioradialis. Normal at triceps Vertebral body tenderness to deep palpation over Cervical facet loading test: positive bilaterally Spurling test: positive bilaterally Neck distraction test: positive bilaterally Duy sign: positive bilaterally Lumbar spine Motor strength lower extremities ,thigh and legs 5/5 Right side , 5/5 Left side Deep tendon reflexes : Normal Knee Jerk. Normal Ankle Jerk Vertebral body tenderness over Woods Test positive Lumbar facet Loading Test: positive Right / positive Left Range of motion of the lumbar spine Flexion 30 degrees, extension 10 degrees Straight Leg Raise test: Left/ Right positive at degrees Fermín test: positive right / positive left. Severe tenderness over the Sacroiliac joint on the Right / Left sides Gaenslen test: positive bilaterally Seated flexion test: positive bilaterally. Sacral spine : Severe tenderness over the Sacroiliac joint: right side / left side Range of motion: Flexion of the lumbar spine <60 degrees Range of motion: Extension of the lumbar spine <20 degrees Gaenslen's Test positive Fermín test: positive right side / left side Thigh Thrust Test Sacral Thrust Test Imaging: MRI Brain from 02/24/24 reviewed Assessment/ Plan : Occipital Neuralgia, Cervicogenic COCHRAN Recommendation of BL DARIEL injection #2. May need a series of injections for optimal pain relief. Risks, benefits of procedure discussed and patient verbalized understanding. Admits to anti- coagulant use or medical history of diabetes. Protocol for discontinuation/ continuation of medications diego procedure discussed. All questions answered. I have spent greater than 30 minutes on patient care today. Dr Alarcon was available by phone for the evaluation of this patient. The time was used to review the medical records including relevant urine studies and Prescription history (MAPs), review of the available imaging, evaluation and examination of the patient, coordination of care with the medical staff and if applicable referring physicians, as well as creation of the medical record PQRS Narrative: Smoking Status Current every day smoker Home Medications: Ambulatory Orders Latanoprost [Xalatan 0.005%] 1 drop BOTH EYES HS 08/30/16 Albuterol Sulfate [Ventolin HFA] 1 - 2 puff INHALATION RT-Q6H PRN 10/04/22 Aspirin EC [Ecotrin Low Dose] 81 mg PO DAILY 10/04/22 Fluticasone/Umeclidin/Vilanter [Trelegy Ellipta 100-62.5-25] 1 puff INHALATION RT-DAILY 10/04/22 Rosuvastatin Calcium [Crestor] 40 mg PO HS 11/30/23 Nitroglycerin Sl Tabs [Nitrostat] 0.4 mg SL Q5M PRN 12/25/23 hydrOXYzine HCL 10 mg PO TID PRN 12/25/23 Fenofibrate Nanocrystallized [Fenofibrate] 48 mg PO HS 01/31/24 Pantoprazole [Protonix] 40 mg PO BID 01/31/24 carvediloL [Coreg] 3.125 mg PO BID 01/31/24 Citalopram Hydrobromide [CeleXA] 20 mg PO HS #30 tab 02/24/24 Butalb/APAP/Caff 50-325-40Mg [Fioricet 50-325-40] 1 tab PO Q4HR PRN 03/25/24 Famotidine [Pepcid] 20 mg PO DAILY 03/25/24 Naproxen 250 mg PO BID PRN 03/25/24 Amitriptyline HCl [Elavil] 10 mg PO HS #30 tab 03/27/24 Topiramate [Topamax] 50 mg PO DAILY 30 Days #60 tab 03/27/24 Topiramate [Topamax] 100 mg PO HS #30 tab 03/27/24 Controlled Substance Measures - Controlled Substance Measures Is patient prescribed a controlled substance at discharge?: No
== END ==
LOC: PNWHC3 13:32
PROVIDERS: ATTEND Specialist
DX: M54.81 Occipital neuralgia (principal); G44.86 Cervicogenic headache; F17.200 Nicotine dependence, unspecified, uncomplicated; Z88.5 Allergy status to narcotic agent; Z88.0 Allergy status to penicillin
CPT/HCPCS: 99211

== ENCOUNTER 2024-05-04 23:57 | Observation (INO) | payer OTHER ==
[2024-05-05 00:26] LABS: Basophils % (A) 0 %; Eosinophils # (A) 0.2 k/uL (0-0.7); Eosinophils % (A) 2 %; HCT 38.6 % (34.0-46.0); HGB 12.7 gm/dL (11.4-16.0); Lymphocytes # (A) 1.7 k/uL (1.0-4.8); Lymphocytes % (A) 24 %; MCH 29.4 pg (25.0-35.0); MCHC 32.9 g/dL (31.0-37.0); MCV 89.4 fL (80.0-100.0); Mean Platelet Volume 7.9; Monocytes # (A) 0.5 k/uL (0-1.0); Monocytes % (A) 8 %; Neutrophils # (A) 4.4 k/uL (1.3-7.7); Neutrophils % (A) 64 %; Platelet Count 215 k/uL (150-450); RBC 4.31 m/uL (3.80-5.40); RDW 13.7 % (11.5-15.5); WBC 6.9 k/uL (3.8-10.6)
[2024-05-05] MEDS: ONDANSETRON 4 MG/2 ML VIAL IVP STA (00:35)
[2024-05-05 00:39] LABS: INR 0.9 (<1.2); Partial Thromboplastin Time 24.5 sec (22.0-30.0); Prothrombin Time 10.3 sec (10.0-12.5)
--- NOTE | 2024-05-05 00:53 | ED ---
General Adult HPI - General Chief complaint: Chest Pain Stated complaint: Chest Pain Time Seen by Provider: 05/04/24 23:57 Source: patient, EMS, RN notes reviewed, old records reviewed Mode of arrival: EMS Limitations: no limitations - History of Present Illness Initial comments: 58-year-old female presenting for evaluation of chest discomfort and nausea. Patient states symptoms began just prior to arrival. She was given aspirin and nitroglycerin by paramedics during transport. Patient denies prior history of CAD. She states she has history of hypertension. Patient denies any abdominal pain. No shortness of breath or difficulty breathing. Pain does not travel. - Related Data Home Medications Medication Instructions Recorded Confirmed Latanoprost [Xalatan 0.005%] 1 drop BOTH EYES HS 08/30/16 04/26/24 Albuterol Sulfate [Ventolin HFA] 1 - 2 puff INHALATION RT-Q6H PRN 10/04/22 04/26/24 Aspirin EC [Ecotrin Low Dose] 81 mg PO DAILY 10/04/22 04/26/24 Fluticasone/Umeclidin/Vilanter 1 puff INHALATION RT-DAILY 10/04/22 04/26/24 [Trelegy Ellipta 100-62.5-25] Rosuvastatin Calcium [Crestor] 40 mg PO HS 11/30/23 04/26/24 Nitroglycerin Sl Tabs [Nitrostat] 0.4 mg SL Q5M PRN 12/25/23 04/26/24 hydrOXYzine HCL 10 mg PO TID PRN 12/25/23 04/26/24 Fenofibrate Nanocrystallized 48 mg PO HS 01/31/24 04/26/24 [Fenofibrate] Pantoprazole [Protonix] 40 mg PO BID 01/31/24 04/26/24 carvediloL [Coreg] 3.125 mg PO BID 01/31/24 04/26/24 Butalb/APAP/Caff 50-325-40Mg 1 tab PO Q4HR PRN 03/25/24 04/26/24 [Fioricet 50-325-40] Famotidine [Pepcid] 20 mg PO DAILY 03/25/24 04/26/24 Naproxen 250 mg PO BID PRN 03/25/24 04/26/24 Previous Rx's Medication Instructions Recorded Citalopram Hydrobromide [CeleXA] 20 mg PO HS #30 tab 02/24/24 Amitriptyline HCl [Elavil] 10 mg PO HS #30 tab 03/27/24 Topiramate [Topamax] 50 mg PO DAILY 30 Days #60 tab 03/27/24 Topiramate [Topamax] 100 mg PO HS #30 tab 03/27/24 Allergies Allergy/AdvReac Type Severity Reaction Status Date / Time codeine Allergy Anaphylaxis Verified 05/05/24 00:06 hydrocodone Allergy Anaphylaxis Verified 05/05/24 00:06 Penicillins AdvReac Yeast Verified 05/05/24 00:06 infections Review of Systems ROS Statement: Those systems with pertinent positive or pertinent negative responses have been documented in the HPI. ROS Other: All systems not noted in ROS Statement are negative. Past Medical History Past Medical History: Chest Pain / Angina, COPD, Eye Disorder, GERD/Reflux, Hyperlipidemia, Hypertension, Osteoarthritis (OA) Additional Past Medical History / Comment(s): glaucoma History of Any Multi-Drug Resistant Organisms: None Reported Past Surgical History: Orthopedic Surgery, Tubal Ligation Additional Past Surgical History / Comment(s): bunionectomy-lt. LT KNEE SX. COLONOSCOPY. Carpal tunnel surgery on right hand, laser eye surgery for glaucoma Past Anesthesia/Blood Transfusion Reactions: Postoperative Nausea & Vomiting (PONV) Past Psychological History: Anxiety Smoking Status: Former smoker - Past Family History Mother Family Medical History: COPD, CVA/TIA Additional Family Medical History / Comment(s): colon CA Father History Unknown: Yes Family Medical History: Cancer, Myocardial Infarction ([place]) Additional Family Medical History / Comment(s): lung CA, empysema General Exam General appearance: alert, in no apparent distress Head exam: Present: atraumatic, normocephalic Eye exam: Present: normal appearance, PERRL ENT exam: Present: normal exam Neck exam: Present: normal inspection Respiratory exam: Present: normal lung sounds bilaterally. Absent: respiratory distress, wheezes Cardiovascular Exam: Present: regular rate, normal rhythm GI/Abdominal exam: Present: soft. Absent: distended, tenderness Extremities exam: Present: normal inspection, normal capillary refill. Absent: pedal edema Neurological exam: Present: alert, oriented X3, CN II-XII intact. Absent: motor sensory deficit Psychiatric exam: Present: normal affect, normal mood Skin exam: Present: warm, dry, intact Course Vital Signs 05/05/24 05/05/24 00:01 00:07 Temperature 97.5 F L Pulse Rate 65 Pulse Rate [ 66 Right Supine Radial] Respiratory 16 Rate Blood Pressure 139/85 O2 Sat by Pulse 99 Oximetry Medical Decision Making - Medical Decision Making Was pt. sent in by a medical professional or institution (, TL, EXECUTIVE COMMUNICATIONS MANAGER, urgent care, hospital, or fpc...) When possible be specific @ -No Did you speak to anyone other than the patient for history (EMS, parent, family, police, friend...)? What history was obtained from this source @ -No Did you review nursing and triage notes (agree or disagree)? Why? @ -I reviewed and agree with nursing and triage notes Were old charts reviewed (outside hosp., previous admission, EMS record, old EKG, old radiological studies, urgent care reports/EKG's, fpc records)? Report findings @ -No old charts were reviewed Differential Chest Pain: Stable Angina, Unstable Angina, STEMI, NSTEMI Aortic Dissection, Pneumothorax, Musculoskeletal, Esophageal Spasm GERD, Cholecystitis, Pancreatitis, Zoster, this is not meant to be an all-inclusive list. EKG interpreted by me (3pts min.). @ -Sinus rhythm rate of 65, PA interval 134, QRS duration 79, QTc [address] segment elevation. X-rays interpreted by me (1pt min.). @X-ray of the chest negative for acute cardiopulmonary findings CT interpreted by me (1pt min.). @ -None done U/S interpreted by me (1pt. min.). @ -None done What testing was considered but not performed or refused? (CT, X-rays, U/S, labs)? Why? @ -None What meds were considered but not given or refused? Why? @ -None Did you discuss the management of the patient with other professionals (professionals i.e. TL Castaneda, EXECUTIVE COMMUNICATIONS MANAGER, lab, RT, psych nurse, oncology social work, supervisor liquid yeast, teacher, project officer, caseworker protective services)? Give summary @ -EMH Was smoking cessation discussed for >3mins.? @ -No Was critical care preformed (if so, how long)? @ -No Were there social determinants of health that impacted care today? How? (Homelessness, low income, unemployed, alcoholism, drug addiction, transportation, low edu. Level, literacy, decrease access to med. care, fpc, rehab)? @ -No Was there de-escalation of care discussed even if they declined (Discuss DNR or withdrawal of care, Hospice)? DNR status @ -No What co-morbidities impacted this encounter? (DM, HTN, Smoking, COPD, CAD, Cancer, CVA, ARF, Chemo, Hep., AIDS, mental health diagnosis, sleep apnea, morbid obesity)? @Hypertension Was patient admitted / discharged? Hospital course, mention meds given and route, prescriptions, significant lab abnormalities, going to OR and other pertinent info. @ -[Admitted for serial cardiac enzymes, telemetry, cardiology consultation. Undiagnosed new problem with uncertain prognosis? @ -No Drug Therapy requiring intensive monitoring for toxicity (Heparin, Nitro, Insulin, Cardizem)? @ -No Were any procedures done? @ -No Diagnosis/symptom? @ -Chest pain rule out Acute, or Chronic, or Acute on Chronic? @Acute Uncomplicated (without systemic symptoms) or Complicated (systemic symptoms)? @ -Default Side effects of treatment? @ -No Exacerbation, Progression, or Severe Exacerbation? @ -No Poses a threat to life or bodily function? How? (Chest pain, [place], [place], pneumonia, PE, COPD, DKA, ARF, appy, cholecystitis, CVA, Diverticulitis, Homicidal, Suicidal, threat to staff... and all critical care pts) @ -Yes, ACS] - Lab Data Result diagrams: 05/05/24 00:05/05/24 00:01 Lab Results 05/05/24 05/05/24 05/05/24 Range/Units 00:01 00:01 00:01 WBC 6.9 (3.8-10.6) k/uL RBC 4.31 (3.80-5.40) m/uL Hgb 12.7 (11.4-16.0) gm/dL Hct 38.6 (34.0-46.0) % MCV 89.4 (80.0-100.0) fL MCH 29.4 (25.0-35.0) pg MCHC 32.9 (31.0-37.0) g/dL RDW 13.7 (11.5-15.5) % Plt Count 215 (150-450) k/uL MPV 7.9 Neutrophils % 64 % Lymphocytes % 24 % Monocytes % 8 % Eosinophils % 2 % Basophils % 0 % Neutrophils # 4.4 (1.3-7.7) k/uL Lymphocytes # 1.7 (1.0-4.8) k/uL Monocytes # 0.5 (0-1.0) k/uL Eosinophils # 0.2 (0-0.7) k/uL Basophils # 0.0 (0-0.2) k/uL PT 10.3 (10.0-12.5) sec INR 0.9 (<1.2) APTT 24.5 (22.0-30.0) sec Sodium 137 (137-145) mmol/L Potassium 3.7 (3.5-5.1) mmol/L Chloride 109 H (98-107) mmol/L Carbon Dioxide 21 L (22-30) mmol/L Anion Gap 7 mmol/L BUN 15 (7-17) mg/dL Creatinine 0.82 (0.52-1.04) mg/dL Est GFR (CKD-EPI)AfAm >90 (>60 ml/min/1.73 sqM) Est GFR (CKD-EPI)NonAf 80 (>60 ml/min/1.73 sqM) Glucose 97 (74-99) mg/dL Calcium 9.3 (8.4-10.2) mg/dL Magnesium 1.8 (1.6-2.3) mg/dL Total Bilirubin 0.5 (0.2-1.3) mg/dL AST 25 (14-36) U/L ALT 18 (4-34) U/L Alkaline Phosphatase 51 (38-126) U/L Troponin I (0.000-0.034) ng/mL Total Protein 6.1 L (6.3-8.2) g/dL Albumin 4.1 (3.5-5.0) g/dL 05/05/24 Range/Units 00:01 WBC (3.8-10.6) k/uL RBC (3.80-5.40) m/uL Hgb (11.4-16.0) gm/dL Hct (34.0-46.0) % MCV (80.0-100.0) fL MCH (25.0-35.0) pg MCHC (31.0-37.0) g/dL RDW (11.5-15.5) % Plt Count (150-450) k/uL MPV Neutrophils % % Lymphocytes % % Monocytes % % Eosinophils % % Basophils % % Neutrophils # (1.3-7.7) k/uL Lymphocytes # (1.0-4.8) k/uL Monocytes # (0-1.0) k/uL Eosinophils # (0-0.7) k/uL Basophils # (0-0.2) k/uL PT (10.0-12.5) sec INR (<1.2) APTT (22.0-30.0) sec Sodium (137-145) mmol/L Potassium (3.5-5.1) mmol/L Chloride (98-107) mmol/L Carbon Dioxide (22-30) mmol/L Anion Gap mmol/L BUN (7-17) mg/dL Creatinine (0.52-1.04) mg/dL Est GFR (CKD-EPI)AfAm (>60 ml/min/1.73 sqM) Est GFR (CKD-EPI)NonAf (>60 ml/min/1.73 sqM) Glucose (74-99) mg/dL Calcium (8.4-10.2) mg/dL Magnesium (1.6-2.3) mg/dL Total Bilirubin (0.2-1.3) mg/dL AST (14-36) U/L ALT (4-34) U/L Alkaline Phosphatase (38-126) U/L Troponin I <0.012 (0.000-0.034) ng/mL Total Protein (6.3-8.2) g/dL Albumin (3.5-5.0) g/dL Disposition Clinical Impression: Chest pain Disposition: ADMITTED IP TO THIS HOSP Condition: Stable Is patient prescribed a controlled substance at d/c from ED?: No Referrals: Neal Byers [Primary Care Provider] - 1-2 days Time of Disposition: 02:29
[2024-05-05 01:09] LABS: ALT 18 U/L (4-34); AST 25 U/L (14-36); African American GFR (CKD) >90 (>60 ml/min/1.73 sqM); Albumin 4.1 g/dL (3.5-5.0); Alkaline Phosphatase 51 U/L (38-126); Anion Gap 7 mmol/L; Blood Urea Nitrogen 15 mg/dL (7-17); Calcium 9.3 mg/dL (8.4-10.2); Carbon Dioxide 21 mmol/L (22-30); Chloride 109 mmol/L (98-107); Glucose 97 mg/dL (74-99); Magnesium 1.8 mg/dL (1.6-2.3); Non-African American GFR(CKD) 80 (>60 ml/min/1.73 sqM); Potassium 3.7 mmol/L (3.5-5.1); Sodium 137 mmol/L (137-145); Total Bilirubin 0.5 mg/dL (0.2-1.3); Total Protein 6.1 g/dL (6.3-8.2)
--- NOTE | 2024-05-05 02:06 | XR ---
EXAM: XR Chest, 2 Views CLINICAL HISTORY: ITS.REASON XR Reason: CP TECHNIQUE: Frontal and lateral views of the chest. COMPARISON: 03/25/2024. FINDINGS: Lungs: No consolidation. No atelectasis. No CHF. Pleural space: No pleural effusion. No pneumothorax. Heart: No cardiomegaly. Mediastinum: Unremarkable. Normal mediastinal contour. Bones/joints: Degenerative changes of the spine. No acute fracture. IMPRESSION: No acute abnormality.
[2024-05-05] MEDS ORDERED: ONDANSETRON 4 MG/2 ML VIAL IVP PRN (02:26)
[2024-05-05] MEDS ORDERED: NALOXONE 0.4 MG/ML 1 ML VIAL IV PRN (02:26)
[2024-05-05] MEDS: SODIUM CHLORIDE 0.9% 1,000 ML IV SCH (02:41)
--- NOTE | 2024-05-05 09:57 | P.CRDCN ---
History of Present Illness Consult date: 05/05/24 History of present illness: History of present illness: This is a 58-year-old female patient of Dr. Cuevas with past medical history of coronary artery disease, hypertension, palpitations. We have been asked to evaluate the patient for chest pressure. Patient reports that yesterday night she started having heaviness sensation in the middle of her chest along with a sensation of cool fluid running in the middle of her body. She has been dealing with recurrent chest pains and headaches for last few months lately. He had prior cardiac testing done which included heart catheterization, stress test and an echocardiogram which were nonrevealing. She did have mild coronary artery disease which was nonobstructive. This time her symptoms got better after the sublingual nitroglycerin she received in the hospital. EKG sinus rhythm with no acute ST changes. Chest x-ray: Correlate for possible underlying COPD. No acute process CBC unremarkable. Electrolytes and renal function normal. Troponin negative x 3. Home cardiac medications: Aspirin 81 mg daily, Coreg 3.125 mg twice daily, fenofibrate 48 mg at bedtime, Nitrostat as needed, Crestor 40 mg at bedtime Echocardiogram performed in December 2023 reveals EF 55 to 60%, mild LVH, no obvious regional wall motion abnormalities or valvular dysfunction.. Lexiscan stress test on 12/05/2023 which was negative for ischemia Cardiac catheterization performed 12/27/[address] Woo revealed 20 to 30% proximal RCA disease, 20% in the proximal and mid LAD, mildly elevated LVEDP. Torturous coronary arteries suggestive hypertension. Review Of Systems: At the time of my exam: CONSTITUTIONAL: Denies fever or chills. HEENT: Denies blurred vision, vision changes, or eye pain. Denies hemoptysis. Reports headache and photophobia CARDIOVASCULAR: Denies chest pain. Denies orthopnea. Denies PND. Denies palpitations RESPIRATORY: Denies shortness of breath. GASTROINTESTINAL: Denies abdominal pain. Denies nausea or vomiting. HEMATOLOGIC: Denies bleeding disorders. GENITOURINARY: Denies any blood in urine. SKIN: Denies pruitis. Denies rash. Physical examination: Gen: This is a 58-year-old female in no acute distress VS: reviewed, blood pressure 116/67, heart rate 67, pulse ox 100% on room air. Patient is afebrile. HEENT: Head is atraumatic, normocephalic. Pupils equal, round. Sclerae is anicteric. NECK: Supple. No JVD. LUNGS: Clear to auscultation. No wheezes or rhonchi. No intercostal retractions . HEART: Regular rate and rhythm. No murmur. ABDOMEN: Soft No tenderness. EXTREMITIES: No pedal edema. No calf tenderness. NEUROLOGICAL: Patient is awake, alert and oriented x3. Assessment: Noncardiac chest pain Headache History of mild coronary artery disease Hypertension History of palpitations Plan: Resume aspirin, Crestor, Coreg 3.125 mg twice daily. Add Imdur 15 mg daily as her symptoms got better after sublingual nitroglycerin. If patient feels comfortable and confident going home, okay to be discharged with outpatient follow-up with Dr. Cuevas in next 1 week Past Medical History Past Medical History: Chest Pain / Angina, COPD, Eye Disorder, GERD/Reflux, Hyperlipidemia, Hypertension, Osteoarthritis (OA) Additional Past Medical History / Comment(s): glaucoma History of Any Multi-Drug Resistant Organisms: None Reported Past Surgical History: Orthopedic Surgery, Tubal Ligation Additional Past Surgical History / Comment(s): bunionectomy-lt. LT KNEE SX. COLONOSCOPY. Carpal tunnel surgery on right hand, laser eye surgery for glauco ma Past Anesthesia/Blood Transfusion Reactions: Postoperative Nausea & Vomiting (PONV) Past Psychological History: Anxiety Additional Psychological History / Comment(s): NO MEDS NEEDED AT THIS TIME Smoking Status: Former smoker Past Alcohol Use History: None Reported Additional Past Alcohol Use History / Comment(s): QUIT SMOKING 01/2017 Past Drug Use History: None Reported - Past Family History Mother Family Medical History: COPD, CVA/TIA Additional Family Medical History / Comment(s): colon CA Father History Unknown: Yes Family Medical History: Cancer, Myocardial Infarction ([place]) Additional Family Medical History / Comment(s): lung CA, empysema Medications and Allergies Home Medications Medication Instructions Recorded Confirmed Type Latanoprost [Xalatan 0.005%] 1 drop BOTH EYES HS 08/30/16 04/26/24 History Albuterol Sulfate [Ventolin HFA] 1 - 2 puff INHALATION RT-Q6H PRN 10/04/22 04/26/24 History Aspirin EC [Ecotrin Low Dose] 81 mg PO DAILY 10/04/22 04/26/24 History Fluticasone/Umeclidin/Vilanter 1 puff INHALATION RT-DAILY 10/04/22 04/26/24 History [Trelegy Ellipta 100-62.5-25] Rosuvastatin Calcium [Crestor] 40 mg PO HS 11/30/23 04/26/24 History Nitroglycerin Sl Tabs [Nitrostat] 0.4 mg SL Q5M PRN 12/25/23 04/26/24 History hydrOXYzine HCL 10 mg PO TID PRN 12/25/23 04/26/24 History Fenofibrate Nanocrystallized 48 mg PO HS 01/31/24 04/26/24 History [Fenofibrate] Pantoprazole [Protonix] 40 mg PO BID 01/31/24 04/26/24 History carvediloL [Coreg] 3.125 mg PO BID 01/31/24 04/26/24 History Citalopram Hydrobromide [CeleXA] 20 mg PO HS #30 tab 02/24/24 04/26/24 Rx Butalb/APAP/Caff 50-325-40Mg 1 tab PO Q4HR PRN 03/25/24 04/26/24 History [Fioricet 50-325-40] Famotidine [Pepcid] 20 mg PO DAILY 03/25/24 04/26/24 History Naproxen 250 mg PO BID PRN 03/25/24 04/26/24 History Amitriptyline HCl [Elavil] 10 mg PO HS #30 tab 03/27/24 04/26/24 Rx Topiramate [Topamax] 50 mg PO DAILY 30 Days #60 tab 03/27/24 04/26/24 Rx Topiramate [Topamax] 100 mg PO HS #30 tab 03/27/24 04/26/24 Rx Allergies Allergy/AdvReac Type Severity Reaction Status Date / Time codeine Allergy Anaphylaxis Verified 05/05/24 00:06 hydrocodone Allergy Anaphylaxis Verified 05/05/24 00:06 Penicillins AdvReac Yeast Verified 05/05/24 00:06 infections Physical Exam Vitals: Vital Signs Temp Pulse Pulse Pulse Resp BP BP 05/05/24 07:16 97.6 F 59 L 16 108/71 05/05/24 03:19 98.3 F 62 15 109/73 05/05/24 02:39 73 18 127/79 05/05/24 00:07 66 05/05/24 00:01 97.5 F L 65 16 139/85 Pulse Ox 05/05/24 07:16 99 05/05/24 03:19 97 05/05/24 02:39 92 L 05/05/24 00:07 05/05/24 00:01 99 Intake and Output 05/04/24 05/05/24 05/05/24 22:59 06:59 14:59 Other: Voiding Method Toilet # Voids 1 Weight 83.915 kg Results 05/05/24 00:01 05/05/24 00:01 Cardiac Enzymes 05/05/24 05/05/24 05/05/24 Range/Units 00:01 00:01 04:10 AST 25 (14-36) U/L Troponin I <0.012 <0.012 (0.000-0.034) ng/mL 05/05/24 Range/Units 07:04 AST (14-36) U/L Troponin I <0.012 (0.000-0.034) ng/mL Coagulation 05/05/24 Range/Units 00:01 PT 10.3 (10.0-12.5) sec APTT 24.5 (22.0-30.0) sec CBC 05/05/24 Range/Units 00:01 WBC 6.9 (3.8-10.6) k/uL RBC 4.31 (3.80-5.40) m/uL Hgb 12.7 (11.4-16.0) gm/dL Hct 38.6 (34.0-46.0) % Plt Count 215 (150-450) k/uL Comprehensive Metabolic Panel 05/05/24 Range/Units 00:01 Sodium 137 (137-145) mmol/L Potassium 3.7 (3.5-5.1) mmol/L Chloride 109 H (98-107) mmol/L Carbon Dioxide 21 L (22-30) mmol/L BUN 15 (7-17) mg/dL Creatinine 0.82 (0.52-1.04) mg/dL Glucose 97 (74-99) mg/dL Calcium 9.3 (8.4-10.2) mg/dL AST 25 (14-36) U/L ALT 18 (4-34) U/L Alkaline Phosphatase 51 (38-126) U/L Total Protein 6.1 L (6.3-8.2) g/dL Albumin 4.1 (3.5-5.0) g/dL Current Medications Generic Name Dose Route Start Last Admin Trade Name Freq PRN Reason Stop Dose Admin Acetaminophen 650 mg 05/05/24 02:26 Acetaminophen Tab 325 Mg Tab PO Q6HR PRN Mild Pain or Fever > 100.5 Sodium Chloride 1,000 mls @ 75 mls/hr 05/05/24 02:30 05/05/24 02:41 Saline 0.9% IV 75 mls/hr .[id number] DEXTER Administration Isosorbide Mononitrate 15 mg 05/05/24 10:00 Isosorbide Mononitrate Er 15 Mg Tab PO DAILY DEXTER Naloxone HCl 0.2 mg 05/05/24 02:26 Naloxone 0.4 Mg/Ml 1 Ml Vial IV Q2M PRN Opioid Reversal Ondansetron HCl 4 mg 05/05/24 02:26 Ondansetron 4 Mg/2 Ml Vial IVP Q8HR PRN Nausea And Vomiting Intake and Output 05/04/24 05/05/24 05/05/24 22:59 06:59 14:59 Other: Voiding Method Toilet # Voids 1 Weight 83.915 kg 05/05/24 00:01 05/05/24 00:01
[2024-05-05] MEDS: ISOSORBIDE MONONITRATE ER 15 MG TAB PO SCH (10:42)
[2024-05-05] MEDS: ACETAMINOPHEN TAB 325 MG TAB PO PRN (11:42)
[2024-05-05] MEDS ORDERED: NON FORMULARY DRUG (Rimegepant Sulfate [Nurtec Odt] 75 MG Tablet) PO PRN (14:47)
[2024-05-05] MEDS ORDERED: hydrOXYzine HCL 10 MG TAB PO PRN (14:47)
[2024-05-05] MEDS ORDERED: ALBUTEROL HFA INHALER INHALATION PRN (14:47)
--- NOTE | 2024-05-05 14:56 | P.HPIM ---
History of Present Illness H&P Date: 05/05/24 History of present illness; 58-year-old female patient of Dr. Alexander with past medical history si gnificant for hypertension, hyperlipidemia, history of coronary artery disease with recent cardiac catheterization 03/02/2024 showing nonobstructive coronary artery disease, history of COPD and migraine/cephalgia who presented to hospital with complaint of chest pain and headache. Patient stated that she started to have chest pain last night, felt like heavy sensation in the middle of the chest along with sensation of food fluid running in the middle of the body. Patient has recurrent chest pain and headaches going on for the last few months. Patient had cardiac workup including echocardiogram, stress testing card catheterization which was nonrevealing. Close current catheterization showed mild coronary artery disease which was nonobstructive. Patient's symptoms improved after sublingual nitroglycerin in the ED. Patient denied any fever, chills, nausea, vomiting, diarrhea, constipation, abdominal pain, dysuria urgency frequency weakness or numbness of the extremities. Patient reported headache, no vision changes. In the ED patient was afebrile, heart rate 55, respiratory rate 18, blood pressure 113/71, saturating 97% on room air. CBC was unremarkable. BMP was unremarkable. Troponin negative. EKG showed normal sinus rhythm without any acute ST changes. Chest x-ray showed possible COPD, no acute process. Troponin negative X.3. Patient's home medication include aspirin, Coreg, fenofibrate, as needed sublingual nitroglycerin Crestor. Echocardiogram performed in December 2023 reveals EF 55 to 60%, mild LVH, no obvious regional wall motion abnormalities or valvular dysfunction.. Lexiscan stress test on 12/05/2023 which was negative for ischemia Cardiac catheterization performed 12/27/[address] Woo revealed 20 to 30% proximal RCA disease, 20% in the proximal and mid LAD, mildly elevated LVEDP. Torturous coronary arteries suggestive hypertension. Patient admitted to internal medicine service REVIEW OF SYSTEMS: CONSTITUTIONAL: No fever, no malaise, no fatigue. HEENT: No recent visual problems or hearing problems. Denied any sore throat. CARDIOVASCULAR: No chest pain, orthopnea, PND, no palpitations, no syncope. PULMONARY: No shortness of breath, no cough, no hemoptysis. GASTROINTESTINAL: No diarrhea, no nausea, no vomiting, no abdominal pain. NEUROLOGICAL: No headaches, no weakness, no numbness. HEMATOLOGICAL: Denies any bleeding or petechiae. GENITOURINARY: Denies any burning micturition, frequency, or urgency. MUSCULOSKELETAL/RHEUMATOLOGICAL: Denies any joint pain, swelling, or any muscle pain. ENDOCRINE: Denies any polyuria or polydipsia. The rest of the 14-point review of systems is negative. PHYSICAL EXAMINATION: GENERAL: The patient is alert and oriented x3, not in any acute distress. Well developed, well nourished. HEENT: Pupils are round and equally reacting to light. EOMI. No scleral icterus. No conjunctival pallor. Normocephalic, atraumatic. No pharyngeal erythema. No thyromegaly. CARDIOVASCULAR: S1 and S2 present. No murmurs, rubs, or gallops. PULMONARY: Chest is clear to auscultation, no wheezing or crackles. ABDOMEN: Soft, nontender, nondistended, normoactive bowel sounds. No palpable organomegaly. MUSCULOSKELETAL: No joint swelling or deformity. EXTREMITIES: No cyanosis, clubbing, or pedal edema. NEUROLOGICAL: Gross neurological examination did not reveal any focal deficits. SKIN: No rashes. Assessment and plan Chest pain: Atypical Mild nonobstructive coronary artery disease: Hypertension: History of palpitations: Hyperlipidemia, Chest pain atypical, now resolved. EKG and troponin unremarkable. Recent cardiac workup including echocardiogram, Lexiscan stress test and cardiac catheterization was unremarkable, current catheterization showed mild nonobstructive coronary artery disease. Evaluated by cardiology, recommended continue home meds aspirin Paxil Coreg, added Imdur 15 mg daily Headache: History of cephalgia, has history of extensive workup in the past regarding headache, follows neurology. Previous workup including MRI brain, MRI of cervical spine, CSF studies were unremarkable. Autoimmune workup was also unremarkable. Recently had a occipital nerve block as outpatient. Continue home meds Nurtec, was previously on Topamax. As needed fioricet PRN toradol COPD: Stable Continue home inhalers DVT prophylaxis. Subcutaneous Lovenox Dictation was produced using [employer] software. please excuse any grammatical, word or spelling errors. Past Medical History Past Medical History: Chest Pain / Angina, COPD, Eye Disorder, GERD/Reflux, Hyperlipidemia, Hypertension, Osteoarthritis (OA) Additional Past Medical History / Comment(s): glaucoma History of Any Multi-Drug Resistant Organisms: None Reported Past Surgical History: Orthopedic Surgery, Tubal Ligation Additional Past Surgical History / Comment(s): bunionectomy-lt. LT KNEE SX. COLONOSCOPY. Carpal tunnel surgery on right hand, laser eye surgery for glaucoma Past Anesthesia/Blood Transfusion Reactions: Postoperative Nausea & Vomiting (PONV) Past Psychological History: Anxiety Additional Psychological History / Comment(s): NO MEDS NEEDED AT THIS TIME Smoking Status: Former smoker Past Alcohol Use History: None Reported Additional Past Alcohol Use History / Comment(s): QUIT SMOKING 01/2017 Past Drug Use History: None Reported - Past Family History Mother Family Medical History: COPD, CVA/TIA Additional Family Medical History / Comment(s): colon CA Father History Unknown: Yes Family Medical History: Cancer, Myocardial Infarction ([place]) Additional Family Medical History / Comment(s): lung CA, empysema Medications and Allergies Home Medications Medication Instructions Recorded Confirmed Type Latanoprost [Xalatan 0.005%] 1 drop BOTH EYES HS 08/30/16 05/05/24 History Albuterol Sulfate [Ventolin HFA] 1 - 2 puff INHALATION RT-Q6H PRN 10/04/2204/23 History Aspirin EC [Ecotrin Low Dose] 81 mg PO DAILY 10/04/22 05/05/24 History Fluticasone/Umeclidin/Vilanter 1 puff INHALATION RT-DAILY 10/04/22 05/05/24 History [Trelegy Ellipta 100-62.5-25] Rosuvastatin Calcium [Crestor] 40 mg PO HS 11/30/23 05/05/24 History Nitroglycerin Sl Tabs [Nitrostat] 0.4 mg SL Q5M PRN 12/25/23 05/05/24 History hydrOXYzine HCL 10 mg PO TID PRN 12/25/23 05/05/24 History Fenofibrate Nanocrystallized 48 mg PO HS 01/31/24 05/05/24 History [Fenofibrate] Pantoprazole [Protonix] 40 mg PO BID 01/31/24 05/05/24 History carvediloL [Coreg] 3.125 mg PO BID 01/31/24 05/05/24 History Citalopram Hydrobromide [CeleXA] 20 mg PO HS #30 tab 02/24/24 05/05/24 Rx Butalb/APAP/Caff 50-325-40Mg 1 tab PO Q4HR PRN 03/25/24 05/05/24 History [Fioricet 50-325-40] Famotidine [Pepcid] 20 mg PO DAILY 03/25/24 05/05/24 History Azithromycin [Zithromax] 250 mg PO MOWEFR 05/05/24 05/05/24 History Ipratropium-Albuterol Nebulize 3 ml INHALATION RT-QID 05/05/24 05/05/24 History [Duoneb 0.5 mg-3 mg/3 ml Soln] Rimegepant Sulfate [Nurtec Odt] 75 mg PO DAILY PRN 05/05/24 05/05/24 History Allergies Allergy/AdvReac Type Severity Reaction Status Date / Time codeine Allergy Anaphylaxis Verified 05/05/24 10:43 hydrocodone Allergy Anaphylaxis Verified 05/05/24 10:43 Penicillins AdvReac Yeast Verified 05/05/24 10:43 infections Physical Exam Vitals: Vital Signs Temp Pulse Pulse Pulse Resp BP BP 05/05/24 11:30 97.7 F 55 L 18 113/71 05/05/24 07:16 97.6 F 59 L 16 108/71 05/05/24 03:19 98.3 F 62 15 109/73 05/05/24 02:39 73 18 127/79 05/05/24 00:07 66 05/05/24 00:01 97.5 F L 65 16 139/85 Pulse Ox 05/05/24 11:30 97 05/05/24 07:16 99 05/05/24 03:19 97 05/05/24 02:39 92 L 05/05/24 00:07 05/05/24 00:01 99 Intake and Output 05/04/24 05/05/24 05/05/24 22:59 06:59 14:59 Other: Voiding Method Toilet # Voids 1 Weight 83.915 kg Results CBC & Chem 7: 05/05/24 00:01 05/05/24 00:01 Labs: Abnormal Lab Results - Last 24 Hours (Table) 05/05/24 Range/Units 00:01 Chloride 109 H (98-107) mmol/L Carbon Dioxide 21 L (22-30) mmol/L Total Protein 6.1 L (6.3-8.2) g/dL
[2024-05-05] MEDS: carvediloL 3.125 MG TAB PO SCH (15:14)
[2024-05-05] MEDS: ASPIRIN 81 MG PO SCH (15:15)
[2024-05-05] MEDS: IPRATROPIUM 0.5 MG/2.5 ML NEBU INHALATION SCH (15:15)
[2024-05-05] MEDS: KETOROLAC 15 MG/ML 1 ML VIAL IVP PRN (15:42)
[2024-05-05] MEDS: FENOFIBRATE 54 MG TAB PO SCH (20:46)
[2024-05-05] MEDS: CITALOPRAM HYDROBROMIDE 20 MG TAB PO SCH (20:46)
[2024-05-05] MEDS: LATANOPROST 0.005% OPHTH DROPS 2.5 ML BTL BOTH EYES SCH (20:46)
[2024-05-05] MEDS: PANTOPRAZOLE 40 MG TABLET PO SCH (20:46)
[2024-05-05] MEDS: ATORVASTATIN 80 MG TAB PO SCH (20:46)
[2024-05-06 02:23] VITALS: RESP 16
[2024-05-06] MEDS: SYMBICORT 80-4.5 MCG INHALER INHALATION SCH (07:57)
[2024-05-06] MEDS: BUTALB/APAP/CAFF 50-325-40MG TAB PO PRN (14:00)
--- NOTE | 2024-05-06 14:23 | P.DS ---
Providers Date of admission: 05/05/24 02:26 Expected date of discharge: 05/06/24 Attending physician: Junior Samson Consults: 05/05/24 02:26 Consult Physician Routine Consulting Provider: Aristeo Adames Consult Reason/Comments: CP Do you want consulting provider notified?: Yes Primary care physician: Neal Kebede Kut - Discharge Diagnosis(es) (1) Chest pain Current Visit: Yes Status: Acute Hospital Course: Discharge diagnoses; Chest pain: Atypical Mild nonobstructive coronary artery disease: Hypertension: History of palpitations: Hyperlipidemia, Chest pain atypical, now resolved. EKG and troponin unremarkable. Recent cardiac workup including echocardiogram, Lexiscan stress test and cardiac catheterization was unremarkable, current catheterization showed mild nonobstructive coronary artery disease. Evaluated by cardiology, recommended continue home meds aspirin Crestor, Coreg, added Imdur 15 mg daily, outpatient follow-up with cardiology. Headache: Migraine: History of cephalgia, has history of extensive workup in the past regarding headache, follows neurology. Previous workup including MRI brain, MRI of cervical spine, CSF studies were unremarkable. Autoimmune workup was also unremarkable. Recently had a occipital nerve block as outpatient. Continue home meds Nurtec, was previously on Topamax. As needed fioricet COPD: Stable Continue home inhalers Hospital course; 58-year-old female patient of Dr. Alexander with past medical history significant for hypertension, hyperlipidemia, history of coronary artery disease with recent cardiac catheterization 03/02/2024 showing nonobstructive coronary artery disease, history of COPD and migraine/cephalgia who presented to hospital with complaint of chest pain and headache. Patient stated that she started to have chest pain last night, felt like heavy sensation in the middle of the chest along with sensation of food fluid running in the middle of the body. Patient has recurrent chest pain and headaches going on for the last few months. Patient had cardiac workup including echocardiogram, stress testing card catheterization which was nonrevealing. Close current catheterization showed mild coronary artery disease which was nonobstructive. Patient's symptoms improved after sublingual nitroglycerin in the ED. Patient denied any fever, chills, nausea, vomiting, diarrhea, constipation, abdominal pain, dysuria urgency frequency weakness or numbness of the extremities. Patient reported headache, no vision changes. In the ED patient was afebrile, heart rate 55, respiratory rate 18, blood pressure 113/71, saturating 97% on room air. CBC was unremarkable. BMP was unremarkable. Troponin negative. EKG showed normal sinus rhythm without any acute ST changes. Chest x-ray showed possible COPD, no acute process. Troponin negative X.3. Patient's home medication include aspirin, Coreg, fenofibrate, as needed sublingual nitroglycerin Crestor. Echocardiogram performed in December 2023 reveals EF 55 to 60%, mild LVH, no ob vious regional wall motion abnormalities or valvular dysfunction.. Lexiscan stress test on 12/05/2023 which was negative for ischemia Cardiac catheterization performed 12/27/[address] Woo revealed 20 to 30% proximal RCA disease, 20% in the proximal and mid LAD, mildly elevated LVEDP. Torturous coronary arteries suggestive hypertension. Patient was admitted to the hospital for further evaluation and management of chest pain. Cardiology was consulted. EKG and troponin remain unremarkable. Per cardiology chest pain was atypical, okay to discharge patient. Recommended continue home meds including aspirin, Coreg, Crestor, recommended to add Imdur 15 mg daily and outpatient follow-up with cardiology. Chest pain remained resolved during hospitalization. Patient was complaining of headache during hospitalization, required symptomatic management with as needed Toradol. Patient's condition and vital stable at discharge. Please refer to medical assessment for further details. Follow-up with PCP in 1 week. Follow-up with cardiology as outpatient. Follow-up with neurology as outpatient. PHYSICAL EXAMINATION: GENERAL: The patient is alert and oriented x3, not in any acute distress. Well developed, well nourished. HEENT: Pupils are round and equally reacting to light. EOMI. No scleral icterus. No conjunctival pallor. Normocephalic, atraumatic. No pharyngeal erythema. No thyromegaly. CARDIOVASCULAR: S1 and S2 present. No murmurs, rubs, or gallops. PULMONARY: Chest is clear to auscultation, no wheezing or crackles. ABDOMEN: Soft, nontender, nondistended, normoactive bowel sounds. No palpable organomegaly. MUSCULOSKELETAL: No joint swelling or deformity. EXTREMITIES: No cyanosis, clubbing, or pedal edema. NEUROLOGICAL: Gross neurological examination did not reveal any focal deficits. SKIN: No rashes. Dictation was produced using [employer] software. please excuse any grammatical, word or spelling errors. Plan - Discharge Summary Discharge Rx Participant: No New Discharge Prescriptions: New Isosorbide Mononitrate ER [Imdur] 15 mg PO DAILY 30 Days #30 tab Continue Latanoprost [Xalatan 0.005%] 1 drop BOTH EYES HS Albuterol Sulfate [Ventolin HFA] 1 - 2 puff INHALATION RT-Q6H PRN PRN Reason: COPD Fluticasone/Umeclidin/Vilanter [Trelegy Ellipta 100-62.5-25] 1 puff INHALATION RT-DAILY Rosuvastatin Calcium [Crestor] 40 mg PO HS hydrOXYzine HCL 10 mg PO TID PRN PRN Reason: Anxiety Nitroglycerin Sl Tabs [Nitrostat] 0.4 mg SL Q5M PRN PRN Reason: Chest Pain Citalopram Hydrobromide [CeleXA] 20 mg PO HS #30 tab Famotidine [Pepcid] 20 mg PO DAILY Azithromycin [Zithromax] 250 mg PO MOWEFR Ipratropium-Albuterol Nebulize [Duoneb 0.5 mg-3 mg/3 ml Soln] 3 ml INHALATION RT-QID Aspirin EC [Ecotrin Low Dose] 81 mg PO DAILY Pantoprazole [Protonix] 40 mg PO BID carvediloL [Coreg] 3.125 mg PO BID Fenofibrate Nanocrystallized [Fenofibrate] 48 mg PO HS Butalb/APAP/Caff 50-325-40Mg [Fioricet 50-325-40] 1 tab PO Q4HR PRN PRN Reason: Headache Rimegepant Sulfate [Nurtec Odt] 75 mg PO DAILY PRN PRN Reason: Migraine Headache Discharge Medication List Latanoprost [Xalatan 0.005%] 1 drop BOTH EYES HS 08/30/16 [History] Albuterol Sulfate [Ventolin HFA] 1 - 2 puff INHALATION RT-Q6H PRN 10/04/22 [History] Aspirin EC [Ecotrin Low Dose] 81 mg PO DAILY 10/04/22 [History] Fluticasone/Umeclidin/Vilanter [Trelegy Ellipta 100-62.5-25] 1 puff INHALATION RT-DAILY 10/04/22 [History] Rosuvastatin Calcium [Crestor] 40 mg PO HS 11/30/23 [History] Nitroglycerin Sl Tabs [Nitrostat] 0.4 mg SL Q5M PRN 12/25/23 [History] hydrOXYzine HCL 10 mg PO TID PRN 12/25/23 [History] Fenofibrate Nanocrystallized [Fenofibrate] 48 mg PO HS 01/31/24 [History] Pantoprazole [Protonix] 40 mg PO BID 01/31/24 [History] carvediloL [Coreg] 3.125 mg PO BID 01/31/24 [History] Citalopram Hydrobromide [CeleXA] 20 mg PO HS #30 tab 02/24/24 [Rx] Butalb/APAP/Caff 50-325-40Mg [Fioricet 50-325-40] 1 tab PO Q4HR PRN 03/25/24 [History] Famotidine [Pepcid] 20 mg PO DAILY 03/25/24 [History] Azithromycin [Zithromax] 250 mg PO MOWEFR 05/05/24 [History] Ipratropium-Albuterol Nebulize [Duoneb 0.5 mg-3 mg/3 ml Soln] 3 ml INHALATION RT-QID 05/05/24 [History] Rimegepant Sulfate [Nurtec Odt] 75 mg PO DAILY PRN 05/05/24 [History] Isosorbide Mononitrate ER [Imdur] 15 mg PO DAILY 30 Days #30 tab 05/06/24 [Rx] Follow up Appointment(s)/Referral(s): Neal Byers [Primary Care Provider] - 1-2 days
[2024-05-06 14:26] VITALS: BP 128/79; PULSE 60; TEMP 97.5
== END 2024-05-06 16:35 | disposition home or self-care (01) ==
LOC: EC 23:57 → 6NMEDSUR 05-05 02:26
PROVIDERS: ADMIT Hospitalist; ATTEND Hospitalist
DX: R07.89 Other chest pain (principal); I25.10 Atherosclerotic heart disease of native coronary artery without angina pectoris; I10 Essential (primary) hypertension; E78.5 Hyperlipidemia, unspecified; G43.909 Migraine, unspecified, not intractable, without status migrainosus; J44.9 Chronic obstructive pulmonary disease, unspecified; Z79.82 Long term (current) use of aspirin; Z79.51 Long term (current) use of inhaled steroids; Z79.899 Other long term (current) drug therapy; Z88.0 Allergy status to penicillin; Z88.5 Allergy status to narcotic agent; Z87.891 Personal history of nicotine dependence
CPT/HCPCS: 96376 ×2; 96361 ×2; 96375; 96374; 99285; 36415; 94640 ×4; 94760; 93005; 80053; 83735; 84484; 85025; 85610; 85730; 71046; G0378 ×2; J2405; J1885 ×2

== ENCOUNTER 2024-05-18 12:07 | Observation (INO) | payer OTHER ==
[2024-05-18 13:15] LABS: Basophils % (A) 0 %; Eosinophils # (A) 0.1 k/uL (0-0.7); Eosinophils % (A) 2 %; HCT 41.5 % (34.0-46.0); HGB 13.7 gm/dL (11.4-16.0); Lymphocytes # (A) 1.2 k/uL (1.0-4.8); Lymphocytes % (A) 17 %; MCH 29.7 pg (25.0-35.0); MCHC 32.9 g/dL (31.0-37.0); MCV 90.2 fL (80.0-100.0); Mean Platelet Volume 7.8; Monocytes # (A) 0.4 k/uL (0-1.0); Monocytes % (A) 7 %; Neutrophils # (A) 4.9 k/uL (1.3-7.7); Neutrophils % (A) 73 %; Platelet Count 248 k/uL (150-450); RDW 13.3 % (11.5-15.5); WBC 6.8 k/uL (3.8-10.6)
[2024-05-18] MEDS: MAG HYDROX/AL HYDROX/SIMETH 30 ML, HYOSCYAMINE ELIXIR 10 ML, LIDOCAINE VISCOUS 2% 10 ML PO STA (13:28)
[2024-05-18 13:30] LABS: ALT 21 U/L (4-34); African American GFR (CKD) >90 (>60 ml/min/1.73 sqM); Albumin 4.3 g/dL (3.5-5.0); Anion Gap 5 mmol/L; Blood Urea Nitrogen 15 mg/dL (7-17); Calcium 9.7 mg/dL (8.4-10.2); Carbon Dioxide 25 mmol/L (22-30); Chloride 106 mmol/L (98-107); Glucose 92 mg/dL (74-99); Non-African American GFR(CKD) 88 (>60 ml/min/1.73 sqM); Sodium 136 mmol/L (137-145); Total Bilirubin 0.9 mg/dL (0.2-1.3); Total Protein 6.6 g/dL (6.3-8.2)
--- NOTE | 2024-05-18 13:32 | ED ---
General Adult HPI - General Chief complaint: Chest Pain Stated complaint: chest pain Time Seen by Provider: 05/18/24 12:15 Source: patient, EMS, RN notes reviewed, old records reviewed Mode of arrival: EMS Limitations: no limitations - History of Present Illness Onset/Timin -: month(s) Location: chest Radiation: non-radiation Severity scale (1-10): 8 Consistency: intermittent Associated Symptoms: other (cold burning sensation throughout her body) - Related Data Home Medications Medication Instructions Recorded Confirmed Latanoprost [Xalatan 0.005%] 1 drop BOTH EYES HS 08/30/16 05/18/24 Albuterol Sulfate [Ventolin HFA] 1 - 2 puff INHALATION RT-Q6H PRN 10/04/22 05/18/24 Aspirin EC [Ecotrin Low Dose] 81 mg PO DAILY 10/04/22 05/18/24 Fluticasone/Umeclidin/Vilanter 1 puff INHALATION RT-DAILY 10/04/22 05/18/24 [Trelegy Ellipta 100-62.5-25] Rosuvastatin Calcium [Crestor] 40 mg PO HS 11/30/23 05/18/24 Nitroglycerin Sl Tabs [Nitrostat] 0.4 mg SL Q5M PRN 12/25/23 05/18/24 hydrOXYzine HCL 10 mg PO TID PRN 12/25/23 05/18/24 Fenofibrate Nanocrystallized 48 mg PO HS 01/31/24 05/18/24 [Fenofibrate] Pantoprazole [Protonix] 40 mg PO BID 01/31/24 05/18/24 carvediloL [Coreg] 3.125 mg PO BID 01/31/24 05/18/24 Butalb/APAP/Caff 50-325-40Mg 1 tab PO Q4HR PRN 03/25/24 05/18/24 [Fioricet 50-325-40] Famotidine [Pepcid] 20 mg PO DAILY 03/25/24 05/18/24 Azithromycin [Zithromax] 250 mg PO MOWEFR 05/05/24 05/18/24 Ipratropium-Albuterol Nebulize 3 ml INHALATION RT-QID 05/05/24 05/18/24 [Duoneb 0.5 mg-3 mg/3 ml Soln] Rimegepant Sulfate [Nurtec Odt] 75 mg PO DAILY PRN 05/05/24 05/18/24 Previous Rx's Medication Instructions Recorded Citalopram Hydrobromide [CeleXA] 20 mg PO HS #30 tab 02/24/24 Isosorbide Mononitrate ER [Imdur] 15 mg PO DAILY 30 Days #30 tab 05/06/24 Allergies Allergy/AdvReac Type Severity Reaction Status Date / Time codeine Allergy Anaphylaxis Verified 05/18/24 14:02 hydrocodone Allergy Anaphylaxis Verified 05/18/24 14:02 Penicillins AdvReac Yeast Verified 05/18/24 14:02 infections Review of Systems ROS Statement: Those systems with pertinent positive or pertinent negative responses have been documented in the HPI. ROS Other: All systems not noted in ROS Statement are negative. Constitutional: Reports: as per HPI Eyes: Reports: as per HPI Respiratory: Reports: as per HPI Cardiovascular: Reports: as per HPI Past Medical History Past Medical History: Chest Pain / Angina, COPD, Eye Disorder, GERD/Reflux, Hyperlipidemia, Hypertension, Osteoarthritis (OA) Additional Past Medical History / Comment(s): glaucoma History of Any Multi-Drug Resistant Organisms: None Reported Past Surgical History: Orthopedic Surgery, Tubal Ligation Additional Past Surgical History / Comment(s): bunionectomy-lt. LT KNEE SX. COLONOSCOPY. Carpal tunnel surgery on right hand, laser eye surgery for glaucoma Past Anesthesia/Blood Transfusion Reactions: Postoperative Nausea & Vomiting (PONV) Past Psychological History: Anxiety Smoking Status: Former smoker Past Alcohol Use History: None Reported Past Drug Use History: None Reported - Past Family History Mother Family Medical History: COPD, CVA/TIA Additional Family Medical History / Comment(s): colon CA Father History Unknown: Yes Family Medical History: Cancer, Myocardial Infarction ([place]) Additional Family Medical History / Comment(s): lung CA, empysema General Exam Limitations: no limitations Head exam: Present: atraumatic, normocephalic Eye exam: Present: normal appearance ENT exam: Present: normal exam Neck exam: Present: normal inspection Respiratory exam: Present: normal lung sounds bilaterally Cardiovascular Exam: Present: regular rate, normal rhythm GI/Abdominal exam: Present: soft, normal bowel sounds Back exam: Present: normal inspection Neurological exam: Present: alert, oriented X3 Psychiatric exam: Present: normal affect, normal mood Course Vital Signs 05/18/24 05/18/24 05/18/24 12:11 13:29 14:41 Temperature 98.7 F Pulse Rate 68 83 77 Respiratory 18 18 18 Rate Blood Pressure 130/90 131/94 177/81 O2 Sat by Pulse 98 94 L 98 Oximetry Medical Decision Making - Medical Decision Making EKG is interpreted by me. EKG shows a sinus rhythm at a rate of 65 bpm SC interval at 134 QRS is 76 QT is405 QTc is 417 Was pt. sent in by a medical professional or institution (, PA, CRITICAL CARE NURSE SPECIALIST, urgent care, hospital, or custodial...) When possible be specific @ -[No] Did you speak to anyone other than the patient for history (EMS, parent, family, police, friend...)? What history was obtained from this source @ -[No] Did you review nursing and triage notes (agree or disagree)? Why? @ -[I reviewed and agree with nursing and triage notes] Were old charts reviewed (outside hosp., previous admission, EMS record, old EKG, old radiological studies, urgent care reports/EKG's, custodial records)? Report findings @ -I reviewed patient's old charts in particular reviewed the catheterization the patient had earlier this year. Differential Diagnosis (chest pain, altered mental status, abdominal pain women, abdominal pain men, vaginal bleeding, weakness, fever, dyspnea, syncope, headache, dizziness, GI bleed, back pain, seizure, CVA, palpatations, mental health, musculoskeletal)? @ -Differential Chest Pain: Stable Angina, Unstable Angina, STEMI, NSTEMI Aortic Dissection, Pneumothorax, Musculoskeletal, Esophageal Spasm GERD, Cholecystitis, Pancreatitis, Zoster, this is not meant to be an all-inclusive list. EKG interpreted by me (3pts min.). @ -[As above] X-rays interpreted by me (1pt min.). @ -[None done] CT interpreted by me (1pt min.). @ -[None done] U/S interpreted by me (1pt. min.). @ -[None done] What testing was considered but not performed or refused? (CT, X-rays, U/S, labs)? Why? @ -[None] What meds were considered but not given or refused? Why? @ -[None] Did you discuss the management of the patient with other professionals (professionals i.e. , PA, CRITICAL CARE NURSE SPECIALIST, lab, RT, psych nurse, director of social work, collections agent, teacher, disciplinary hearing officer, immigration case manager)? Give summary @ -I spoke with the [facility] see agreed to admit the patient and the patient wrote admitting orders I consulted cardiology Was smoking cessation discussed for >3mins.? @ -[No] Was critical care preformed (if so, how long)? @ -[No] Were there social determinants of health that impacted care today? How? (Homelessness, low income, unemployed, alcoholism, drug addiction, transpor tation, low edu. Level, literacy, decrease access to med. care, mcc, rehab)? @ -[No] Was there de-escalation of care discussed even if they declined (Discuss DNR or withdrawal of care, Hospice)? DNR status @ -[No] What co-morbidities impacted this encounter? (DM, HTN, Smoking, COPD, CAD, Cancer, CVA, ARF, Chemo, Hep., AIDS, mental health diagnosis, sleep apnea, morbid obesity)? @ -[None] Was patient admitted / discharged? Hospital course, mention meds given and route, prescriptions, significant lab abnormalities, going to OR and other pertinent info. @ -I spoke with the patient about her chest pain and I indicated to her I did not think it was cardiac in nature she stated that she felt very uncomfortable going home and she preferred be staying overnight to talk to the line crew supervisor. I spoke with the syringe to hospice they were okay with admitting the patient I will admit the patient wrote admitting orders and admit the patient for 20 QRS patient Undiagnosed new problem with uncertain prognosis? @ -[No] Drug Therapy requiring intensive monitoring for toxicity (Heparin, Nitro, Insulin, Cardizem)? @ -[No] Were any procedures done? @ -[No] Diagnosis/symptom? @ -Chest pain Acute, or Chronic, or Acute on Chronic? @ -Acute on chronic Uncomplicated (without systemic symptoms) or Complicated (systemic symptoms)? @ -Complicated Side effects of treatment? @ -[No] Exacerbation, Progression, or Severe Exacerbation? @ -[No] Poses a threat to life or bodily function? How? (Chest pain, [place], ND, pneumonia, PE, COPD, DKA, ARF, appy, cholecystitis, CVA, Diverticulitis, Homicidal, Suicidal, threat to staff... and all critical care pts) @ -Yes is completed an ND and end organ dysfunction - Lab Data Result diagrams: 05/18/24 13:09 05/18/24 13:09 Lab Results 05/18/24 05/18/24 05/18/24 Range/Units 13:09 13:09 13:09 WBC 6.8 (3.8-10.6) k/uL RBC 4.60 (3.80-5.40) m/uL Hgb 13.7 (11.4-16.0) gm/dL Hct 41.5 (34.0-46.0) % MCV 90.2 (80.0-100.0) fL MCH 29.7 (25.0-35.0) pg MCHC 32.9 (31.0-37.0) g/dL RDW 13.3 (11.5-15.5) % Plt Count 248 (150-450) k/uL MPV 7.8 Neutrophils % 73 % Lymphocytes % 17 % Monocytes % 7 % Eosinophils % 2 % Basophils % 0 % Neutrophils # 4.9 (1.3-7.7) k/uL Lymphocytes # 1.2 (1.0-4.8) k/uL Monocytes # 0.4 (0-1.0) k/uL Eosinophils # 0.1 (0-0.7) k/uL Basophils # 0.0 (0-0.2) k/uL PT 10.3 (10.0-12.5) sec INR 0.9 (<1.2) APTT 21.9 L (22.0-30.0) sec Sodium 136 L (137-145) mmol/L Potassium 4.5 (3.5-5.1) mmol/L Chloride 106 (98-107) mmol/L Carbon Dioxide 25 (22-30) mmol/L Anion Gap 5 mmol/L BUN 15 (7-17) mg/dL Creatinine 0.76 (0.52-1.04) mg/dL Est GFR (CKD-EPI)AfAm >90 (>60 ml/min/1.73 sqM) Est GFR (CKD-EPI)NonAf 88 (>60 ml/min/1.73 sqM) Glucose 92 (74-99) mg/dL Calcium 9.7 (8.4-10.2) mg/dL Magnesium 1.9 (1.6-2.3) mg/dL Total Bilirubin 0.9 (0.2-1.3) mg/dL AST 29 (14-36) U/L ALT 21 (4-34) U/L Alkaline Phosphatase 47 (38-126) U/L Troponin I (0.000-0.034) ng/mL Total Protein 6.6 (6.3-8.2) g/dL Albumin 4.3 (3.5-5.0) g/dL 05/18/24 Range/Units 13:09 WBC (3.8-10.6) k/uL RBC (3.80-5.40) m/uL Hgb (11.4-16.0) gm/dL Hct (34.0-46.0) % MCV (80.0-100.0) fL MCH (25.0-35.0) pg MCHC (31.0-37.0) g/dL RDW (11.5-15.5) % Plt Count (150-450) k/uL MPV Neutrophils % % Lymphocytes % % Monocytes % % Eosinophils % % Basophils % % Neutrophils # (1.3-7.7) k/uL Lymphocytes # (1.0-4.8) k/uL Monocytes # (0-1.0) k/uL Eosinophils # (0-0.7) k/uL Basophils # (0-0.2) k/uL PT (10.0-12.5) sec INR (<1.2) APTT (22.0-30.0) sec Sodium (137-145) mmol/L Potassium (3.5-5.1) mmol/L Chloride (98-107) mmol/L Carbon Dioxide (22-30) mmol/L Anion Gap mmol/L BUN (7-17) mg/dL Creatinine (0.52-1.04) mg/dL Est GFR (CKD-EPI)AfAm (>60 ml/min/1.73 sqM) Est GFR (CKD-EPI)NonAf (>60 ml/min/1.73 sqM) Glucose (74-99) mg/dL Calcium (8.4-10.2) mg/dL Magnesium (1.6-2.3) mg/dL Total Bilirubin (0.2-1.3) mg/dL AST (14-36) U/L ALT (4-34) U/L Alkaline Phosphatase (38-126) U/L Troponin I <0.012 (0.000-0.034) ng/mL Total Protein (6.3-8.2) g/dL Albumin (3.5-5.0) g/dL Disposition Clinical Impression: Chest pain Disposition: ADMITTED IP TO THIS HOSP Referrals: Neal Byers [Primary Care Provider] - 1-2 days Time of Disposition: 16:39
[2024-05-18 13:36] LABS: Potassium 4.5 mmol/L (3.5-5.1)
[2024-05-18 13:37] LABS: AST 29 U/L (14-36); Alkaline Phosphatase 47 U/L (38-126); Magnesium 1.9 mg/dL (1.6-2.3)
[2024-05-18 13:43] LABS: INR 0.9 (<1.2); Partial Thromboplastin Time 21.9 sec (22.0-30.0); Prothrombin Time 10.3 sec (10.0-12.5)
[2024-05-18] MEDS ORDERED: NITROGLYCERIN SL TABS 0.4 MG TAB SUBLINGUAL PRN ×2 (16:39→18:27)
[2024-05-18] MEDS: ASPIRIN 81 MG PO STA (16:48)
[2024-05-18] MEDS: NITROGLYCERIN OINT 1 INCH/GM PACKET TOPICAL SCH (16:57)
[2024-05-18] MEDS: ACETAMINOPHEN TAB 500 MG TAB PO STA (17:25)
[2024-05-18] MEDS ORDERED: hydrOXYzine HCL 10 MG TAB PO PRN (18:27)
[2024-05-18] MEDS: AZITHROMYCIN 500 MG TAB PO SCH (18:54)
[2024-05-18] MEDS: AZITHROMYCIN 250 MG PO SCH (18:55)
[2024-05-18] MEDS: PANTOPRAZOLE 40 MG TABLET PO SCH (19:59)
[2024-05-18] MEDS: ATORVASTATIN 80 MG TAB PO SCH (19:59)
[2024-05-18] MEDS: CITALOPRAM HYDROBROMIDE 20 MG TAB PO SCH (19:59)
[2024-05-18] MEDS: carvediloL 3.125 MG TAB PO SCH (19:59)
[2024-05-18] MEDS: IPRATROPIUM-ALBUTEROL 3 ML NEB INHALATION SCH (20:22)
[2024-05-18] MEDS: FENOFIBRATE 54 MG TAB PO SCH (21:12)
[2024-05-18] MEDS: LATANOPROST 0.005% OPHTH DROPS 2.5 ML BTL BOTH EYES SCH (21:12)
[2024-05-19] MEDS: SYMBICORT 80-4.5 MCG INHALER INHALATION SCH (08:51)
[2024-05-19] MEDS ORDERED: ISOSORBIDE MONONITRATE ER 15 MG TAB PO SCH (09:00)
[2024-05-19] MEDS ORDERED: ASPIRIN 325 MG TAB PO SCH (09:00)
[2024-05-19] MEDS: LOSARTAN 25 MG TAB PO SCH (09:47)
[2024-05-19] MEDS: ASPIRIN 81 MG PO SCH (09:47)
[2024-05-19] MEDS: ISOSORBIDE MONONITRATE ER 30 MG TAB.ER.24H PO SCH (09:47)
[2024-05-19] MEDS: FAMOTIDINE 20 MG TAB PO SCH (09:47)
[2024-05-19 09:55] LABS: Chol/HDL Ratio 3.83 Ratio; LDL Cholesterol,Calculated 103.5 mg/dL (0.0-131.0)
--- NOTE | 2024-05-19 13:16 | P.CRDCN ---
History of Present Illness History of present illness: HISTORY OF PRESENT ILLNESS: This is a 58-year-old female with a past medical history significant for coronary artery disease, hypertension, hyperlipidemia, and palpitations. Patient follows in the office with Dr. Cuevas. We have been asked to see the patient in consultation for chest pain. Patient examined at the bedside. Patient states yesterday morning she woke up and began to have chest discomfort. She states the pain was in the middle of her chest. She also reports feeling dizzy and lightheaded. She states that she took her blood pressure at home and it was noted to be high with a reading of 160/60. However, her blood pressures here have been well-controlled. She states the pain lasted until about 3:00 in the afternoon. She did receive nitro in the emergency room which she states helped with her discomfort. She does state that the pain is worse with deep inspira tion and also with chest wall palpation. It is noted that the patient was here earlier this month for chest discomfort and an acute coronary event was ruled out. The patient does report that she was recently started on Imdur 15 mg daily which she does believe has helped her chest pain somewhat. DIAGNOSTICS: - EKG reveals sinus mechanism with no signs of acute ischemia. Repeat EKG reveals sinus mechanism with nonspecific ST-T wave changes. - Laboratory data: WBC 6.8. Hemoglobin 13.7. Platelet count 248. Sodium 136. Potassium 4.5. BUN 15. Creatinine 0.76. Troponin negative x 3. - Current home cardiac medications include aspirin 81 mg daily, Imdur 15 mg daily, rosuvastatin 40 mg at night, carvedilol 3.125 mg twice a day - Most recent echocardiogram obtained in February 2023 revealed ejection fraction 55 to 60% with mild LVH - Cardiac catheterization history: December 2023 revealing proximal LAD 20%, mid RCA 20%, and proximal RCA 20 to 30% REVIEW OF SYSTEMS: At the time of my exam: CONSTITUTIONAL: Denies fever or chills. HEENT: Denies blurred vision, vision changes, or eye pain. Denies hemoptysis CARDIOVASCULAR: Denies chest pain. Denies orthopnea. Denies PND. Denies palpitations RESPIRATORY: Denies shortness of breath. GASTROINTESTINAL: Denies abdominal pain. Denies nausea or vomiting. HEMATOLOGIC: Denies bleeding disorders. GENITOURINARY: Denies any blood in urine. SKIN: Denies pruitis. Denies rash. PHYSICAL EXAM: VITAL SIGNS: Reviewed. GENERAL: Well-developed in no acute distress. HEENT: Head is normocephalic. Pupils are equal, round. Sclerae anicteric. Mucous membranes of the mouth are moist. Neck supple. No JVD or thyromegaly LUNGS: Respirations even and unlabored. Lungs essentially clear to auscultation bilaterally. HEART: Regular rate and rhythm. S1 and S2 heard. ABDOMEN: Soft. Nondistended. Nontender. EXTREMITIES: Normal range of motion. No clubbing or cyanosis. Peripheral pulses intact. No lower extremity edema NEUROLOGIC: Awake and alert. Oriented x 3. ASSESSMENT: Chest pain, troponin negative x 3 Mild nonobstructive CAD, per cardiac catheterization 12/2023 Hypertension Hyperlipidemia History of palpitations Obesity: BMI 33.8 Former nicotine dependence PLAN: An acute coronary event has been ruled out Obtain 2D echo to assess cardiac structure and function Increase Imdur to 30 mg daily Continue to monitor blood pressure Recommend to monitor patient for an additional 24 hours Anticipate discharge home tomorrow if she remains stable Further recommendations pending patient course Nurse practitioner note has been reviewed by physician. Signing provider agrees with the documented findings, assessment, and plan of care documented by [employer] as a scribe. Past Medical History Past Medical History: Chest Pain / Angina, COPD, Eye Disorder, GERD/Reflux, Hyperlipidemia, Hypertension, Osteoarthritis (OA) Additional Past Medical History / Comment(s): glaucoma History of Any Multi-Drug Resistant Organisms: None Reported Past Surgical History: Orthopedic Surgery, Tubal Ligation Additional Past Surgical History / Comment(s): bunionectomy-lt. LT KNEE SX. COLONOSCOPY. Carpal tunnel surgery on right hand, laser eye surgery for glaucoma Past Anesthesia/Blood Transfusion Reactions: No Reported Reaction, Postoperative Nausea & Vomiting (PONV) Past Psychological History: Anxiety Additional Psychological History / Comment(s): NO MEDS NEEDED AT THIS TIME Smoking Status: Former smoker Past Alcohol Use History: None Reported Additional Past Alcohol Use History / Comment(s): QUIT SMOKING 01/2017 Past Drug Use History: None Reported - Past Family History Mother Family Medical History: COPD, CVA/TIA Additional Family Medical History / Comment(s): colon CA Father History Unknown: Yes Family Medical History: Cancer, Myocardial Infarction ([place]) Additional Family Medical History / Comment(s): lung CA, empysema Medications and Allergies Home Medications Medication Instructions Recorded Confirmed Type Latanoprost [Xalatan 0.005%] 1 drop BOTH EYES HS 08/30/16 05/18/24 History Albuterol Sulfate [Ventolin HFA] 1 - 2 puff INHALATION RT-Q6H PRN 10/04/22 05/18/24 History Aspirin EC [Ecotrin Low Dose] 81 mg PO DAILY 10/04/22 05/18/24 History Fluticasone/Umeclidin/Vilanter 1 puff INHALATION RT-DAILY 10/04/22 05/18/24 History [Trelegy Ellipta 100-62.5-25] Rosuvastatin Calcium [Crestor] 40 mg PO HS 11/30/23 05/18/24 History Nitroglycerin Sl Tabs [Nitrostat] 0.4 mg SL Q5M PRN 12/25/23 05/18/24 History hydrOXYzine HCL 10 mg PO TID PRN 12/25/23 05/18/24 History Fenofibrate Nanocrystallized 48 mg PO HS 01/31/24 05/18/24 History [Fenofibrate] Pantoprazole [Protonix] 40 mg PO BID 01/31/24 05/18/24 History carvediloL [Coreg] 3.125 mg PO BID 01/31/24 05/18/24 History Citalopram Hydrobromide [CeleXA] 20 mg PO HS #30 tab 02/24/24 05/18/24 Rx Butalb/APAP/Caff 50-325-40Mg 1 tab PO Q4HR PRN 03/25/24 05/18/24 History [Fioricet 50-325-40] Famotidine [Pepcid] 20 mg PO DAILY 03/25/24 05/18/24 History Azithromycin [Zithromax] 250 mg PO MOWEFR 05/05/24 05/18/24 History Ipratropium-Albuterol Nebulize 3 ml INHALATION RT-QID 05/05/24 05/18/24 History [Duoneb 0.5 mg-3 mg/3 ml Soln] Rimegepant Sulfate [Nurtec Odt] 75 mg PO DAILY PRN 05/05/24 05/18/24 History Isosorbide Mononitrate ER [Imdur] 15 mg PO DAILY 30 Days #30 tab 05/06/24 05/18/24 Rx Allergies Allergy/AdvReac Type Severity Reaction Status Date / Time codeine Allergy Anaphylaxis Verified 05/18/24 14:02 hydrocodone Allergy Anaphylaxis Verified 05/18/24 14:02 Penicillins AdvReac Yeast Verified 05/18/24 14:02 infections Physical Exam Vitals: Vital Signs Temp Pulse Pulse Pulse Resp BP BP 05/19/24 07:30 98.3 F 72 16 05/19/24 02:02 97.8 F 66 16 92/61 05/18/24 20:31 64 05/18/24 20:23 62 05/18/24 20:06 97.7 F 62 17 128/83 05/18/24 18:31 97.4 F L 61 18 137/91 05/18/24 18:22 58 L 16 05/18/24 17:00 58 L 16 118/84 05/18/24 16:56 59 L 16 05/18/24 16:55 64 05/18/24 16:00 62 16 137/83 05/18/24 15:00 64 16 123/78 05/18/24 14:41 77 18 177/81 05/18/24 13:29 83 18 131/94 BP Pulse Ox 05/19/24 07:30 119/79 97 05/19/24 02:02 96 05/18/24 20:31 05/18/24 20:23 05/18/24 20:06 96 05/18/24 18:31 97 05/18/24 18:22 98 05/18/24 17:00 98 05/18/24 16:56 98 05/18/24 16:55 05/18/24 16:00 98 05/18/24 15:00 98 05/18/24 14:41 98 05/18/24 13:29 94 L Intake and Output 05/18/24 05/19/24 05/19/24 22:59 06:59 14:59 Other: # Voids 1 Weight 83.915 kg Results 05/18/24 13:09 05/18/24 13:09 Cardiac Enzymes 05/18/24 05/18/24 05/18/24 Range/Units 13:09 13:09 17:30 AST 29 (14-36) U/L Troponin I <0.012 <0.012 (0.000-0.034) ng/mL 05/18/24 Range/Units 19:27 AST (14-36) U/L Troponin I <0.012 (0.000-0.034) ng/mL Coagulation 05/18/24 Range/Units 13:09 PT 10.3 (10.0-12.5) sec APTT 21.9 L (22.0-30.0) sec Lipids 05/18/24 Range/Units 13:09 Triglycerides 151.00 H (0.00-149.00) mg/dL Cholesterol 181.00 (0.00-200.00) mg/dL HDL Cholesterol 47.30 (40.00-60.00) mg/dL Cholesterol/HDL Ratio 3.83 Ratio CBC 05/18/24 Range/Units 13:09 WBC 6.8 (3.8-10.6) k/uL RBC 4.60 (3.80-5.40) m/uL Hgb 13.7 (11.4-16.0) gm/dL Hct 41.5 (34.0-46.0) % Plt Count 248 (150-450) k/uL Comprehensive Metabolic Panel 05/18/24 Range/Units 13:09 Sodium 136 L (137-145) mmol/L Potassium 4.5 (3.5-5.1) mmol/L Chloride 106 (98-107) mmol/L Carbon Dioxide 25 (22-30) mmol/L BUN 15 (7-17) mg/dL Creatinine 0.76 (0.52-1.04) mg/dL Glucose 92 (74-99) mg/dL Calcium 9.7 (8.4-10.2) mg/dL AST 29 (14-36) U/L ALT 21 (4-34) U/L Alkaline Phosphatase 47 (38-126) U/L Total Protein 6.6 (6.3-8.2) g/dL Albumin 4.3 (3.5-5.0) g/dL Current Medications Generic Name Dose Route Start Last Admin Trade Name Freq PRN Reason Stop Dose Admin Albuterol/Ipratropium 3 ml 05/18/24 20:00 05/19/24 12:16 Ipratropium-Albuterol 3 Ml Neb INHALATION Not Given RT-QID [facility] Aspirin 81 mg 05/19/24 09:00 05/19/24 09:50 Aspirin 81 Mg PO Not Given DAILY [facility] Atorvastatin Calcium 80 mg 05/18/24 21:00 05/18/24 19:59 Atorvastatin 80 Mg Tab PO 80 mg HS [facility] Administration Azithromycin 250 mg 05/18/24 18:34 05/18/24 18:54 Azithromycin 500 Mg Tab PO Not Given MOWEFR [facility] Budesonide/Formoterol Fumarate 2 puff 05/19/24 08:00 05/19/24 08:51 Symbicort 80-4.5 Mcg Inhaler INHALATION Not Given RT-BID [facility] Carvedilol 3.125 mg 05/18/24 21:00 05/19/24 09:47 Carvedilol 3.125 Mg Tab PO 3.125 mg BID [facility] Administration Citalopram Hydrobromide 20 mg 05/18/24 21:00 05/18/24 19:59 Citalopram Hydrobromide 20 Mg Tab PO 20 mg HS [facility] Administration Famotidine 20 mg 05/19/24 09:00 05/19/24 09:47 Famotidine 20 Mg Tab PO 20 mg DAILY [facility] Administration Fenofibrate 54 mg 05/18/24 21:00 05/18/24 21:12 Fenofibrate 54 Mg Tab PO 54 mg HS [facility] Administration Hydroxyzine HCl 10 mg 05/18/24 18:27 Hydroxyzine Hcl 10 Mg Tab PO TID PRN Anxiety Isosorbide Mononitrate 30 mg 05/19/24 09:00 05/19/24 09:47 Isosorbide Mononitrate Er 30 Mg Tab.Er.24h PO 30 mg DAILY [facility] Administration Latanoprost 1 drops 05/18/24 21:00 05/18/24 21:12 Latanoprost 0.005% Ophth Drops 2.5 Ml Btl BOTH EYES 1 drops HS [facility] Administration Losartan Potassium 25 mg 05/19/24 09:00 05/19/24 09:47 Losartan 25 Mg Tab PO 25 mg DAILY [facility] Administration Nitroglycerin 0.4 mg 05/18/24 16:39 Nitroglycerin Sl Tabs 0.4 Mg Tab SUBLINGUAL Q5M PRN Chest Pain Nitroglycerin 0.4 mg 05/18/24 18:27 Nitroglycerin Sl Tabs 0.4 Mg Tab SUBLINGUAL Q5M PRN Chest Pain Pantoprazole Sodium 40 mg 05/18/24 21:00 05/19/24 09:47 Pantoprazole 40 Mg Tablet PO 40 mg BID [facility] Administration Intake and Output 05/18/24 05/19/24 05/19/24 22:59 06:59 14:59 Other: # Voids 1 Weight 83.915 kg 05/18/24 13:09 05/18/24 13:09
--- NOTE | 2024-05-19 15:11 | P.HPIM ---
History of Present Illness H&P Date: 05/18/24 Chief Complaint: Chest pain 58-year-old female, history significant for coronary artery disease, hypertension, hyperlipidemia, and palpitations, presents to ED for chest pain. Patient states this morning she woke up and began to have chest discomfort. She states the pain was in the middle of her chest. She also reports feeling dizzy and lightheaded. She states that she took her blood pressure at home and it was noted to be high with a reading of 160/60. However, her blood pressures here have been well-controlled. She states the pain lasted until she arrived to ED. She did receive nitro in the emergency room which she states helped with her discomfort. She does state that the pain is worse with deep inspiration and also with chest wall palpation. Patient was admitted to the hospital earlier this month for chest discomfort and an acute coronary event was ruled out. The patient does report that she was recently started on Imdur 15 mg daily which she does believe has helped her chest pain somewhat. Workup completed in the ED includes; -- EKG reveals sinus mechanism with no signs of acute ischemia. Repeat EKG reveals sinus mechanism with nonspecific ST-T wave changes. -Blood work reveals WBC 6.8. Hemoglobin 13.7. Platelet count 248. Sodium 136. Potassium 4.5. BUN 15. Creatinine 0.76. Troponin negative x 3. - Most recent echocardiogram obtained in February 2023 revealed ejection fraction 55 to 60% with mild LVH - Cardiac catheterization history: December 2023 revealing proximal LAD 20%, mid RCA 20%, and proximal RCA 20 to 30% Review of Systems REVIEW OF SYSTEMS: CONSTITUTIONAL: No fever, no malaise, no fatigue. HEENT: No recent visual problems or hearing problems. Denied any sore throat. CARDIOVASCULAR: No chest pain, orthopnea, PND, no palpitations, no syncope. PULMONARY: No shortness of breath, no cough, no hemoptysis. GASTROINTESTINAL: No diarrhea, no nausea, no vomiting, no abdominal pain. NEUROLOGICAL: No headaches, no weakness, no numbness. HEMATOLOGICAL: Denies any bleeding or petechiae. GENITOURINARY: Denies any burning micturition, frequency, or urgency. MUSCULOSKELETAL/RHEUMATOLOGICAL: Denies any joint pain, swelling, or any muscle pain. ENDOCRINE: Denies any polyuria or polydipsia. The rest of the 14-point review of systems is negative. Past Medical History Past Medical History: Chest Pain / Angina, COPD, Eye Disorder, GERD/Reflux, Hyperlipidemia, Hypertension, Osteoarthritis (OA) Additional Past Medical History / Comment(s): glaucoma History of Any Multi-Drug Resistant Organisms: None Reported Past Surgical History: Orthopedic Surgery, Tubal Ligation Additional Past Surgical History / Comment(s): bunionectomy-lt. LT KNEE SX. COLONOSCOPY. Carpal tunnel surgery on right hand, laser eye surgery for glaucoma Past Anesthesia/Blood Transfusion Reactions: Postoperative Nausea & Vomiting (PONV) Past Psychological History: Anxiety Smoking Status: Former smoker Past Alcohol Use History: None Reported Past Drug Use History: None Reported - Past Family History Mother Family Medical History: COPD, CVA/TIA Additional Family Medical History / Comment(s): colon CA Father History Unknown: Yes Family Medical History: Cancer, Myocardial Infarction ([place]) Additional Family Medical History / Comment(s): lung CA, empysema Medications and Allergies Home Medications Medication Instructions Recorded Confirmed Type Latanoprost [Xalatan 0.005%] 1 drop BOTH EYES HS 08/30/16 05/18/24 History Albuterol Sulfate [Ventolin HFA] 1 - 2 puff INHALATION RT-Q6H PRN 10/04/22 05/18/24 History Aspirin EC [Ecotrin Low Dose] 81 mg PO DAILY 10/04/22 05/18/24 History Fluticasone/Umeclidin/Vilanter 1 puff INHALATION RT-DAILY 10/04/22 05/18/24 History [Trelegy Ellipta 100-62.5-25] Rosuvastatin Calcium [Crestor] 40 mg PO HS 11/30/23 05/18/24 History Nitroglycerin Sl Tabs [Nitrostat] 0.4 mg SL Q5M PRN 12/25/23 05/18/24 History hydrOXYzine HCL 10 mg PO TID PRN 12/25/23 05/18/24 History Fenofibrate Nanocrystallized 48 mg PO HS 01/31/24 05/18/24 History [Fenofibrate] Pantoprazole [Protonix] 40 mg PO BID 01/31/24 05/18/24 History carvediloL [Coreg] 3.125 mg PO BID 01/31/24 05/18/24 History Citalopram Hydrobromide [CeleXA] 20 mg PO HS #30 tab 02/24/24 05/18/24 Rx Butalb/APAP/Caff 50-325-40Mg 1 tab PO Q4HR PRN 03/25/24 05/18/24 History [Fioricet 50-325-40] Famotidine [Pepcid] 20 mg PO DAILY 03/25/24 05/18/24 History Azithromycin [Zithromax] 250 mg PO MOWEFR 05/05/24 05/18/24 History Ipratropium-Albuterol Nebulize 3 ml INHALATION RT-QID 05/05/24 05/18/24 History [Duoneb 0.5 mg-3 mg/3 ml Soln] Rimegepant Sulfate [Nurtec Odt] 75 mg PO DAILY PRN 05/05/24 05/18/24 History Isosorbide Mononitrate ER [Imdur] 15 mg PO DAILY 30 Days #30 tab 05/06/24 05/18/24 Rx Allergies Allergy/AdvReac Type Severity Reaction Status Date / Time codeine Allergy Anaphylaxis Verified 05/18/24 14:02 hydrocodone Allergy Anaphylaxis Verified 05/18/24 14:02 Penicillins AdvReac Yeast Verified 05/18/24 14:02 infections Physical Exam Vitals: Vital Signs Temp Pulse Pulse Resp BP Pulse Ox 05/18/24 18:22 58 L 16 98 05/18/24 17:00 58 L 16 118/84 98 05/18/24 16:56 59 L 16 98 05/18/24 16:55 64 05/18/24 16:00 62 16 137/83 98 05/18/24 15:00 64 16 123/78 98 05/18/24 14:41 77 18 177/81 98 05/18/24 13:29 83 18 131/94 94 L 05/18/24 12:11 98.7 F 68 18 130/90 98 Intake and Output 05/18/24 05/18/24 05/18/24 06:59 14:59 22:59 Other: Weight 83.915 kg VITAL SIGNS: Reviewed. GENERAL: Well-developed in no acute distress. HEENT: Head is normocephalic. Pupils are equal, round. Sclerae anicteric. Mucous membranes of the mouth are moist. Neck supple. No JVD or thyromegaly LUNGS: Respirations even and unlabored. Lungs essentially clear to auscultation bilaterally. HEART: Regular rate and rhythm. S1 and S2 heard. ABDOMEN: Soft. Nondistended. Nontender. EXTREMITIES: Normal range of motion. No clubbing or cyanosis. Peripheral pulses intact. No lower extremity edema NEUROLOGIC: Awake and alert. Oriented x 3. Results CBC & Chem 7: 05/18/24 13:09 05/18/24 13:09 Labs: Abnormal Lab Results - Last 24 Hours (Table) 05/18/24 05/18/24 Range/Units 13:09 13:09 APTT 21.9 L (22.0-30.0) sec Sodium 136 L (137-145) mmol/L Assessment and Plan Assessment: 1. Chest pain rule out acute coronary syndrome -Patient was recently admitted to the hospital at which time she was ruled out for acute coronary syndrome -Has been started on Imdur 15 mg daily; we will plan to continue to patient is evaluated by cardiology -We will monitor EKG and cycle troponins -Recommended 2D echo -Consult cardiology for further evaluation and recommendations 2. History of mild nonobstructive CAD; last catheterization completed in December 2023 revealed proximal LAD of 20%, mid RCA 20% and proximal RCA 20 to 30% -We will continue with current dose of aspirin, Imdur, Coreg and Crestor -Await further recommendations from cardiology; appreciate input 3. Hypertension; Coreg 3.125 mg twice daily 4. Hyperlipidemia; Crestor 40 mg p.o. nightly 5. Obesity; patient has a BMI of 33.8 -- Patient educated on need for weight reduction 6. COPD, not in exacerbation; we will continue with home inhaler therapy; patient takes azithromycin 250 mg every Tuesday and Tuesday; we will continue 7. Anxiety/depression; hydroxyzine 10 mg p.o. 3 times daily as needed; Celexa 20 mg p.o. nightly DVT prophylaxis; SCDs CODE STATUS; full code
[2024-05-20 02:25] VITALS: RESP 16
[2024-05-20 08:12] VITALS: BP 103/68; PULSE 66; TEMP 97.7
--- NOTE | 2024-05-20 11:09 | CA ---
Transthoracic Echo Report Name: Love Levy Age: 58 Gender: F : 1965 Exam Date: 05/19/2024 17:56 Exam Location: [facility] Ht (in): 62 Wt (lb): 185 Ordering Physician: Maria G Peters Attending/Referring Phys: [id number], Lorraine Sheetfed Press Operator Lisa Lopez RDCS Procedure CPT: Indications: CP, LV function Cardiac Hx: Technical Quality: Fair Contrast 1: Total Dose (mL): Contrast 2: Total Dose (mL): MEASUREMENTS (Male / Female) Normal Values 2D ECHO LV Diastolic Diameter PLAX 3.4 cm 4.2 - 5.9 / 3.9 - 5.3 cm LV Systolic Diameter PLAX 2.6 cm IVS Diastolic Thickness 1.3 cm 0.6 - 1.0 / 0.6 - 0.9 cm LVPW Diastolic Thickness 1.2 cm 0.6 - 1.0 / 0.6 - 0.9 cm LV Relative Wall Thickness 0.7 LA Volume 58.8 cm??? 18 - 58 / 22 - 52 cm??? LA Volume Index 30.1 cm???/m??? 16 - 28 cm???/m??? M-MODE Aortic Root Diameter MM 2.6 cm LA Systolic Diameter MM 2.8 cm LA Ao Ratio MM 1.1 DOPPLER AV Peak Velocity 182.7 cm/s AV Peak Gradient 13.3 mmHg AV Mean Velocity 121.8 cm/s AV Mean Gradient 6.8 mmHg AV Velocity Time Integral 37.1 cm LVOT Peak Velocity 124.0 cm/s LVOT Peak Gradient 6.1 mmHg LVOT Velocity Time Integral 30.0 cm MV Area PHT 3.2 cm??? Mitral E Point Velocity 70.4 cm/s Mitral A Point Velocity 96.9 cm/s Mitral E to A Ratio 0.7 MV Deceleration Time 239.8 ms MV E' Velocity 5.9 cm/s Mitral E to MV E' Ratio 11.9 TR Peak Velocity 231.5 cm/s TR Peak Gradient 21.4 mmHg Right Ventricular Systolic Press 25.0 mmHg FINDINGS Left Ventricle Mildly increased left ventricular wall thickness. Left ventricular cavity size normal. Normal left ventricular systolic function with no obvious regional wall motion abnormalities. Left ventricular ejection fraction is estimated at 55-60 %. Grade 1 diastolic dysfunction. Right Ventricle Normal right ventricular size and function. Right Atrium Normal right atrial size. Left Atrium Mildly increased left atrial volume. Mildly increased left atrial area. Mitral Valve Structurally normal mitral valve. Mild mitral regurgitation. Aortic Valve Trileaflet aortic valve. No aortic valve stenosis or regurgitation. Tricuspid Valve Structurally normal tricuspid valve. Mild tricuspid regurgitation. Pulmonic Valve Structurally normal pulmonic valve. Pericardium No pericardial effusion. Aorta Normal size aortic root and proximal ascending aorta. CONCLUSIONS Mild LVH with preserved systolic function, no wall motion abnormality Normal LV size and function Mild left atrial enlargement Previewed by: Dr. Stone Cuevas MD (Electronically Signed) Final Date: 20 May 2024 11:07
--- NOTE | 2024-05-20 11:56 | P.PN ---
Subjective HISTORY OF PRESENT ILLNESS: This is a 58-year-old female with a past medical history significant for coronary artery disease, hypertension, hyperlipidemia, and palpitations. Patient follows in the office with Dr. Cuevas. We have been asked to see the patient in consultation for chest pain. Patient examined at the bedside. Patient states yesterday morning she woke up and began to have chest discomfort. She states the pain was in the middle of her chest. She also reports feeling dizzy and lightheaded. She states that she took her blood pressure at home and it was noted to be high with a reading of 160/60. However, her blood pressures here have been well-controlled. She states the pain lasted until about 3:00 in the afternoon. She did receive nitro in the emergency room which she states helped with her discomfort. She does state that the pain is worse with deep inspiration and also with chest wall palpation. It is noted that the patient was here earlier this month for chest discomfort and an acute coronary event was ruled out. The patient does report that she was recently started on Imdur 15 mg daily which she does believe has helped her chest pain somewhat. DIAGNOSTICS: - EKG reveals sinus mechanism with no signs of acute ischemia. Repeat EKG reveals sinus mechanism with nonspecific ST-T wave changes. - Laboratory data: WBC 6.8. Hemoglobin 13.7. Platelet count 248. Sodium 136. Potassium 4.5. BUN 15. Creatinine 0.76. Troponin negative x 3. - Current home cardiac medications include aspirin 81 mg daily, Imdur 15 mg daily, rosuvastatin 40 mg at night, carvedilol 3.125 mg twice a day - Most recent echocardiogram obtained in February 2023 revealed ejection fraction 55 to 60% with mild LVH - Cardiac catheterization history: December 2023 revealing proximal LAD 20%, mid RCA 20%, and proximal RCA 20 to 30% 05/20/2024 Patient examined this morning at bedside. She denies having any further episodes of chest pain or pressure. She denies shortness of breath. Patient's blood pressures have been well-controlled with a recent reading of 115/51. EKG this morning reveals sinus mechanism with no signs of acute ischemia. Echocardiogram completed revealing ejection fraction 55 to 60%, mild MR with mild left atrial enlargement PHYSICAL EXAM: VITAL SIGNS: Reviewed. GENERAL: Well-developed in no acute distress. HEENT: Head is normocephalic. Pupils are equal, round. Sclerae anicteric. Mucous membranes of the mouth are moist. Neck supple. No JVD or thyromegaly LUNGS: Respirations even and unlabored. Lungs essentially clear to auscultation bilaterally. HEART: Regular rate and rhythm. S1 and S2 heard. ABDOMEN: Soft. Nondistended. Nontender. EXTREMITIES: Normal range of motion. No clubbing or cyanosis. Peripheral pulses intact. No lower extremity edema NEUROLOGIC: Awake and alert. Oriented x 3. ASSESSMENT: Chest pain, troponin negative x 3 Mild nonobstructive CAD, per cardiac catheterization 12/2023 Hypertension Hyperlipidemia History of palpitations Obesity: BMI 33.8 Former nicotine dependence PLAN: An acute coronary event has been ruled out Continue current cardiac medications Patient is stable for discharge home today from a cardiac standpoint Nurse practitioner note has been reviewed by physician. Signing provider agrees with the documented findings, assessment, and plan of care documented by BURNER MACHINE OPERATOR as a scribe. Objective - Vital Signs Vital signs: Vital Signs Temp 97.7 F 05/20/24 07:15 Pulse 66 05/20/24 07:15 Resp 16 05/20/24 07:15 BP 103/68 05/20/24 07:15 Pulse Ox 100 05/20/24 07:15 FiO2 Intake & Output 05/19/24 05/20/24 05/20/24 18:59 06:59 18:59 Intake Total 236 Balance 236 Intake: Oral 236 Other: Voiding Method Toilet # Voids 4 1 - Labs CBC & Chem 7: 05/18/24 13:09 05/18/24 13:09
== END 2024-05-20 13:15 | disposition home or self-care (01) ==
LOC: EC 12:07 → 6NMEDSUR 16:39
PROVIDERS: ADMIT Hospitalist; ATTEND Hospitalist
DX: R07.89 Other chest pain (principal); I25.10 Atherosclerotic heart disease of native coronary artery without angina pectoris; I10 Essential (primary) hypertension; E78.5 Hyperlipidemia, unspecified; J44.9 Chronic obstructive pulmonary disease, unspecified; R42 Dizziness and giddiness; E66.9 Obesity, unspecified; Z68.33 Body mass index [BMI] 33.0-33.9, adult; F41.9 Anxiety disorder, unspecified; F32.A Depression, unspecified; Z79.82 Long term (current) use of aspirin; Z79.51 Long term (current) use of inhaled steroids; Z79.899 Other long term (current) drug therapy; Z88.0 Allergy status to penicillin; Z88.5 Allergy status to narcotic agent; Z87.891 Personal history of nicotine dependence; Z86.79 Personal history of other diseases of the circulatory system
CPT/HCPCS: 99285; 36415; 94640; 93005; 93306; 80061; 80053; 83735; 84484; 85025; 85610; 85730; 83036; G0378 ×3

== ENCOUNTER 2024-05-22 11:59 | Day surgery (SDC) | payer OTHER ==
[2024-05-21 08:51] VITALS: BMI 33.8
[~2024-05-22 11:59] MED LIST changes: -DEXAMETHASONE SOD PHOSPHATE 4 MG/ML 1 ML VIAL IV ONE; -MIDAZOLAM 2 MG/2 ML VIAL IV PRN; -ONDANSETRON 4 MG/2 ML VIAL IVP ONE; -Pre Op ABX Message 1 EACH MISC MISCELLANE ONE; -SCOPOLAMINE 1 MG/72 HR PATCH TRANSDERM ONE; -fentaNYL (PF) 50 MCG/ML 2 ML AMP IV PRN
[2024-05-22 12:52] VITALS: TEMP 97.6
[2024-05-22] MEDS ORDERED: ROPIVACAINE 5MG/ML 20ML VIAL ONE (13:44)
[2024-05-22] MEDS ORDERED: DEXAMETHASONE SOD PHOSPHATE 10 MG/ML 1 ML VIAL ONE (13:44)
--- NOTE | 2024-05-22 13:49 | P.PCN ---
Date of Procedure: 05/22/24 Description of Procedure: Pre-operative diagnosis: occipital neuralgia Post Operative Diagnosis: occipital neuralgia Procedure: BILATERAL greater occipital nerve block under ultrasound - Ultrasound used to place needle and avoid vascular structures. Anesthesia: local with 1% lidocaine and IV sedation per nurse anesthesia Sedation administered by: LOCAL ONLY PROCEDURE INDICATION: The patient with neck pain and headache secondary to occipital neuralgia unresponsive to conservative treatments. PROCEDURE DESCRIPTION / TECHNIQUE: The patient was seen and identified in the preoperative area. Risks, benefits, complications, and alternatives were discussed with the patient, the patient agreed to proceed with the procedure and signed the consent. Vital signs remained stable throughout the procedure. Patient was taken to the OR and time out was completed. The patient was placed in the sitting position on the procedure table. The cervical area and occiptial area were prepped with alcohol swab. Critical pause was taken. Vital signs were closely monitored during the procedure. Conscious sedation was used during the procedure to decrease patients anxiety. Right side: Ultrasound was used and the occipital artery was visualized exiting the skull about 2-3 cm lateral and 2cm inferior to the occipital protuberance On the right side. Then after negative aspiration, a 25g needed was introduced under ultrasound, negative aspiration confirmed and then 3 ml of the block solution containing 2.5 ml of PF Ropivaciane 0.5% and dexamethasone (total of 10mg) was injected after negative aspiration. Needle was withdrawn intact. Left side: Ultrasound was used and the occipital artery was visualized exiting the skull about 2-3 cm lateral and 2cm inferior to the occipital protuberance On the left side. Then after negative aspiration, a 25g needed was introduced under ultrasound, negative aspiration confirmed and then 3 ml of the block solution containing 2.5 ml of PF Ropivaciane 0.5% and dexamethasone (total of 10mg) was injected after negative aspiration. Needle was withdrawn intact. Patient tolerated procedure well. No acute complications.
[2024-05-22 14:10] VITALS: BP 112/75; PULSE 75; RESP 18
== END 2024-05-22 14:26 | disposition home or self-care (01) ==
LOC: ORPAIN 11:59
PROVIDERS: ATTEND Hospitalist
DX: M54.81 Occipital neuralgia (principal); Z88.0 Allergy status to penicillin; Z88.5 Allergy status to narcotic agent; Z79.82 Long term (current) use of aspirin
CPT/HCPCS: 64405

== ENCOUNTER → 2024-09-07 | Outpatient (CLI) | payer OTHER ==
[2024-09-07 15:16] LABS: Basophils # (A) 0.04 X 10*3/uL (0.00-0.10); Basophils % (A) 0.5 %; Eosinophils # (A) 0.12 X 10*3/uL (0.04-0.35); Eosinophils % (A) 1.6 %; HCT 40.8 % (37.2-46.3); Lymphocytes # (A) 2.15 X 10*3/uL (0.90-5.00); Lymphocytes % (A) 29.4 %; MCH 28.9 pg (27.0-32.0); MCHC 31.9 g/dL (32.0-37.0); MCV 90.7 FL (80.0-97.0); Mean Platelet Volume 10.1 FL (9.5-12.2); Monocytes % (A) 9.6 %; NRBC Per 100 WBC 0 X 10*3/uL (0.00-0.01); Neutrophils # (A) 4.28 X 10*3/uL (1.80-7.70); Neutrophils % (A) 58.5 %; Platelet Count 254 X 10*3/uL (140-440); RDW 13.9 % (11.5-14.5); WBC 7.32 X 10*3/uL (4.50-10.00)
[2024-09-07 15:37] LABS: ALT 20 U/L (8-44); AST 20 U/L (13-35); Albumin 4.1 g/dL (3.8-4.9); Albumin/Globulin Ratio 2.16 Ratio (1.60-3.17); Alkaline Phosphatase 62 U/L (41-126); BUN/Creat Ratio 19.88 Ratio (12.00-20.00); Blood Urea Nitrogen 15.9 mg/dL (9.0-27.0); Calcium 9.1 mg/dL (8.7-10.3); Carbon Dioxide 25.9 mmol/L (21.6-31.8); Chloride 105 mmol/L (96-109); Chol/HDL Ratio 3.48 Ratio; Globulin 1.9 g/dL (1.6-3.3); Glucose 83 mg/dL (70-110); Potassium 4.3 mmol/L (3.5-5.5); Sodium 141 mmol/L (135-145); Total Bilirubin 0.4 mg/dL (0.3-1.2)
== END | disposition home or self-care (01) ==
LOC: LABWHC1 11:21
PROVIDERS: ATTEND Family Medicine
DX: E78.2 Mixed hyperlipidemia (principal); I10 Essential (primary) hypertension; J44.9 Chronic obstructive pulmonary disease, unspecified; G43.819 Other migraine, intractable, without status migrainosus; K21.9 Gastro-esophageal reflux disease without esophagitis
CPT/HCPCS: 36415; 80053; 80061; 85025

== ENCOUNTER 2025-01-16 12:51 | Observation (INO) | payer MEDICARE, OTHER ==
[2025-01-16 13:51] LABS: Basophils % (A) 0 %; Eosinophils # (A) 0.2 k/uL (0-0.7); Eosinophils % (A) 2 %; HCT 43.9 % (34.0-46.0); HGB 14.5 gm/dL (11.4-16.0); Lymphocytes # (A) 1.4 k/uL (1.0-4.8); Lymphocytes % (A) 14 %; MCH 29.2 pg (25.0-35.0); MCHC 32.9 g/dL (31.0-37.0); MCV 88.8 fL (80.0-100.0); Mean Platelet Volume 7.2; Monocytes # (A) 0.5 k/uL (0-1.0); Monocytes % (A) 5 %; Neutrophils # (A) 7.5 k/uL (1.3-7.7); Neutrophils % (A) 77 %; Platelet Count 212 k/uL (150-450); RBC 4.95 m/uL (3.80-5.40); RDW 14.6 % (11.5-15.5); WBC 9.7 k/uL (3.8-10.6)
--- NOTE | 2025-01-16 14:03 | XR ---
EXAMINATION TYPE: XR chest 2V DATE OF EXAM: 01/16/2025 1:59 PM COMPARISON: Chest radiographs from 05/05/2024 CLINICAL INDICATION: Female, 59 years old with history of Chest Pain; TECHNIQUE: XR chest 2V Frontal and lateral views of the chest. FINDINGS: Lungs/Pleura: There is flattening of the diaphragm with increased lucency of the lungs. No evidence o f pneumothorax, pleural effusion or focal consolidation. Pulmonary vascularity: Unremarkable. Heart/mediastinum: Cardiomediastinal silhouette is unremarkable. Musculoskeletal: No acute osseous pathology. IMPRESSION: 1. No acute cardiopulmonary disease process. 2. COPD changes. [facility], , 01/16/2025 2:01 PM
[2025-01-16 14:05] LABS: INR 0.9 (<1.2); Partial Thromboplastin Time 24.2 sec (22.0-30.0); Prothrombin Time 10.6 sec (10.0-12.5)
[2025-01-16 14:23] LABS: African American GFR (CKD) >90 (>60 ml/min/1.73 sqM); Albumin 4.4 g/dL (3.5-5.0); Anion Gap 6 mmol/L; Carbon Dioxide 28 mmol/L (22-30); Chloride 99 mmol/L (98-107); Glucose 98 mg/dL (74-99); Non-African American GFR(CKD) >90 (>60 ml/min/1.73 sqM); Potassium 4.3 mmol/L (3.5-5.1); Sodium 133 mmol/L (137-145); Total Protein 6.8 g/dL (6.3-8.2)
[2025-01-16 14:24] LABS: ALT 25 U/L (4-34); AST 27 U/L (14-36); Alkaline Phosphatase 69 U/L (38-126); Blood Urea Nitrogen 17 mg/dL (7-17); Calcium 9.7 mg/dL (8.4-10.2); Magnesium 1.9 mg/dL (1.6-2.3)
--- NOTE | 2025-01-16 14:34 | CT ---
EXAMINATION TYPE: CT brain wo con CT DLP: 1552.6 mGycm, Automated exposure control for dose reduction was used. DATE OF EXAM: 01/16/2025 2:26 PM COMPARISON: MRI brain 02/22/2024, CT brain 02/21/2024, 12/26/2023, CT head and neck 12/26/2023 CLINICAL INDICATION:Female, 59 years old with history of dizzy/vertigo, Headache, dizziness, hyperten ariel TECHNIQUE: Brain: Multiple axial CT images of the brain were obtained without IV contrast. . Coronal and sagitta l reformats reviewed. FINDINGS: Brain: Extra-axial spaces: No abnormal extra-axial fluid collections. Ventricular system: Within normal limits Cerebral parenchyma: No acute intraparenchymal hemorrhage or mass effect. The lopez-white junction is well differentiated. Cerebellum: Unremarkable. Mass effect: No evidence of midline shift. Intracranial vasculature: Atherosclerotic calcifications of the intracranial vessels. Soft tissues: Normal. Calvarium/osseous structures: No depressed skull fracture. Nasal septal deviation to the left. Paranasal sinuses and mastoid air cells: Clear Visualized orbits: Orbital contents are intact. IMPRESSION: No acute intracranial process. [facility], , 01/16/2025 2:31 PM
[2025-01-16] MEDS: SODIUM CHLORIDE 0.9% 1,000 ML IV STA (14:42)
[2025-01-16] MEDS: LORazepam 2 MG/ML INJ IV STA (14:43)
--- NOTE | 2025-01-16 14:48 | CT ---
EXAMINATION TYPE: CT angio head neck CT DLP: 1552.6 mGycm, Automated exposure control for dose reduction was used. DATE OF EXAM: 01/16/2025 2:37 PM COMPARISON: CTA head and Neck 12/26/2023. CT chest 04/16/2024 CLINICAL INDICATION:Female, 59 years old with history of dizzy/vertigo; PHH, Headache, dizziness, hyp ertension TECHNIQUE: Axially acquired helical CT angiogram of the head and neck was obtained with contrast util izing 75 cc of Isovue-370 administered intravenously. Axial images are supplemented with 3D reconstru ctions which were post-processed at an independent workstation. NASCET criteria used. FINDINGS: CTA HEAD: No evidence of acute intracranial hemorrhage, mass effect, or midline shift. The ventricles, sulci, a nd cisterns are unremarkable. The visualized portions of the internal carotid arteries, middle cerebral arteries, anterior cerebral arteries, and posterior cerebral arteries are patent. The basilar and vertebral arteries are patent. CTA NECK: Right Carotid System: The common carotid artery and external carotid artery are patent. The carotid bifurcation demonstrate s no evidence of hemodynamically significant stenosis. The remaining portions of the internal carotid artery demonstrate normal size without significant narrowing. Left Carotid System: The common carotid artery and external carotid artery are patent. The carotid bifurcation demonstrate s no evidence of hemodynamically significant stenosis. The remaining portions of the internal carotid artery demonstrate normal size without significant narrowing. Vertebral arteries are patent without evidence hemodynamically significant stenosis. There is a three-vessel aortic arch. The origins of the great vessels are patent. No evidence of hemo dynamically significant stenosis. Moderate centrilobular emphysematous changes with stable groundglass nodular opacities within the pos terior right upper lobe measuring up to 6 mm. IMPRESSION: 1. No evidence of dissection of the cervical internal carotid arteries or vertebral arteries or any e vidence of significant stenosis at the carotid bifurcations. 2. No evidence of high-grade stenosis or intracranial aneurysm. 3. Moderate emphysematous changes with stable groundglass nodular opacities within the posterior righ t upper lobe from prior CT chest. Possibly represents an infectious/inflammatory process. Consider fo llow-up CT chest in 6-12 months. [facility], , 01/16/2025 2:46 PM
[2025-01-16 15:12] LABS: Appearance,Urine Clear (Clear); Bilirubin,Urine Negative (Negative); Blood,Urine Negative (Negative); Color,Urine Colorless; Glucose,Urine (UA) Negative (Negative); Ketones,Urine Negative (Negative); Leukocyte Esterase,Urine Negative (Negative); Nitrite,Urine Negative (Negative); Protein,Urine Negative (Negative); Specific Gravity,Urine 1.024 (1.001-1.035); Urobilinogen,Urine <2.0 mg/dL (<2.0)
[2025-01-16 15:42] LABS: Influenza A Not Detected (Not Detectd); Influenza B Not Detected (Not Detectd); RSV Not Detected (Not Detectd)
[2025-01-16] MEDS ORDERED: PNEUMONIA PROTOCOL UTILIZED 1 EACH MISC PO PRN (15:44)
--- NOTE | 2025-01-16 15:44 | ED ---
General Adult HPI - General Chief complaint: Dizziness Stated complaint: weakness Time Seen by Provider: 01/16/25 13:21 Source: patient, EMS, RN notes reviewed, old records reviewed Mode of arrival: EMS - History of Present Illness Initial comments: Patient is a 59-year-old female presents emergency department complaining of nonspecific symptoms. States she is having lightheadedness, dizziness that has been ongoing for a few days and has experienced this previously. He had a nerve block on CT a few weeks ago and presents today for general weakness, hypertension, lightheadedness, dizziness. States she has a hard time describing the dizziness. States she feels unsteady. An episode of blurred vision. When she arrived, she also was having some chest tightness. States she felt somewhat anxious as well. Has a history of COPD, hypertension, hyperlipidemia. Has no other acute complaints at this time. Denies any weakness or numbness. Presents for further evaluation. Does endorse a mild productive cough. - Related Data Home Medications Medication Instructions Recorded Confirmed Latanoprost [Xalatan 0.005%] 1 drop BOTH EYES HS 08/30/16 01/16/25 Albuterol Sulfate [Ventolin HFA] 2 puff INHALATION RT-Q4H PRN 10/04/22 01/16/25 Aspirin EC [Ecotrin Low Dose] 81 mg PO DAILY 10/04/22 01/16/25 Fluticasone/Umeclidin/Vilanter 1 puff INHALATION RT-DAILY 10/04/22 01/16/25 [Trelegy Ellipta 100-62.5-25] Rosuvastatin Calcium [Crestor] 40 mg PO HS 11/30/23 01/16/25 Nitroglycerin Sl Tabs [Nitrostat] 0.4 mg SL Q5M PRN 12/25/23 01/16/25 carvediloL [Coreg] 3.125 mg PO BID 01/31/24 01/16/25 Azithromycin [Zithromax] 250 mg PO MOWEFR 05/05/24 01/16/25 Baclofen 10 mg PO HS 01/16/25 01/16/25 Citalopram Hydrobromide [CeleXA] 20 mg PO DAILY 01/16/25 01/16/25 Ezetimibe [Zetia] 10 mg PO DAILY 01/16/25 01/16/25 Isosorbide Mononitrate ER [Imdur] 30 mg PO BID 01/16/25 01/16/25 Naproxen [EC-Naprosyn] 500 mg PO BID 01/16/25 01/16/25 Pregabalin [Lyrica] 75 mg PO DIRECTED 01/16/25 01/16/25 Ubrogepant [Ubrelvy] 100 mg PO DAILY PRN 01/16/25 01/16/25 Previous Rx's Medication Instructions Recorded Losartan [Cozaar] 25 mg PO DAILY 30 Days #30 tab 05/20/24 Allergies Allergy/AdvReac Type Severity Reaction Status Date / Time codeine Allergy Anaphylaxis Verified 01/16/25 16:30 hydrocodone Allergy Anaphylaxis Verified 01/16/25 16:30 Penicillins AdvReac Yeast Verified 01/16/25 16:30 infections Review of Systems ROS Statement: Those systems with pertinent positive or pertinent negative responses have been documented in the HPI. Review of Systems: CONST: Denies fever EYES: Denies blurry vision ENT: Denies nasal congestion C/V: Denies Chest pain RESP: Denies shortness of breath GI: Denies abdominal pain : Denies dysuria SKIN: Denies rash. MSK: Denies joint pain. NEURO: Endorses dizziness, lightheadedness ROS Other: All systems not noted in ROS Statement are negative. Past Medical History Past Medical History: Chest Pain / Angina, COPD, Eye Disorder, GERD/Reflux, Hyp erlipidemia, Hypertension, Osteoarthritis (OA) Additional Past Medical History / Comment(s): glaucoma History of Any Multi-Drug Resistant Organisms: None Reported Past Surgical History: Orthopedic Surgery, Tubal Ligation Additional Past Surgical History / Comment(s): bunionectomy-lt. LT KNEE SX. C OLONOSCOPY. Carpal tunnel surgery on right hand, laser eye surgery for glaucoma Past Anesthesia/Blood Transfusion Reactions: Postoperative Nausea & Vomiting (PONV) Past Psychological History: Anxiety Smoking Status: Current every day smoker Past Alcohol Use History: None Reported, Occasional Past Drug Use History: None Reported - Past Family History Mother Family Medical History: COPD, CVA/TIA Additional Family Medical History / Comment(s): colon CA Father History Unknown: Yes Family Medical History: Cancer, Myocardial Infarction (ND) Additional Family Medical History / Comment(s): lung CA, empysema General Exam - General Exam Comments Initial Comments: General: Appears in no acute distress. HEAD: Normal with no signs of head trauma. EYES: PERRLA, EOMI, conjunctiva normal, no discharge. Pupils are 3 mm and equal bilaterally. No nystagmus. ENT: Hearing grossly intact, normal oropharynx. RESPIRATORY: Clear breath sounds bilaterally. No wheezes, rales, or rhonchi. C/V: Regular rate and rhythm. S1 and S2 auscultated, no edema, peripheral pulses 2+ and intact throughout ABD: Abd is soft, nontender, nondistended EXT: Normal range of motion, no obvious deformity SKIN: No rashes or lesions observed on exposed skin. NEURO: Alert and oriented x 4. GCS of 15. NIH of 0. Cerebellar function appears intact as evident by normal finger-nose testing, [id number] testing, and absence of dysdiadochokinesia. Course Vital Signs 01/16/25 01/16/25 12:57 17:21 Temperature 98.7 F 98.6 F Pulse Rate 77 67 Respiratory 16 16 Rate Blood Pressure 117/81 94/65 O2 Sat by Pulse 96 94 L Oximetry Medical Decision Making - Medical Decision Making Was pt. sent in by a medical professional or institution (, PA, LEAD TECHNICAL ARCHITECT, urgent care, hospital, or assisted...) When possible be specific @ -No Did you speak to anyone other than the patient for history (EMS, parent, family, police, friend...)? What history was obtained from this source @ -No Did you review nursing and triage notes (agree or disagree)? Why? @ -I reviewed and agree with nursing and triage notes Were old charts reviewed (outside hosp., previous admission, EMS record, old EKG, old radiological studies, urgent care reports/EKG's, assisted records)? Report findings @ -No old charts were reviewed Differential Diagnosis (chest pain, altered mental status, abdominal pain women, abdominal pain men, vaginal bleeding, weakness, fever, dyspnea, syncope, headache, dizziness, GI bleed, back pain, seizure, CVA, palpatations, mental health, musculoskeletal)? @ -Differential Dizziness: Benign paroxysmal positional Vertigo, Meniere's disease, otitis media, acoustic neuroma, vertebrobasilar insufficiency, cerebellar stroke, encephalitis, hypovolemic, arrhythmia, coronary artery syndrome, anemia, this is not meant to be an all-inclusive list EKG interpreted by me (3pts min.). @ -As above X-rays interpreted by me (1pt min.). @ -Chest x-ray reveals no obvious acute cardiopulmonary process. CT interpreted by me (1pt min.). @ -Brain, C-spine shows no obvious acute intracranial process. Possible groundglass opacities in the right upper lobe which does fit for possible pneumonia considering the patient's symptoms. U/S interpreted by me (1pt. min.). @ -None done What testing was considered but not performed or refused? (CT, X-rays, U/S, labs)? Why? @ -None What meds were considered but not given or refused? Why? @ -None Did you discuss the management of the patient with other professionals (juan palma i.e. , PA, LEAD TECHNICAL ARCHITECT, lab, RT, psych nurse, psychosocial rehabilitation counselor, clinical data research, teacher, air defense artillery officer, keycase assembler)? Give summary @ -Discussed with admitting provider, Dr. Samson who accepted the admission. Was smoking cessation discussed for >3mins.? @ -No Was critical care preformed (if so, how long)? @ -No Were there social determinants of health that impacted care today? How? (Homelessness, low income, unemployed, alcoholism, drug addiction, transportation, low edu. Level, literacy, decrease access to med. care, care home, rehab)? @ -No Was there de-escalation of care discussed even if they declined (Discuss DNR or withdrawal of care, Hospice)? DNR status @ -No What co-morbidities impacted this encounter? (DM, HTN, Smoking, COPD, CAD, Cancer, CVA, ARF, Chemo, Hep., AIDS, mental health diagnosis, sleep apnea, morbid obesity)? @ -None Was patient admitted / discharged? Hospital course, mention meds given and route, prescriptions, significant lab abnormalities, going to OR and other pertinent info. @ -Patient presents with what appears to be anxiety but also lightheadedness and dizziness. Vital signs within acceptable limits. I discussed with the patient that we will obtain CT brain to rule out possible basilar stroke considering her lightheadedness dizziness. Does not seem obviously vertiginous but patient states he had his different than baseline and states she would like imaging. Believe this is reasonable. Will obtain general workup otherwise. EKG shows no signs of acute ischemia. Chest x-ray unremarkable. CT imaging remarkable for possible right upper lobe infection. Possible pneumonia. Mended the labs unremarkable including undetectable troponin. Patient was given Ativan which did improve her anxiety symptoms. I discussed results with patient. She will be empirically started on antibiotics for pneumonia. Patient will be admitted with neurology evaluation for the dizziness and lightheadedness. She was in agreement this plan. I spoke with the admitting provider, Dr. Samson who accepted the admission. Undiagnosed new problem with uncertain prognosis? @ -No Drug Therapy requiring intensive monitoring for toxicity (Heparin, Nitro, Insulin, Cardizem)? @ -No Were any procedures done? @ -No Diagnosis/symptom? @ -Pneumonia, weakness, dizziness Acute, or Chronic, or Acute on Chronic? @ -Acute Uncomplicated (without systemic symptoms) or Complicated (systemic symptoms)? @ -Complicated Side effects of treatment? @ -No Exacerbation, Progression, or Severe Exacerbation? @ -No Poses a threat to life or bodily function? How? (Chest pain, [place], ND, pneumonia, PE, COPD, DKA, ARF, appy, cholecystitis, CVA, Diverticulitis, Homicidal, Suicidal, threat to staff... and all critical care pts) @ -Potentially, yes - Lab Data Result diagrams: 01/16/25 13:47 01/16/25 13:47 Lab Results 01/16/25 01/16/25 01/16/25 Range/Units 13:47 13:47 13:47 WBC 9.7 (3.8-10.6) k/uL RBC 4.95 (3.80-5.40) m/uL Hgb 14.5 (11.4-16.0) gm/dL Hct 43.9 (34.0-46.0) % MCV 88.8 (80.0-100.0) fL MCH 29.2 (25.0-35.0) pg MCHC 32.9 (31.0-37.0) g/dL RDW 14.6 (11.5-15.5) % Plt Count 212 (150-450) k/uL MPV 7.2 Neutrophils % 77 % Lymphocytes % 14 % Monocytes % 5 % Eosinophils % 2 % Basophils % 0 % Neutrophils # 7.5 (1.3-7.7) k/uL Lymphocytes # 1.4 (1.0-4.8) k/uL Monocytes # 0.5 (0-1.0) k/uL Eosinophils # 0.2 (0-0.7) k/uL Basophils # 0.0 (0-0.2) k/uL PT 10.6 (10.0-12.5) sec INR 0.9 (<1.2) APTT 24.2 (22.0-30.0) sec Sodium 133 L (137-145) mmol/L Potassium 4.3 (3.5-5.1) mmol/L Chloride 99 (98-107) mmol/L Carbon Dioxide 28 (22-30) mmol/L Anion Gap 6 mmol/L BUN 17 (7-17) mg/dL Creatinine 0.65 (0.52-1.04) mg/dL Est GFR (CKD-EPI)AfAm >90 (>60 ml/min/1.73 sqM) Est GFR (CKD-EPI)NonAf >90 (>60 ml/min/1.73 sqM) Glucose 98 (74-99) mg/dL Calcium 9.7 (8.4-10.2) mg/dL Magnesium 1.9 (1.6-2.3) mg/dL Total Bilirubin 1.0 (0.2-1.3) mg/dL AST 27 (14-36) U/L ALT 25 (4-34) U/L Alkaline Phosphatase 69 (38-126) U/L Troponin I (0.000-0.034) ng/mL Total Protein 6.8 (6.3-8.2) g/dL Albumin 4.4 (3.5-5.0) g/dL Urine Color Urine Appearance (Clear) Urine pH (5.0-8.0) Ur Specific [place] (1.001-1.035) Urine Protein (Negative) Urine Glucose (UA) (Negative) Urine Ketones (Negative) Urine Blood (Negative) Urine Nitrite (Negative) Urine Bilirubin (Negative) Urine Urobilinogen (<2.0) mg/dL Ur Leukocyte Esterase (Negative) Influenza Type A (PCR) (Not Detectd) Influenza Type B (PCR) (Not Detectd) RSV (PCR) (Not Detectd) SARS-CoV-2 (PCR) (Not Detectd) 01/16/25 01/16/25 01/16/25 Range/Units 13:47 14:45 14:53 WBC (3.8-10.6) k/uL RBC (3.80-5.40) m/uL Hgb (11.4-16.0) gm/dL Hct (34.0-46.0) % MCV (80.0-100.0) fL MCH (25.0-35.0) pg MCHC (31.0-37.0) g/dL RDW (11.5-15.5) % Plt Count (150-450) k/uL MPV Neutrophils % % Lymphocytes % % Monocytes % % Eosinophils % % Basophils % % Neutrophils # (1.3-7.7) k/uL Lymphocytes # (1.0-4.8) k/uL Monocytes # (0-1.0) k/uL Eosinophils # (0-0.7) k/uL Basophils # (0-0.2) k/uL PT (10.0-12.5) sec INR (<1.2) APTT (22.0-30.0) sec Sodium (137-145) mmol/L Potassium (3.5-5.1) mmol/L Chloride (98-107) mmol/L Carbon Dioxide (22-30) mmol/L Anion Gap mmol/L BUN (7-17) mg/dL Creatinine (0.52-1.04) mg/dL Est GFR (CKD-EPI)AfAm (>60 ml/min/1.73 sqM) Est GFR (CKD-EPI)NonAf (>60 ml/min/1.73 sqM) Glucose (74-99) mg/dL Calcium (8.4-10.2) mg/dL Magnesium (1.6-2.3) mg/dL Total Bilirubin (0.2-1.3) mg/dL AST (14-36) U/L ALT (4-34) U/L Alkaline Phosphatase (38-126) U/L Troponin I <0.012 (0.000-0.034) ng/mL Total Protein (6.3-8.2) g/dL Albumin (3.5-5.0) g/dL Urine Color Colorless Urine Appearance Clear (Clear) Urine pH 6.0 (5.0-8.0) Ur Specific [place] 1.024 (1.001-1.035) Urine Protein Negative (Negative) Urine Glucose (UA) Negative (Negative) Urine Ketones Negative (Negative) Urine Blood Negative (Negative) Urine Nitrite Negative (Negative) Urine Bilirubin Negative (Negative) Urine Urobilinogen <2.0 (<2.0) mg/dL Ur Leukocyte Esterase Negative (Negative) Influenza Type A (PCR) Not Detected (Not Detectd) Influenza Type B (PCR) Not Detected (Not Detectd) RSV (PCR) Not Detected (Not Detectd) SARS-CoV-2 (PCR) Not Detected (Not Detectd) - EKG Data -: EKG Interpreted by Me EKG Comments: 12-lead Electrocardiogram Interpretation Note EKG was reviewed and interpreted by myself. 12-lead ECG performed at 1347 is interpreted by me as revealing normal sinus rhythm at a rate of 68 beats per minute. [place] is normal. [place] interval is 122 ms, QRS duration is 77 ms, QTc is 414 ms.. There were no ST or T wave abnormalities to suggest myocardial ischemia or injury. R wave progression across the precordium was satisfactory. By my interpretation this EKG is non-diagnostic for acute ischemia. Disposition Clinical Impression: Weakness, Pneumonia, Dizzy Disposition: ADMITTED IP TO THIS HOSP Condition: Stable Time of Disposition: 15:43
[2025-01-16] MEDS ORDERED: ACETAMINOPHEN TAB 325 MG TAB PO PRN (15:45)
[2025-01-16] MEDS ORDERED: NALOXONE 0.4 MG/ML 1 ML VIAL IV PRN (15:45)
[2025-01-16] MEDS ORDERED: hydrALAZINE HCL 20 MG/ML 1 ML VIAL IVP PRN (15:47)
[2025-01-16] MEDS ORDERED: ALPRAZolam 0.25 MG TAB PO PRN (15:48)
[2025-01-16] MEDS ORDERED: TEMAZEPAM 15 MG CAP PO PRN (15:48)
[2025-01-16] MEDS: SODIUM CHLORIDE 0.9% 1,000 ML IV SCH (16:02)
[2025-01-16] MEDS: AZITHROMYCIN 500 MG in SODIUM CHLORIDE 0.9% 250 ML IVPB STA (16:07)
[2025-01-16] MEDS: ASPIRIN 325 MG TAB PO STA (16:08)
[2025-01-16] MEDS: amLODIPine 10 MG TAB PO SCH (16:09)
[2025-01-16] MEDS: NICOTINE 14MG/24HR PATCH TRANSDERM SCH (16:18)
--- NOTE | 2025-01-16 21:34 | HP ---
HISTORY AND PHYSICAL CHIEF COMPLAINT: Lightheadedness and hypertension. HISTORY OF PRESENT ILLNESS: This 59-year-old woman with a past medical history of multiple medical problems including COPD, hypertension, being followed by Dr. Byers in the outpatient, not feeling well for the past couple of days. The patient blood pressure was elevated up to 180/100 and the patient also had some lightheadedness and the patient came to Dr. Byers's office and the patient was directed to [facility] for further evaluation and treatment. The initial evaluation showed mild hyponatremia and some hypertension. Otherwise, there is no history of fever, rigors, or chills at this time. PAST MEDICAL HISTORY: COPD, hypertension, hyperlipidemia, and DJD. Rest of history and rest of the chart is also reviewed. HOME MEDICATIONS: Reviewed include Coreg, rest of medications reviewed, not confirmed yet. ALLERGIES: Include codeine. FAMILY HISTORY: History of COPD and CVA. SOCIAL HISTORY: Current smoking. Occasional alcohol intake. REVIEW OF SYSTEMS: A 14-point review of systems negative except as mentioned earlier. PHYSICAL EXAMINATION: VITAL SIGNS: Pulse is 77, blood pressure 117/81, and respirations 16. HEENT: Conjunctivae are normal. NECK: No JVD. CARDIOVASCULAR: S1, S2. RESPIRATIONS: Breath sounds diminished at the bases. No rhonchi. No crackles. ABDOMEN: Soft and nontender. LEGS: No edema. JOINTS: No active deforming arthropathy. NERVOUS SYSTEM: Nonfocal. No neck stiffness. LABORATORY DATA: CBC within normal limits. Sodium 133. ASSESSMENT: 1. Accelerated hypertension. 2. Lightheadedness for evaluation. 3. History of chest pain and angina. 4. Chronic obstructive pulmonary disease. 5. Gastroesophageal reflux disease. 6. Hypertension. 7. Hyperlipidemia. 8. History of anxiety. RECOMMENDATIONS AND DISCUSSION: This 59-year-old woman, who presented with multiple complex medical issues, we will monitor the patient closely. Continue the current medications, symptomatic treatment. Otherwise, at this time, the CT brain is negative. The patient does not have any focal neurologic deficit also. I would recommend to continue to control the blood pressure aggressively and I would also recommend Cardiology consultation also for completion of the workup. Empiric antibiotics have been initiated with suspicion of pneumonia/bronchitis. I would recommend viral titers also, which are negative. We will continue to monitor. Further recommendations to follow. MMODL / IJN: [id number] /
[2025-01-16] MEDS: carvediloL 3.125 MG TAB PO SCH (21:54)
[2025-01-16] MEDS: ISOSORBIDE MONONITRATE ER 30 MG TAB.ER.24H PO SCH (21:54)
[2025-01-16] MEDS: NAPROXEN 250 MG TAB PO PRN (22:06)
[2025-01-16] MEDS: BACLOFEN 10 MG TAB PO PRN (22:06)
[2025-01-16] MEDS: LATANOPROST 0.005% OPHTH DROPS 2.5 ML BTL BOTH EYES SCH (22:06)
[2025-01-16] MEDS: ATORVASTATIN 80 MG TAB PO SCH (22:06)
[2025-01-17 01:55] VITALS: TEMP 97.8
[2025-01-17 06:38] VITALS: BP 115/74; PULSE 62; RESP 18
[2025-01-17 08:31] LABS: Basophils # (A) 0.03 X 10*3/uL (0.00-0.10); Basophils % (A) 0.5 %; Eosinophils # (A) 0.22 X 10*3/uL (0.04-0.35); Eosinophils % (A) 3.4 %; HCT 40.7 % (37.2-46.3); HGB 13.2 g/dL (12.0-15.0); Lymphocytes # (A) 1.97 X 10*3/uL (0.90-5.00); Lymphocytes % (A) 30.2 %; MCH 29.7 pg (27.0-32.0); MCHC 32.4 g/dL (32.0-37.0); MCV 91.7 FL (80.0-97.0); Mean Platelet Volume 10.2 FL (9.5-12.2); Monocytes # (A) 0.62 X 10*3/uL (0.20-1.00); Monocytes % (A) 9.5 %; NRBC Per 100 WBC 0 X 10*3/uL (0.00-0.01); Neutrophils # (A) 3.67 X 10*3/uL (1.80-7.70); Neutrophils % (A) 56.1 %; Platelet Count 181 X 10*3/uL (140-440); RBC 4.44 X 10*6/uL (4.10-5.20); RDW 14.7 % (11.5-14.5); WBC 6.53 X 10*3/uL (4.50-10.00)
[2025-01-17 08:38] LABS: ALT 19 U/L (8-44); AST 20 U/L (13-35); Albumin 3.6 g/dL (3.8-4.9); Albumin/Globulin Ratio 1.89 Ratio (1.60-3.17); Alkaline Phosphatase 58 U/L (41-126); BUN/Creat Ratio 16.38 Ratio (12.00-20.00); Blood Urea Nitrogen 13.1 mg/dL (9.0-27.0); Calcium 8.7 mg/dL (8.7-10.3); Carbon Dioxide 24.8 mmol/L (21.6-31.8); Chloride 108 mmol/L (96-109); Globulin 1.9 g/dL (1.6-3.3); Glucose 90 mg/dL (70-110); Potassium 4.5 mmol/L (3.5-5.5); Sodium 140 mmol/L (135-145); Total Bilirubin 0.3 mg/dL (0.3-1.2); Total Protein 5.5 g/dL (6.2-8.2)
--- NOTE | 2025-01-17 08:43 | XR ---
EXAMINATION TYPE: XR chest 2V DATE OF EXAM: 01/17/2025 8:31 AM COMPARISON: Chest radiographs from 01/16/2025 CLINICAL INDICATION: Female, 59 years old with history of pneumonia; [facility] TECHNIQUE: XR chest 2V Frontal and lateral views of the chest. FINDINGS: Lungs/Pleura: There is no evidence of pleural effusion, focal consolidation, or pneumothorax. Pulmonary vascularity: Unremarkable. Heart/mediastinum: Cardiomediastinal silhouette is unremarkable. Musculoskeletal: No acute osseous pathology. IMPRESSION: 1. No acute cardiopulmonary disease process. 2. COPD changes. [facility], , 01/17/2025 8:41 AM
[2025-01-17] MEDS ORDERED: AZITHROMYCIN 500 MG TAB PO SCH (09:00)
[2025-01-17] MEDS: LOSARTAN 25 MG TAB PO SCH (09:20)
[2025-01-17] MEDS: ASPIRIN 81 MG PO SCH (09:20)
[2025-01-17] MEDS: EZETIMIBE 10 MG TAB PO SCH (09:20)
[2025-01-17] MEDS: CITALOPRAM HYDROBROMIDE 20 MG TAB PO SCH (09:21)
--- NOTE | 2025-01-17 15:33 | P.PN ---
Progress Note - Text Progress Note Date: 01/17/25 Came to see the patient for consultation. However patient has been discharged, left the floor.
[2025-01-17] MEDS ORDERED: CITALOPRAM HYDROBROMIDE 20 MG TAB PO SCH (21:00)
--- NOTE | 2025-01-20 14:17 | P.DS ---
Providers Date of admission: 01/16/25 15:52 Expected date of discharge: 01/17/25 Attending physician: Junior Samson Consults: 01/16/25 15:45 Consult Physician Routine Consulting Provider: Sadaf Henderson Consult Reason/Comments: dizzy/lightheadedness Do you want consulting provider notified?: Yes Primary care physician: Neal Byers Hospital Course: Final diagnosis Accelerated hypertension Lightheadedness for evaluation, likely secondary to uncontrolled blood pressure History of chest pain and angina Chronic obstructive pulmonary disease, not in exacerbation Gastroesophageal reflux disease Hypertension Obesity with a BMI 32.0 Hyperlipidemia History of anxiety GI prophylaxis DVT prophylaxis Full code Discharge disposition Patient is being discharged in a stable condition with guarded prognosis to home. Patient will follow-up with Dr. Byers in the outpatient setting upon discharge. Patient is to continue with current medications and outpatient follow-up with cardiology and neurology as scheduled. Total time taken is greater than 35 minutes. Hospital course This is a 59-year-old female who was recently admitted with dizziness and lightheadedness with uncontrolled hypertension and generally onset well feeling. Patient evaluated by neurology recommending outpatient follow-up with neurologist and tighter control of blood pressure. Patient will need outpatient follow-up with cardiology as well on discharge. Patient feeling slightly better and will be discharged home today. Please refer to other consultation notes for further HPI. Currently no reports of chest pain, shortness of breath, or palpitations. Patient is afebrile. No reports of nausea or vomiting and patient is tolerating diet. Patient will be discharged home today. Guarded prognosis Physical exam: Gen: This is a 59-year-old female who is awake, alert and oriented x 3, well- developed, obese HEENT: Head is atraumatic, normocephalic. Pupils equal, round. Sclerae is anicteric. NECK: Supple. No JVD. No lymphadenopathy. No thyromegaly. LUNGS: Diminished breath sounds bilaterally otherwise clear to auscultation. No wheezes or rhonchi. No intercostal retractions. HEART: S1, S2 are muffled ABDOMEN: Soft. Bowel sounds are present. No masses. No tenderness. EXTREMITIES: No pedal edema. No calf tenderness. NEUROLOGICAL: Patient is awake, alert and oriented x3. Cranial nerves 2 through 12 are grossly intact. Please refer to medication reconciliation sheet for a list of medications. The impression and plan of care has been dictated by Olga Gimenez Nurse Pra ctitioner as directed. Dr. Chapin MD I have performed a history and examination and MDM of this patient, discussed the same with the dictator, and agree with the dictator's assessment and plan as written ,documented as a scribe. Based on total visit time, I have performed more than 50% of the visit. Patient Condition at Discharge: Stable Plan - Discharge Summary New Discharge Prescriptions: New amLODIPine [Norvasc] 10 mg PO DAILY #30 tab Doxycycline [Vibramycin] 100 mg PO BID 4 Days #8 cap Nicotine 14Mg/24Hr Patch [Habitrol] 1 patch TRANSDERM DAILY #30 patch Acetaminophen Tab [Tylenol] 650 mg PO Q6HR PRN tab PRN Reason: Mild Pain Or Fever > 100.5 Continue Latanoprost [Xalatan 0.005%] 1 drop BOTH EYES HS Albuterol Sulfate [Ventolin HFA] 2 puff INHALATION RT-Q4H PRN PRN Reason: Shortness Of Breath Fluticasone/Umeclidin/Vilanter [Trelegy Ellipta 100-62.5-25] 1 puff INHALATION RT-DAILY Rosuvastatin Calcium [Crestor] 40 mg PO HS Nitroglycerin Sl Tabs [Nitrostat] 0.4 mg SL Q5M PRN PRN Reason: Chest Pain Losartan [Cozaar] 25 mg PO DAILY 30 Days #30 tab Ezetimibe [Zetia] 10 mg PO DAILY Naproxen [EC-Naprosyn] 500 mg PO BID Aspirin EC [Ecotrin Low Dose] 81 mg PO DAILY carvediloL [Coreg] 3.125 mg PO BID Pregabalin [Lyrica] 75 mg PO DIRECTED Isosorbide Mononitrate ER [Imdur] 30 mg PO BID Baclofen 10 mg PO HS Citalopram Hydrobromide [CeleXA] 20 mg PO DAILY Ubrogepant [Ubrelvy] 100 mg PO DAILY PRN PRN Reason: Migraine Headache Discontinued Azithromycin [Zithromax] 250 mg PO MOWEFR Discharge Medication List Latanoprost [Xalatan 0.005%] 1 drop BOTH EYES HS 08/30/16 [History] Albuterol Sulfate [Ventolin HFA] 2 puff INHALATION RT-Q4H PRN 10/04/22 [History] Aspirin EC [Ecotrin Low Dose] 81 mg PO DAILY 10/04/22 [History] Fluticasone/Umeclidin/Vilanter [Trelegy Ellipta 100-62.5-25] 1 puff INHALATION RT-DAILY 10/04/22 [History] Rosuvastatin Calcium [Crestor] 40 mg PO HS 11/30/23 [History] Nitroglycerin Sl Tabs [Nitrostat] 0.4 mg SL Q5M PRN 12/25/23 [History] carvediloL [Coreg] 3.125 mg PO BID 01/31/24 [History] Losartan [Cozaar] 25 mg PO DAILY 30 Days #30 tab 05/20/24 [Rx] Baclofen 10 mg PO HS 01/16/25 [History] Citalopram Hydrobromide [CeleXA] 20 mg PO DAILY 01/16/25 [History] Ezetimibe [Zetia] 10 mg PO DAILY 01/16/25 [History] Isosorbide Mononitrate ER [Imdur] 30 mg PO BID 01/16/25 [History] Naproxen [EC-Naprosyn] 500 mg PO BID 01/16/25 [History] Pregabalin [Lyrica] 75 mg PO DIRECTED 01/16/25 [History] Ubrogepant [Ubrelvy] 100 mg PO DAILY PRN 01/16/25 [History] Acetaminophen Tab [Tylenol] 650 mg PO Q6HR PRN tab 01/17/25 [Rx] Doxycycline [Vibramycin] 100 mg PO BID 4 Days #8 cap 01/17/25 [Rx] Nicotine 14Mg/24Hr Patch [Habitrol] 1 patch TRANSDERM DAILY #30 patch 01/17/25 [Rx] amLODIPine [Norvasc] 10 mg PO DAILY #30 tab 01/17/25 [Rx] Follow up Appointment(s)/Referral(s): Neal Byers [Primary Care Provider] - 1-2 days Patient Instructions/Handouts: Weakness (DC), Dizziness (ED) Activity/Diet/Wound Care/Special Instructions: Activity limited until follow-up Follow-up with primary care provider on discharge Continue taking medications as prescribed Discharge Disposition: HOME SELF-CARE
== END 2025-01-17 14:13 | disposition home or self-care (01) ==
LOC: EC 12:51 → 6NMEDSUR 15:52
PROVIDERS: ADMIT Hospitalist; ATTEND Hospitalist
DX: R42 Dizziness and giddiness (principal); I10 Essential (primary) hypertension; J44.9 Chronic obstructive pulmonary disease, unspecified; E78.5 Hyperlipidemia, unspecified; E87.1 Hypo-osmolality and hyponatremia; F17.200 Nicotine dependence, unspecified, uncomplicated; K21.9 Gastro-esophageal reflux disease without esophagitis; H40.9 Unspecified glaucoma; F41.9 Anxiety disorder, unspecified; M19.90 Unspecified osteoarthritis, unspecified site; E66.9 Obesity, unspecified; Z79.82 Long term (current) use of aspirin; Z79.899 Other long term (current) drug therapy; Z88.5 Allergy status to narcotic agent; Z88.1 Allergy status to other antibiotic agents; Z68.32 Body mass index [BMI] 32.0-32.9, adult
CPT/HCPCS: 96361; 96374; 96375; 99285; 36415; 93005; 80053 ×2; 83735; 84484; 85025 ×2; 85610; 85730; 81003; 87040; 87636; 71046 ×2; 70496; 70450; 70498; G0378 ×2; S4990; J2060; J0456; J0696 ×2; Q9967; 87449

== ENCOUNTER → 2025-04-17 | Outpatient (CLI) | payer MEDICARE, OTHER ==
--- NOTE | 2025-04-17 16:49 | CTL ---
EXAMINATION TYPE: CT Low Dose Lung DATE OF EXAM: 04/17/2025 11:25 AM COMPARISON: 04/16/2024. 08/30/2016. 12/23/2023. CLINICAL INDICATION: Female, 59 years old with history of Z12.2 LUNG CA SCR Z87.891 FORMER SMOKER; sm oked 1 pack a day for 25 yrs, no longer smoking, history of tobacco use. TECHNIQUE: Multiple axial non-contrast scans were obtained from approximately the lung apices through the upper abdomen. Coronal and sagittal reformatted images were obtained. Low dose technique was uti lized. MIP were created on a separate workstation and submitted for review. CT DLP: dlp 117.2 mGycm, Automated exposure control for dose reduction was used. CT Contrast: Contrast used: None Oral contrast used: None FINDINGS: Lack of intravenous contrast and low dose technique limits the evaluation of the vascular and soft ti ssue structures. LUNGS: No evidence of pulmonary fibrosis. No evidence of focal consolidation, pneumothorax or pleural effusion. Similar paraseptal and centrilobular emphysema changes. Nodules: RUL: groundglass nodules measuring 5 and 5 mm series 5 image 17 and 16 are present image 16 stable back to 2015 and image 17 stable back to 2023. RML: Right middle lobe 8 mm groundglass pulmonary nodule. Series 5 image 38. Stable to fractional ly larger previously 7-8 mm. RLL: Intrafissural lymph node series 5 image 36. Stable ELOY: None. LLL: * Intrafissural lymph node series 5 image 38. Stable * Groundglass nodule measuring 8 mm image 44 series 5 and 3 mm same image. Stable * Groundglass nodule measuring 6 mm image 41 stable AIRWAY: Patent and unremarkable. HEART: Size within normal limits. No significant coronary artery calcifications. MEDIASTINUM: No gross evidence of adenopathy. VASCULATURE: No aortic aneurysm. MUSCULOSKELETAL: No acute osseous abnormalities SOFT TISSUES/LYMPH NODES: Unremarkable. LOWER NECK: No significant findings. UPPER ABDOMEN: No significant findings. IMPRESSION: 1. No clinically significant pulmonary nodules. Stable pulmonary nodules. 2. Moderate emphysema. CT LUNG RAD AND CT CHEST RECOMMENDATION: Lung-Rad 2 Benign Appearance or Behavior: Continue annual sc reening with LDCT in 12 months. S Modifier (other clinically significant findings): None Recommend smoking cessation (if current smoker), or continuation of smoking cessation (if prior smoke r). Annual screening for lung cancer with low-dose computed tomography is recommended in adults ages 55 to 77 years who have a 30 pack-year smoking history and currently smoke or have quit within the pa st 15 years. Screening should be discontinued once a person has not smoked for 15 years or develops a health problem that substantially limits life expectancy or the ability or willingness to have curat crow lung surgery. Lung rads 2021 [email or web address] [email or web address], , 04/17/2025 4:46 PM
== END | disposition home or self-care (01) ==
LOC: RADCTMAIN 10:30
PROVIDERS: ATTEND Internal Medicine
DX: Z12.2 Encounter for screening for malignant neoplasm of respiratory organs (principal); R91.8 Other nonspecific abnormal finding of lung field; J43.2 Centrilobular emphysema; Z87.891 Personal history of nicotine dependence
CPT/HCPCS: 71271